=== PATIENT | female | born 1945 | race Caucasian/White ===

== ENCOUNTER 2018-03-19 17:52 | Inpatient (IN) | payer MEDICARE ==
[~2018-03-19] VITALS: Ht 157.5 cm; Wt 53.1 kg
[2018-03-19] MEDS ORDERED: MAG360OR24 PO (18:50)
[2018-03-19] MEDS ORDERED: DIVA250T6 PO (18:50)
[2018-03-19] MEDS ORDERED: QUET25TA5 PO (18:50)
[2018-03-19] MEDS ORDERED: BISA10SU2 RC (18:50)
[2018-03-19] MEDS ORDERED: ACET325T9 PO (18:50)
[2018-03-19] MEDS ORDERED: LORA0.5T PO (18:50)
[2018-03-19] MEDS ORDERED: ESCITALOPRAM OX10 MG PO (18:50)
[2018-03-19] MEDS ORDERED: TRAZ50TA15 PO (18:50)
[2018-03-19] MEDS ORDERED: ATOR40TA59 PO (18:50)
[2018-03-19] MEDS ORDERED: LISI10TA2 PO (18:50)
[2018-03-19] MEDS ORDERED: MELA3TAB2 PO (18:50)
--- NOTE | 2018-03-19 19:46 | NUR ---
Admission Note with Justification for Admission to [facility] Patient admitted to [facility] for protective oversight for emergency stabilization of acute psychiatric crisis. Pt admitted from: [place] Mode of arrival: EMS Accompanied By: EMS Precipitating behaviors that initiated intake and admission: altered mental status Description of failure of out patient attempts at stabilization in previous setting list behavior and medication trials: medication adjustments, sent to er Behaviors and assessment findings upon admission: calm cooperative, paranoid, disorganized, wandering Plan: Admit for protective oversight for adjustment and stabilization of medications, behaviors and mood. Intense treatment regimen including groups, medication adjustments, therapy, consistent regimen for ADL's, self care, and sleep hygiene. Daily monitoring by Inpatient staff, Psychiatry, and Medical Physician.
--- NOTE | 2018-03-19 21:00 | NUR ---
Behavior Intervention Response and Plan: BIRP Note: Behavior: Assumed Care of patient, patient located in Patient Room at shift change. Patient exhibited the following behavior Wandering, Restless, Disorganized. Brief assessment on rounds of vital signs, medication needs, lab studies, and pain. Treatment plan problems . Intervention: Patient assessed and the following interventions initiated safety checks 15 Minute Checks Cognitive Assessment , Head to toe Assessment , Medications. Response: After interactions and interventions patient responded in the following manner, Wandering , Restless ,Compliant. Continue to assess behaviors and condition will continue to monitor throughout the shift as needed. Patient educated on ADL's, and hand hygiene. 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 Continue to assess patient for changes in above assessment. Monitor for medication needs, pain, and safety concerns. Hourly rounding performed to ensure safe environment.
[2018-03-19] MEDS ORDERED: MAGNESIUM HYDROXIDE PO PRN (22:45)
[2018-03-19] MEDS ORDERED: ALUMINUM HYDROXIDE PO PRN (22:45)
[2018-03-19] MEDS ORDERED: SIMETHICONE PO PRN (22:45)
[2018-03-19] MEDS ORDERED: MAGNESIUM HYDROXIDE 2,400 MG/30 ML ORAL.SUSP. PO PRN (22:45)
[2018-03-19] MEDS ORDERED: MAG HYDROX/AL HYDROX/SIMETH 30 ML ORAL.SUSP PO PRN (22:45)
[2018-03-19] MEDS ORDERED: ACETAMINOPHEN 325 MG TABLET PO PRN ×2 (22:45)
[2018-03-19] MEDS ORDERED: METHYL SALICYLATE/MENTHOL TOPICAL OINTMENT 29GM TUBE. TP PRN (22:45)
[2018-03-19] MEDS ORDERED: BISACODYL 10 MG SUPP.RECT PR PRN (23:00)
[2018-03-19] MEDS ORDERED: LORazepam 0.5 MG TABLET PO PRN (23:15)
--- NOTE | 2018-03-19 23:15 | PDOC ---
Exam Note: Ye Note: Please also refer to the separate dictated note~for this date of service dictated separately.~Patient seen individually. Discussed the patient with Nursing staff reviewed the chart.~Reviewed interim history and current functioning. Reviewed vital signs,~Labs/ Radiology~and current medications noted below. Continue current treatment with the changes noted in the dictated addendum note Current Medications: Meds: Current Medications Acetaminophen (Tylenol) 650 mg PRN Q4HRS PRN PO pain rated 4-6 on scale; Start 03/19/18 at 22:45 Lisinopril (Prinivil) 10 mg DAILY PO ; Start 03/20/18 at 09:00 Atorvastatin Calcium (Lipitor) 40 mg QHS PO ; Start 03/20/18 at 21:00 Bisacodyl (Dulcolax Supp) 10 mg PRN QHS PRN [place] CONSTIPATION; Start 03/19/18 at 23:00 Non-Formulary Medication (Mag Hydrox/Al Hydrox/Simeth (Alum-Mag Hydroxide- Simeth Liq)) 240 ml PRN BID PRN PO GERD; Start 03/19/18 at 22:45; Status UNV Divalproex Sodium (Depakote) 250 mg BID PO ; Start 03/20/18 at 09:00 Citalopram Hydrobromide (CeleXA) 20 mg DAILY PO ; Start 03/20/18 at 09:00 Lorazepam (Ativan) 0.25 mg PRN BID PRN PO ANXIETY / AGITATION; Start 03/19/18 at 23:15 Melatonin 3 mg QHS PO ; Start 03/20/18 at 21:00 Quetiapine Fumarate (SEROquel) 37.5 mg TID PO ; Start 03/20/18 at 09:00 Trazodone HCl (Desyrel) 50 mg QHS PO ; Start 03/20/18 at 21:00 Acetaminophen (Tylenol) 650 mg PRN Q6HRS PRN PO PAIN / TEMP; Start 03/19/18 at 22:45 Multi-Ingredient Ointment (Analgesic [place]) 1 seth PRN QID PRN TP MUSCLE PAIN; Start 03/19/18 at 22:45 Al Hydroxide/Mg Hydroxide (Mylanta Plus Xs) 15 ml PRN AFTMEALHC PRN PO DYSPEPSIA; Start 03/19/18 at 22:45 Magnesium Hydroxide (Milk Of Magnesia) 2,400 mg PRN QHS PRN PO CONSTIPATION; Start 03/19/18 at 22:45 Active Scripts Active Reported Alum-Mag Hydroxide-Simeth Liq (Mag Hydrox/Al Hydrox/Simeth) 360 Ml Oral.susp 240 Ml PO PRN BID PRN Lorazepam 0.5 Mg Tablet 0.25 Mg PO PRN BID PRN Divalproex Sodium 250 Mg Tablet.dr 250 Mg PO BID Seroquel (Quetiapine Fumarate) 25 Mg Tablet 37.5 Mg PO TID Melatonin 3 Mg Tablet 3 Mg PO DAILY@0900 Trazodone Hcl 50 Mg Tablet 50 Mg PO QHS Lisinopril 10 Mg Tablet 10 Mg PO DAILY Atorvastatin Calcium 40 Mg Tablet 40 Mg PO DAILY Escitalopram Oxalate 10 Mg Tablet 10 Mg PO DAILY Bisacodyl 10 Mg Supp.rect 10 Mg RC PRN QHS PRN Tylenol (Acetaminophen) 325 Mg Tablet 650 Mg PO PRN Q4HRS PRN I have reviewed the current psychotropics carefully including drug interactions. Risk benefit ratio favors no change other than as noted in my dictated progress note. ELVA STROUD MD Mar 19, 2018 23:15
[2018-03-20 00:04] VITALS: BP 115/81
[2018-03-20] MEDS ORDERED: traZODone 50 MG TABLET. PO ONE (00:45)
[2018-03-20] MEDS ORDERED: MELATONIN 3 MG TABLET PO ONE (00:45)
[2018-03-20 05:45] VITALS: BP 124/67
[2018-03-20 08:30] LABS: BASO % 1 % (0-3); EOS # 0.3 x10^3/uL (0.0-0.7); EOS % 4 % (0-3); HEMOGLOBIN 12.6 g/dL (12.0-15.5); LYMPH % 31 % (24-48); MEAN CORPUSCULAR HEMOGLOBIN 29 pg (25-35); MEAN CORPUSCULAR HGB CONC 34 g/dL (31-37); MEAN CORPUSCULAR VOLUME 85 fL (79-100); MONO # 0.9 x10^3/uL (0.0-1.1); MONO % 14 % (0-9); NEUT # 3.2 x10^3uL (1.8-7.7); NEUT % 50 % (31-73); PLATELET COUNT 226 x10^3/uL (140-400); RED BLOOD COUNT 4.36 x10^6/uL (3.50-5.40); WHITE BLOOD COUNT 6.3 x10^3/uL (4.0-11.0)
[2018-03-20 08:51] LABS: ALBUMIN 3.7 g/dL (3.4-5.0); CALCIUM 9.4 mg/dL (8.5-10.1); CREATININE 0.8 mg/dL (0.6-1.0); GFR 70.5; POTASSIUM 4.4 mmol/L (3.5-5.1); TOTAL BILIRUBIN 0.7 mg/dL (0.2-1.0); TOTAL PROTEIN 7.4 g/dL (6.4-8.2)
[2018-03-20 08:52] LABS: VAL ACID 44 mcg/mL (50-100)
[2018-03-20] MEDS: QUEtiapine 25 MG TABLET. PO SCH ×3 (09:12→20:28)
[2018-03-20] MEDS: LISINOPRIL 10 MG TABLET PO SCH (09:12)
[2018-03-20] MEDS: CITALOPRAM 20 MG TABLET. PO SCH (09:12)
[2018-03-20] MEDS: DIVALPROEX SODIUM 250 MG TABLET.DR. PO SCH ×2 (09:12→20:26)
[2018-03-20 10:50] LABS: BACTERIA,URINE FEW /HPF (0-FEW); BILIRUBIN,URINE NEG (NEG); CLARITY,URINE HAZY; COLOR,URINE YELLOW; GLUCOSE,URINE NEG (NEG); NITRITE,URINE NEG (NEG); SQUAMOUS EPITHELIAL CELL,UR FEW /LPF; UROBILINOGEN,URINE 0.2 mg/dL (0.2 mg/dL)
--- NOTE | 2018-03-20 11:01 | NUR ---
Nursing Note: Pt compliant w/ medications and assess, alert to name, , not year. Anxious about what medications being given, asking many questions about side-effects of each to include BP med and how to prevent further decline in overall health. Pt wandering the unit carrying a paper bag, refused shower stating she is "not a pt here and doesn't need a shower" because she will not be staying.
[2018-03-20 11:56] LABS: THYROID STIM HORMONE (TSH) 4.626 uIU/mL (0.358-3.740)
[2018-03-20 13:14] LABS: THYROXINE 5.9 ug/dL (4.5-12.0)
--- NOTE | 2018-03-20 13:34 | NUR ---
Behavior Intervention Response and Plan: BIRP Note: Behavior: Assumed Care of patient, patient located in Patient Room at shift change. Patient exhibited the following behavior Anxious, Compliant, Restless. Brief assessment on rounds of vital signs, medication needs, lab studies, and pain. Treatment plan problems alteration in thought and fall risk. Intervention: Patient assessed and the following interventions initiated safety checks 15 Minute Checks Head to toe Assessment , Cognitive Assessment , Medications. Response: After interactions and interventions patient responded in the following manner, Restless , Compliant ,Anxious. Continue to assess behaviors and condition will continue to monitor throughout the shift as needed. Patient educated on ADL's, and hand hygiene. 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 Continue to assess patient for changes in above assessment. Monitor for medication needs, pain, and safety concerns. Hourly rounding performed to ensure safe environment.
--- NOTE | 2018-03-20 20:56 | PDOC ---
Exam Note: Ye Note: Please also refer to the separate dictated note~for this date of service dictated separately.~Patient seen individually. Discussed the patient with Nursing staff reviewed the chart.~Reviewed interim history and current functioning. Reviewed vital signs,~Labs/ Radiology~and current medications noted below. Continue current treatment with the changes noted in the dictated addendum note Assessment: Vital Signs: Vital Signs Date Time Temp Pulse Resp B/P (MAP) Pulse Ox O2 Delivery O2 Flow Rate FiO2 03/20/18 09:12 77 124/67 03/20/18 05:45 97.5 20 99 I&O Intake and Output 03/20/18 07:00 Intake Total 300 ml Balance 300 ml Intake Oral 300 ml Labs: Laboratory Tests Test 03/20/18 07:55 03/20/18 09:30 White Blood Count 6.3 x10^3/uL (4.0-11.0) Red Blood Count 4.36 x10^6/uL (3.50-5.40) Hemoglobin 12.6 g/dL (12.0-15.5) Hematocrit 37.0 % (36.0-47.0) Mean Corpuscular Volume 85 fL (79-100) Mean Corpuscular Hemoglobin 29 pg (25-35) Mean Corpuscular Hemoglobin Concent 34 g/dL (31-37) Red Cell Distribution Width 17.0 % (11.5-14.5) H Platelet Count 226 x10^3/uL (140-400) Neutrophils (%) (Auto) 50 % (31-73) Lymphocytes (%) (Auto) 31 % (24-48) Monocytes (%) (Auto) 14 % (0-9) H Eosinophils (%) (Auto) 4 % (0-3) H Basophils (%) (Auto) 1 % (0-3) Neutrophils # (Auto) 3.2 x10^3uL (1.8-7.7) Lymphocytes # (Auto) 2.0 x10^3/uL (1.0-4.8) Monocytes # (Auto) 0.9 x10^3/uL (0.0-1.1) Eosinophils # (Auto) 0.3 x10^3/uL (0.0-0.7) Basophils # (Auto) 0.0 x10^3/uL (0.0-0.2) Sodium Level 141 mmol/L (136-145) Potassium Level 4.4 mmol/L (3.5-5.1) Chloride Level 103 mmol/L (98-107) Carbon Dioxide Level 30 mmol/L (21-32) Anion Gap 8 (6-14) Blood Urea Nitrogen 27 mg/dL (7-20) H Creatinine 0.8 mg/dL (0.6-1.0) Estimated GFR (Cockcroft-Gault) 70.5 BUN/Creatinine Ratio 34 (6-20) H Glucose Level 91 mg/dL (70-99) Calcium Level 9.4 mg/dL (8.5-10.1) Iron Level 82 ug/dL (50-170) Total Iron Binding Capacity 372 ug/dL (250-450) Iron Saturation 22 % (15-34) Total Bilirubin 0.7 mg/dL (0.2-1.0) Aspartate Amino Transferase (AST) 19 U/L (15-37) Alanine Aminotransferase (ALT) 24 U/L (14-59) Alkaline Phosphatase 83 U/L (46-116) Total Protein 7.4 g/dL (6.4-8.2) Albumin 3.7 g/dL (3.4-5.0) Albumin/Globulin Ratio 1.0 (1.0-1.7) Triglycerides Level 136 mg/dL (0-150) Cholesterol Level 168 mg/dL (0-200) LDL Cholesterol, Calculated 85 mg/dL (0-100) VLDL Cholesterol, Calculated 27 mg/dL (0-40) Non-HDL Cholesterol Calculated 112 mg/dL (0-129) HDL Cholesterol 56 mg/dL (40-60) Cholesterol/HDL Ratio 3.0 Thyroid Stimulating Hormone (TSH) 4.626 uIU/mL (0.358-3.740) Thyroxine (T4) 5.9 ug/dL (4.5-12.0) Total Triiodothyronine (TT3) 111 ng/dL (71-180) Valproic Acid Level 44 mcg/mL (50-100) L Valproic Acid Last Dose Date 03/19/18 Valproic Acid Last Dose Time 0900 Treponema pallidum Antibody Neg (Nonreactive) Urine Collection Type Unknown Urine Color Yellow Urine Clarity Hazy Urine pH 6.0 Urine Specific [place] 1.020 Urine Protein Neg (NEG-TRACE) Urine Glucose (UA) Neg mg/dL (NEG) Urine Ketones (Stick) Neg mg/dL (NEG) Urine Blood Neg (NEG) Urine Nitrite Neg (NEG) Urine Bilirubin Neg (NEG) Urine Urobilinogen Dipstick 0.2 mg/dL (0.2 mg/dL) Urine Leukocyte Esterase Mod (NEG) Urine RBC 1-2 /HPF (0-2) Urine WBC 1-4 /HPF (0-4) Urine Squamous Epithelial Cells Few /LPF Urine Bacteria Few /HPF (0-FEW) Urine Mucus Slight /LPF Current Medications: Meds: Current Medications Acetaminophen (Tylenol) 650 mg PRN Q4HRS PRN PO pain rated 4-6 on scale; Start 03/19/18 at 22:45 Lisinopril (Prinivil) 10 mg DAILY PO Last administered on 03/20/18at 09:12; Start 03/20/18 at 09:00 Atorvastatin Calcium (Lipitor) 40 mg QHS PO Last administered on 03/20/18at 20:31 ; Start 03/20/18 at 21:00 Bisacodyl (Dulcolax Supp) 10 mg PRN QHS PRN [place] CONSTIPATION; Start 03/19/18 at 23:00 Non-Formulary Medication (Mag Hydrox/Al Hydrox/Simeth (Alum-Mag Hydroxide- Simeth Liq)) 240 ml PRN BID PRN PO GERD; Start 03/19/18 at 22:45; Status UNV Divalproex Sodium (Depakote) 250 mg BID PO Last administered on 03/20/18at 20:26 ; Start 03/20/18 at 09:00 Citalopram Hydrobromide (CeleXA) 20 mg DAILY PO Last administered on 03/20/18at 09:12; Start 03/20/18 at 09:00 Lorazepam (Ativan) 0.25 mg PRN BID PRN PO ANXIETY / AGITATION; Start 03/19/18 at 23:15 Melatonin 3 mg QHS PO Last administered on 03/20/18at 20:31; Start 03/20/18 at 21: 00 Quetiapine Fumarate (SEROquel) 37.5 mg TID PO Last administered on 03/20/18at 20: 28; Start 03/20/18 at 09:00 Trazodone HCl (Desyrel) 50 mg QHS PO Last administered on 03/20/18at 20:31; Start 03/20/18 at 21:00 Acetaminophen (Tylenol) 650 mg PRN Q6HRS PRN PO PAIN / TEMP; Start 03/19/18 at 22:45 Multi-Ingredient Ointment (Analgesic [place]) 1 seth PRN QID PRN TP MUSCLE PAIN; Start 03/19/18 at 22:45 Al Hydroxide/Mg Hydroxide (Mylanta Plus Xs) 15 ml PRN AFTMEALHC PRN PO DYSPEPSIA; Start 03/19/18 at 22:45 Magnesium Hydroxide (Milk Of Magnesia) 2,400 mg PRN QHS PRN PO CONSTIPATION; Start 03/19/18 at 22:45 Melatonin 3 mg 1X ONCE PO Last administered on 03/20/18at 00:57; Start 03/20/18 at 00:45; Stop 03/20/18 at 00:46; Status DC Trazodone HCl (Desyrel) 50 mg 1X ONCE PO Last administered on 03/20/18at 00:57; Start 03/20/18 at 00:45; Stop 03/20/18 at 00:46; Status DC Olanzapine (ZyPREXA ZYDIS) 2.5 mg PRN Q2HR PRN PO PSYCHOSIS; Start 03/20/18 at 03:45 Active Scripts Active Reported Alum-Mag Hydroxide-Simeth Liq (Mag Hydrox/Al Hydrox/Simeth) 360 Ml Oral.susp 240 Ml PO PRN BID PRN Lorazepam 0.5 Mg Tablet 0.25 Mg PO PRN BID PRN Divalproex Sodium 250 Mg Tablet.dr 250 Mg PO BID Seroquel (Quetiapine Fumarate) 25 Mg Tablet 37.5 Mg PO TID Melatonin 3 Mg Tablet 3 Mg PO DAILY@0900 Trazodone Hcl 50 Mg Tablet 50 Mg PO QHS Lisinopril 10 Mg Tablet 10 Mg PO DAILY Atorvastatin Calcium 40 Mg Tablet 40 Mg PO DAILY Escitalopram Oxalate 10 Mg Tablet 10 Mg PO DAILY Bisacodyl 10 Mg Supp.rect 10 Mg RC PRN QHS PRN Tylenol (Acetaminophen) 325 Mg Tablet 650 Mg PO PRN Q4HRS PRN I have reviewed the current psychotropics carefully including drug interactions. Risk benefit ratio favors no change other than as noted in my dictated progress note. Diagnosis: Problems: (1) Anxiety disorder (2) Dementia, vascular, with delusions (3) Dementia, vascular, with depression (4) Impulse control disorder (5) Dementia in Alzheimer's disease with delusions (6) Dementia in Alzheimer's disease with depression ELVA STROUD MD Mar 20, 2018 20:56
[2018-03-20] MEDS ORDERED: MELATONIN 3 MG TABLET PO SCH (21:00)
[2018-03-20] MEDS ORDERED: ATORVASTATIN CALCIUM 20 MG TABLET PO SCH (21:00)
[2018-03-20] MEDS ORDERED: traZODone 50 MG TABLET. PO SCH (21:00)
[2018-03-20] MEDS ORDERED: MIRTAZAPINE 7.5 MG TABLET. PO SCH (21:30)
[2018-03-20] MEDS ORDERED: traZODone 50 MG TABLET. PO PRN (21:30)
[2018-03-20 23:11] LABS: HEMOGLOBIN A1C 6.7 % (4.8-5.6)
--- NOTE | 2018-03-21 01:53 | NUR ---
Behavior Intervention Response and Plan: BIRP Note: Behavior: Assumed Care of patient, patient located in Day Room at shift change. Patient exhibited the following behavior Anxious, Compliant, Restless. Brief assessment on rounds of vital signs, medication needs, lab studies, and pain. Treatment plan problems alteration in thought and fall risk. Intervention: Patient assessed and the following interventions initiated safety checks 15 Minute Checks Head to toe Assessment , Cognitive Assessment , Medications. Response: After interactions and interventions patient responded in the following manner, Restless , Compliant ,Anxious. Continue to assess behaviors and condition will continue to monitor throughout the shift as needed. Patient educated on ADL's, and hand hygiene. Plan: Continue to monitor Master Treatment Plan for patient's progress toward short term goals of Decreased Agitation, Decreased Anxiety, senior living goals to return to previous living setting vs placement. Continue to assess patient for changes in above assessment. Monitor for medication needs, pain, and safety concerns. Hourly rounding performed to ensure safe environment. Pt put herself to bed and went to bed @930 pm stating she was very tired. Per report pt had not slept for at least 24 hours.
[2018-03-21 05:41] VITALS: BP 106/61
--- NOTE | 2018-03-21 09:51 | HP ---
ADMIT DATE: 03/20/2018 PSYCHIATRIC ADMISSION HISTORY/EVALUATION I met with the patient evening of 03/20/2018 for this evaluation, previously had discussed with nursing staff on a couple of occasions on 03/20/2018 and before that on 03/19/2018. The latter to evaluate information from the [facility] and [facility] Emergency Room to determine criteria for inpatient psychiatric hospitalization and arrange admission. IDENTIFYING DATA: The patient is a 72-year-old female referred to us from [facility] where she was hospitalized and medically stabilized after she was referred there from [facility]. While at [facility] the patient was getting increasingly agitated and on 03/19/2018 she threw a glass ways at the staff. She was increasingly confused, psychotic, manic, grandiose had not slept in 4 days before being taken to the ER and then referred to us for inpatient psychiatric stabilization. She does have a history of major neurocognitive disorder, Alzheimer, vascular with delusions. CHIEF COMPLAINT: "No. I am from [place]." HISTORY OF PRESENT ILLNESS: The patient has a history of dementia, Alzheimer's vascular type. Reportedly, she has been residing at [facility]. Recently getting more agitated, aggressive, disruptive, psychotic and dangerous. She threw glass ways at the staff is noted. Appeared quite psychotic, totally unmanageable at the facility resulting in the visit to the ER. No clear history of bipolar disorder, but she appeared somewhat manic and has not slept for 4 days as noted. PAST PSYCHIATRIC HISTORY: As above. MEDICAL HISTORY: Positive for hypertension, hyperlipidemia. DIET: Regular. CODE STATUS: Full code. ALLERGIES: AMOXIL. Ambulates up ad arcelia. culture is pending. CURRENT PSYCHOTROPICS: Ativan 0.25 mg b.i.d. p.r.n., Lexapro 10 mg a day, trazodone 50 mg at bedtime, Depakote 250 b.i.d., Seroquel 37.5 mg t.i.d., melatonin 3 mg at bedtime p.r.n. and added Zyprexa p.r.n. psychosis, agitation. FAMILY HISTORY: Noncontributory. SOCIAL HISTORY: No history of alcohol, drug abuse, physical, sexual or elder abuse. She is not known to be a perpetrator. REACTION TO HOSPITALIZATION: The patient oblivious of this assets, supportive living at the above facility. MENTAL STATUS EXAMINATION: The patient is oriented to herself. Insight, judgment, recent and remote memory, attention, concentration, fund of knowledge poor, consistent with her diagnoses. Speech is rapid, rambling and she followed me around the unit even after I met with her individually for the evaluation. She is quite oblivious of where she is, what she is doing, fixated that she is from [place]. IMPRESSION: Major neurocognitive disorder, Alzheimer, vascular with delusion, depression, behavioral disturbance; anxiety disorder, unspecified; impulse control disorder, unspecified. Rest as above. PLAN: Admit to Geropsychiatry Unit at [facility]. I will see the patient daily individually from a psychiatric standpoint, medical followup per Dr. Perkins/Dr. Ford. The patient slept very poorly the night before, none at all and will start Remeron 7.5 mg p.o. at bedtime to assist with this and trazodone 50 mg at bedtime p.r.n., may repeat x 1 for insomnia and maintain the rest of the psychotropics. Valproic acid level is 44, subtherapeutic and we may need to increase Depakote post baseline assessment. Estimated length of stay 10-12 days. Discharge plans will be back to [facility]. ELVA STROUD MD DR: CHARLOTTE/fanny JOB#: [id number] / [id number]
[2018-03-21 10:32] VITALS: BP 106/61
[2018-03-21] MEDS: DIVALPROEX SODIUM 250 MG TABLET.DR. PO SCH (10:32)
[2018-03-21] MEDS: QUEtiapine 25 MG TABLET. PO SCH ×2 (10:32→14:36)
[2018-03-21] MEDS: LISINOPRIL 10 MG TABLET PO SCH (10:32)
[2018-03-21] MEDS: CITALOPRAM 20 MG TABLET. PO SCH (10:33)
--- NOTE | 2018-03-21 11:08 | NUR ---
Nursing Note: Pt calm, compliant w/ medication and asses, no reports of pain.
--- NOTE | 2018-03-21 14:20 | CONS ---
DATE OF CONSULTATION: 03/20/2018 HISTORY OF PRESENT ILLNESS: The patient is a 72-year-old female patient, a resident at [facility], who was admitted on account of being psychotic, having manic type behavior. Apparently, had not slept in 4 days before taken to the Emergency Room. Throw glass ways at staff with increased confusion and all this in a background of major neurocognitive disorder with behavioral disturbances and was admitted here for inpatient psychiatric stabilization. She apparently wandered all night, agitated, delusional and did not sleep all night last night. PAST MEDICAL HISTORY: Significant for hypertension, hyperlipidemia. PAST PSYCHIATRIC HISTORY: Significant for dementia, anxiety with psychosis. ALLERGIES: She is allergic to AMOXICILLIN. MEDICATIONS: She is currently on atorvastatin calcium 40 mg at bedtime, lisinopril 10 mg once a day, Tylenol 650 mg every 4 hours, divalproex sodium 250 mg twice a day, escitalopram oxalate 10 mg daily, trazodone 50 mg at bedtime, quetiapine fumarate 37.5 mg 3 times a day, lorazepam 0.5 mg twice a day, Mylanta 15 mL twice a day, bisacodyl 10 mg suppository rectally as needed for constipation, melatonin 3 mg at bedtime. OBJECTIVE: GENERAL: On examining her, she looked well and was clearly in no apparent respiratory distress, pale. No pallor, jaundice, cyanosis, or thyromegaly. No jugular venous distension. No limb edema. VITAL SIGNS: Her heart rate was 77, blood pressure was 124/67, temperature was 97.5, respiratory rate 20, and oxygen saturation was 99%. HEAD, EYES, EARS, NOSE AND THROAT: Showed normocephalic, atraumatic. NECK: Supple. HEART: Showed normal first and second sounds. No gallop, rub or murmur. CHEST: Clear to auscultation. No crepitation or rhonchi. ABDOMEN: Distended, soft. No guarding or rigidity. No organomegaly. All hernial orifice intact. Bowel sounds normal. NEUROLOGIC: She is awake, alert. All her cranial nerves are intact. EXTREMITIES: She moves extremities without difficulty. She ambulates without assistance or assistive devices. LABORATORY DATA: On admission showed a white cell count of 6300, hemoglobin 12.6, hematocrit 37, MCV 85 and platelet count 226,000. Her chemistry showed a serum sodium 141, potassium 4.4, chloride 103, bicarbonate 20, anion gap of 8, BUN 27, creatinine 0.8, estimated GFR was 70 mL per minute. Her glucose was 91, calcium was 9.4. Her serum iron was 82, TIBC was 372, percent saturation was 72. Her total bilirubin, AST, ALT, alkaline phosphatase were normal. Total protein 7.4, albumin 3.7, triglycerides 136, total cholesterol 168, LDL cholesterol was 85, VLDL was 27, HDL cholesterol 56 and cholesterol to HDL cholesterol ratio was 3. Her TSH slightly elevated at 4.6, however, total T4 and total T3 are within normal range. Her urinalysis showed the urine was hazy yellow with a pH of 6, specific gravity of 1.020. The urine was negative for protein, glucose, ketones, blood, nitrite. There is moderate amount of leukocyte esterase. There are 1-2 rbc's, 1-4 wbc's, very few bacteria. Her urine toxicology showed that her valproic acid was 44 mcg/mL in the normal range 50-100. ASSESSMENT AND PLAN: In summary, this is a 72-year-old female patient, who was admitted on account of increased confusion psychotic or manic type behavior. The patient has not slept in 4 days before being taken to the ER. She threw glass ways at the staff, all this in a background of major neurocognitive disorder with behavioral disturbances. Medically, she is known to have high blood pressure and hyperlipidemia. All her vital signs and her lab works are mostly within acceptable range and all in all she seemed to be medically stable. I am just concerned about the prominent telangiectasia on her face as noted has some underlying autoimmune disease like to have scleroderma. I will arrange for her to check her sed rate and C-reactive protein as screening and decide on further management accordingly. Thank you, Dr. Grayson for allowing me to participate in the care of this patient. MARY TATUM MD DR: MARKIE/fanny JOB#: [id number] / [id number]
--- NOTE | 2018-03-21 15:23 | NUR ---
Behavior Intervention Response and Plan: BIRP Note: Behavior: Assumed Care of patient, patient located in Dining Room at shift change. Patient exhibited the following behavior Calm, Compliant, Compliant. Brief assessment on rounds of vital signs, medication needs, lab studies, and pain. Treatment plan problems alteration in thought and fall risk. Intervention: Patient assessed and the following interventions initiated safety checks 15 Minute Checks Cognitive Assessment , Head to toe Assessment , Medications. Response: After interactions and interventions patient responded in the following manner, Calm , Compliant ,Cooperative. Continue to assess behaviors and condition will continue to monitor throughout the shift as needed. Patient educated on ADL's, and hand hygiene. Plan: Continue to monitor Master Treatment Plan for patient's progress toward short term goals of Decreased Agitation, Decreased Aggression, terminal gauger goals to return to previous living setting vs placement. Continue to assess patient for changes in above assessment. Monitor for medication needs, pain, and safety concerns. Hourly rounding performed to ensure safe environment.
--- NOTE | 2018-03-21 15:30 | NUR ---
pt ambulating in [place]. had taken off pants. VEGETABLE WASHER attempted to put pants on when pt started to fall to floor. pt caught by staff. pt passed out in staff arms. pt very diaphoretic. skin pale. limp. Called for EKG. BP initially 87/53, 71, 95%, 97.9. rechecked 76/48. rechecked manually and was 64/40, P 75, sats 93%. pt now minimally responsive to staff. BS 151. Was unable to do orthostatic BP as machine would not register. Dr moreno notified. Order to give 500cc NS. IV started RAC with 20gauge. 2 attempts tiffanie. Order to dc to medical floor.
--- NOTE | 2018-03-21 16:10 | NUR ---
pt transferred to ICU4 via wc. accompanied by staff. NS saline running wide open. BP 64/40.
--- NOTE | 2018-03-21 16:15 | NUR ---
Transition Record was faxed to follow-up provider with the following elements: Reason for admission, procedures, tests, principal diagnosis, pending studies, patient instructions, 04/05 contact information for unit, phone number to obtain pending test results, plan for follow-up care, physician follow-up, advanced directive information, and medication list with dose, duration and instructions. This information was included in the following documents: History and physical, lab results, study results, progress notes, social work planning form, DC instruction form, patient visit summary, and medication reconciliation form. Date & time record faxed:03/21/18 Record faxed to:ICU BED 4 Record discussed with/ report given to:NADIR DELUNA
--- NOTE | 2018-03-21 16:53 | EKG ---
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
--- NOTE | 2018-03-21 18:59 | PDOC ---
Exam Note: Ye Note: Please also refer to the separate dictated note~for this date of service dictated separately.~Patient seen individually. Discussed the patient with Nursing staff reviewed the chart.~Reviewed interim history and current functioning. Reviewed vital signs,~Labs/ Radiology~and current medications noted below. Continue current treatment with the changes noted in the dictated addendum note Assessment: Vital Signs: Vital Signs Date Time Temp Pulse Resp B/P (MAP) Pulse Ox O2 Delivery O2 Flow Rate FiO2 03/21/18 10:32 77 106/61 03/21/18 05:41 97.6 16 95 I&O Intake and Output 03/21/18 07:00 Intake Total 1200 ml Balance 1200 ml Intake Oral 1200 ml Current Medications: Meds: Current Medications Acetaminophen (Tylenol) 650 mg PRN Q4HRS PRN PO pain rated 4-6 on scale; Start 03/19/18 at 22:45; Stop 03/21/18 at 16:32; Status DC Lisinopril (Prinivil) 10 mg DAILY PO Last administered on 03/21/18at 10:32; Start 03/20/18 at 09:00; Stop 03/21/18 at 16:32; Status DC Atorvastatin Calcium (Lipitor) 40 mg QHS PO Last administered on 03/20/18at 20:31 ; Start 03/20/18 at 21:00; Stop 03/21/18 at 16:32; Status DC Bisacodyl (Dulcolax Supp) 10 mg PRN QHS PRN [place] CONSTIPATION; Start 03/19/18 at 23:00; Stop 03/21/18 at 16:32; Status DC Non-Formulary Medication (Mag Hydrox/Al Hydrox/Simeth (Alum-Mag Hydroxide- Simeth Liq)) 240 ml PRN BID PRN PO GERD; Start 03/19/18 at 22:45; Status UNV Divalproex Sodium (Depakote) 250 mg BID PO Last administered on 03/21/18at 10:32 ; Start 03/20/18 at 09:00; Stop 03/21/18 at 16:32; Status DC Citalopram Hydrobromide (CeleXA) 20 mg DAILY PO Last administered on 03/21/18at 10:33; Start 03/20/18 at 09:00; Stop 03/21/18 at 16:32; Status DC Lorazepam (Ativan) 0.25 mg PRN BID PRN PO ANXIETY / AGITATION; Start 03/19/18 at 23:15; Stop 03/21/18 at 16:32; Status DC Melatonin 3 mg QHS PO Last administered on 03/20/18at 20:31; Start 03/20/18 at 21: 00; Stop 03/21/18 at 16:32; Status DC Quetiapine Fumarate (SEROquel) 37.5 mg TID PO Last administered on 03/21/18at 14 :36; Start 03/20/18 at 09:00; Stop 03/21/18 at 16:32; Status DC Trazodone HCl (Desyrel) 50 mg QHS PO Last administered on 03/20/18at 20:31; Start 03/20/18 at 21:00; Stop 03/21/18 at 16:32; Status DC Acetaminophen (Tylenol) 650 mg PRN Q6HRS PRN PO PAIN / TEMP; Start 03/19/18 at 22:45; Stop 03/20/18 at 21:56; Status DC Multi-Ingredient Ointment (Analgesic [place]) 1 seth PRN QID PRN TP MUSCLE PAIN; Start 03/19/18 at 22:45; Stop 03/21/18 at 16:32; Status DC Al Hydroxide/Mg Hydroxide (Mylanta Plus Xs) 15 ml PRN AFTMEALHC PRN PO DYSPEPSIA; Start 03/19/18 at 22:45; Stop 03/21/18 at 16:32; Status DC Magnesium Hydroxide (Milk Of Magnesia) 2,400 mg PRN QHS PRN PO CONSTIPATION; Start 03/19/18 at 22:45; Stop 03/21/18 at 16:32; Status DC Melatonin 3 mg 1X ONCE PO Last administered on 03/20/18at 00:57; Start 03/20/18 at 00:45; Stop 03/20/18 at 00:46; Status DC Trazodone HCl (Desyrel) 50 mg 1X ONCE PO Last administered on 03/20/18at 00:57; Start 03/20/18 at 00:45; Stop 03/20/18 at 00:46; Status DC Olanzapine (ZyPREXA ZYDIS) 2.5 mg PRN Q2HR PRN PO PSYCHOSIS; Start 03/20/18 at 03:45; Stop 03/21/18 at 16:32; Status DC Mirtazapine (Remeron) 7.5 mg QHS PO ; Start 03/20/18 at 21:30; Stop 03/21/18 at 16:32; Status DC Trazodone HCl (Desyrel) 50 mg PRN QHS PRN PO INSOMNIA; Start 03/20/18 at 21:30; Stop 03/21/18 at 16:32; Status DC Active Scripts Active Reported Alum-Mag Hydroxide-Simeth Liq (Mag Hydrox/Al Hydrox/Simeth) 360 Ml Oral.susp 240 Ml PO PRN BID PRN Lorazepam 0.5 Mg Tablet 0.25 Mg PO PRN BID PRN Divalproex Sodium 250 Mg Tablet.dr 250 Mg PO BID Seroquel (Quetiapine Fumarate) 25 Mg Tablet 37.5 Mg PO TID Melatonin 3 Mg Tablet 3 Mg PO DAILY@0900 Trazodone Hcl 50 Mg Tablet 50 Mg PO QHS Lisinopril 10 Mg Tablet 10 Mg PO DAILY Atorvastatin Calcium 40 Mg Tablet 40 Mg PO DAILY Escitalopram Oxalate 10 Mg Tablet 10 Mg PO DAILY Bisacodyl 10 Mg Supp.rect 10 Mg RC PRN QHS PRN Tylenol (Acetaminophen) 325 Mg Tablet 650 Mg PO PRN Q4HRS PRN I have reviewed the current psychotropics carefully including drug interactions. Risk benefit ratio favors no change other than as noted in my dictated progress note. Diagnosis: Problems: (1) Dementia in Alzheimer's disease with delusions (2) Dementia in Alzheimer's disease with depression (3) Dementia, vascular, with delusions (4) Dementia, vascular, with depression (5) Impulse control disorder (6) Anxiety disorder ELVA STROUD MD Mar 21, 2018 18:59
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
== END 2018-03-21 16:10 | disposition short-term general hospital (02) | DRG 57 ==
LOC: EEVIPCON → GEROPSY 19:50
PROVIDERS: ADMIT Psychiatry & Neurology Psychiatry; ATTEND Psychiatry & Neurology Psychiatry
DX: G30.9 Alzheimer's disease, unspecified (principal); F01.51 Vascular dementia, unspecified severity, with behavioral disturbance; F02.81 Dementia in other diseases classified elsewhere, unspecified severity, with behavioral disturbance; E78.5 Hyperlipidemia, unspecified; F32.9 Major depressive disorder, single episode, unspecified; F63.9 Impulse disorder, unspecified; F41.9 Anxiety disorder, unspecified; I10 Essential (primary) hypertension; M34.9 Systemic sclerosis, unspecified; Z88.1 Allergy status to other antibiotic agents; Z79.899 Other long term (current) drug therapy
CPT/HCPCS: 36415; 80053; 80061; 80164; 81001; 82306; 82607; 82947; 83036; 83540; 83550; 84436; 84443; 84480; 85025; 86592; 87086; 93005

== ENCOUNTER 2018-03-21 16:35 | Inpatient (IN) | payer MEDICARE ==
[~2018-03-21] VITALS: Ht 157.5 cm; Wt 55.6 kg
[~2018-03-21 16:35] MED LIST: ACET325T9 PO; ATOR40TA59 PO; BISA10SU2 RC; DIVA250T6 PO; ESCITALOPRAM OX10 MG PO; LISI10TA2 PO; LORA0.5T PO; MAG360OR24 PO; MELA3TAB2 PO; QUET25TA5 PO; TRAZ50TA15 PO
[2018-03-21 17:11] LABS: HEMATOCRIT 35.2 % (36.0-47.0); HEMOGLOBIN 11.7 g/dL (12.0-15.5); RED BLOOD COUNT 4.07 x10^6/uL (3.50-5.40); RED CELL DISTRIBUTION WIDTH 17.3 % (11.5-14.5); WHITE BLOOD COUNT 5.5 x10^3/uL (4.0-11.0)
[2018-03-21 17:24] LABS: ALBUMIN 2.9 g/dL (3.4-5.0); ALBUMIN/GLOBULIN RATIO 0.9 (1.0-1.7); CALCIUM 8.2 mg/dL (8.5-10.1); CREATININE 1.1 mg/dL (0.6-1.0); GFR 48.8; POTASSIUM 3.7 mmol/L (3.5-5.1); TOTAL BILIRUBIN 0.8 mg/dL (0.2-1.0)
[2018-03-21] MEDS ORDERED: ACETAMINOPHEN 325 MG TABLET PO PRN (17:30)
[2018-03-21] MEDS ORDERED: MAGNESIUM HYDROXIDE 2,400 MG/30 ML ORAL.SUSP. PO PRN (17:30)
[2018-03-21] MEDS ORDERED: METHYL SALICYLATE/MENTHOL TOPICAL OINTMENT 29GM TUBE. TP PRN (17:30)
[2018-03-21] MEDS ORDERED: BISACODYL 10 MG SUPP.RECT PR PRN (17:45)
[2018-03-21] MEDS ORDERED: MAG HYDROX/AL HYDROX/SIMETH 30 ML ORAL.SUSP PO PRN (17:45)
[2018-03-21 17:58] VITALS: BP 114/49
--- NOTE | 2018-03-21 18:36 | NUR ---
The patient, MARKY RETANA, 72 y/o, F admitted by MARY TATUM MD, was given written information regarding hospital policies, unit procedures and contact persons. Valuables were checked and left in room. Pt was admitted to ICU from [facility]. Pt had a syncopal episode this afternoon; she passed out, was lowered to the floor by a GRINDER, vital signs showed that she was hypotensive. Pt was brought to the unit by GRINDER via wheelchair. Pt is alert to herself only; her primary language is Mexican and she will start speaking in Mexican instead of Maltese. Pt has been pleasant and cooperative with assessments and cares so far this shift.
[2018-03-21 20:00] VITALS: BP 85/42
[2018-03-21 21:00] VITALS: BP 84/50
[2018-03-21] MEDS: MELATONIN 3 MG TABLET PO SCH (21:03)
[2018-03-21] MEDS: QUEtiapine 25 MG TABLET. PO SCH (21:03)
[2018-03-21] MEDS: ENOXAPARIN 40 MG/0.4 ML SYRINGE. SQ SCH (21:03)
[2018-03-21] MEDS: ATORVASTATIN CALCIUM 20 MG TABLET PO SCH (21:03)
[2018-03-21] MEDS: traZODone 50 MG TABLET. PO SCH (21:03)
[2018-03-21] MEDS: DIVALPROEX SODIUM 250 MG TABLET.DR. PO SCH (21:03)
[2018-03-22] VITALS (17 sets, daily range): BP systolic 68–142; BP diastolic 33–75
--- NOTE | 2018-03-22 01:56 | HP ---
ADMIT DATE: 03/21/2018 HISTORY OF PRESENT ILLNESS: The patient is a 72-year-old female patient who was admitted recently [facility] on the account of being psychotic, having manic type behavior. Apparently, has not slept in 4 days and before taken to the Emergency Room threw a glassware at the staff with increased confusion and all of this in the background of major neurocognitive disorder with behavioral disturbances. She was seen in the [facility] of [facility] and from there she was admitted [facility] for inpatient psychiatric stabilization. Apparently, she was walking in the corridor, took her pants and APPLIED RESEARCH DIRECTOR was trying to help her to get her back to pick her pant, the patient staggered into the wall and then the APPLIED RESEARCH DIRECTOR managed to catch her before she hit the ground. By the time she was on the floor her systolic pressure was only 60 and heart rate was 70. There is no head trauma and the patient denied any chest pain or shortness of breath and IV line was put in and started on IV fluid and was transferred to ICU for further evaluation and treatment. PAST MEDICAL HISTORY: Significant for hypertension, hyperlipidemia, a question of rosacea. PAST PSYCHIATRIC HISTORY: Significant for dementia, anxiety and psychosis. ALLERGIES: SHE IS ALLERGIC TO AMOXICILLIN. MEDICATIONS: She is currently on atorvastatin calcium 40 mg at bedtime, lisinopril 10 mg once a day, Tylenol 650 mg every 4 hours, divalproex sodium 250 mg twice a day, escitalopram oxalate 10 mg daily, trazodone 50 mg at bedtime, quetiapine fumarate 37.5 mg 3 times a day, lorazepam 0.5 mg twice a day, Mylanta 15 mL twice a day, bisacodyl 10 mg suppositories rectally as needed and melatonin 3 mg at bedtime. PHYSICAL EXAMINATION: GENERAL: The patient was actually brought in with IV fluids infusing in a wheelchair. She was able to stand and by the time she was on bed, she was awake, alert, denied any complaint. Her systolic pressure was 100. VITAL SIGNS: Her heart rate was 78, blood pressure ____, respiratory rate was 13, and oxygen saturation was 96% on room air. HEENT: Showed normocephalic, atraumatic. NECK: Supple. HEART: Showed normal first and second sounds. No gallop, rub or murmur. CHEST: Shows central trachea, equal bilateral expansion, air entry, vesicular sounds. No crepitation or rhonchi. ABDOMEN: Distended, soft, nontender. No guarding or rigidity. No organomegaly. Hernial orifices intact. Bowel sounds normal. NEUROLOGIC: She has obviously severe neurodegenerative disease but all her cranial nerves intact. EXTREMITIES: She moves extremities without difficulty. The patient was admitted to the ICU with diagnosis of syncopal episode. We will do stat lab work. She had an EKG done, which showed that she was in sinus rhythm with no evidence of ST segment elevation or depression and no arrhythmias. We will arrange for her to have a stat CBC, CMP and troponin. We will give her a bolus of IV fluid. We will decide on further management. We will check her orthostatic and I will hold her lisinopril for now and decide on further management accordingly. MARY TATUM MD DR: MARKIE/fanny JOB#: [id number] / [id number]
[2018-03-22 06:35] LABS: HEMATOCRIT 34.4 % (36.0-47.0); HEMOGLOBIN 11.4 g/dL (12.0-15.5); RED CELL DISTRIBUTION WIDTH 17.2 % (11.5-14.5); WHITE BLOOD COUNT 5.6 x10^3/uL (4.0-11.0)
[2018-03-22] MEDS: IV NORMAL SALINE 1,000ML 1,000 ML IV SCH ×4 (06:39→23:28)
[2018-03-22 06:50] LABS: ALBUMIN 2.7 g/dL (3.4-5.0); ALBUMIN/GLOBULIN RATIO 0.9 (1.0-1.7); CALCIUM 8.5 mg/dL (8.5-10.1); CREATININE 0.9 mg/dL (0.6-1.0); GFR 61.5; POTASSIUM 4.2 mmol/L (3.5-5.1); TOTAL BILIRUBIN 0.8 mg/dL (0.2-1.0); TOTAL PROTEIN 5.7 g/dL (6.4-8.2)
[2018-03-22] MEDS: QUEtiapine 25 MG TABLET. PO SCH ×3 (07:39→20:25)
[2018-03-22] MEDS: CITALOPRAM 20 MG TABLET. PO SCH (07:39)
[2018-03-22] MEDS: DIVALPROEX SODIUM 250 MG TABLET.DR. PO SCH ×2 (07:39→20:24)
--- NOTE | 2018-03-22 09:01 | RAD ---
EXAM: Carotid Doppler sonogram. HISTORY: Syncope. TECHNIQUE: Jc scale and color Doppler sonographic evaluation of the neck with spectral waveform analysis was performed and static images are submitted for review. FINDINGS: There is mild atherosclerotic plaque within the bilateral internal carotid arteries and the left common carotid artery. The peak systolic velocity within the right common carotid artery is 105 cm/sec. The peak systolic velocity within the right internal carotid artery is 82 cm/sec and the end diastolic velocity within the right internal carotid artery is 21 cm/sec. The peak systolic velocity within the left common carotid artery is 106 cm/sec. The proximal left internal carotid artery is obscured due to calcified atherosclerotic plaque. The peak systolic velocity within the distal left internal carotid artery is 97 cm/sec and the end diastolic velocity within the left internal carotid artery is 29 cm/sec. There is normal antegrade flow within both vertebral arteries. IMPRESSION: No Doppler evidence of hemodynamically significant stenosis within the carotid or vertebral arteries. The proximal left internal carotid artery is obscured due to shadowing from calcified atherosclerotic plaque. PQRS Compliance Statement - Stenosis calculations for CT, MR and conventional angiography are based upon measurement of the distal ICA diameter in accordance with the NASCET methodology. Stenosis calculations for carotid ultrasound studies are derived from validated velocity criteria which are known to correlate with the NASCET methodology. Electronically signed by: Ally March MD (03/22/2018 8:57 AM) [place] [id number]
--- NOTE | 2018-03-22 15:05 | PDOC2 ---
CONSULT Date of Admission DATE: 03/22/18 TIME: 15:04 Reason for Consult: Hypotension, orthostasis Referring Physician: Dr. Perkins Chief Complaint Mental status changes Source: Chart review, Patient History of Present Illness 72-year-old female who was recently [facility] was transferred to ICU after she had an episode of syncope with low blood pressure with systolic 60 bpm. She presently feels better. She is not a very good historian but denied any chest pain, dizziness or any previous episodes of syncope. Past Medical History Hypertension Hyperlipidemia Psychosis Dementia Anxiety disorder Family History not contributory Social History Patient is a nonsmoker and a nondrinker Current Medications Current Medications Acetaminophen (Tylenol) 650 mg PRN Q4HRS PRN PO pain rated 4-6 on scale; Start 03/21/18 at 17:30 Atorvastatin Calcium (Lipitor) 40 mg QHS PO Last administered on 03/21/18at 21: 03; Start 03/21/18 at 21:00 Bisacodyl (Dulcolax Supp) 10 mg PRN QHS PRN [place] CONSTIPATION; Start 03/21/18 at 17:45 Divalproex Sodium (Depakote) 250 mg BID PO Last administered on 03/22/18at 07:39 ; Start 03/21/18 at 21:00 Lorazepam (Ativan) 0.25 mg PRN BID PRN PO ANXIETY / AGITATION; Start 03/21/18 at 17:45 Al Hydroxide/Mg Hydroxide (Mylanta Plus Xs) 30 ml PRN BID PRN PO DYSPEPSIA; Start 03/21/18 at 17:45 Melatonin 3 mg QHS PO Last administered on 03/21/18at 21:03; Start 03/21/18 at 21:00 Quetiapine Fumarate (SEROquel) 37.5 mg TID PO Last administered on 03/22/18at 07 :39; Start 03/21/18 at 21:00 Trazodone HCl (Desyrel) 50 mg QHS PO Last administered on 03/21/18at 21:03; Start 03/21/18 at 21:00 Citalopram Hydrobromide (CeleXA) 20 mg DAILY PO Last administered on 03/22/18at 07:39; Start 03/22/18 at 09:00 Magnesium Hydroxide (Milk Of Magnesia) 2,400 mg PRN DAILY PRN PO CONSTIPATION, 2ND CHOICE; Start 03/21/18 at 17:30 Multi-Ingredient Ointment (Analgesic [place]) 1 seth PRN QID PRN TP MUSCLE PAIN; Start 03/21/18 at 17:30 Olanzapine (ZyPREXA ZYDIS) 2.5 mg PRN Q2HR PRN PO AGITATION; Start 03/21/18 at 17:30 Sodium Chloride 1,000 ml @ 200 mls/hr Q5H IV Last administered on 03/22/18at 14 :25; Start 03/21/18 at 18:45 Enoxaparin Sodium (Lovenox 40mg Syringe) 40 mg Q24H SQ Last administered on 07/29at 21:03; Start 03/21/18 at 21:00 Hydrocortisone (Cortaid) 1 seth BID66 TP ; Start 03/22/18 at 18:00; Stop at 18:00; Status DC Hydrocortisone (Cortaid) 1 seth BID TP ; Start 03/22/18 at 21:00 Active Scripts Active Reported Alum-Mag Hydroxide-Simeth Liq (Mag Hydrox/Al Hydrox/Simeth) 360 Ml Oral.susp 240 Ml PO PRN BID PRN Lorazepam 0.5 Mg Tablet 0.25 Mg PO PRN BID PRN Divalproex Sodium 250 Mg Tablet.dr 250 Mg PO BID Seroquel (Quetiapine Fumarate) 25 Mg Tablet 37.5 Mg PO TID Melatonin 3 Mg Tablet 3 Mg PO DAILY@0900 Trazodone Hcl 50 Mg Tablet 50 Mg PO QHS Lisinopril 10 Mg Tablet 10 Mg PO DAILY Atorvastatin Calcium 40 Mg Tablet 40 Mg PO DAILY Escitalopram Oxalate 10 Mg Tablet 10 Mg PO DAILY Bisacodyl 10 Mg Supp.rect 10 Mg RC PRN QHS PRN Tylenol (Acetaminophen) 325 Mg Tablet 650 Mg PO PRN Q4HRS PRN Allergies: Coded Allergies: amoxicillin (Verified Allergy, Intermediate, 03/22/18) Eyes: No: Loss of vision HEENT: No: Epistaxis Respiratory: No: Cough, Hemoptysis Cardiovascular: No: Chest Pain, Palpitations Genitourinary: No: [place] Neurological: No: Seizures Skin: No: Rash General: No acute distress HEENT: Atraumatic, PERRLA Lungs: Clear to auscultation Heart: Regular rate Abdomen: Soft Neuro: Normal tone VITALS Vital Signs Date Time Temp Pulse Resp B/P (MAP) Pulse Ox O2 Delivery O2 Flow Rate FiO2 03/22/18 13:48 91 18 68/33 (45) 91 Room Air 03/22/18 13:46 98.4 Labs Laboratory Tests Test 03/21/18 16:55 03/22/18 05:39 White Blood Count 5.5 x10^3/uL (4.0-11.0) 5.6 x10^3/uL (4.0-11.0) Red Blood Count 4.07 x10^6/uL (3.50-5.40) 4.00 x10^6/uL (3.50-5.40) Hemoglobin 11.7 g/dL (12.0-15.5) 11.4 g/dL (12.0-15.5) Hematocrit 35.2 % (36.0-47.0) 34.4 % (36.0-47.0) Mean Corpuscular Volume 86 fL (79-100) 86 fL (79-100) Mean Corpuscular Hemoglobin 29 pg (25-35) 29 pg (25-35) Mean Corpuscular Hemoglobin Concent 33 g/dL (31-37) 33 g/dL (31-37) Red Cell Distribution Width 17.3 % (11.5-14.5) 17.2 % (11.5-14.5) Platelet Count 188 x10^3/uL (140-400) 195 x10^3/uL (140-400) Sodium Level 142 mmol/L (136-145) 144 mmol/L (136-145) Potassium Level 3.7 mmol/L (3.5-5.1) 4.2 mmol/L (3.5-5.1) Chloride Level 108 mmol/L (98-107) 109 mmol/L (98-107) Carbon Dioxide Level 29 mmol/L (21-32) 31 mmol/L (21-32) Anion Gap 5 (6-14) 4 (6-14) Blood Urea Nitrogen 27 mg/dL (7-20) 32 mg/dL (7-20) Creatinine 1.1 mg/dL (0.6-1.0) 0.9 mg/dL (0.6-1.0) Estimated GFR (Cockcroft-Gault) 48.8 61.5 BUN/Creatinine Ratio 25 (6-20) 36 (6-20) Glucose Level 127 mg/dL (70-99) 94 mg/dL (70-99) Calcium Level 8.2 mg/dL (8.5-10.1) 8.5 mg/dL (8.5-10.1) Total Bilirubin 0.8 mg/dL (0.2-1.0) 0.8 mg/dL (0.2-1.0) Aspartate Amino Transf (AST/SGOT) 18 U/L (15-37) 14 U/L (15-37) Alanine Aminotransferase (ALT/SGPT) 20 U/L (14-59) 17 U/L (14-59) Alkaline Phosphatase 70 U/L (46-116) 66 U/L (46-116) Troponin I Quantitative < 0.017 ng/mL (0-0.055) < 0.017 ng/mL (0-0.055) Total Protein 6.0 g/dL (6.4-8.2) 5.7 g/dL (6.4-8.2) Albumin 2.9 g/dL (3.4-5.0) 2.7 g/dL (3.4-5.0) Albumin/Globulin Ratio 0.9 (1.0-1.7) 0.9 (1.0-1.7) Assessment/Plan 1. Syncope: Most probably secondary to hypovolemia/orthostasis. Agree with intravenous fluid bolus. 2-D echo showed normal LV function without any significant structural abnormalities. If orthostatic hypotension does not improve with correcting hypovolemia, we will consider the diagnosis of autonomic dysfunction most probably medication induced. Telemetry did not show any significant arrhythmias. 2. Hypertension: Controlled 3. Hyperlipidemia: Continue statin therapy Thank you for your consultation NAOMIE HUANG MD Mar 22, 2018 15:05
[2018-03-22] MEDS: LORazepam 0.5 MG TABLET PO PRN (15:36)
--- NOTE | 2018-03-22 15:46 | NUR ---
Pt yelling for help, bed alarm did not go off, pt slipped out of bottom of bed and had IV pulled out and blood dripping everywhere. PT reported she did not know where she was. PT reoriented and cleaned up. Jessee DELUNA
--- NOTE | 2018-03-22 15:48 | NUR ---
PT starting to get angry and not know why she is in the hospital. PT stating she needs to catch her flight to . PT also starting to speak in [place]. PT confused and continue to reorient. Jessee DELUNA
--- NOTE | 2018-03-22 16:18 | CARD ---
MR#: [id number] Date of Study: 03/22/2018 Ordering Physician: TITO DESOUZA, Referring Physician: MARY TATUM Tech: ENE Swanson APPROVED REPORT EXAM: Two-dimensional and M-mode echocardiogram with Doppler and color Doppler. Other Information Quality : GoodHR: 77bpm INDICATION Syncope 2D DIMENSIONS RVDd3.2 (2.9-3.5cm)Left Atrium(2D)2.4 (1.6-4.0cm) IVSd1.0 (0.7-1.1cm)Aortic Root(2D)3.0 (2.0-3.7cm) LVDd4.6 (3.9-5.9cm)LVOT Diameter2.0 (1.8-2.4cm) PWd1.0 (0.7-1.1cm)LVDs2.1 (2.5-4.0cm) FS (%) 54.4 %SV81.6 ml Aortic Valve AoV Peak Ernie.134.6cm/sAoV VTI30.8cm AO Peak GR.7.2mmHgLVOT Peak Ernie.111.0cm/s LVOT VTI 26.13cmAO Mean GR.4mmHg BRADLEY (VMAX)2.06rq4BHI (VTI)2.57cm2 Mitral Valve MV E Piheiqre70.9cm/sMV DECEL [id number] MV A Wciozjtz11.6cm/sE/A Ratio1.2 Pulmonary Valve PV Peak Nevizdah23.4cm/sPV Peak Grad.3mmHg Tricuspid Valve TR P. Ohdrzrnm717ft/sRAP LFSVNJRV3ugGh TR Peak Gr.92ltUoFRME15taVy Pulmonary Vein S1 Oqscwgzg68.6cm/sD2 Kegedoer99.7cm/s LEFT VENTRICLE The left ventricle is normal size. There is normal left ventricular wall thickness. The left ventricu lar systolic function is normal and the ejection fraction is within normal range. Left ventricular ej ection fraction is 60-65% There is normal LV segmental wall motion. The left ventricular diastolic fu nction and filling is normal for age. RIGHT VENTRICLE The right ventricle is normal size. The right ventricular systolic function is normal. ATRIA The left atrium size is normal. The right atrium size is normal. The interatrial septum is intact wit h no evidence for an atrial septal defect or patent foramen ovale as noted on 2-D or Doppler imaging. AORTIC VALVE The aortic valve is thickened but opens well. Doppler and Color Flow revealed no significant aortic r egurgitation. There is no significant aortic valvular stenosis. There is no aortic valvular vegetatio n. MITRAL VALVE The mitral valve is mildly thickened. There is no evidence of mitral valve prolapse. There is no mitr al valve stenosis. Doppler and Color-flow revealed trace mitral regurgitation. TRICUSPID VALVE The tricuspid valve is normal in structure. Doppler and Color Flow revealed mild tricuspid regurgitat ion. The PA pressure was estimated at 24 mmHg. There is no tricuspid valve prolapse or vegetation. Th ere is no tricuspid valve stenosis. PULMONIC VALVE The pulmonic valve is not well visualized. Doppler and Color Flow revealed no pulmonic valvular regur gitation. There is no pulmonic valvular stenosis. GREAT VESSELS The aortic root is normal in size. The IVC is normal in size and collapses >50% with inspiration. PERICARDIAL EFFUSION There is no pleural effusion. There is no evidence of significant pericardial effusion. Critical Notification Critical Value: No <Conclusion> The left ventricle is normal size. The left ventricular systolic function is normal and the ejection fraction is within normal range. Left ventricular ejection fraction is 60-65% There is no significant aortic valvular stenosis. Doppler and Color Flow revealed no significant aortic regurgitation. Doppler and Color-flow revealed trace mitral regurgitation. Doppler and Color Flow revealed mild tricuspid regurgitation. The PA pressure was estimated at 24 mmHg. Signed by : Vipul Parrish MD Electronically Approved : 03/22/2018 16:17:00
[2018-03-22] MEDS ORDERED: HYDROCORTISONE 1% TOPICAL OINTMENT 30GM TUBE. TP SCH ×2 (18:00→21:00)
--- NOTE | 2018-03-22 18:29 | PDOC ---
Exam Note: Ye Note: Please also refer to the separate dictated note~for this date of service dictated separately.~Patient seen individually. Discussed the patient with Nursing staff reviewed the chart.~Reviewed interim history and current functioning. Reviewed vital signs,~Labs/ Radiology~and current medications noted below. Continue current treatment with the changes noted in the dictated addendum note Assessment: Vital Signs: Vital Signs Date Time Temp Pulse Resp B/P (MAP) Pulse Ox O2 Delivery O2 Flow Rate FiO2 03/22/18 16:00 Room Air 03/22/18 15:06 82 18 111/52 (71) 97 03/22/18 13:46 98.4 I&O Intake and Output 03/22/18 07:00 Intake Total 720 ml Output Total 2800 ml Balance -2080 ml Intake Oral 720 ml Output Urine Total 2800 ml # Voids 2 Labs: Laboratory Tests Test 03/22/18 05:39 White Blood Count 5.6 x10^3/uL (4.0-11.0) Red Blood Count 4.00 x10^6/uL (3.50-5.40) Hemoglobin 11.4 g/dL (12.0-15.5) L Hematocrit 34.4 % (36.0-47.0) L Mean Corpuscular Volume 86 fL (79-100) Mean Corpuscular Hemoglobin 29 pg (25-35) Mean Corpuscular Hemoglobin Concent 33 g/dL (31-37) Red Cell Distribution Width 17.2 % (11.5-14.5) H Platelet Count 195 x10^3/uL (140-400) Sodium Level 144 mmol/L (136-145) Potassium Level 4.2 mmol/L (3.5-5.1) Chloride Level 109 mmol/L (98-107) H Carbon Dioxide Level 31 mmol/L (21-32) Anion Gap 4 (6-14) L Blood Urea Nitrogen 32 mg/dL (7-20) H Creatinine 0.9 mg/dL (0.6-1.0) Estimated GFR (Cockcroft-Gault) 61.5 BUN/Creatinine Ratio 36 (6-20) H Glucose Level 94 mg/dL (70-99) Calcium Level 8.5 mg/dL (8.5-10.1) Total Bilirubin 0.8 mg/dL (0.2-1.0) Aspartate Amino Transferase (AST) 14 U/L (15-37) L Alanine Aminotransferase (ALT) 17 U/L (14-59) Alkaline Phosphatase 66 U/L (46-116) Troponin I Quantitative < 0.017 ng/mL (0-0.055) Total Protein 5.7 g/dL (6.4-8.2) L Albumin 2.7 g/dL (3.4-5.0) L Albumin/Globulin Ratio 0.9 (1.0-1.7) L Current Medications: Meds: Current Medications Acetaminophen (Tylenol) 650 mg PRN Q4HRS PRN PO pain rated 4-6 on scale; Start 03/21/18 at 17:30 Atorvastatin Calcium (Lipitor) 40 mg QHS PO Last administered on 03/21/18at 21: 03; Start 03/21/18 at 21:00 Bisacodyl (Dulcolax Supp) 10 mg PRN QHS PRN [place] CONSTIPATION; Start 03/21/18 at 17:45 Divalproex Sodium (Depakote) 250 mg BID PO Last administered on 03/22/18at 07:39 ; Start 03/21/18 at 21:00 Lorazepam (Ativan) 0.25 mg PRN BID PRN PO ANXIETY / AGITATION Last administered on 03/22/18at 15:36; Start 03/21/18 at 17:45 Al Hydroxide/Mg Hydroxide (Mylanta Plus Xs) 30 ml PRN BID PRN PO DYSPEPSIA; Start 03/21/18 at 17:45 Melatonin 3 mg QHS PO Last administered on 03/21/18at 21:03; Start 03/21/18 at 21:00 Quetiapine Fumarate (SEROquel) 37.5 mg TID PO Last administered on 03/22/18at 07 :39; Start 03/21/18 at 21:00 Trazodone HCl (Desyrel) 50 mg QHS PO Last administered on 03/21/18 21:03; Start 03/21/18 at 21:00 Citalopram Hydrobromide (CeleXA) 20 mg DAILY PO Last administered on 03/22/18at 07:39; Start 03/22/18 at 09:00 Magnesium Hydroxide (Milk Of Magnesia) 2,400 mg PRN DAILY PRN PO CONSTIPATION, 2ND CHOICE; Start 03/21/18 at 17:30 Multi-Ingredient Ointment (Analgesic [place]) 1 seth PRN QID PRN TP MUSCLE PAIN; Start 03/21/18 at 17:30 Olanzapine (ZyPREXA ZYDIS) 2.5 mg PRN Q2HR PRN PO AGITATION; Start 03/21/18 at 17:30 Sodium Chloride 1,000 ml @ 200 mls/hr Q5H IV Last administered on 03/22/18at 14 :25; Start 03/21/18 at 18:45 Enoxaparin Sodium (Lovenox 40mg Syringe) 40 mg Q24H SQ Last administered on 07/29at 21:03; Start 03/21/18 at 21:00 Hydrocortisone (Cortaid) 1 seth BID66 TP ; Start 03/22/18 at 18:00; Stop at 18:00; Status DC Hydrocortisone (Cortaid) 1 seth BID TP ; Start 03/22/18 at 21:00 Active Scripts Active Reported Alum-Mag Hydroxide-Simeth Liq (Mag Hydrox/Al Hydrox/Simeth) 360 Ml Oral.susp 240 Ml PO PRN BID PRN Lorazepam 0.5 Mg Tablet 0.25 Mg PO PRN BID PRN Divalproex Sodium 250 Mg Tablet.dr 250 Mg PO BID Seroquel (Quetiapine Fumarate) 25 Mg Tablet 37.5 Mg PO TID Melatonin 3 Mg Tablet 3 Mg PO DAILY@0900 Trazodone Hcl 50 Mg Tablet 50 Mg PO QHS Lisinopril 10 Mg Tablet 10 Mg PO DAILY Atorvastatin Calcium 40 Mg Tablet 40 Mg PO DAILY Escitalopram Oxalate 10 Mg Tablet 10 Mg PO DAILY Bisacodyl 10 Mg Supp.rect 10 Mg RC PRN QHS PRN Tylenol (Acetaminophen) 325 Mg Tablet 650 Mg PO PRN Q4HRS PRN I have reviewed the current psychotropics carefully including drug interactions. Risk benefit ratio favors no change other than as noted in my dictated progress note. Diagnosis: Problems: (1) Dementia in Alzheimer's disease with delusions (2) Dementia in Alzheimer's disease with depression (3) Dementia, vascular, with delusions (4) Dementia, vascular, with depression (5) Impulse control disorder (6) Anxiety disorder ELVA STROUD MD Mar 22, 2018 18:29
[2018-03-22] MEDS: traZODone 50 MG TABLET. PO SCH (20:22)
[2018-03-22] MEDS: ATORVASTATIN CALCIUM 20 MG TABLET PO SCH (20:23)
[2018-03-22] MEDS: MELATONIN 3 MG TABLET PO SCH (20:25)
[2018-03-22] MEDS: ENOXAPARIN 40 MG/0.4 ML SYRINGE. SQ SCH (20:27)
[2018-03-22] MEDS: HYDROCORTISONE 1% TOPICAL CREAM 30GM TUBE. TP SCH (21:08)
[2018-03-23] VITALS (14 sets, daily range): BP systolic 95–138; BP diastolic 46–90
--- NOTE | 2018-03-23 01:49 | PN ---
DATE: 03/22/2018 SUBJECTIVE: The patient was transferred yesterday from [facility] with a witnessed syncopal episode, during which the patient was walking in the corridor, staggered in the wall and then the one of the CNAs caught her and helped her down to the floor. Blood pressure at that time, systolic was only 60. She did have an IV line, was started on IV fluid and brought to the ICU where she received almost a liter of fluid and continued on normal saline at 75 mL. This morning, when we were trying to check her orthostatics, she dropped again her systolic pressure when standing and according to her, she is felt something funny, although she has not lost consciousness. PHYSICAL EXAMINATION: VITAL SIGNS: Her blood pressure lying was 79/39 with a heart rate of 76. Sitting was 79/48 with a heart rate of 75, standing was 68/33 with a heart rate of 91. HEAD, EYES, EARS, NOSE AND THROAT: Showed normocephalic, atraumatic. NECK: Supple. HEART: Showed normal first and second sounds. No gallop, rub or murmur. CHEST: Clear to auscultation. No crepitation or rhonchi. ABDOMEN: Distended, soft, nontender. NEUROLOGIC: She is awake, alert, responding appropriately. All cranial nerves intact. She moves extremities without difficulty. She ambulates without assistance or assistive devices. Her intake over the last 24 hours was incompletely recorded. LABORATORY DATA: Her lab work as of this morning showed a white cell count 5600, hemoglobin 11, hematocrit 34, MCV 86 and platelet count of 195,000. Her serum sodium was 144, potassium 4.2, chloride 109, bicarbonate 31, anion gap of 4, BUN 32, creatinine 0.9, estimated GFR was 61.5 mL. Her glucose was 94, calcium was 8.5. Total bilirubin, AST, ALT, alkaline phosphatase were normal. Total protein was 5.7, albumin was 2.7. ASSESSMENT: This is a 72-year-old female patient who was transferred to the ICU with a syncopal episode. She continued to have significant postural drop. We did actually carotid Doppler, which showed no Doppler evidence of hemodynamically significant stenosis within the carotid or vertebral arteries. I did discontinue her lisinopril. We will bolus her with another 500 mL normal saline and increase the flow rate to 100. We will consult the armored car driver and decide on further management accordingly. MARY TATUM MD DR: MARKIE/fanny JOB#: [id number] / [id number]
[2018-03-23 06:36] LABS: HEMATOCRIT 33.7 % (36.0-47.0); HEMOGLOBIN 11.3 g/dL (12.0-15.5); RED BLOOD COUNT 3.92 x10^6/uL (3.50-5.40); WHITE BLOOD COUNT 5.1 x10^3/uL (4.0-11.0)
[2018-03-23 06:55] LABS: ALBUMIN 2.6 g/dL (3.4-5.0); ALBUMIN/GLOBULIN RATIO 0.9 (1.0-1.7); CALCIUM 8.2 mg/dL (8.5-10.1); CREATININE 0.8 mg/dL (0.6-1.0); GFR 70.5; POTASSIUM 3.9 mmol/L (3.5-5.1); TOTAL BILIRUBIN 0.7 mg/dL (0.2-1.0); TOTAL PROTEIN 5.5 g/dL (6.4-8.2)
[2018-03-23] MEDS: CITALOPRAM 20 MG TABLET. PO SCH (08:09)
[2018-03-23] MEDS: QUEtiapine 25 MG TABLET. PO SCH ×2 (08:09→13:20)
[2018-03-23] MEDS: DIVALPROEX SODIUM 250 MG TABLET.DR. PO SCH (08:09)
[2018-03-23] MEDS: HYDROCORTISONE 1% TOPICAL CREAM 30GM TUBE. TP SCH (08:09)
[2018-03-23] MEDS: IV NORMAL SALINE 1,000ML 1,000 ML IV SCH (09:37)
--- NOTE | 2018-03-23 10:06 | NUR ---
Patient restless this morning, has removed telemetry leads x2 this morning. Oriented to self, states she is 27 years old, aware she is in [place]. Reports she grew up in [facility] and speaks [place] Citizen. Pleasant and compliant with medications taken whole with water.
[2018-03-23] MEDS ORDERED: IV DEXTROSE 5% 1,000 ML IV SCH (10:15)
--- NOTE | 2018-03-23 11:07 | PN ---
DATE: 03/23/2018 SUBJECTIVE: The patient is sitting on the edge of the bed comfortably in no apparent distress. She has no further syncopal episode. Her orthostatic showed no evidence of any postural drop. Unfortunately, her sodium has dramatically risen to 148 as well as her chloride. OBJECTIVE: GENERAL: On examining her, she looked well and was clearly in no apparent respiratory distress, pale, but no jaundice, cyanosis, lymphadenopathy or thyromegaly. No jugular venous distension. No limb edema. VITAL SIGNS: His heart rate was 76. Her orthostatics showed her blood pressure lying was 123/57 with a heart rate of 74, sitting was 131/59 with a heart rate of 66 and standing was 138/53 with a heart rate of 88. Her temperature was 97.8, respiratory rate was 17 and oxygen saturation was 97% on room air. HEAD, EYES, EARS, NOSE AND THROAT: Showed normocephalic, atraumatic. NECK: Supple. HEART: Showed normal first and second sounds. No gallop, rub or murmur. CHEST: Clear to auscultation. No crepitation or rhonchi. ABDOMEN: Distended, soft, nontender. NEUROLOGIC: She is awake, alert, very restless, agitated, otherwise all her cranial nerves are intact. She moves extremities without difficulty. She ambulates without assistance or assistive devices. Her intake over the last 24 hours was 2560. No output was recorded. LABORATORY DATA: Her laboratory work this morning showed a serum sodium of 148, potassium 3.9, chloride 112, bicarbonate 33, anion gap of 3, BUN of 19, creatinine 0.8, estimated GFR was 70 mL per minute. Her glucose was 79, calcium was 8.2. Total bilirubin, AST, ALT, alkaline phosphatase were normal. Her total protein was 5.5, albumin was 2.6. Her white cell count was 5100, hemoglobin 11, hematocrit 33, MCV 86 and platelet count of 178,000. Her nasal screen for MRSA by PCR was negative. ASSESSMENT: Recurrent syncopal episode with a negative Doppler ultrasound and an echocardiogram showed that she has normal left ventricular size and systolic function, ejection fraction 60-65%. No evidence of any aortic valvular stenosis. The patient was well hydrated. She has had no more postural drop. Hypernatremia. PLAN: Approach will be we will increase water flushes and change IV fluid to D5. We will repeat her lab work this afternoon and if her sodium has normalized, we will transfer her back to [facility] if she continues to qualify. MARY TATUM MD DR: MARKIE/fanny JOB#: [id number] / [id number]
--- NOTE | 2018-03-23 11:13 | PDOC ---
PROGRESS NOTES Assessment 1. orthostatic syncope - orthostatic pressures now normal after fluids. Plans to return to [facility] if sodium normalized this afternoon. Subjective pleasantly confused and restless in room. Objective Vital Signs Date Time Temp Pulse Resp B/P (MAP) Pulse Ox O2 Delivery O2 Flow Rate FiO2 03/23/18 10:16 76 17 138/53 (81) Room Air 03/23/18 09:17 97.8 97 Intake and Output 03/23/18 07:00 Intake Total 2659 ml Balance 2659 ml Intake Oral 1060 ml IV Total 1599 ml # Voids 2 Abdomen: Normal bowel sounds, Soft Heart: Regular rate, Normal S1, Normal S2 Extremities: No cyanosis, No edema General: Alert, No acute distress Lungs: Clear to auscultation Neuro: Strength at 5/5 X4 ext Psych/Mental Status: Other (confused) Review of Relevant I have reviewed the following items mckinley (where applicable) has been applied. Labs Laboratory Tests Test 03/21/18 16:50 03/21/18 16:55 03/22/18 05:39 03/23/18 05:44 Nasal Screen MRSA (PCR) Negative (Negative) White Blood Count 5.5 x10^3/uL (4.0-11.0) 5.6 x10^3/uL (4.0-11.0) 5.1 x10^3/uL (4.0-11.0) Red Blood Count 4.07 x10^6/uL (3.50-5.40) 4.00 x10^6/uL (3.50-5.40) 3.92 x10^6/uL (3.50-5.40) Hemoglobin 11.7 g/dL (12.0-15.5) 11.4 g/dL (12.0-15.5) 11.3 g/dL (12.0-15.5) Hematocrit 35.2 % (36.0-47.0) 34.4 % (36.0-47.0) 33.7 % (36.0-47.0) Mean Corpuscular Volume 86 fL (79-100) 86 fL (79-100) 86 fL (79-100) Mean Corpuscular Hemoglobin 29 pg (25-35) 29 pg (25-35) 29 pg (25-35) Mean Corpuscular Hemoglobin Concent 33 g/dL (31-37) 33 g/dL (31-37) 33 g/dL (31-37) Red Cell Distribution Width 17.3 % (11.5-14.5) 17.2 % (11.5-14.5) 17.0 % (11.5-14.5) Platelet Count 188 x10^3/uL (140-400) 195 x10^3/uL (140-400) 178 x10^3/uL (140-400) Sodium Level 142 mmol/L (136-145) 144 mmol/L (136-145) 148 mmol/L (136-145) Potassium Level 3.7 mmol/L (3.5-5.1) 4.2 mmol/L (3.5-5.1) 3.9 mmol/L (3.5-5.1) Chloride Level 108 mmol/L (98-107) 109 mmol/L (98-107) 112 mmol/L (98-107) Carbon Dioxide Level 29 mmol/L (21-32) 31 mmol/L (21-32) 33 mmol/L (21-32) Anion Gap 5 (6-14) 4 (6-14) 3 (6-14) Blood Urea Nitrogen 27 mg/dL (7-20) 32 mg/dL (7-20) 19 mg/dL (7-20) Creatinine 1.1 mg/dL (0.6-1.0) 0.9 mg/dL (0.6-1.0) 0.8 mg/dL (0.6-1.0) Estimated GFR (Cockcroft-Gault) 48.8 61.5 70.5 BUN/Creatinine Ratio 25 (6-20) 36 (6-20) 24 (6-20) Glucose Level 127 mg/dL (70-99) 94 mg/dL (70-99) 79 mg/dL (70-99) Calcium Level 8.2 mg/dL (8.5-10.1) 8.5 mg/dL (8.5-10.1) 8.2 mg/dL (8.5-10.1) Total Bilirubin 0.8 mg/dL (0.2-1.0) 0.8 mg/dL (0.2-1.0) 0.7 mg/dL (0.2-1.0) Aspartate Amino Transf (AST/SGOT) 18 U/L (15-37) 14 U/L (15-37) 14 U/L (15-37) Alanine Aminotransferase (ALT/SGPT) 20 U/L (14-59) 17 U/L (14-59) 14 U/L (14-59) Alkaline Phosphatase 70 U/L (46-116) 66 U/L (46-116) 61 U/L (46-116) Troponin I Quantitative < 0.017 ng/mL (0-0.055) < 0.017 ng/mL (0-0.055) Total Protein 6.0 g/dL (6.4-8.2) 5.7 g/dL (6.4-8.2) 5.5 g/dL (6.4-8.2) Albumin 2.9 g/dL (3.4-5.0) 2.7 g/dL (3.4-5.0) 2.6 g/dL (3.4-5.0) Albumin/Globulin Ratio 0.9 (1.0-1.7) 0.9 (1.0-1.7) 0.9 (1.0-1.7) Medications Current Medications Acetaminophen (Tylenol) 650 mg PRN Q4HRS PRN PO pain rated 4-6 on scale; Start 03/21/18 at 17:30 Atorvastatin Calcium (Lipitor) 40 mg QHS PO Last administered on 03/22/18at 20: 23; Start 03/21/18 at 21:00 Bisacodyl (Dulcolax Supp) 10 mg PRN QHS PRN [place] CONSTIPATION; Start 03/21/18 at 17:45 Divalproex Sodium (Depakote) 250 mg BID PO Last administered on 03/23/18at 08:09 ; Start 03/21/18 at 21:00 Lorazepam (Ativan) 0.25 mg PRN BID PRN PO ANXIETY / AGITATION Last administered on 03/22/18at 15:36; Start 03/21/18 at 17:45 Al Hydroxide/Mg Hydroxide (Mylanta Plus Xs) 30 ml PRN BID PRN PO DYSPEPSIA; Start 03/21/18 at 17:45 Melatonin 3 mg QHS PO Last administered on 03/22/18at 20:25; Start 03/21/18 at 21:00 Quetiapine Fumarate (SEROquel) 37.5 mg TID PO Last administered on 03/23/18at 08 :09; Start 03/21/18 at 21:00 Trazodone HCl (Desyrel) 50 mg QHS PO Last administered on 03/22/18at 20:22; Start 03/21/18 at 21:00 Citalopram Hydrobromide (CeleXA) 20 mg DAILY PO Last administered on 03/23/18at 08:09; Start 03/22/18 at 09:00 Magnesium Hydroxide (Milk Of Magnesia) 2,400 mg PRN DAILY PRN PO CONSTIPATION, 2ND CHOICE; Start 03/21/18 at 17:30 Multi-Ingredient Ointment (Analgesic [place]) 1 seth PRN QID PRN TP MUSCLE PAIN; Start 03/21/18 at 17:30 Olanzapine (ZyPREXA ZYDIS) 2.5 mg PRN Q2HR PRN PO AGITATION Last administered on 03/22/18at 20:24; Start 03/21/18 at 17:30 Sodium Chloride 1,000 ml @ 200 mls/hr Q5H IV Last administered on 03/23/18at 09 :37; Start 03/21/18 at 18:45; Stop 03/23/18 at 10:03; Status DC Enoxaparin Sodium (Lovenox 40mg Syringe) 40 mg Q24H SQ Last administered on 08/29at 20:27; Start 03/21/18 at 21:00 Hydrocortisone (Cortaid) 1 seth BID66 TP ; Start 03/22/18 at 18:00; Stop at 18:00; Status DC Hydrocortisone (Cortaid) 1 seth BID TP ; Start 03/22/18 at 21:00; Stop 03/22/18 at 21:00; Status DC Hydrocortisone (Cortaid) 1 seth BID TP Last administered on 03/23/18at 08:09; Start 03/22/18 at 21:00 Dextrose 1,000 ml @ 75 mls/hr [id number] IV Last administered on 03/23/18at 10:15 ; Start 03/23/18 at 10:15 Active Scripts Active Reported Alum-Mag Hydroxide-Simeth Liq (Mag Hydrox/Al Hydrox/Simeth) 360 Ml Oral.susp 240 Ml PO PRN BID PRN Lorazepam 0.5 Mg Tablet 0.25 Mg PO PRN BID PRN Divalproex Sodium 250 Mg Tablet.dr 250 Mg PO BID Seroquel (Quetiapine Fumarate) 25 Mg Tablet 37.5 Mg PO TID Melatonin 3 Mg Tablet 3 Mg PO DAILY@0900 Trazodone Hcl 50 Mg Tablet 50 Mg PO QHS Lisinopril 10 Mg Tablet 10 Mg PO DAILY Atorvastatin Calcium 40 Mg Tablet 40 Mg PO DAILY Escitalopram Oxalate 10 Mg Tablet 10 Mg PO DAILY Bisacodyl 10 Mg Supp.rect 10 Mg RC PRN QHS PRN Tylenol (Acetaminophen) 325 Mg Tablet 650 Mg PO PRN Q4HRS PRN Vitals/I & O Vital Sign - Last 24 Hours 03/22/18 03/22/18 03/22/18 03/22/18 11:16 13:46 13:47 13:48 Temp 98.4 Pulse 70 76 75 91 Resp 18 B/P (MAP) 93/51 (65) 79/39 (52) 79/48 (58) 68/33 (45) Pulse Ox 96 95 98 91 O2 Delivery Room Air Room Air Room Air Room Air 03/22/18 03/22/18 03/22/18 03/22/18 15:06 16:00 18:29 19:15 Pulse 82 80 78 Resp 18 18 18 B/P (MAP) 111/52 (71) 95/50 (65) 103/57 (72) Pulse Ox 97 97 98 O2 Delivery Room Air Room Air Room Air Room Air 03/22/18 03/22/18 03/22/18 03/22/18 20:00 20:00 21:00 22:48 Pulse 72 76 71 Resp 18 18 26 B/P (MAP) 142/75 (97) 123/51 (75) 112/60 (77) Pulse Ox 96 97 97 O2 Delivery Room Air Room Air Room Air Room Air 03/22/18 03/22/18 03/23/18 03/23/18 23:21 23:59 00:27 01:31 Pulse 66 67 68 Resp 20 19 13 B/P (MAP) 124/59 (80) 122/90 (101) 99/48 (65) Pulse Ox 96 98 94 O2 Delivery Room Air Room Air Room Air Room Air 03/23/18 03/23/18 03/23/18 03/23/18 02:18 03:23 04:00 04:18 Pulse 70 56 64 Resp 16 15 12 B/P (MAP) 95/49 (64) 97/46 (63) 102/52 (69) Pulse Ox 92 96 97 O2 Delivery Room Air Room Air Room Air Room Air 03/23/18 03/23/18 03/23/18 03/23/18 05:34 06:37 08:00 08:00 Temp 97.8 Pulse 60 87 Resp 16 20 B/P (MAP) 115/58 (77) 129/65 (86) Pulse Ox 97 O2 Delivery Room Air Room Air Room Air 03/23/18 03/23/18 09:17 10:16 Temp 97.8 Pulse 87 76 Resp 20 17 B/P (MAP) 129/65 (86) 138/53 (81) Pulse Ox 97 O2 Delivery Room Air Room Air Intake and Output 03/22/18 03/22/18 03/23/18 15:00 23:00 07:00 Intake Total 480 ml 360 ml 1819 ml Balance 480 ml 360 ml 1819 ml TITO DESOUZA APRN Mar 23, 2018 11:13
--- NOTE | 2018-03-23 12:46 | NUR ---
Patient very restless. Had been sitting in chair coloring and became anxious/concerned about where her is. (He is ). Standing up, chair alarm going off and attempting to pull her monitoring analyst off. classroom monitor removed by staff, patient continues to have IV in Left Forearm with fluids running, which she isn't bothering at this time. COACH CLEANER walked patient down to skilled unit and back to attempt to alleviate some restlessness. Will continue to monitor.
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
[2018-03-23] MEDS: LORazepam 0.5 MG TABLET PO PRN (16:03)
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
[2018-03-23 16:39] LABS: CALCIUM 8.8 mg/dL (8.5-10.1); CREATININE 0.8 mg/dL (0.6-1.0); GFR 70.5; POTASSIUM 3.8 mmol/L (3.5-5.1)
[2018-03-23] MEDS ORDERED: CITA20TA9 PO (17:38)
[2018-03-23] MEDS ORDERED: HYDR453.4 TP (17:40)
[2018-03-23] MEDS ORDERED: MAGN2400 PO (17:41)
[2018-03-23] MEDS ORDERED: METH29OI TP (17:41)
[2018-03-23] MEDS ORDERED: OLAN5TAB9 PO (17:42)
--- NOTE | 2018-03-23 18:01 | PDOC ---
Exam Note: Ye Note: Please also refer to the separate dictated note~for this date of service dictated separately.~Patient seen individually. Discussed the patient with Nursing staff reviewed the chart.~Reviewed interim history and current functioning. Reviewed vital signs,~Labs/ Radiology~and current medications noted below. Continue current treatment with the changes noted in the dictated addendum note Assessment: Vital Signs: Vital Signs Date Time Temp Pulse Resp B/P (MAP) Pulse Ox O2 Delivery O2 Flow Rate FiO2 03/23/18 17:56 97.6 66 18 123/62 (82) 96 Room Air I&O Intake and Output 03/23/18 07:00 Intake Total 2659 ml Balance 2659 ml Intake Oral 1060 ml IV Total 1599 ml # Voids 2 Labs: Laboratory Tests Test 03/23/18 05:44 03/23/18 16:22 White Blood Count 5.1 x10^3/uL (4.0-11.0) Red Blood Count 3.92 x10^6/uL (3.50-5.40) Hemoglobin 11.3 g/dL (12.0-15.5) L Hematocrit 33.7 % (36.0-47.0) L Mean Corpuscular Volume 86 fL (79-100) Mean Corpuscular Hemoglobin 29 pg (25-35) Mean Corpuscular Hemoglobin Concent 33 g/dL (31-37) Red Cell Distribution Width 17.0 % (11.5-14.5) H Platelet Count 178 x10^3/uL (140-400) Sodium Level 148 mmol/L (136-145) H 144 mmol/L (136-145) Potassium Level 3.9 mmol/L (3.5-5.1) 3.8 mmol/L (3.5-5.1) Chloride Level 112 mmol/L (98-107) H 106 mmol/L (98-107) Carbon Dioxide Level 33 mmol/L (21-32) H 31 mmol/L (21-32) Anion Gap 3 (6-14) L 7 (6-14) Blood Urea Nitrogen 19 mg/dL (7-20) 19 mg/dL (7-20) Creatinine 0.8 mg/dL (0.6-1.0) 0.8 mg/dL (0.6-1.0) Estimated GFR (Cockcroft-Gault) 70.5 70.5 BUN/Creatinine Ratio 24 (6-20) H Glucose Level 79 mg/dL (70-99) 94 mg/dL (70-99) Calcium Level 8.2 mg/dL (8.5-10.1) L 8.8 mg/dL (8.5-10.1) Total Bilirubin 0.7 mg/dL (0.2-1.0) Aspartate Amino Transferase (AST) 14 U/L (15-37) L Alanine Aminotransferase (ALT) 14 U/L (14-59) Alkaline Phosphatase 61 U/L (46-116) Total Protein 5.5 g/dL (6.4-8.2) L Albumin 2.6 g/dL (3.4-5.0) L Albumin/Globulin Ratio 0.9 (1.0-1.7) L Cortisol AM Sample 12.20 ug/dL (4.3-22.4) Current Medications: Meds: Current Medications Acetaminophen (Tylenol) 650 mg PRN Q4HRS PRN PO pain rated 4-6 on scale; Start 03/21/18 at 17:30 Atorvastatin Calcium (Lipitor) 40 mg QHS PO Last administered on 03/22/18at 20: 23; Start 03/21/18 at 21:00 Bisacodyl (Dulcolax Supp) 10 mg PRN QHS PRN CO CONSTIPATION; Start 03/21/18 at 17:45 Divalproex Sodium (Depakote) 250 mg BID PO Last administered on 03/23/18at 08:09 ; Start 03/21/18 at 21:00 Lorazepam (Ativan) 0.25 mg PRN BID PRN PO ANXIETY / AGITATION Last administered on 03/23/18at 16:03; Start 03/21/18 at 17:45 Al Hydroxide/Mg Hydroxide (Mylanta Plus Xs) 30 ml PRN BID PRN PO DYSPEPSIA; Start 03/21/18 at 17:45 Melatonin 3 mg QHS PO Last administered on 03/22/18at 20:25; Start 03/21/18 at 21:00 Quetiapine Fumarate (SEROquel) 37.5 mg TID PO Last administered on 03/23/18at 13 :20; Start 03/21/18 at 21:00 Trazodone HCl (Desyrel) 50 mg QHS PO Last administered on 03/22/18at 20:22; Start 03/21/18 at 21:00 Citalopram Hydrobromide (CeleXA) 20 mg DAILY PO Last administered on 03/23/18at 08:09; Start 03/22/18 at 09:00 Magnesium Hydroxide (Milk Of Magnesia) 2,400 mg PRN DAILY PRN PO CONSTIPATION, 2ND CHOICE; Start 03/21/18 at 17:30 Multi-Ingredient Ointment (Analgesic Cary) 1 shiraz PRN QID PRN TP MUSCLE PAIN; Start 03/21/18 at 17:30 Olanzapine (ZyPREXA ZYDIS) 2.5 mg PRN Q2HR PRN PO AGITATION Last administered on 03/23/18at 16:03; Start 03/21/18 at 17:30 Sodium Chloride 1,000 ml @ 200 mls/hr Q5H IV Last administered on 03/23/18at 09 :37; Start 03/21/18 at 18:45; Stop 03/23/18 at 10:03; Status DC Enoxaparin Sodium (Lovenox 40mg Syringe) 40 mg Q24H SQ Last administered on 08/29at 20:27; Start 03/21/18 at 21:00 Hydrocortisone (Cortaid) 1 shiraz [id number] TP ; Start 03/22/18 at 18:00; Stop at 18:00; Status DC Hydrocortisone (Cortaid) 1 shiraz BID TP ; Start 03/22/18 at 21:00; Stop 03/22/18 at 21:00; Status DC Hydrocortisone (Cortaid) 1 shiraz BID TP Last administered on 03/23/18at 08:09; Start 03/22/18 at 21:00 Dextrose 1,000 ml @ 75 mls/hr [id number] IV Last administered on 03/23/18at 10:15 ; Start 03/23/18 at 10:15 Active Scripts Active Reported Olanzapine 5 Mg Tablet 2.5 Mg PO PRN Q2HR PRN Analgesic Cary (Methyl Salicylate/Menthol) 28 Gm Oint...g. 1 Shiraz TP PRN QID PRN Milk Of Magnesia (Magnesium Hydroxide) 2,400 Mg/10 Ml Oral.susp 2,400 Mg PO PRN DAILY PRN Hydrocortisone 453.6 Gm Oint...g. 1 Shiraz TP BID Celexa (Citalopram Hydrobromide) 20 Mg Tablet 20 Mg PO DAILY Alum-Mag Hydroxide-Simeth Liq (Mag Hydrox/Al Hydrox/Simeth) 360 Ml Oral.susp 240 Ml PO PRN BID PRN Lorazepam 0.5 Mg Tablet 0.25 Mg PO PRN BID PRN Divalproex Sodium 250 Mg Tablet.dr 250 Mg PO BID Seroquel (Quetiapine Fumarate) 25 Mg Tablet 37.5 Mg PO TID Melatonin 3 Mg Tablet 3 Mg PO QHS Trazodone Hcl 50 Mg Tablet 50 Mg PO QHS Atorvastatin Calcium 40 Mg Tablet 40 Mg PO HS Bisacodyl 10 Mg Supp.rect 10 Mg RC PRN QHS PRN Tylenol (Acetaminophen) 325 Mg Tablet 650 Mg PO PRN Q4HRS PRN I have reviewed the current psychotropics carefully including drug interactions. Risk benefit ratio favors no change other than as noted in my dictated progress note. Diagnosis: Problems: (1) Dementia in Alzheimer's disease with delusions (2) Dementia in Alzheimer's disease with depression (3) Dementia, vascular, with delusions (4) Dementia, vascular, with depression (5) Impulse control disorder (6) Anxiety disorder (7) Syncopal episodes ELVA STROUD MD Mar 23, 2018 18:01
--- NOTE | 2018-03-23 18:13 | NUR ---
patient discharged to [facility] per Dr. moreno. Accepted by Dr. Grayson. DX: Major neurocognitive disorder with behavior disturbance. Addendum: 03/23/18 at 1817 by ELENI BURGER RN IV discontinued, belongings sent with patient. Report called to MIKIE López.
--- NOTE | 2018-03-23 22:30 | PN ---
DATE: 03/22/2018 This late entry 03/22/2018 covers elements not covered in my initial note. SUBJECTIVE: I met with the patient in the evening in the ICU. She remains confused, anxious, restless, not aggressive. Blood pressure is still low. Lisinopril was stopped. Reportedly, per nursing report, we will observe another day and then stop the Seroquel if it continues to be low. She is also on trazodone, which we will continue together with Zyprexa p.r.n. though the chance of Zyprexa contributing to the hypotension is the least of the psychotropics and perhaps the maximum is from the Seroquel. REVIEW OF SYSTEMS: No CV, , pulmonary, eye, ENT system symptoms on review. MENTAL STATUS EXAM: Oriented to herself. Insight, judgment, recent and remote memory, attention, concentration, fund of knowledge poor, consistent with her diagnosis mentioned in my initial note. IMPRESSION: Major neurocognitive disorder, Alzheimer, vascular with delusion, depression, behavioral disturbance. Rest unchanged. PLAN: Continue psychotropics mentioned in my initial note with possible changes noted above. MAN Rachel STROUD MD DR: CHARLOTTE/fanny JOB#: [id number] / [id number]
--- NOTE | 2018-03-24 22:10 | PN ---
DATE: 03/23/2018 This late entry 03/23/2018 covers elements not covered in my initial note of 03/23/2018. SUBJECTIVE: I met the patient in ICU. Medically, the patient's blood pressure is stabilized and she is ready to be transferred back to the [facility]. The patient remains confused, somewhat restless, anxious with ongoing mood lability. REVIEW OF SYSTEMS: No CV, , pulmonary, eye, ENT system symptoms on review. MENTAL STATUS EXAM: Oriented to herself. Insight, judgment, recent and remote memory, attention, concentration, fund of knowledge poor, consistent with her diagnosis. IMPRESSION: Major neurocognitive disorder, Alzheimer, vascular with delusion, depression, behavioral disturbance. Status post syncopal episode. Blood pressure is stabilized. PLAN: Continue current psychotropics. We will transfer back to [facility] once medically stable. MAN Rachel STROUD MD DR: CHARLOTTE/fanny JOB#: [id number] / [id number]
== END 2018-03-23 18:25 | DRG 312 ==
LOC: ICU 16:35
PROVIDERS: ADMIT Internal Medicine; ATTEND Internal Medicine
DX: I95.1 Orthostatic hypotension (principal); E87.0 Hyperosmolality and hypernatremia; E86.1 Hypovolemia; E78.5 Hyperlipidemia, unspecified; F01.50 Vascular dementia, unspecified severity, without behavioral disturbance, psychotic disturbance, mood disturbance, and anxiety; F02.80 Dementia in other diseases classified elsewhere, unspecified severity, without behavioral disturbance, psychotic disturbance, mood disturbance, and anxiety; F32.9 Major depressive disorder, single episode, unspecified; F41.9 Anxiety disorder, unspecified; F63.9 Impulse disorder, unspecified; G30.9 Alzheimer's disease, unspecified; I10 Essential (primary) hypertension; F29 Unspecified psychosis not due to a substance or known physiological condition
CPT/HCPCS: 36415; 80048; 80053; 82533; 84484; 85027; 87641; 93306; 93880; J1650; 99285-25; J7030

== ENCOUNTER 2018-03-23 18:34 | Inpatient (IN) | payer MEDICARE ==
[~2018-03-23] VITALS: Ht 152.4 cm; Wt 65.3 kg
[~2018-03-23 18:34] MED LIST changes: +CITA20TA9 PO; +DIVA-51 PO; -DIVA250T6 PO; +HYDR453.4 TP; +MAGN2400 PO; +METH29OI TP; +OLAN5TAB9 PO; +TRAZ-85 PO; -TRAZ50TA15 PO
[2018-03-23] MEDS ORDERED: ACETAMINOPHEN 325 MG TABLET PO PRN (20:15)
[2018-03-23] MEDS ORDERED: METHYL SALICYLATE/MENTHOL TOPICAL OINTMENT 29GM TUBE. TP PRN (20:15)
[2018-03-23] MEDS ORDERED: MAG HYDROX/AL HYDROX/SIMETH 30 ML ORAL.SUSP PO PRN (20:45)
[2018-03-23] MEDS ORDERED: BISACODYL 10 MG SUPP.RECT PR PRN (20:45)
[2018-03-23 20:53] VITALS: BP 145/86
[2018-03-23] MEDS: HYDROCORTISONE 2.5% TOPICAL OINTMENT 30GM TUBE. TP SCH (21:00)
[2018-03-23] MEDS: traZODone 50 MG TABLET. PO SCH (21:02)
[2018-03-23] MEDS: MELATONIN 3 MG TABLET PO SCH (21:02)
[2018-03-23] MEDS: ATORVASTATIN CALCIUM 20 MG TABLET PO SCH (21:02)
[2018-03-23] MEDS: DIVALPROEX SODIUM 250 MG TABLET.DR. PO SCH (21:02)
[2018-03-23] MEDS: QUEtiapine 25 MG TABLET. PO SCH (21:03)
[2018-03-24 06:14] VITALS: BP 125/52
[2018-03-24] MEDS: DIVALPROEX SODIUM 250 MG TABLET.DR. PO SCH (07:38)
[2018-03-24] MEDS: QUEtiapine 25 MG TABLET. PO SCH ×3 (07:38→19:40)
[2018-03-24] MEDS: HYDROCORTISONE 2.5% TOPICAL OINTMENT 30GM TUBE. TP SCH ×2 (07:42→19:42)
[2018-03-24] MEDS: CITALOPRAM 20 MG TABLET. PO SCH (07:42)
[2018-03-24] MEDS: LORazepam 0.5 MG TABLET PO PRN (13:30)
[2018-03-24 16:26] VITALS: BP 127/67
[2018-03-24] MEDS: ATORVASTATIN CALCIUM 20 MG TABLET PO SCH (19:39)
[2018-03-24] MEDS: MELATONIN 3 MG TABLET PO SCH (19:41)
[2018-03-24] MEDS: traZODone 50 MG TABLET. PO SCH (19:41)
[2018-03-25 05:52] VITALS: BP 143/74
[2018-03-25] MEDS: QUEtiapine 25 MG TABLET. PO SCH ×4 (09:17→21:17)
[2018-03-25] MEDS: CITALOPRAM 20 MG TABLET. PO SCH (09:17)
[2018-03-25] MEDS: DIVALPROEX SODIUM 250 MG TABLET.DR. PO SCH ×3 (09:19→17:31)
[2018-03-25] MEDS: HYDROCORTISONE 2.5% TOPICAL OINTMENT 30GM TUBE. TP SCH ×3 (09:20→21:00)
--- NOTE | 2018-03-25 13:33 | RAD ---
CT HEAD WITHOUT CONTRAST 03/25/2018 10:52 AM Indication: CHANGE IN MENTAL STATUS Comparison: None available Procedure: Multidetector CT imaging of the head was performed without the administration of contrast. Findings: There is no evidence of acute intracranial hemorrhage. There is no evidence of acute territorial infarction. Please note that CT is limited for evaluation of acute ischemia. No mass effect or midline shift is identified . The ventricles and basilar cisterns have an appropriate appearance. No abnormal extra-axial fluid collections are seen. No acute osseous changes are identified. Impression: No evidence of acute intracranial abnormality CT DOSING PQRS STATEMENT: One or more of the following individualized dose reduction techniques were utilized for this examination: 1. Automated exposure control 2. Adjustment of the mA and/or kV according to patient size 3. Use of iterative reconstruction technique Electronically signed by: Alex Ruiz MD (03/25/2018 1:29 PM) [facility]
[2018-03-25 16:47] VITALS: BP 117/89
[2018-03-25] MEDS: MELATONIN 3 MG TABLET PO SCH ×2 (19:41→21:17)
[2018-03-25] MEDS: traZODone 50 MG TABLET. PO SCH ×2 (19:41→21:17)
[2018-03-25] MEDS: ATORVASTATIN CALCIUM 20 MG TABLET PO SCH ×2 (19:41→21:17)
--- NOTE | 2018-03-26 03:11 | CONS ---
DATE OF CONSULTATION: 03/25/2018 REASON FOR CONSULTATION: Medical management. HISTORY OF PRESENT ILLNESS: The patient is a 72-year-old female patient was discharged initially, was sent here from the [facility] down to the ICU on account of a syncopal episode where her systolic pressure dropped down to about 60 mmHg. She was evaluated extensively, was treated aggressively with IV fluid. I discontinued her lisinopril and we did an echocardiogram, which showed that her left ventricular size is normal, left ventricular systolic function is normal and ejection fraction is within normal range. Her ejection fraction is about 60%-65%. There is no significant aortic valvular stenosis. She has a Doppler ultrasound of both carotids, which were unremarkable and she was aggressively hydrated and initially she continued to have orthostatic hypotension. However, eventually has had no further episodes of orthostatic hypotension and was transferred to [facility] for inpatient psychiatric stabilization. PAST MEDICAL HISTORY: Significant for hypertension, hyperlipidemia and a question of rosacea. PAST PSYCHIATRIC HISTORY: Significant for dementia, anxiety, and psychosis. ALLERGIES: SHE IS ALLERGIC TO AMOXICILLIN. MEDICATIONS: She is currently on the following medication, atorvastatin calcium 40 mg at bedtime, Tylenol 650 mg every 4 hours, divalproex 250 mg twice a day, citalopram hydrobromide 20 mg p.o. daily, trazodone 50 mg at bedtime, olanzapine 2.5 mg every 2 hours, quetiapine fumarate 37.5 mg 3 times a day, lorazepam 0.25 mg twice a day, bisacodyl 10 mg suppositories as needed for hypoglycemia, milk of magnesia 30 mL p.o. daily p.r.n. for constipation, hydrocortisone cream or ointment applied topically twice a day to dry skin and melatonin 3 mg at bedtime. PHYSICAL EXAMINATION: GENERAL: On examining her, she looked well and was clearly in no apparent respiratory distress, pale, no jaundice, cyanosis, or thyromegaly. No jugular venous distention. No limb edema. VITAL SIGNS: Her heart rate was 73, blood pressure was 143/74, temperature was 97.9, respiratory rate was 16, and oxygen saturation was 98%. HEAD, EYES, EARS, NOSE, AND THROAT: Showed normocephalic, atraumatic. NECK: Supple. HEART: Showed normal first and second heart sounds with no gallop, rub or murmur. CHEST: Clear to auscultation. No crepitation or rhonchi. ABDOMEN: Distended, soft, nontender. NEUROLOGIC: She is demented but without any obvious lateralizing sign. All her cranial nerves intact. EXTREMITIES: She moves extremities without difficulty. She ambulates without assistance or assistive devices. LABORATORY DATA: Her most recent lab work showed white cell count of 5100, hemoglobin 11, hematocrit 33, MCV 86, and platelet count of 178,000. Her chemistry showed a serum sodium 144, potassium 3.8, chloride 106, bicarbonate 31, anion gap of 7, BUN 19, creatinine 0.8, estimated GFR was 70 mL per minute. Her glucose was 94. Hemoglobin A1c was 6.7. Calcium was 8.8. Her total protein 5.5, albumin 2.6, her vitamin D was low at 14.7. TSH was slightly elevated; however, total T4 and total T3 were normal. ASSESSMENT AND PLAN: In summary, this is a 72-year-old female patient who was admitted originally on account of increased confusion, psychotic or manic type behavior. She apparently has not slept for almost 4 days before being taken to the ER. While in the [facility], she had a syncopal episode with a systolic blood pressure down to 60 that was reproduced again down in the ICU. She was aggressively hydrated and we discontinued her lisinopril and since then she has been much more stable hemodynamically. We will continue to monitor her lab work and her vitals and if she developed any symptomatic orthostatic hypotension, might have to consider starting her on midodrine. Thank you, Dr. Grayson for allowing me to participate in the care of this patient. MARY TATUM MD DR: MARKIE/fanny JOB#: [id number] / [id number]
[2018-03-26 06:45] VITALS: BP 119/81
[2018-03-26] MEDS: HYDROCORTISONE 2.5% TOPICAL OINTMENT 30GM TUBE. TP SCH ×2 (09:00→19:24)
[2018-03-26] MEDS: QUEtiapine 25 MG TABLET. PO SCH ×3 (09:08→19:23)
[2018-03-26] MEDS: CITALOPRAM 20 MG TABLET. PO SCH (09:08)
[2018-03-26] MEDS: DIVALPROEX SODIUM 250 MG TABLET.DR. PO SCH ×3 (09:08→16:55)
[2018-03-26 16:35] VITALS: BP 103/57
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
[2018-03-26] MEDS: ATORVASTATIN CALCIUM 20 MG TABLET PO SCH (19:23)
[2018-03-26] MEDS: MELATONIN 3 MG TABLET PO SCH (19:23)
[2018-03-26] MEDS: traZODone 50 MG TABLET. PO SCH (19:23)
[2018-03-27 06:33] VITALS: BP 121/70
[2018-03-27 07:04] LABS: BASO % 1 % (0-3); EOS # 0.3 x10^3/uL (0.0-0.7); EOS % 6 % (0-3); HEMATOCRIT 32.7 % (36.0-47.0); HEMOGLOBIN 11.2 g/dL (12.0-15.5); LYMPH % 43 % (24-48); MEAN CORPUSCULAR HEMOGLOBIN 29 pg (25-35); MEAN CORPUSCULAR HGB CONC 34 g/dL (31-37); MEAN CORPUSCULAR VOLUME 85 fL (79-100); MONO # 0.7 x10^3/uL (0.0-1.1); MONO % 14 % (0-9); NEUT # 1.7 x10^3uL (1.8-7.7); NEUT % 36 % (31-73); PLATELET COUNT 192 x10^3/uL (140-400); RED BLOOD COUNT 3.85 x10^6/uL (3.50-5.40); WHITE BLOOD COUNT 4.7 x10^3/uL (4.0-11.0)
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
[2018-03-27 07:21] LABS: ALBUMIN 2.8 g/dL (3.4-5.0); ALBUMIN/GLOBULIN RATIO 0.9 (1.0-1.7); ALK PHOS 69 U/L (46-116); ALT (SGPT) 22 U/L (14-59); ANION GAP 4 (6-14); AST (SGOT) 16 U/L (15-37); BLOOD UREA NITROGEN 25 mg/dL (7-20); BUN/CREATININE RATIO 31 (6-20); CALCIUM 8.8 mg/dL (8.5-10.1); CARBON DIOXIDE 33 mmol/L (21-32); CHLORIDE 107 mmol/L (98-107); CREATININE 0.8 mg/dL (0.6-1.0); GFR 70.5; GLUCOSE 93 mg/dL (70-99); SODIUM 144 mmol/L (136-145); TOTAL BILIRUBIN 0.7 mg/dL (0.2-1.0); TOTAL PROTEIN 5.9 g/dL (6.4-8.2)
[2018-03-27 07:23] LABS: VAL ACID 74 mcg/mL (50-100)
[2018-03-27] MEDS: QUEtiapine 25 MG TABLET. PO SCH ×3 (08:33→20:11)
[2018-03-27] MEDS: CITALOPRAM 20 MG TABLET. PO SCH (08:33)
[2018-03-27] MEDS: DIVALPROEX SODIUM 250 MG TABLET.DR. PO SCH ×3 (08:33→17:33)
[2018-03-27] MEDS: HYDROCORTISONE 2.5% TOPICAL OINTMENT 30GM TUBE. TP SCH ×2 (08:34→20:11)
[2018-03-27 16:14] VITALS: BP 105/64
[2018-03-27] MEDS: ATORVASTATIN CALCIUM 20 MG TABLET PO SCH (20:10)
[2018-03-27] MEDS: MELATONIN 3 MG TABLET PO SCH (20:11)
[2018-03-27] MEDS: traZODone 50 MG TABLET. PO SCH (20:11)
[2018-03-28 06:16] VITALS: BP 116/67
[2018-03-28] MEDS: DIVALPROEX SODIUM 250 MG TABLET.DR. PO SCH ×3 (08:48→16:34)
[2018-03-28] MEDS: QUEtiapine 25 MG TABLET. PO SCH ×3 (08:48→19:57)
[2018-03-28] MEDS: CITALOPRAM 20 MG TABLET. PO SCH (08:48)
[2018-03-28] MEDS: HYDROCORTISONE 2.5% TOPICAL OINTMENT 30GM TUBE. TP SCH ×2 (09:12→19:59)
[2018-03-28 15:50] VITALS: BP 117/72
[2018-03-28] MEDS: MELATONIN 3 MG TABLET PO SCH (19:57)
[2018-03-28] MEDS: traZODone 50 MG TABLET. PO SCH (19:57)
[2018-03-28] MEDS: ATORVASTATIN CALCIUM 20 MG TABLET PO SCH (19:59)
[2018-03-28] MEDS: LORazepam 0.5 MG TABLET PO PRN (22:00)
--- NOTE | 2018-03-29 02:36 | PN ---
DATE: 03/26/2018 PSYCHIATRIC PROGRESS NOTE This late entry 03/26/2018, covers elements not covered in my initial note. SUBJECTIVE: Met with the patient in the evening. The patient is compliant with medications, remains confused. REVIEW OF SYSTEMS: No CV, , pulmonary, eye, ENT system symptoms on review. Reliability poor. MENTAL STATUS EXAM: Oriented to herself. Insight, judgment, recent, remote memory, attention, concentration, fund of knowledge is poor, consistent with her diagnoses mentioned in my initial note. PLAN: Continue current psychotropics. Adjust further as clinically indicated. MAN Rachel STROUD MD DR: CHARLOTTE/fanny JOB#: [id number] / [id number]
[2018-03-29 06:23] VITALS: BP 100/54
[2018-03-29] MEDS: QUEtiapine 25 MG TABLET. PO SCH ×3 (08:49→19:25)
[2018-03-29] MEDS: CITALOPRAM 20 MG TABLET. PO SCH (08:49)
[2018-03-29] MEDS: DIVALPROEX SODIUM 250 MG TABLET.DR. PO SCH ×3 (08:49→16:05)
[2018-03-29] MEDS: HYDROCORTISONE 2.5% TOPICAL OINTMENT 30GM TUBE. TP SCH ×2 (08:51→21:00)
[2018-03-29] MEDS: LORazepam 0.5 MG TABLET PO PRN ×2 (12:10→19:29)
--- NOTE | 2018-03-29 13:52 | PN ---
DATE: 03/27/2018 PSYCHIATRIC PROGRESS NOTE This is a late entry 03/27/2018, covers elements not covered in my initial note. SUBJECTIVE: I met with the patient in the evening. The patient remains quite confused, wandering the hallways, not aggressive, goes into other patient's rooms, oblivious of where she is. REVIEW OF SYSTEMS: No CV, , pulmonary, eye, ENT system symptoms on review. Reliability poor. MENTAL STATUS EXAM: Oriented to herself. Insight, judgment, recent and remote memory, attention, concentration, fund of knowledge poor, consistent with her diagnoses mentioned in my initial note. PLAN: Continue current psychotropics. Adjust further as clinically indicated. If agitation resurfaces we will increase Seroquel. Consider adjusting Depakote if needed. MAN Rachel STROUD MD DR: CHARLOTTE/fanny JOB#: [id number] / [id number]
--- NOTE | 2018-03-29 13:55 | PN ---
DATE: 03/28/2018 PSYCHIATRIC PROGRESS NOTE This late entry 03/28/2018 covers elements not covered in my initial note. SUBJECTIVE: Met with the patient in the evening. She was in another male patient's rooms, oblivious away she was, received p.r.n. at 6:45 p.m. 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 She states she wants to work here. She had a conflict with another patient on the unit and this other patient put herself on the floor on account of worsening anxiety, who was giving a history lesson to yet another patient, oblivious of what she was doing. REVIEW OF SYSTEMS: No CV, , pulmonary, eye, ENT system symptoms on review. Reliability poor. MENTAL STATUS EXAM: Oriented to herself. Insight, judgment, recent, remote memory, attention, concentration, fund of knowledge is poor, consistent with her diagnoses mentioned in my initial note. PLAN: Continue current psychotropics. I will give it another day before increasing Depakote if behavioral dyscontrol, mood lability persists. MAN Rachel STROUD MD DR: CHARLOTTE/fanny JOB#: [id number] / [id number]
[2018-03-29 16:19] VITALS: BP 123/52
[2018-03-29] MEDS: MELATONIN 3 MG TABLET PO SCH (19:25)
[2018-03-29] MEDS: traZODone 50 MG TABLET. PO SCH (19:25)
[2018-03-29] MEDS: ATORVASTATIN CALCIUM 20 MG TABLET PO SCH (19:25)
[2018-03-29] MEDS ORDERED: MIRTAZAPINE 7.5 MG TABLET. PO SCH (21:00)
[2018-03-30 06:31] VITALS: BP 117/71
[2018-03-30] MEDS: QUEtiapine 25 MG TABLET. PO SCH ×2 (07:42→14:04)
[2018-03-30] MEDS: CITALOPRAM 20 MG TABLET. PO SCH (07:42)
[2018-03-30] MEDS: DIVALPROEX 125 MG CAP.SPRINK PO SCH ×3 (07:49→17:03)
[2018-03-30] MEDS: HYDROCORTISONE 2.5% TOPICAL OINTMENT 30GM TUBE. TP SCH ×2 (09:02→21:00)
[2018-03-30] MEDS: LORazepam 0.5 MG TABLET PO PRN (14:09)
[2018-03-30 15:53] VITALS: BP 127/78
[2018-03-30] MEDS: ATORVASTATIN CALCIUM 20 MG TABLET PO SCH (20:34)
[2018-03-30] MEDS: MELATONIN 3 MG TABLET PO SCH (20:35)
[2018-03-30] MEDS: traZODone 50 MG TABLET. PO SCH (20:35)
[2018-03-30] MEDS: MIRTAZAPINE 15 MG TABLET PO SCH (20:36)
[2018-03-30] MEDS: QUEtiapine 50 MG TABLET. PO SCH (20:37)
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
[2018-03-31 06:05] VITALS: BP 92/54
[2018-03-31] MEDS: DIVALPROEX 125 MG CAP.SPRINK PO SCH ×2 (08:36→19:50)
[2018-03-31] MEDS: QUEtiapine 50 MG TABLET. PO SCH (08:36)
[2018-03-31] MEDS: HYDROCORTISONE 2.5% TOPICAL OINTMENT 30GM TUBE. TP SCH ×2 (08:37→21:00)
[2018-03-31] MEDS: SERTRALINE 50 MG TABLET. PO SCH (08:37)
[2018-03-31] MEDS ORDERED: QUEtiapine 25 MG TABLET. PO SCH (13:00)
--- NOTE | 2018-03-31 13:53 | PN ---
DATE: 03/30/2018 PSYCHIATRIC PROGRESS NOTE This is a late entry 03/30/2018 covers elements not covered in my initial note 03/30/2018. SUBJECTIVE: I met with the patient in the evening. The patient had a "bad" day per nursing report. Previous evening, she was taking her medications hidden in food, then refused her medications whole. She stripped herself at night and was quite intrusive, delusional in the evening, believing people were stealing money from her. When she is angry she speaks in [place]ian. She was using profanities towards nursing staff, received Ativan and Zyprexa p.r.n. seemed to help, slept 2-3/4 hours previous evening. REVIEW OF SYSTEMS: No CV, , pulmonary, eye, ENT system symptoms on review. Reliability poor. MENTAL STATUS EXAM: Oriented to herself. Insight, judgment, recent and remote memory, attention, concentration, fund of knowledge poor, consistent with her diagnosis. IMPRESSION: Major neurocognitive disorder, Alzheimer, vascular with delusion, depression, behavioral disturbance. PLAN: Change Celexa to Zoloft 50 mg a day. Depakote is 250 mg 3 times a day, level therapeutic at 74. Increase Seroquel from 37.5 three times a day to 50 mg twice a day, 37.5 mg in the afternoon. She slept poorly previous evening, increase Remeron from 7.5 mg at bedtime to 15 mg at bedtime. Continue rest unchanged per the initial note. ELVA STROUD MD DR: CHARLOTTE/fanny JOB#: [id number] / [id number]
[2018-03-31] MEDS: LORazepam 0.5 MG TABLET PO PRN (15:33)
[2018-03-31 17:10] VITALS: BP 144/79
[2018-03-31] MEDS: traZODone 50 MG TABLET. PO SCH (19:43)
[2018-03-31] MEDS: ATORVASTATIN CALCIUM 20 MG TABLET PO SCH (19:43)
[2018-03-31] MEDS: MIRTAZAPINE 15 MG TABLET PO SCH (19:43)
[2018-03-31] MEDS: MELATONIN 3 MG TABLET PO SCH (19:50)
[2018-03-31] MEDS: QUEtiapine 25 MG TABLET. PO SCH (19:50)
[2018-04-01 06:05] VITALS: BP 111/55
[2018-04-01] MEDS: QUEtiapine 25 MG TABLET. PO SCH ×3 (08:47→19:20)
[2018-04-01] MEDS: SERTRALINE 50 MG TABLET. PO SCH (08:48)
[2018-04-01] MEDS: DIVALPROEX 125 MG CAP.SPRINK PO SCH ×2 (08:49→19:20)
[2018-04-01] MEDS: HYDROCORTISONE 2.5% TOPICAL OINTMENT 30GM TUBE. TP SCH ×2 (08:50→19:22)
[2018-04-01] MEDS: LORazepam 0.5 MG TABLET PO PRN (09:02)
[2018-04-01 16:05] VITALS: BP 122/74
[2018-04-01] MEDS: MIRTAZAPINE 15 MG TABLET PO SCH (19:20)
[2018-04-01] MEDS: MELATONIN 3 MG TABLET PO SCH (19:20)
[2018-04-01] MEDS: ATORVASTATIN CALCIUM 20 MG TABLET PO SCH (19:20)
[2018-04-01] MEDS: traZODone 50 MG TABLET. PO SCH (19:20)
[2018-04-02 05:48] VITALS: BP 102/60
[2018-04-02] MEDS: HYDROCORTISONE 2.5% TOPICAL OINTMENT 30GM TUBE. TP SCH ×2 (09:00→21:00)
[2018-04-02] MEDS: SERTRALINE 50 MG TABLET. PO SCH (09:07)
[2018-04-02] MEDS: DIVALPROEX 125 MG CAP.SPRINK PO SCH ×3 (09:07→19:56)
[2018-04-02 16:12] VITALS: BP 119/77
[2018-04-02] MEDS: LORazepam 0.5 MG TABLET PO PRN (16:49)
--- NOTE | 2018-04-02 17:46 | PN ---
DATE: 03/31/2018 This is a late entry, 03/31/2018, covers the elements not covered in my initial note. SUBJECTIVE: I met with the patient in the evening and staffed at treatment team meeting in the afternoon. The patient's daughter attended the treatment team meeting, which was a lengthy meeting. The patient is sleeping about 5 hours, average slept 6-1/2 hours the previous evening. Appetite 100% compliant with medications. Daughter is planning for the patient to move down to [place] to be closer to the daughter. Also, daughter talked at length about her concerns that the patient's behaviors are worse with the psychotropic medications and wants them reduced. We had a lengthy discussion about pros and cons of this. Her ongoing behavioral dyscontrol, psychosis, agitation within the context of her dementia, but nevertheless we agreed to reduce the Depakote from 250 mg t.i.d. down to 250 mg twice a day for 2 days, then once a day for 2 days and then stop it. Celexa has been changed to Zoloft and Seroquel is currently 50 mg twice a day to 37.5 mg once a day, and we will taper this as well. REVIEW OF SYSTEMS: No CV, , pulmonary, eye, ENT system symptoms on review. Reliability poor. MENTAL STATUS EXAM: Oriented to herself. Insight, judgment, recent and remote memory, attention, concentration, fund of knowledge poor, consistent with her diagnosis as mentioned in my initial note. IMPRESSION: Major neurocognitive disorder, Alzheimer, vascular with delusion, depression, behavioral disturbance; anxiety disorder, unspecified; impulse control disorder, unspecified. PLAN: Taper the Depakote and Seroquel as noted above. Continue rest unchanged. Her behaviors, delusions, agitation worsen as the psychotropics were reduced. We will have to reinstate them and I have discussed all this at length with the daughter including risks, benefit ratio, pros and cons of each of her psychotropics. ELVA STROUD MD DR: CHARLOTTE/fanny JOB#: [id number] / [id number]
--- NOTE | 2018-04-02 18:37 | PN ---
DATE: 04/01/2018 This is a late entry 04/01/2018 covers the elements not covered in my initial note. SUBJECTIVE: I met with the patient in the evening. The patient slept 6 hours previous evening. During the day on 04/01/2018, she was extremely agitated, labile, banging on the doors, hitting, kicking, spitting, biting at staff when they attempted to assist her with ADLs. Extremely disorganized with rapid pressured speech. Nursing staff felt at one point, she might need intramuscular injections to help calm her down. All of this appears to have worsened since we reduced her Depakote and Seroquel. MIKIE Watts did contact the patient's daughter informed of this and we are going to get her back on the full dosages of Depakote and Seroquel at this time and then reassess again later. REVIEW OF SYSTEMS: No CV, , pulmonary, eye, ENT system symptoms on review. Reliability poor. MENTAL STATUS EXAM: Oriented to herself. Insight, judgment, recent and remote memory, attention, concentration, fund of knowledge poor, consistent with her diagnosis mentioned in my initial note. IMPRESSION: Major neurocognitive disorder, Alzheimer, vascular with delusion, depression, behavioral disturbance. PLAN: Increase Seroquel back to 37.5 mg 3 times a day, Depakote to 250 mg 3 times a day. Follow labs level. Continue rest unchanged. MAN Rachel STROUD MD DR: CHARLOTTE/fanny JOB#: [id number] / [id number]
[2018-04-02] MEDS: traZODone 50 MG TABLET. PO SCH (19:55)
[2018-04-02] MEDS: ATORVASTATIN CALCIUM 20 MG TABLET PO SCH (19:55)
[2018-04-02] MEDS: MIRTAZAPINE 15 MG TABLET PO SCH (19:55)
[2018-04-02] MEDS: MELATONIN 3 MG TABLET PO SCH (19:56)
[2018-04-03 05:52] VITALS: BP 143/68
[2018-04-03] MEDS: DIVALPROEX 125 MG CAP.SPRINK PO SCH ×3 (07:37→20:17)
[2018-04-03] MEDS: SERTRALINE 50 MG TABLET. PO SCH (07:37)
[2018-04-03] MEDS: QUEtiapine 25 MG TABLET. PO SCH ×2 (07:39→15:49)
[2018-04-03] MEDS: HYDROCORTISONE 2.5% TOPICAL OINTMENT 30GM TUBE. TP SCH ×2 (07:40→20:18)
[2018-04-03] MEDS ORDERED: DIVALPROEX 125 MG CAP.SPRINK PO SCH (09:00)
[2018-04-03] MEDS: LORazepam 0.5 MG TABLET PO PRN ×2 (13:21→23:28)
[2018-04-03] MEDS ORDERED: traZODone 50 MG TABLET. PO PRN (15:15)
[2018-04-03] MEDS: MELATONIN 3 MG TABLET PO SCH (20:16)
[2018-04-03] MEDS: ATORVASTATIN CALCIUM 20 MG TABLET PO SCH (20:17)
[2018-04-03] MEDS: traZODone 50 MG TABLET. PO SCH ×2 (20:17→23:28)
[2018-04-03] MEDS: MIRTAZAPINE 15 MG TABLET PO SCH (20:17)
[2018-04-04 06:30] VITALS: BP 110/58
[2018-04-04] MEDS: SERTRALINE 50 MG TABLET. PO SCH (07:33)
[2018-04-04] MEDS: DIVALPROEX 125 MG CAP.SPRINK PO SCH ×3 (07:34→20:02)
[2018-04-04] MEDS: QUEtiapine 25 MG TABLET. PO SCH ×2 (07:34→15:30)
[2018-04-04] MEDS: HYDROCORTISONE 2.5% TOPICAL OINTMENT 30GM TUBE. TP SCH ×2 (07:37→20:05)
[2018-04-04 08:32] LABS: VAL ACID 50 mcg/mL (50-100)
[2018-04-04] MEDS: LORazepam 0.5 MG TABLET PO PRN (13:22)
[2018-04-04] MEDS: ATORVASTATIN CALCIUM 20 MG TABLET PO SCH (20:02)
[2018-04-04] MEDS: MELATONIN 3 MG TABLET PO SCH (20:02)
[2018-04-04] MEDS: MIRTAZAPINE 15 MG TABLET PO SCH (20:03)
--- NOTE | 2018-04-04 22:21 | PN ---
DATE: 04/02/2018 This is a late entry, 04/02/2018, covers the elements not covered in my initial note. SUBJECTIVE: I met with the patient in the evening. The patient slept 1-3/4 hours. Previous night, she was quite agitated, received Zyprexa at midnight. She was looking for her . She then slept until lunchtime, takes her meds in coffee. Around 6 p.m., she was again extremely angry, agitated, labile, received Ativan and Zyprexa with some relief. REVIEW OF SYSTEMS: No CV, , pulmonary, eye, ENT system symptoms on review. MENTAL STATUS EXAM: Oriented to herself. Insight, judgment, recent and remote memory, attention, concentration, fund of knowledge poor, consistent with her diagnosis as mentioned in my initial note. PLAN: Start trazodone and we will increase it, may repeat x 150 mg as needed for insomnia. She is on no Seroquel; inadvertently not restarted after the last decrease and we will restart it 37.5 mg at 9 a.m., 5 p.m. Adjust further as clinically indicated. MAN Rachel STROUD MD DR: CHARLOTTE/fanny JOB#: [id number] / [id number]
--- NOTE | 2018-04-04 22:55 | PN ---
DATE: 04/03/2018 PSYCHIATRIC PROGRESS NOTE This late entry 04/03/2018 covers elements not covered in my initial note. SUBJECTIVE: Met with the patient in the evening. She has been somewhat intrusive, confused, getting into other patient's rooms. She was at the window, anxious, restless, combative with redirection, received Ativan p.r.n., takes her medications hidden, was kicking at the nursing staff and kicked the nursing staff on the vale. REVIEW OF SYSTEMS: No CV, , pulmonary, eye, ENT system symptoms on review. Reliability poor. MENTAL STATUS EXAM: Oriented to herself. Insight, judgment, recent and remote memory, attention, concentration, fund of knowledge poor, consistent with her diagnosis from initial note. PLAN: Continue current psychotropics. Check valproic acid level. MAN Rachel STROUD MD DR: CHARLOTTE/fanny JOB#: [id number] / [id number]
--- NOTE | 2018-04-04 23:33 | PN ---
DATE: 04/04/2018 PSYCHIATRIC PROGRESS NOTE This note covers elements, not covered in my initial note. SUBJECTIVE: I met with the patient in the evening. Overall, the patient remains confused, anxious, restless, at times redirectable. She slept 5 hours previous evening. REVIEW OF SYSTEMS: No CV, , pulmonary, eye, ENT system symptoms on review. Reliability poor. MENTAL STATUS EXAM: Oriented to herself. Insight, judgment, recent and remote memory, attention, concentration, fund of knowledge poor, consistent with her diagnosis mentioned in my initial note. PLAN: Continue current psychotropics. Valproic acid level therapeutic at 50. MAN Rachel STROUD MD DR: CHARLOTTE/fanny JOB#: [id number] / [id number]
[2018-04-05 06:02] VITALS: BP 118/63
[2018-04-05] MEDS: hydrOXYzine HCL 25 MG TABLET PO PRN ×2 (09:34→12:50)
[2018-04-05] MEDS: DIVALPROEX 125 MG CAP.SPRINK PO SCH ×3 (10:58→19:57)
[2018-04-05] MEDS: QUEtiapine 25 MG TABLET. PO SCH ×2 (10:58→18:25)
[2018-04-05] MEDS: SERTRALINE 50 MG TABLET. PO SCH (10:58)
[2018-04-05] MEDS: HYDROCORTISONE 2.5% TOPICAL OINTMENT 30GM TUBE. TP SCH ×2 (11:01→20:00)
[2018-04-05 16:28] VITALS: BP 120/62
[2018-04-05 19:27] LABS: BACTERIA,URINE FEW /HPF (0-FEW); BILIRUBIN,URINE NEG (NEG); CLARITY,URINE HAZY; COLOR,URINE YELLOW; GLUCOSE,URINE 100 mg/dL (NEG); NITRITE,URINE NEG (NEG); SQUAMOUS EPITHELIAL CELL,UR MANY /LPF; UROBILINOGEN,URINE 0.2 mg/dL (0.2 mg/dL)
[2018-04-05] MEDS: MELATONIN 3 MG TABLET PO SCH (19:56)
[2018-04-05] MEDS: ATORVASTATIN CALCIUM 20 MG TABLET PO SCH (19:56)
[2018-04-05] MEDS: traZODone 50 MG TABLET. PO SCH (19:57)
[2018-04-05] MEDS: MIRTAZAPINE 15 MG TABLET PO SCH (19:58)
[2018-04-06 07:28] VITALS: BP 122/58
[2018-04-06] MEDS: SERTRALINE 50 MG TABLET. PO SCH (08:33)
[2018-04-06] MEDS: QUEtiapine 25 MG TABLET. PO SCH ×2 (08:34→16:55)
[2018-04-06] MEDS: DIVALPROEX 125 MG CAP.SPRINK PO SCH ×3 (08:34→20:54)
[2018-04-06] MEDS: HYDROCORTISONE 2.5% TOPICAL OINTMENT 30GM TUBE. TP SCH ×2 (08:38→20:35)
[2018-04-06] MEDS: LORazepam 0.5 MG TABLET PO PRN (09:12)
[2018-04-06 09:14] LABS: BASO % 1 % (0-3); EOS # 0.3 x10^3/uL (0.0-0.7); EOS % 5 % (0-3); HEMATOCRIT 37.2 % (36.0-47.0); HEMOGLOBIN 12.5 g/dL (12.0-15.5); LYMPH # 2.1 x10^3/uL (1.0-4.8); LYMPH % 35 % (24-48); MEAN CORPUSCULAR HEMOGLOBIN 29 pg (25-35); MEAN CORPUSCULAR HGB CONC 34 g/dL (31-37); MEAN CORPUSCULAR VOLUME 87 fL (79-100); MONO # 0.8 x10^3/uL (0.0-1.1); MONO % 14 % (0-9); NEUT # 2.7 x10^3uL (1.8-7.7); NEUT % 46 % (31-73); PLATELET COUNT 258 x10^3/uL (140-400); RED BLOOD COUNT 4.28 x10^6/uL (3.50-5.40); RED CELL DISTRIBUTION WIDTH 17.1 % (11.5-14.5); WHITE BLOOD COUNT 5.9 x10^3/uL (4.0-11.0)
[2018-04-06 09:23] LABS: ALBUMIN 3.3 g/dL (3.4-5.0); ALBUMIN/GLOBULIN RATIO 0.9 (1.0-1.7); ALK PHOS 93 U/L (46-116); ALT (SGPT) 20 U/L (14-59); ANION GAP 3 (6-14); AST (SGOT) 23 U/L (15-37); BLOOD UREA NITROGEN 22 mg/dL (7-20); BUN/CREATININE RATIO 22 (6-20); CALCIUM 9.3 mg/dL (8.5-10.1); CARBON DIOXIDE 34 mmol/L (21-32); CHLORIDE 104 mmol/L (98-107); GFR 54.5; GLUCOSE 140 mg/dL (70-99); POTASSIUM 4.3 mmol/L (3.5-5.1); SODIUM 141 mmol/L (136-145); TOTAL BILIRUBIN 0.9 mg/dL (0.2-1.0); TOTAL PROTEIN 7.1 g/dL (6.4-8.2)
[2018-04-06 09:24] LABS: VAL ACID 62 mcg/mL (50-100)
[2018-04-06 16:40] VITALS: BP 132/74
--- NOTE | 2018-04-06 20:08 | PN ---
DATE: 04/05/2018 This is a late entry 04/05/2018 covers elements not covered in my initial note 04/05/2018. I met with the patient in the evening. The patient slept 7-1/2 hours previous evening, has been quite intrusive, labile, anxious, had to be placed in the West hallway to remove her from stimuli, which seems to worsen her agitation. She has been banging on the doors and windows, nonredirectable, hitting, kicking, biting at times. Rattling the doors. REVIEW OF SYSTEMS: No CV, , pulmonary, eye, ENT system symptoms on review. MENTAL STATUS EXAM: Oriented to herself. Insight, judgment, recent and remote memory, attention, concentration, fund of knowledge poor, consistent with her diagnosis mentioned in my initial note. PLAN: Check UA to make sure UTI is not worsening her mood lability. Check CBC, CMP, valproic acid, ammonia level morning of 04/05/2018. I had a message to call the patient's daughter, returned the call, left a very detailed message about the patient's progress, changes in psychotropics we are attempting and labs we are drawing for medical clarification of anything worsening of behaviors. IMPRESSION: Unchanged from initial note. PLAN: As noted above. ELVA STROUD MD DR: CHARLOTTE/fanny JOB#: [id number] / [id number]
[2018-04-06] MEDS: MIRTAZAPINE 15 MG TABLET PO SCH (20:34)
[2018-04-06] MEDS: MELATONIN 3 MG TABLET PO SCH (20:34)
[2018-04-06] MEDS: traZODone 50 MG TABLET. PO SCH (20:34)
[2018-04-06] MEDS: ATORVASTATIN CALCIUM 20 MG TABLET PO SCH (20:34)
[2018-04-07 05:38] VITALS: BP 109/61
[2018-04-07] MEDS: SERTRALINE 50 MG TABLET. PO SCH (10:08)
[2018-04-07] MEDS: DIVALPROEX 125 MG CAP.SPRINK PO SCH ×3 (10:08→19:53)
[2018-04-07] MEDS: HYDROCORTISONE 2.5% TOPICAL OINTMENT 30GM TUBE. TP SCH ×2 (10:09→19:50)
[2018-04-07] MEDS: QUEtiapine 50 MG TABLET. PO SCH ×2 (10:09→17:06)
[2018-04-07] MEDS: LORazepam 0.5 MG TABLET PO PRN (14:58)
[2018-04-07 15:58] VITALS: BP 121/65
[2018-04-07] MEDS: ATORVASTATIN CALCIUM 20 MG TABLET PO SCH (19:49)
[2018-04-07] MEDS: MIRTAZAPINE 15 MG TABLET PO SCH (19:50)
[2018-04-07] MEDS: MELATONIN 3 MG TABLET PO SCH (19:50)
[2018-04-07] MEDS: traZODone 50 MG TABLET. PO SCH (19:50)
--- NOTE | 2018-04-07 21:23 | PN ---
DATE: 04/06/2018 This late entry 04/06/2018 covers elements not covered in my initial note. SUBJECTIVE: I met with the patient in the evening. The patient slept 6-3/4 hours previous evening. She has had a very difficult day, [facility] to reduce sensory stimulation which makes her extremely agitated. She was banging on the door and has broken her door, received Zyprexa and Ativan with limited relief. UA showed some bacteria, but has not reflex to culture. Valproic acid level therapeutic at 62. REVIEW OF SYSTEMS: No CV, , pulmonary, eye, ENT system symptoms on review. Reliability poor. MENTAL STATUS EXAM: Oriented to herself. Insight, judgment, recent and remote memory, attention, concentration, fund of knowledge poor, consistent with her diagnosis. IMPRESSION: Unchanged from initial note. PLAN: Increase Seroquel from 37.5 mg b.i.d. to 50 mg b.i.d. Rest unchanged from initial note. ELVA STROUD MD DR: CHARLOTTE/fanny JOB#: [id number] / [id number]
[2018-04-08 05:32] VITALS: BP 123/67
[2018-04-08] MEDS: HYDROCORTISONE 2.5% TOPICAL OINTMENT 30GM TUBE. TP SCH ×2 (07:34→19:55)
[2018-04-08] MEDS: SERTRALINE 50 MG TABLET. PO SCH (07:34)
[2018-04-08] MEDS: QUEtiapine 50 MG TABLET. PO SCH ×2 (07:34→17:00)
[2018-04-08] MEDS: DIVALPROEX 125 MG CAP.SPRINK PO SCH ×3 (07:34→19:54)
[2018-04-08] MEDS: hydrOXYzine HCL 25 MG TABLET PO PRN (12:15)
[2018-04-08] MEDS: LORazepam 0.5 MG TABLET PO PRN (13:41)
[2018-04-08 16:02] VITALS: BP 106/50
[2018-04-08] MEDS: traZODone 50 MG TABLET. PO SCH (19:54)
[2018-04-08] MEDS: MELATONIN 3 MG TABLET PO SCH (19:54)
[2018-04-08] MEDS: ATORVASTATIN CALCIUM 20 MG TABLET PO SCH (19:54)
[2018-04-08] MEDS: MIRTAZAPINE 15 MG TABLET PO SCH (19:54)
[2018-04-09] MEDS: QUEtiapine 50 MG TABLET. PO SCH ×2 (09:13→15:21)
[2018-04-09] MEDS: DIVALPROEX 125 MG CAP.SPRINK PO SCH ×3 (09:13→20:04)
[2018-04-09] MEDS: HYDROCORTISONE 2.5% TOPICAL OINTMENT 30GM TUBE. TP SCH ×2 (09:15→20:13)
[2018-04-09] MEDS: SERTRALINE 50 MG TABLET. PO SCH (09:15)
[2018-04-09] MEDS: traZODone 50 MG TABLET. PO SCH (20:03)
[2018-04-09] MEDS: ATORVASTATIN CALCIUM 20 MG TABLET PO SCH (20:03)
[2018-04-09] MEDS: MELATONIN 3 MG TABLET PO SCH (20:04)
[2018-04-09] MEDS: MIRTAZAPINE 15 MG TABLET PO SCH (20:04)
--- NOTE | 2018-04-10 00:01 | PN ---
DATE: 04/07/2018 This is a late entry, 04/07/2018, covers the elements not covered in my initial note. SUBJECTIVE: I met with the patient in the evening. The patient slept 6-3/4 hours. Overall, remains confused, has been extremely labile, disruptive, unmanageable at times. She is kicking on the nursing station doors and banging on the glass wall of the nursing station. She settles down during mealtimes for short periods of time and then back again with similar mood lability impaired. REVIEW OF SYSTEMS: No CV, , pulmonary, eye, ENT system symptoms on review. Reliability poor. MENTAL STATUS EXAM: Oriented to herself. Insight, judgment, recent and remote memory, attention, concentration, fund of knowledge poor, consistent with her diagnoses. IMPRESSION: Major neurocognitive disorder, Alzheimer, vascular with depression, delusion, behavioral disturbance. Rest unchanged. PLAN: Continue current psychotropics from initial note. Valproic acid level is therapeutic at 50, we may need to increase the Depakote. Nevertheless, but for now, I would like to give it another 24-48 hours and then decide. Maintain Zoloft, trazodone, melatonin, Zyprexa as needed, Remeron, Seroquel, and Depakote along with hydroxyzine as needed. ELVA STROUD MD DR: CHARLOTTE/fanny JOB#: [id number] / [id number]
--- NOTE | 2018-04-10 00:02 | PN ---
DATE: 04/08/2018 PSYCHIATRIC PROGRESS NOTE This is a late entry 04/08/2018, covers elements not covered in my initial note. SUBJECTIVE: I met with the patient in the evening, staffed at treatment team meeting at some length the morning of 04/08/2018. Appetite 100%, slept 7-3/4 hours. The day before she was extremely agitated, biting at staff, hitting at staff and the hitting was evident morning of 04/08/2018, again. That she was kicking the doors in the morning, but by the evening she was doing better. REVIEW OF SYSTEMS: No CV, , pulmonary, eye, ENT system symptoms on review. Reliability poor. MENTAL STATUS EXAM: Oriented to herself. Insight, judgment, recent and remote memory, attention, concentration, fund of knowledge poor, consistent with her diagnoses from initial note. PLAN: Continue current psychotropics from initial note. Increase Zoloft from 50 mg a day to 75 mg a day, Seroquel from 50 mg b.i.d. to 62.5 mg b.i.d. Rest unchanged including Depakote 250 t.i.d. with therapeutic level at 62. MAN Rachel STROUD MD DR: CHARLOTTE/fanny JOB#: [id number] / [id number]
[2018-04-10 05:56] VITALS: BP 119/55
[2018-04-10] MEDS: DIVALPROEX 125 MG CAP.SPRINK PO SCH ×3 (08:42→16:41)
[2018-04-10] MEDS: SERTRALINE 50 MG TABLET. PO SCH (08:42)
[2018-04-10] MEDS: QUEtiapine 50 MG TABLET. PO SCH ×2 (08:43→16:41)
[2018-04-10] MEDS: HYDROCORTISONE 2.5% TOPICAL OINTMENT 30GM TUBE. TP SCH ×2 (08:45→20:25)
[2018-04-10] MEDS: traZODone 50 MG TABLET. PO SCH ×4 (08:45→20:25)
[2018-04-10 16:15] VITALS: BP 119/69
[2018-04-10] MEDS: MIRTAZAPINE 15 MG TABLET PO SCH (20:25)
[2018-04-10] MEDS: ATORVASTATIN CALCIUM 20 MG TABLET PO SCH (20:25)
[2018-04-10] MEDS: MELATONIN 3 MG TABLET PO SCH (20:25)
[2018-04-11 06:08] VITALS: BP 114/50
[2018-04-11] MEDS: HYDROCORTISONE 2.5% TOPICAL OINTMENT 30GM TUBE. TP SCH ×2 (09:00→20:23)
[2018-04-11] MEDS: traZODone 50 MG TABLET. PO SCH ×4 (09:38→20:24)
[2018-04-11] MEDS: DIVALPROEX 125 MG CAP.SPRINK PO SCH ×3 (09:38→20:24)
[2018-04-11] MEDS: QUEtiapine 50 MG TABLET. PO SCH ×2 (09:38→17:16)
[2018-04-11] MEDS: SERTRALINE 50 MG TABLET. PO SCH (09:39)
[2018-04-11 15:02] LABS: HEMATOCRIT 37.9 % (36.0-47.0); HEMOGLOBIN 12.8 g/dL (12.0-15.5); RED BLOOD COUNT 4.38 x10^6/uL (3.50-5.40); RED CELL DISTRIBUTION WIDTH 16.8 % (11.5-14.5); WHITE BLOOD COUNT 5.2 x10^3/uL (4.0-11.0)
[2018-04-11 15:15] LABS: ALBUMIN 3.3 g/dL (3.4-5.0); ALBUMIN/GLOBULIN RATIO 0.9 (1.0-1.7); GFR 54.5; POTASSIUM 4.3 mmol/L (3.5-5.1); TOTAL BILIRUBIN 0.6 mg/dL (0.2-1.0); TOTAL PROTEIN 6.8 g/dL (6.4-8.2)
[2018-04-11 16:20] VITALS: BP 107/62
[2018-04-11] MEDS: MIRTAZAPINE 15 MG TABLET PO SCH (20:24)
[2018-04-11] MEDS: ATORVASTATIN CALCIUM 20 MG TABLET PO SCH (20:24)
[2018-04-11] MEDS: MELATONIN 3 MG TABLET PO SCH (20:24)
--- NOTE | 2018-04-12 00:14 | PN ---
DATE: 04/09/2018 PSYCHIATRIC PROGRESS NOTE This is a late entry 04/09/2018, covers elements not covered in my initial note. SUBJECTIVE: I met with the patient in the evening. The patient slept 4-1/2 hours previous evening, has had to be placed in the West hallway to reduce her from stimuli around her, which make her very agitated as 2 other demented patients. She has been intrusive, refusing medications, banging on the doors and glass window of the nursing station. REVIEW OF SYSTEMS: No CV, , pulmonary, eye, ENT system symptoms on review. MENTAL STATUS EXAM: Oriented to herself. Insight, judgment, recent and remote memory, attention, concentration, fund of knowledge poor, consistent with her diagnoses from initial note. PLAN: Continue psychotropics from initial note. Start trazodone 12.5 mg 9:00 a.m., 1:00 p.m., 5:00 p.m. Rest unchanged from initial note. MAN Rachel STROUD MD DR: CHARLOTTE/fanny JOB#: [id number] / [id number]
--- NOTE | 2018-04-12 00:16 | PN ---
DATE: 04/10/2018 PSYCHIATRIC PROGRESS NOTE This late entry, date of service 04/10/2018, covers elements not covered in my initial note 04/10/2018. SUBJECTIVE: I met with the patient in the evening. The patient slept 6-1/4 hours. She has been less agitated, still had to be placed in the West hallway to reduce the stimuli, which seemed to agitate her. She is banging on the windows in the morning, but by the afternoon she was doing better. REVIEW OF SYSTEMS: No CV, , pulmonary, eye, ENT system symptoms on review. Reliability poor. MENTAL STATUS EXAM: Oriented to herself. Insight, judgment, recent and remote memory, attention, concentration, fund of knowledge poor, consistent with her diagnoses from initial note. PLAN: No change from initial note. MAN Rachel STROUD MD DR: CHARLOTTE/fanny JOB#: [id number] / [id number]
--- NOTE | 2018-04-12 00:18 | PN ---
DATE: 04/11/2018 PSYCHIATRIC PROGRESS NOTE This note covers elements not covered in my initial note 04/11/2018. SUBJECTIVE: I met with the patient the evening of 04/11/2018. The patient slept 7-3/4 hours previous evening. She refuses medications, but if she is told they are for her blood pressure she takes them. She has been less agitated. She is wandering, restless, but felt it was less intrusive. REVIEW OF SYSTEMS: No CV, , pulmonary, eye, ENT system symptoms on review. Reliability poor. MENTAL STATUS EXAM: Oriented to herself. Insight, judgment, recent and remote memory, attention, concentration, fund of knowledge poor, consistent with her diagnoses mentioned in my initial note. PLAN: No change from a psychiatric standpoint. MAN Rachel STROUD MD DR: CHARLOTTE/fanny JOB#: [id number] / [id number]
[2018-04-12 06:20] VITALS: BP 103/53
[2018-04-12] MEDS: HYDROCORTISONE 2.5% TOPICAL OINTMENT 30GM TUBE. TP SCH ×2 (09:00→20:24)
[2018-04-12] MEDS: DIVALPROEX 125 MG CAP.SPRINK PO SCH ×3 (09:28→20:24)
[2018-04-12] MEDS: SERTRALINE 50 MG TABLET. PO SCH (09:28)
[2018-04-12] MEDS: traZODone 50 MG TABLET. PO SCH ×4 (09:28→20:23)
[2018-04-12] MEDS: QUEtiapine 50 MG TABLET. PO SCH ×2 (09:28→17:17)
[2018-04-12 16:03] VITALS: BP 135/78
[2018-04-12] MEDS: MIRTAZAPINE 15 MG TABLET PO SCH (20:23)
[2018-04-12] MEDS: MELATONIN 3 MG TABLET PO SCH (20:23)
[2018-04-12] MEDS: ATORVASTATIN CALCIUM 20 MG TABLET PO SCH (20:24)
[2018-04-13] MEDS: SERTRALINE 50 MG TABLET. PO SCH (09:52)
[2018-04-13] MEDS: QUEtiapine 50 MG TABLET. PO SCH ×2 (09:52→17:17)
[2018-04-13] MEDS: traZODone 50 MG TABLET. PO SCH ×4 (09:52→20:13)
[2018-04-13] MEDS: DIVALPROEX 125 MG CAP.SPRINK PO SCH ×3 (09:52→20:13)
[2018-04-13] MEDS: HYDROCORTISONE 2.5% TOPICAL OINTMENT 30GM TUBE. TP SCH ×2 (09:53→20:12)
[2018-04-13 16:24] VITALS: BP 105/69
[2018-04-13] MEDS: ATORVASTATIN CALCIUM 20 MG TABLET PO SCH (20:13)
[2018-04-13] MEDS: MIRTAZAPINE 15 MG TABLET PO SCH (20:13)
[2018-04-13] MEDS: MELATONIN 3 MG TABLET PO SCH (20:13)
--- NOTE | 2018-04-13 21:42 | PN ---
DATE: 04/12/2018 This late entry 04/12/2018, covers the elements not covered in my initial note 04/12/2018. SUBJECTIVE: I met with the patient in the evening. The patient slept 5-3/4 hours previous evening. The patient takes her medications as she is told these for her blood pressure. She was kept active with activities during the day folding laundry and did much better, less agitated. REVIEW OF SYSTEMS: No CV, , pulmonary, eye, ENT system symptoms on review. Reliability poor. MENTAL STATUS EXAM: Oriented to herself. Insight, judgment, recent and remote memory, fund of knowledge poor, consistent with her diagnosis as mentioned in my initial note. PLAN: Continue psychotropics from initial note. MAN Rachel STROUD MD DR: CHARLOTTE/fanny JOB#: [id number] / [id number]
[2018-04-14 06:17] VITALS: BP 122/72
[2018-04-14] MEDS: SERTRALINE 50 MG TABLET. PO SCH (08:08)
[2018-04-14] MEDS: QUEtiapine 50 MG TABLET. PO SCH ×2 (08:08→17:02)
[2018-04-14] MEDS: traZODone 50 MG TABLET. PO SCH ×4 (08:09→21:07)
[2018-04-14] MEDS: DIVALPROEX 125 MG CAP.SPRINK PO SCH ×3 (08:10→21:07)
[2018-04-14] MEDS: HYDROCORTISONE 2.5% TOPICAL OINTMENT 30GM TUBE. TP SCH ×2 (08:11→21:08)
[2018-04-14] MEDS: LORazepam 0.5 MG TABLET PO PRN (12:24)
[2018-04-14 16:15] VITALS: BP 110/61
[2018-04-14] MEDS: ATORVASTATIN CALCIUM 20 MG TABLET PO SCH (21:07)
[2018-04-14] MEDS: MIRTAZAPINE 15 MG TABLET PO SCH (21:07)
[2018-04-14] MEDS: MELATONIN 3 MG TABLET PO SCH (21:07)
[2018-04-15 05:48] VITALS: BP 100/53
[2018-04-15] MEDS: HYDROCORTISONE 2.5% TOPICAL OINTMENT 30GM TUBE. TP SCH ×2 (07:54→19:41)
[2018-04-15] MEDS: QUEtiapine 50 MG TABLET. PO SCH ×2 (07:54→17:23)
[2018-04-15] MEDS: traZODone 50 MG TABLET. PO SCH ×4 (07:55→19:40)
[2018-04-15] MEDS: SERTRALINE 50 MG TABLET. PO SCH (07:55)
[2018-04-15] MEDS: DIVALPROEX 125 MG CAP.SPRINK PO SCH ×3 (07:55→19:40)
[2018-04-15 16:05] VITALS: BP 106/67
[2018-04-15] MEDS: MELATONIN 3 MG TABLET PO SCH (19:40)
[2018-04-15] MEDS: ATORVASTATIN CALCIUM 20 MG TABLET PO SCH (19:41)
[2018-04-15] MEDS: MIRTAZAPINE 15 MG TABLET PO SCH (19:41)
--- NOTE | 2018-04-15 22:03 | PN ---
DATE: 04/13/2018 PSYCHIATRIC PROGRESS NOTE This is a late entry 04/13/2018, covers elements not covered in my initial note. SUBJECTIVE: I met with the patient in the evening. The patient slept 6-3/4 hours previous evening at 2:30 in the morning. She had undress to herself, walked into the hallway, staff intervened. I had a message to call the patient's daughter, Caitlin, returned a call and left a detailed message on the [employer] at [phone]. REVIEW OF SYSTEMS: No CV, , pulmonary, eye, ENT system symptoms on review. Reliability poor. MENTAL STATUS EXAM: Oriented to herself. Insight, judgment, recent and remote memory, attention, concentration, fund of knowledge poor, consistent with her diagnoses mentioned in my initial note. PLAN: Continue current psychotropics, may need to increase trazodone if agitation resurfaces. MAN Rachel STROUD MD DR: CHARLOTTE/fanny JOB#: [id number] / [id number]
--- NOTE | 2018-04-15 22:05 | PN ---
DATE: 04/14/2018 PSYCHIATRIC PROGRESS NOTE This is a late entry 04/14/2018 covers elements not covered in my initial note. SUBJECTIVE: I met with the patient in the afternoon. The patient slept 4-1/4 hours, remains confused, redirectable. Again, previous evening, she had stripped herself and came in the middle of the night in the hallway wandering, thinking she was at a bank, smacked intermittently at a nursing program director earlier. REVIEW OF SYSTEMS: No CV, , pulmonary, eye, ENT system symptoms on review. Reliability poor. MENTAL STATUS EXAM: Oriented to herself. Insight, judgment, recent and remote memory, attention, concentration, fund of knowledge poor, consistent with her diagnosis mentioned in my initial note. PLAN: No change from a psychiatric standpoint. MAN Rachel STROUD MD DR: CHARLOTTE/fanny JOB#: [id number] / [id number]
[2018-04-16 05:51] VITALS: BP 133/76
[2018-04-16] MEDS: DIVALPROEX 125 MG CAP.SPRINK PO SCH ×3 (08:28→20:06)
[2018-04-16] MEDS: QUEtiapine 50 MG TABLET. PO SCH ×2 (08:28→17:32)
[2018-04-16] MEDS: SERTRALINE 50 MG TABLET. PO SCH (08:29)
[2018-04-16] MEDS: HYDROCORTISONE 2.5% TOPICAL OINTMENT 30GM TUBE. TP SCH ×2 (08:32→20:07)
[2018-04-16] MEDS: traZODone 50 MG TABLET. PO SCH ×4 (08:34→20:07)
[2018-04-16 16:39] VITALS: BP 130/64
[2018-04-16] MEDS: MELATONIN 3 MG TABLET PO SCH (20:06)
[2018-04-16] MEDS: MIRTAZAPINE 15 MG TABLET PO SCH (20:07)
[2018-04-16] MEDS: ATORVASTATIN CALCIUM 20 MG TABLET PO SCH (20:07)
--- NOTE | 2018-04-17 01:30 | PN ---
DATE: 04/15/2018 PSYCHIATRIC PROGRESS NOTE This is a late entry for 04/15/2018, covers elements not covered in my initial note of 04/15/2018. SUBJECTIVE: I met with the patient in the evening, staffed at a treatment team meeting with the entire team in the morning. We will schedule to have the patient's daughter, Caitlin join us for the treatment team meeting, but she was unavailable. Reviewed the patient's history, diagnosis, progress. The patient slept 6-1/4 hours previous evening. At times, she undresses at night, but overall behaviorally she is much improved. She is not banging on the doors, kicking things, or otherwise aggressive and has not had to be placed in the West hallway to reduce stimuli. She remains quite confused; however, somewhat anxious in the morning time. REVIEW OF SYSTEMS: No CV, , pulmonary, eye, ENT system symptoms on review. Reliability poor. MENTAL STATUS EXAM: Oriented to herself. Insight, judgment, recent and remote memory, attention, concentration, fund of knowledge poor, consistent with her diagnosis mentioned in my initial note. PLAN: Increase the morning trazodone at 9:00 a.m. to 25 mg. Continue 12.5 mg at 1:00 p.m. and 5:00 p.m. Maintain rest of the psychotropics unchanged for now and daughter is wanting her placed in a [facility], in which to update. Social service staff is coordinating this. ELVA STROUD MD DR: CHARLOTTE/fanny JOB#: [id number] / [id number]
[2018-04-17 06:19] VITALS: BP 107/69
[2018-04-17 07:55] LABS: HEMATOCRIT 37.5 % (36.0-47.0); HEMOGLOBIN 12.3 g/dL (12.0-15.5); RED BLOOD COUNT 4.26 x10^6/uL (3.50-5.40); WHITE BLOOD COUNT 7.4 x10^3/uL (4.0-11.0)
[2018-04-17 08:26] LABS: BLOOD UREA NITROGEN 20 mg/dL (7-20); CALCIUM 9.5 mg/dL (8.5-10.1); CREATININE 0.9 mg/dL (0.6-1.0); GFR 61.5; GLUCOSE 91 mg/dL (70-99); POTASSIUM 5.4 mmol/L (3.5-5.1); SODIUM 147 mmol/L (136-145)
[2018-04-17 08:43] LABS: CHLORIDE 110 mmol/L (98-107)
[2018-04-17 08:47] LABS: ANION GAP 0 (6-14); CARBON DIOXIDE 37 mmol/L (21-32); VAL ACID 71 mcg/mL (50-100)
[2018-04-17] MEDS: HYDROCORTISONE 2.5% TOPICAL OINTMENT 30GM TUBE. TP SCH ×2 (09:00→19:40)
[2018-04-17] MEDS: traZODone 50 MG TABLET. PO SCH ×4 (09:14→19:39)
[2018-04-17] MEDS: QUEtiapine 50 MG TABLET. PO SCH ×2 (09:14→17:02)
[2018-04-17] MEDS: DIVALPROEX 125 MG CAP.SPRINK PO SCH ×3 (09:14→19:39)
[2018-04-17] MEDS: SERTRALINE 50 MG TABLET. PO SCH (09:15)
[2018-04-17] MEDS: CETIRIZINE HCL 10 MG TABLET PO SCH (09:19)
[2018-04-17 16:20] VITALS: BP 137/62
[2018-04-17] MEDS: ATORVASTATIN CALCIUM 20 MG TABLET PO SCH (19:39)
[2018-04-17] MEDS: MIRTAZAPINE 15 MG TABLET PO SCH (19:39)
[2018-04-17] MEDS: MELATONIN 3 MG TABLET PO SCH (19:39)
[2018-04-18 06:10] VITALS: BP 118/71
[2018-04-18] MEDS: HYDROCORTISONE 2.5% TOPICAL OINTMENT 30GM TUBE. TP SCH ×2 (09:00→21:00)
[2018-04-18] MEDS: CETIRIZINE HCL 10 MG TABLET PO SCH (09:29)
[2018-04-18] MEDS: traZODone 50 MG TABLET. PO SCH ×4 (09:29→20:59)
[2018-04-18] MEDS: SERTRALINE 50 MG TABLET. PO SCH (09:29)
[2018-04-18] MEDS: DIVALPROEX 125 MG CAP.SPRINK PO SCH ×3 (09:29→20:59)
[2018-04-18] MEDS: QUEtiapine 50 MG TABLET. PO SCH ×2 (09:29→17:39)
[2018-04-18 16:22] VITALS: BP 109/63
--- NOTE | 2018-04-18 19:43 | PN ---
DATE: 04/17/2018 This late entry 04/17/2018 covers elements not covered in my initial note. SUBJECTIVE: I met with the patient in the evening. The patient slept 8 hours. Fluids are being pushed as her oral fluid intake is poor and she is dehydrated on labs and potassium 5.4. We will defer to Dr. Perkins. She did well previous night, has had a better day. She was somewhat paranoid later in the day and then had undressed and gone into the bed of another demented patient who was quite oblivious if anyone was there. Valproic acid level is 71. REVIEW OF SYSTEMS: No CV, , pulmonary, eye, ENT system symptoms on review. Reliability poor. MENTAL STATUS EXAM: Oriented to herself. Insight, judgment, recent and remote memory, attention, concentration, fund of knowledge poor, consistent with her diagnoses. DIAGNOSES: Major neurocognitive disorder, Alzheimer, vascular with delusion, behavioral disturbance; bipolar 1 disorder, unspecified. Rest unchanged. PLAN: Continue current psychotropics, treat the dehydration, push fluids. May need to increase atypical antipsychotics, i.e., the Seroquel if needed. MAN Rachel STROUD MD DR: CHAROLTTE/fanny JOB#: [id number] / [id number]
[2018-04-18] MEDS: ATORVASTATIN CALCIUM 20 MG TABLET PO SCH (20:59)
[2018-04-18] MEDS: MIRTAZAPINE 15 MG TABLET PO SCH (21:00)
[2018-04-18] MEDS: MELATONIN 3 MG TABLET PO SCH (21:00)
[2018-04-19 06:08] VITALS: BP 120/54
[2018-04-19] MEDS: HYDROCORTISONE 2.5% TOPICAL OINTMENT 30GM TUBE. TP SCH ×2 (09:00→20:12)
--- NOTE | 2018-04-19 09:10 | PN ---
DATE: 04/16/2018 This is a late entry, 04/16/2018, covers the elements not covered in my initial note. SUBJECTIVE: I met with the patient in the evening. The patient slept 6-1/4 hours, somewhat irritable with the staff, had to be placed in the quiet hallway to reduce stimuli. No PRNs were given. REVIEW OF SYSTEMS: No CV, , pulmonary, eye, ENT system symptoms on review. Reliability poor. MENTAL STATUS EXAM: Oriented to herself. Insight, judgment, recent and remote memory, attention, concentration, fund of knowledge poor, consistent with her diagnosis as mentioned in my initial note. LABORATORY DATA: Valproic acid level 62. IMPRESSION: As I met with the patient, we talked about discharge plans. She said she knew her daughter lives in [place]. When I questioned her, she said she has visited her daughter "many times" in [place]. "She is my only child." Seemed a little more coherent at times. PLAN: Continue current psychotropics. Adjust further as clinically indicated. ELVA STROUD MD DR: CHARLOTTE/fanny JOB#: [id number] / [id number]
[2018-04-19] MEDS: DIVALPROEX 125 MG CAP.SPRINK PO SCH ×3 (09:20→20:11)
[2018-04-19] MEDS: SERTRALINE 50 MG TABLET. PO SCH (09:20)
[2018-04-19] MEDS: QUEtiapine 50 MG TABLET. PO SCH ×2 (09:20→17:41)
[2018-04-19] MEDS: traZODone 50 MG TABLET. PO SCH ×4 (09:20→20:11)
[2018-04-19] MEDS: CETIRIZINE HCL 10 MG TABLET PO SCH (09:20)
[2018-04-19 16:07] VITALS: BP 122/76
[2018-04-19] MEDS: MELATONIN 3 MG TABLET PO SCH (20:11)
[2018-04-19] MEDS: ATORVASTATIN CALCIUM 20 MG TABLET PO SCH (20:11)
[2018-04-19] MEDS: MIRTAZAPINE 15 MG TABLET PO SCH (20:12)
--- NOTE | 2018-04-19 22:56 | PN ---
DATE: 04/18/2018 This late entry for 04/18/2018 covers elements not covered in my initial note of 04/18/2018. SUBJECTIVE: I met with the patient in the evening. The patient slept 8-1/2 hours previous evening, refused her medications by one nursing staff, did accept them from another. Valproic acid level 71, therapeutic on the 6th. REVIEW OF SYSTEMS: No CV, , pulmonary, eye, ENT system symptoms on review. MENTAL STATUS EXAM: Oriented to herself. Insight, judgment, recent and remote memory, attention, concentration, fund of knowledge poor, consistent with her diagnosis mentioned in my initial note. PLAN: Continue current psychotropics. Adjust as clinically indicated. ELVA STROUD MD DR: CHARLOTTE/fanny JOB#: [id number] / [id number]
[2018-04-20 06:12] VITALS: BP 116/53
[2018-04-20] MEDS: DIVALPROEX 125 MG CAP.SPRINK PO SCH ×3 (08:37→19:57)
[2018-04-20] MEDS: traZODone 50 MG TABLET. PO SCH ×4 (08:37→19:57)
[2018-04-20] MEDS: SERTRALINE 50 MG TABLET. PO SCH (08:38)
[2018-04-20] MEDS: CETIRIZINE HCL 10 MG TABLET PO SCH (08:38)
[2018-04-20] MEDS: QUEtiapine 25 MG TABLET. PO SCH ×2 (08:40→17:10)
[2018-04-20] MEDS: HYDROCORTISONE 2.5% TOPICAL OINTMENT 30GM TUBE. TP SCH ×2 (08:41→19:58)
[2018-04-20 16:18] VITALS: BP 99/64
[2018-04-20] MEDS: MELATONIN 3 MG TABLET PO SCH (19:57)
[2018-04-20] MEDS: ATORVASTATIN CALCIUM 20 MG TABLET PO SCH (19:58)
[2018-04-20] MEDS: MIRTAZAPINE 15 MG TABLET PO SCH (19:58)
--- NOTE | 2018-04-21 01:25 | PN ---
DATE: 04/19/2018 PSYCHIATRIC PROGRESS NOTE This late entry of 04/19/2018 covers elements not covered in my initial note. SUBJECTIVE: I met with the patient in the evening. The patient slept 5-3/4 hours previous evening. Previous evening, she was somewhat delusional regarding one of the nursing staff being a cable TV provider, quite confused, refused a.m. medications, took them later with a shake at 2:00 p.m. Around 2:00 p.m., she was rattling the doors, anxious, restless, did redirect. No CV, , pulmonary, eye, ENT system symptoms on review. Reliability poor. MENTAL STATUS EXAM: Oriented to herself. Insight, judgment, recent and remote memory, attention, concentration, fund of knowledge poor, consistent with her diagnosis mentioned in my initial note. PLAN: Increase the 1700 Seroquel from 62.5 mg to 75 mg. Continue rest unchanged per initial note. MAN Rachel STROUD MD DR: CHARLOTTE/fanny JOB#: [id number] / [id number]
[2018-04-21 06:07] VITALS: BP 104/66
[2018-04-21] MEDS: DIVALPROEX 125 MG CAP.SPRINK PO SCH ×4 (08:44→19:36)
[2018-04-21] MEDS: traZODone 50 MG TABLET. PO SCH ×5 (08:45→19:35)
[2018-04-21] MEDS: SERTRALINE 50 MG TABLET. PO SCH (08:47)
[2018-04-21] MEDS: QUEtiapine 25 MG TABLET. PO SCH ×2 (08:47→18:04)
[2018-04-21] MEDS: CETIRIZINE HCL 10 MG TABLET PO SCH (08:48)
[2018-04-21] MEDS: HYDROCORTISONE 2.5% TOPICAL OINTMENT 30GM TUBE. TP SCH ×2 (08:48→19:38)
[2018-04-21 16:07] VITALS: BP 112/70
[2018-04-21] MEDS: ATORVASTATIN CALCIUM 20 MG TABLET PO SCH (19:35)
[2018-04-21] MEDS: MELATONIN 3 MG TABLET PO SCH (19:36)
[2018-04-21] MEDS: MIRTAZAPINE 15 MG TABLET PO SCH (19:37)
--- NOTE | 2018-04-21 21:56 | PN ---
DATE: 04/20/2018 PSYCHIATRIC PROGRESS NOTE This is a late entry for 04/20/2018, covers elements not covered in my initial note. SUBJECTIVE: I met with the patient in the evening of 04/20/2018. The patient slept 6-1/4 hours previous evening. Remains quite disorganized, but less aggressive. At times, she rattles the doors, but redirects. REVIEW OF SYSTEMS: No CV, , pulmonary, eye, ENT system symptoms on review. Reliability poor. MENTAL STATUS EXAM: Oriented to herself. Insight, judgment, recent and remote memory, attention, concentration, fund of knowledge poor, consistent with her diagnosis mentioned in my initial note. PLAN: Continue psychotropics from initial note, Zoloft, trazodone, melatonin, Zyprexa p.r.n., Ativan p.r.n., Remeron, Seroquel, Depakote along with hydroxyzine p.r.n., and trazodone scheduled. ELVA STROUD MD DR: CHARLOTTE/fanny JOB#: [id number] / [id number]
[2018-04-22 06:10] VITALS: BP 110/63
[2018-04-22 06:25] VITALS: BP 110/63
[2018-04-22] MEDS: HYDROCORTISONE 2.5% TOPICAL OINTMENT 30GM TUBE. TP SCH ×2 (09:00→19:56)
[2018-04-22] MEDS: QUEtiapine 50 MG TABLET. PO SCH (09:00)
[2018-04-22] MEDS: DIVALPROEX 125 MG CAP.SPRINK PO SCH ×3 (09:56→19:55)
[2018-04-22] MEDS: traZODone 50 MG TABLET. PO SCH ×4 (09:57→19:55)
[2018-04-22] MEDS: CETIRIZINE HCL 10 MG TABLET PO SCH (09:58)
[2018-04-22] MEDS: SERTRALINE 50 MG TABLET. PO SCH (09:58)
[2018-04-22] MEDS: QUEtiapine 25 MG TABLET. PO SCH (17:25)
[2018-04-22] MEDS: MIRTAZAPINE 15 MG TABLET PO SCH (19:55)
[2018-04-22] MEDS: MELATONIN 3 MG TABLET PO SCH (19:55)
[2018-04-22] MEDS: ATORVASTATIN CALCIUM 20 MG TABLET PO SCH (19:55)
[2018-04-23 06:15] VITALS: BP 125/53
[2018-04-23] MEDS: traZODone 50 MG TABLET. PO SCH ×4 (07:52→19:54)
[2018-04-23] MEDS: DIVALPROEX 125 MG CAP.SPRINK PO SCH ×3 (07:52→19:55)
[2018-04-23] MEDS: CETIRIZINE HCL 10 MG TABLET PO SCH (07:54)
[2018-04-23] MEDS: SERTRALINE 50 MG TABLET. PO SCH (07:54)
[2018-04-23] MEDS: QUEtiapine 50 MG TABLET. PO SCH (07:54)
[2018-04-23] MEDS: HYDROCORTISONE 2.5% TOPICAL OINTMENT 30GM TUBE. TP SCH ×2 (07:55→19:55)
[2018-04-23] MEDS: QUEtiapine 25 MG TABLET. PO SCH (16:39)
[2018-04-23 16:45] VITALS: BP 129/81
[2018-04-23] MEDS: MELATONIN 3 MG TABLET PO SCH (19:54)
[2018-04-23] MEDS: MIRTAZAPINE 15 MG TABLET PO SCH (19:55)
[2018-04-23] MEDS: ATORVASTATIN CALCIUM 20 MG TABLET PO SCH (19:55)
--- NOTE | 2018-04-23 22:49 | PN ---
DATE: 04/21/2018 This is a late entry for 04/21/2018 and covers the elements not covered in my initial note. SUBJECTIVE: I met with the patient in the evening. The patient slept 5 hours previous evening. She remains confused, checking doors at times, took her pants off on two occasions, was found in another male patient's room, did redirect, was in the West hallway for a short period of time to reduce the stimuli. REVIEW OF SYSTEMS: No CV, , pulmonary, eye, ENT system symptoms on review. Reliability poor. MENTAL STATUS EXAM: Oriented to herself. Insight, judgment, recent and remote memory, attention, concentration, fund of knowledge poor, consistent with her diagnosis mentioned in my initial note. PLAN: Increase the 9:00 a.m. Seroquel from 62.5 to 75 mg. Continue rest unchanged for now. MAN Rachel STROUD MD DR: CHARLOTTE/fanny JOB#: [id number] / [id number]
--- NOTE | 2018-04-23 22:51 | PN ---
DATE: 04/22/2018 This is a late entry for 04/22/2018 covers elements not covered in my initial note. SUBJECTIVE: I met with the patient in the evening, staffed at a treatment team meeting with the entire team in the morning and the patient's daughter, Caitlin, attended the conference. Caitlin is looking for placement options in [place] and social service staff had a lengthy discussion with her. We also reviewed the patient's history, progress, discharge plans. The patient is sleeping 6-7 hours. Appetite 100%, was somewhat agitated at one point, [facility], received Zyprexa and coffee at 01:10 p.m., did well the rest of the day. REVIEW OF SYSTEMS: No CV, , pulmonary, eye, ENT system symptoms on review. Reliability poor. MENTAL STATUS EXAM: Oriented to herself. Insight, judgment, recent and remote memory, attention, concentration, fund of knowledge poor, consistent with her diagnosis mentioned in my initial note. PLAN: Continue psychotropics from initial note. Seroquel was increased to 75 mg in the morning. May need to increase further if indicated. MAN Rachel STROUD MD DR: CHARLOTTE/fanny JOB#: [id number] / [id number]
[2018-04-24 05:50] VITALS: BP 128/71
[2018-04-24] MEDS: DIVALPROEX 125 MG CAP.SPRINK PO SCH ×3 (08:05→19:45)
[2018-04-24] MEDS: QUEtiapine 50 MG TABLET. PO SCH (08:05)
[2018-04-24] MEDS: traZODone 50 MG TABLET. PO SCH ×4 (08:05→19:45)
[2018-04-24] MEDS: CETIRIZINE HCL 10 MG TABLET PO SCH (08:06)
[2018-04-24] MEDS: SERTRALINE 50 MG TABLET. PO SCH (08:06)
[2018-04-24] MEDS: HYDROCORTISONE 2.5% TOPICAL OINTMENT 30GM TUBE. TP SCH ×2 (08:20→19:46)
[2018-04-24 15:58] VITALS: BP 172/77
[2018-04-24] MEDS: QUEtiapine 25 MG TABLET. PO SCH (17:10)
[2018-04-24] MEDS: MELATONIN 3 MG TABLET PO SCH (19:45)
[2018-04-24] MEDS: MIRTAZAPINE 15 MG TABLET PO SCH (19:46)
[2018-04-24] MEDS: ATORVASTATIN CALCIUM 20 MG TABLET PO SCH (19:46)
--- NOTE | 2018-04-24 22:32 | PN ---
DATE: 04/23/2018 PSYCHIATRIC PROGRESS NOTE This is a late entry 04/23/2018, covers elements not covered in my initial note. SUBJECTIVE: I met with the patient in the evening. The patient slept 7-1/2 hours previous evening, remains confused, compliant with medications. She has been approaching another male demented patient and staff have intervened. REVIEW OF SYSTEMS: No CV, , pulmonary, eye, ENT system symptoms on review. She complained of feeling cold, was wearing a heavy jacket. MENTAL STATUS EXAM: Oriented to herself. Insight, judgment, recent and remote memory, attention, concentration, fund of knowledge poor, consistent with her diagnoses mentioned in my initial note. PLAN: Continue psychotropics from initial note. Valproic acid level therapeutic at 71. MAN Rachel STROUD MD DR: CHARLOTTE/fanny JOB#: [id number] / [id number]
[2018-04-25 05:53] VITALS: BP 133/70
[2018-04-25] MEDS: HYDROCORTISONE 2.5% TOPICAL OINTMENT 30GM TUBE. TP SCH ×2 (09:00→20:55)
[2018-04-25] MEDS: QUEtiapine 50 MG TABLET. PO SCH (09:32)
[2018-04-25] MEDS: DIVALPROEX 125 MG CAP.SPRINK PO SCH ×3 (09:32→20:54)
[2018-04-25] MEDS: traZODone 50 MG TABLET. PO SCH ×4 (09:32→20:54)
[2018-04-25] MEDS: CETIRIZINE HCL 10 MG TABLET PO SCH (09:33)
[2018-04-25] MEDS: SERTRALINE 50 MG TABLET. PO SCH (09:33)
[2018-04-25 16:02] VITALS: BP 132/64
[2018-04-25] MEDS: MELATONIN 3 MG TABLET PO SCH (20:54)
[2018-04-25] MEDS: ATORVASTATIN CALCIUM 20 MG TABLET PO SCH (20:54)
[2018-04-25] MEDS: MIRTAZAPINE 15 MG TABLET PO SCH (20:54)
[2018-04-26 06:07] VITALS: BP 120/73
[2018-04-26] MEDS: QUEtiapine 50 MG TABLET. PO SCH ×2 (09:40→17:13)
[2018-04-26] MEDS: DIVALPROEX 125 MG CAP.SPRINK PO SCH ×3 (09:40→19:23)
[2018-04-26] MEDS: SERTRALINE 50 MG TABLET. PO SCH (09:40)
[2018-04-26] MEDS: traZODone 50 MG TABLET. PO SCH ×4 (09:40→19:23)
[2018-04-26] MEDS: HYDROCORTISONE 2.5% TOPICAL OINTMENT 30GM TUBE. TP SCH ×2 (09:40→19:23)
[2018-04-26] MEDS: CETIRIZINE HCL 10 MG TABLET PO SCH (09:40)
[2018-04-26 16:05] VITALS: BP 148/68
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
[2018-04-26] MEDS: MELATONIN 3 MG TABLET PO SCH (19:22)
[2018-04-26] MEDS: ATORVASTATIN CALCIUM 20 MG TABLET PO SCH (19:23)
[2018-04-26] MEDS: MIRTAZAPINE 15 MG TABLET PO SCH (19:23)
--- NOTE | 2018-04-26 20:30 | PN ---
DATE: 04/25/2018 This is a late entry for date of service 04/25/2018 and covers the elements not covered in my initial note of 04/25/2018. SUBJECTIVE: I met with the patient evening of 04/25/2018. The patient slept 4-3/4 hours previous evening, remains somewhat confused, but cooperative, wandering. REVIEW OF SYSTEMS: No CV, , pulmonary, eye, ENT system symptoms on review. Reliability poor. MENTAL STATUS EXAM: Oriented to herself. Insight, judgment, recent and remote memory, attention, concentration, fund of knowledge poor, consistent with her diagnosis mentioned in my initial note. PLAN: Continue psychotropics from initial note. Valproic acid level is therapeutic at 71. Adjust further as clinically indicated. MAN Rachel STROUD MD DR: CHARLOTTE/fanny JOB#: [id number] / [id number]
[2018-04-27 06:33] VITALS: BP 147/75
[2018-04-27] MEDS: CETIRIZINE HCL 10 MG TABLET PO SCH (09:11)
[2018-04-27] MEDS: QUEtiapine 50 MG TABLET. PO SCH ×2 (09:11→18:14)
[2018-04-27] MEDS: DIVALPROEX 125 MG CAP.SPRINK PO SCH ×3 (09:11→19:23)
[2018-04-27] MEDS: SERTRALINE 50 MG TABLET. PO SCH (09:12)
[2018-04-27] MEDS: traZODone 50 MG TABLET. PO SCH ×4 (09:12→19:24)
[2018-04-27] MEDS: HYDROCORTISONE 2.5% TOPICAL OINTMENT 30GM TUBE. TP SCH ×2 (09:13→19:24)
--- NOTE | 2018-04-27 14:40 | PN ---
DATE: 04/26/2018 This is a late entry 04/26/2018, covers elements not covered in my initial note. SUBJECTIVE: I met with the patient in the evening. The patient slept 6-1/4 hours previous evening. She remains confused, believes one of the other demented patients on the unit is her and follows him around. She does redirect. REVIEW OF SYSTEMS: No CV, , pulmonary, eye, ENT system symptoms on review. Reliability poor. MENTAL STATUS EXAM: Oriented to herself. Insight, judgment, recent and remote memory, attention, concentration, fund of knowledge poor, consistent with her diagnosis mentioned in my initial note. PLAN: Continue current psychotropics. Adjust further as clinically indicated. MAN Rachel STROUD MD DR: CHARLOTTE/fanny JOB#: [id number] / [id number]
[2018-04-27 16:53] VITALS: BP 112/72
[2018-04-27] MEDS: MELATONIN 3 MG TABLET PO SCH (19:23)
[2018-04-27] MEDS: ATORVASTATIN CALCIUM 20 MG TABLET PO SCH (19:24)
[2018-04-27] MEDS: MIRTAZAPINE 15 MG TABLET PO SCH (19:24)
[2018-04-28 06:06] VITALS: BP 124/67
[2018-04-28] MEDS: SERTRALINE 50 MG TABLET. PO SCH (09:52)
[2018-04-28] MEDS: CETIRIZINE HCL 10 MG TABLET PO SCH (09:52)
[2018-04-28] MEDS: DIVALPROEX 125 MG CAP.SPRINK PO SCH ×3 (09:52→20:05)
[2018-04-28] MEDS: QUEtiapine 50 MG TABLET. PO SCH ×2 (09:53→16:01)
[2018-04-28] MEDS: traZODone 50 MG TABLET. PO SCH ×4 (09:55→20:06)
[2018-04-28] MEDS: HYDROCORTISONE 2.5% TOPICAL OINTMENT 30GM TUBE. TP SCH ×2 (09:55→20:07)
[2018-04-28] MEDS: MELATONIN 3 MG TABLET PO SCH (20:05)
[2018-04-28] MEDS: MIRTAZAPINE 15 MG TABLET PO SCH (20:06)
[2018-04-28] MEDS: ATORVASTATIN CALCIUM 20 MG TABLET PO SCH (20:06)
--- NOTE | 2018-04-28 22:16 | PN ---
DATE: 04/27/2018 This late entry 04/27/2018 covers elements not covered in my initial note. SUBJECTIVE: I met with the patient in the evening. The patient slept 7 hours previous evening, has to be from another demented patient who she perceives as her . She is resistive to care, was spitting out her medications at one time and calling out in [place] when she was angry, trying to strike out at another time. REVIEW OF SYSTEMS: No CV, , pulmonary, eye, ENT system symptoms on review. MENTAL STATUS EXAM: Oriented to herself. Insight, judgment, recent and remote memory, attention, concentration, fund of knowledge poor, consistent with her diagnosis mentioned in my initial note. PLAN: Increase 1300 Seroquel from 12.5 mg to 25 mg. Continue rest unchanged per initial note. MAN Rachel STROUD MD DR: CHARLOTTE/fanny JOB#: [id number] / [id number]
[2018-04-29 05:41] VITALS: BP 124/76
[2018-04-29] MEDS: DIVALPROEX 125 MG CAP.SPRINK PO SCH ×3 (10:16→19:57)
[2018-04-29] MEDS: traZODone 50 MG TABLET. PO SCH ×4 (10:16→20:01)
[2018-04-29] MEDS: QUEtiapine 50 MG TABLET. PO SCH ×2 (10:17→17:27)
[2018-04-29] MEDS: SERTRALINE 50 MG TABLET. PO SCH (10:18)
[2018-04-29] MEDS: HYDROCORTISONE 2.5% TOPICAL OINTMENT 30GM TUBE. TP SCH ×2 (10:18→19:58)
[2018-04-29] MEDS: CETIRIZINE HCL 10 MG TABLET PO SCH (10:18)
[2018-04-29 16:19] VITALS: BP 117/77
[2018-04-29] MEDS: ATORVASTATIN CALCIUM 20 MG TABLET PO SCH (19:57)
[2018-04-29] MEDS: MELATONIN 3 MG TABLET PO SCH (19:57)
[2018-04-29] MEDS: MIRTAZAPINE 15 MG TABLET PO SCH (19:57)
[2018-04-30 06:24] VITALS: BP 116/71
[2018-04-30] MEDS: SERTRALINE 50 MG TABLET. PO SCH (07:51)
[2018-04-30] MEDS: CETIRIZINE HCL 10 MG TABLET PO SCH (07:52)
[2018-04-30] MEDS: traZODone 50 MG TABLET. PO SCH ×4 (07:52→19:44)
[2018-04-30] MEDS: DIVALPROEX 125 MG CAP.SPRINK PO SCH ×3 (07:52→19:44)
[2018-04-30] MEDS: QUEtiapine 50 MG TABLET. PO SCH ×2 (07:53→17:07)
[2018-04-30] MEDS: HYDROCORTISONE 2.5% TOPICAL OINTMENT 30GM TUBE. TP SCH ×2 (07:54→19:45)
[2018-04-30 15:56] VITALS: BP 113/72
[2018-04-30] MEDS: ATORVASTATIN CALCIUM 20 MG TABLET PO SCH (19:45)
[2018-04-30] MEDS: MELATONIN 3 MG TABLET PO SCH (19:45)
[2018-04-30] MEDS: MIRTAZAPINE 15 MG TABLET PO SCH (19:45)
--- NOTE | 2018-04-30 23:51 | PN ---
DATE: 04/28/2018 This is a late entry for 04/28/2018 covers elements not covered in my initial note. SUBJECTIVE: I met with the patient in the evening. The patient slept 5-3/4 hours previous evening. Remains quite anxious, restless. Received Zyprexa p.r.n. twice on 04/28/2018. Aggressive with staff in the morning, accusing staff, paranoid. At 04:00 p.m., she spit out at the nursing staff, received Zyprexa p.r.n. REVIEW OF SYSTEMS: No CV, , pulmonary, eye, ENT system symptoms on review. Reliability poor. MENTAL STATUS EXAM: Oriented to herself. Insight, judgment, recent and remote memory, attention, concentration, fund of knowledge poor, consistent with her diagnosis mentioned in my initial note. PLAN: Continue psychotropics from initial note. May need to increase Seroquel if agitation persists, but then she gets over sedated at times. ELVA STROUD MD DR: CHARLOTTE/fanny JOB#: [id number] / [id number]
--- NOTE | 2018-04-30 23:54 | PN ---
DATE: 04/29/2018 PSYCHIATRIC PROGRESS NOTE This is a late entry 04/29/2018 covers elements not covered in my initial note. SUBJECTIVE: I met with the patient in the evening and staffed at a treatment team meeting with the entire team in the morning. Discussed the patient placement options in [place], close to the daughter. She refused bedtime medications. Appetite 75%, slept 6-1/2 hours previous evenings, seeks out another demented patient because she believes he is her . REVIEW OF SYSTEMS: No CV, , pulmonary, eye, ENT system symptoms on review. MENTAL STATUS EXAM: Oriented to herself. Insight, judgment, recent and remote memory, attention, concentration, fund of knowledge poor, consistent with her diagnosis mentioned in my initial note. PLAN: Continue psychotropics from initial note. Consider increasing scheduled trazodone or Seroquel if agitation persists. MAN Rachel STROUD MD DR: CHARLOTTE/fanny JOB#: [id number] / [id number]
[2018-05-01 05:48] VITALS: BP 111/60
[2018-05-01] MEDS: CETIRIZINE HCL 10 MG TABLET PO SCH (08:12)
[2018-05-01] MEDS: QUEtiapine 50 MG TABLET. PO SCH ×2 (08:12→16:27)
[2018-05-01] MEDS: DIVALPROEX 125 MG CAP.SPRINK PO SCH ×3 (08:13→19:20)
[2018-05-01] MEDS: SERTRALINE 50 MG TABLET. PO SCH (08:13)
[2018-05-01] MEDS: traZODone 50 MG TABLET. PO SCH ×4 (08:13→19:19)
[2018-05-01] MEDS: HYDROCORTISONE 2.5% TOPICAL OINTMENT 30GM TUBE. TP SCH ×2 (08:14→19:20)
[2018-05-01 17:04] VITALS: BP 112/72
[2018-05-01] MEDS: MIRTAZAPINE 15 MG TABLET PO SCH (19:19)
[2018-05-01] MEDS: ATORVASTATIN CALCIUM 20 MG TABLET PO SCH (19:20)
[2018-05-01] MEDS: MELATONIN 3 MG TABLET PO SCH (19:20)
[2018-05-02 05:40] VITALS: BP 116/58
[2018-05-02 08:23] LABS: BASO % 1 % (0-3); EOS # 0.3 x10^3/uL (0.0-0.7); EOS % 5 % (0-3); HEMOGLOBIN 12.4 g/dL (12.0-15.5); LYMPH # 1.5 x10^3/uL (1.0-4.8); LYMPH % 25 % (24-48); MEAN CORPUSCULAR HEMOGLOBIN 29 pg (25-35); MEAN CORPUSCULAR HGB CONC 34 g/dL (31-37); MEAN CORPUSCULAR VOLUME 88 fL (79-100); MONO # 0.7 x10^3/uL (0.0-1.1); MONO % 12 % (0-9); NEUT # 3.5 x10^3uL (1.8-7.7); NEUT % 58 % (31-73); PLATELET COUNT 205 x10^3/uL (140-400); RED BLOOD COUNT 4.22 x10^6/uL (3.50-5.40); WHITE BLOOD COUNT 6.1 x10^3/uL (4.0-11.0)
[2018-05-02 08:38] LABS: ALBUMIN/GLOBULIN RATIO 0.9 (1.0-1.7); CALCIUM 8.9 mg/dL (8.5-10.1); CREATININE 0.8 mg/dL (0.6-1.0); GFR 70.5; MAGNESIUM 1.9 mg/dL (1.8-2.4); POTASSIUM 4.6 mmol/L (3.5-5.1); TOTAL BILIRUBIN 0.3 mg/dL (0.2-1.0); TOTAL PROTEIN 6.5 g/dL (6.4-8.2)
[2018-05-02] MEDS: HYDROCORTISONE 2.5% TOPICAL OINTMENT 30GM TUBE. TP SCH (09:00)
--- NOTE | 2018-05-02 09:22 | PN ---
DATE: 04/30/2018 PSYCHIATRIC PROGRESS NOTE This is a late entry 04/30/2018 covers elements not covered in my initial note. SUBJECTIVE: I met with the patient evening of 04/30/2018. The patient slept 5-3/4 hours previous evening. She remains confused. Appetite is fair. She is compliant with her medications. She ambulates up and down the unit, tends to gravitate towards another demented patient who she perceives to be her . REVIEW OF SYSTEMS: No CV, , pulmonary, eye, ENT system symptoms on review. Reliability poor. MENTAL STATUS EXAM: Oriented to herself. Insight, judgment, recent and remote memory, attention, concentration, fund of knowledge poor, consistent with her diagnosis mentioned in my initial note. PLAN: Continue psychotropics from initial note. Valproic acid level therapeutic at 74. MAN Rachel STROUD MD DR: CHARLOTTE/fanny JOB#: [id number] / [id number]
--- NOTE | 2018-05-02 09:23 | PN ---
DATE: 05/01/2018 PSYCHIATRIC PROGRESS NOTE This late entry 05/01/2018 covers elements not covered in my initial note. SUBJECTIVE: I met with the patient in the evening. The patient slept 7 hours previous evening, remains confused, not aggressive, again tends to gravitate towards another demented patient who she perceives to be her . REVIEW OF SYSTEMS: No CV, , pulmonary, eye, ENT system symptoms on review. Reliability poor. MENTAL STATUS EXAM: Oriented to herself. Insight, judgment, recent and remote memory, attention, concentration, fund of knowledge poor, consistent with her diagnosis mentioned in my initial note. PLAN: Continue current psychotropics. Adjust further as clinically indicated. MAN Rachel STROUD MD DR: CHARLOTTE/fanny JOB#: [id number] / [id number]
[2018-05-02] MEDS: SERTRALINE 50 MG TABLET. PO SCH (09:57)
[2018-05-02] MEDS: DIVALPROEX 125 MG CAP.SPRINK PO SCH ×3 (09:57→20:34)
[2018-05-02] MEDS: CETIRIZINE HCL 10 MG TABLET PO SCH (09:58)
[2018-05-02] MEDS: QUEtiapine 50 MG TABLET. PO SCH ×2 (09:58→17:42)
[2018-05-02] MEDS: traZODone 50 MG TABLET. PO SCH ×4 (09:58→20:34)
[2018-05-02 16:06] VITALS: BP 120/68
[2018-05-02] MEDS: MELATONIN 3 MG TABLET PO SCH (20:33)
[2018-05-02] MEDS: ATORVASTATIN CALCIUM 20 MG TABLET PO SCH (20:34)
[2018-05-02] MEDS: MIRTAZAPINE 15 MG TABLET PO SCH (20:34)
[2018-05-02] MEDS: HYDROCORTISONE 1% TOPICAL CREAM 30GM TUBE. TP SCH (20:34)
[2018-05-03 06:21] VITALS: BP 128/78
[2018-05-03] MEDS: QUEtiapine 50 MG TABLET. PO SCH ×2 (09:56→18:20)
[2018-05-03] MEDS: DIVALPROEX 125 MG CAP.SPRINK PO SCH ×3 (09:57→20:09)
[2018-05-03] MEDS: CETIRIZINE HCL 10 MG TABLET PO SCH (09:57)
[2018-05-03] MEDS: SERTRALINE 50 MG TABLET. PO SCH (09:57)
[2018-05-03] MEDS: traZODone 50 MG TABLET. PO SCH ×4 (09:57→20:08)
[2018-05-03] MEDS: HYDROCORTISONE 1% TOPICAL CREAM 30GM TUBE. TP SCH ×2 (09:59→20:09)
[2018-05-03 16:03] VITALS: BP 116/67
[2018-05-03] MEDS: ATORVASTATIN CALCIUM 20 MG TABLET PO SCH (20:08)
[2018-05-03] MEDS: MIRTAZAPINE 15 MG TABLET PO SCH (20:09)
[2018-05-03] MEDS: MELATONIN 3 MG TABLET PO SCH (20:09)
--- NOTE | 2018-05-03 21:32 | PN ---
DATE: 05/02/2018 PSYCHIATRIC PROGRESS NOTE This late entry 05/02/2018 covers elements not covered in my initial note. SUBJECTIVE: I met with the patient in the evening. The patient slept 6-3/4 hours previous night, remains confused, wanders the hallways, agitated at times, tried to refuse meds and assessment. She thought her meds were too expensive and then ended up taking them. REVIEW OF SYSTEMS: No CV, , pulmonary, eye, ENT system symptoms on review. MENTAL STATUS EXAM: Oriented to herself. Insight, judgment, recent and remote memory, attention, concentration, fund of knowledge poor, consistent with her diagnosis mentioned in my initial note. PLAN: Continue psychotropics from initial note. Valproic acid level is therapeutic at 71. MAN Rachel STROUD MD DR: CHARLOTTE/fanny JOB#: [id number] / [id number]
[2018-05-04] MEDS: DIVALPROEX 125 MG CAP.SPRINK PO SCH ×2 (08:07→13:35)
[2018-05-04] MEDS: QUEtiapine 50 MG TABLET. PO SCH ×2 (08:07→17:20)
[2018-05-04] MEDS: traZODone 50 MG TABLET. PO SCH ×4 (08:07→21:21)
[2018-05-04] MEDS: SERTRALINE 50 MG TABLET. PO SCH (08:07)
[2018-05-04] MEDS: CETIRIZINE HCL 10 MG TABLET PO SCH (08:08)
[2018-05-04] MEDS: HYDROCORTISONE 1% TOPICAL CREAM 30GM TUBE. TP SCH ×2 (08:08→21:32)
[2018-05-04 15:59] VITALS: BP 101/66
[2018-05-04] MEDS: MELATONIN 3 MG TABLET PO SCH (21:21)
[2018-05-04] MEDS: MIRTAZAPINE 15 MG TABLET PO SCH (21:30)
[2018-05-04] MEDS: ATORVASTATIN CALCIUM 20 MG TABLET PO SCH (21:31)
[2018-05-04] MEDS: VALPROATE ACID 250 MG/5 ML ORAL SOLUTION PO SCH (21:32)
--- NOTE | 2018-05-04 23:21 | PN ---
DATE: 05/03/2018 This late entry, 05/03/2018, covers elements not covered in my initial note. SUBJECTIVE: I met with the patient in the evening. The patient slept 6-1/2 hours previous evening. Previous night, she had her pants off, redirected, but confused. No behaviors during the day on 05/03/2018. Takes her medications whole. Not intrusive. REVIEW OF SYSTEMS: No CV, , pulmonary, eye, ENT system symptoms on review. Reliability poor. MENTAL STATUS EXAM: Oriented to herself. Insight, judgment, recent and remote memory, attention, concentration, fund of knowledge poor, consistent with her diagnosis mentioned in my initial note. PLAN: Continue psychotropics from initial note. Social service staff arranging placement. ELVA STROUD MD DR: CHARLOTTE/fanny JOB#: [id number] / [id number]
[2018-05-05 06:06] VITALS: BP 122/68
[2018-05-05] MEDS: VALPROATE ACID 250 MG/5 ML ORAL SOLUTION PO SCH ×3 (07:54→19:52)
[2018-05-05] MEDS: SERTRALINE 50 MG TABLET. PO SCH (07:55)
[2018-05-05] MEDS: CETIRIZINE HCL 10 MG TABLET PO SCH (07:56)
[2018-05-05] MEDS: traZODone 50 MG TABLET. PO SCH ×4 (07:56→19:52)
[2018-05-05] MEDS: QUEtiapine 50 MG TABLET. PO SCH ×2 (07:56→17:26)
[2018-05-05] MEDS: HYDROCORTISONE 1% TOPICAL CREAM 30GM TUBE. TP SCH ×2 (07:58→19:56)
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
[2018-05-05 16:22] VITALS: BP 129/59
[2018-05-05] MEDS: MELATONIN 3 MG TABLET PO SCH (19:52)
[2018-05-05] MEDS: MIRTAZAPINE 15 MG TABLET PO SCH (19:52)
[2018-05-05] MEDS: ATORVASTATIN CALCIUM 20 MG TABLET PO SCH (19:52)
[2018-05-06 06:09] VITALS: BP 133/52
[2018-05-06] MEDS: VALPROATE ACID 250 MG/5 ML ORAL SOLUTION PO SCH ×3 (08:12→19:13)
[2018-05-06] MEDS: SERTRALINE 50 MG TABLET. PO SCH (08:12)
[2018-05-06] MEDS: QUEtiapine 50 MG TABLET. PO SCH ×2 (08:14→16:21)
[2018-05-06] MEDS: traZODone 50 MG TABLET. PO SCH ×4 (08:14→19:13)
[2018-05-06] MEDS: CETIRIZINE HCL 10 MG TABLET PO SCH (08:15)
[2018-05-06] MEDS: HYDROCORTISONE 1% TOPICAL CREAM 30GM TUBE. TP SCH ×2 (08:16→19:15)
[2018-05-06 16:02] VITALS: BP 168/88
[2018-05-06] MEDS: ATORVASTATIN CALCIUM 20 MG TABLET PO SCH (19:13)
[2018-05-06] MEDS: MELATONIN 3 MG TABLET PO SCH (19:13)
[2018-05-06] MEDS: MIRTAZAPINE 15 MG TABLET PO SCH (19:13)
[2018-05-07 05:44] VITALS: BP 132/74
[2018-05-07] MEDS: SERTRALINE 50 MG TABLET. PO SCH (09:23)
[2018-05-07] MEDS: VALPROATE ACID 250 MG/5 ML ORAL SOLUTION PO SCH ×3 (09:23→19:12)
[2018-05-07] MEDS: CETIRIZINE HCL 10 MG TABLET PO SCH (09:23)
[2018-05-07] MEDS: traZODone 50 MG TABLET. PO SCH ×4 (09:23→19:12)
[2018-05-07] MEDS: QUEtiapine 50 MG TABLET. PO SCH ×2 (09:23→16:31)
[2018-05-07] MEDS: HYDROCORTISONE 1% TOPICAL CREAM 30GM TUBE. TP SCH ×3 (09:25→20:19)
[2018-05-07 16:05] VITALS: BP 92/67
[2018-05-07] MEDS: MELATONIN 3 MG TABLET PO SCH (19:12)
[2018-05-07] MEDS: ATORVASTATIN CALCIUM 20 MG TABLET PO SCH (19:12)
[2018-05-07] MEDS: MIRTAZAPINE 15 MG TABLET PO SCH (19:12)
[2018-05-08 06:05] VITALS: BP 133/68
[2018-05-08] MEDS: VALPROATE ACID 250 MG/5 ML ORAL SOLUTION PO SCH ×3 (08:04→19:18)
[2018-05-08] MEDS: SERTRALINE 50 MG TABLET. PO SCH (08:04)
[2018-05-08] MEDS: QUEtiapine 50 MG TABLET. PO SCH ×2 (08:04→17:22)
[2018-05-08] MEDS: traZODone 50 MG TABLET. PO SCH ×4 (08:04→19:18)
[2018-05-08] MEDS: CETIRIZINE HCL 10 MG TABLET PO SCH (08:04)
[2018-05-08] MEDS: HYDROCORTISONE 1% TOPICAL CREAM 30GM TUBE. TP SCH ×2 (09:00→19:20)
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
--- NOTE | 2018-05-08 11:28 | PN ---
DATE: 05/06/2018 PSYCHIATRIC PROGRESS NOTE This is a late entry 05/06/2018, covers elements not covered in my initial note. SUBJECTIVE: I met with the patient in the evening, staffed at treatment team meeting with the entire team in the morning. The patient slept 7 hours previous evening. Reviewed her history progress. Disposition plans with the daughter would prefer the patient to come to [place], [place]. REVIEW OF SYSTEMS: No CV, , pulmonary, eye, ENT system symptoms on review. Reliability poor. MENTAL STATUS EXAM: Oriented to herself. Insight, judgment, recent and remote memory, attention, concentration, fund of knowledge poor, consistent with her diagnoses mentioned in my initial note. PLAN: Continue psychotropics from my initial note. MAN Rachel STROUD MD DR: CHARLOTTE/fanny JOB#: [id number] / [id number]
[2018-05-08 16:04] VITALS: BP 122/74
[2018-05-08] MEDS: ATORVASTATIN CALCIUM 20 MG TABLET PO SCH (19:18)
[2018-05-08] MEDS: MIRTAZAPINE 15 MG TABLET PO SCH (19:18)
[2018-05-08] MEDS: MELATONIN 3 MG TABLET PO SCH (19:19)
[2018-05-08] MEDS: MAGNESIUM HYDROXIDE 2,400 MG/30 ML ORAL.SUSP. PO PRN (19:20)
[2018-05-09 05:52] VITALS: BP 125/76
[2018-05-09] MEDS: traZODone 50 MG TABLET. PO SCH ×5 (07:35→20:01)
[2018-05-09] MEDS: SERTRALINE 50 MG TABLET. PO SCH (07:35)
[2018-05-09] MEDS: VALPROATE ACID 250 MG/5 ML ORAL SOLUTION PO SCH ×3 (07:35→20:01)
[2018-05-09] MEDS: CETIRIZINE HCL 10 MG TABLET PO SCH (07:35)
[2018-05-09] MEDS: QUEtiapine 50 MG TABLET. PO SCH ×2 (07:36→16:45)
[2018-05-09] MEDS: HYDROCORTISONE 1% TOPICAL CREAM 30GM TUBE. TP SCH ×2 (07:38→20:05)
[2018-05-09 09:58] LABS: BASO % 0 % (0-3); EOS # 0.3 x10^3/uL (0.0-0.7); EOS % 5 % (0-3); HEMATOCRIT 40.6 % (36.0-47.0); HEMOGLOBIN 13.4 g/dL (12.0-15.5); LYMPH # 1.5 x10^3/uL (1.0-4.8); LYMPH % 30 % (24-48); MEAN CORPUSCULAR HEMOGLOBIN 29 pg (25-35); MEAN CORPUSCULAR HGB CONC 33 g/dL (31-37); MEAN CORPUSCULAR VOLUME 88 fL (79-100); MONO # 0.5 x10^3/uL (0.0-1.1); MONO % 9 % (0-9); NEUT # 2.7 x10^3uL (1.8-7.7); NEUT % 55 % (31-73); PLATELET COUNT 194 x10^3/uL (140-400); RED CELL DISTRIBUTION WIDTH 15.4 % (11.5-14.5); WHITE BLOOD COUNT 4.9 x10^3/uL (4.0-11.0)
[2018-05-09 10:08] LABS: ALBUMIN 3.1 g/dL (3.4-5.0); ALBUMIN/GLOBULIN RATIO 0.8 (1.0-1.7); ALK PHOS 99 U/L (46-116); ALT (SGPT) 21 U/L (14-59); ANION GAP 4 (6-14); AST (SGOT) 17 U/L (15-37); BLOOD UREA NITROGEN 23 mg/dL (7-20); BUN/CREATININE RATIO 26 (6-20); CALCIUM 9.2 mg/dL (8.5-10.1); CARBON DIOXIDE 36 mmol/L (21-32); CHLORIDE 102 mmol/L (98-107); CREATININE 0.9 mg/dL (0.6-1.0); GFR 61.5; GLUCOSE 169 mg/dL (70-99); MAGNESIUM 1.9 mg/dL (1.8-2.4); POTASSIUM 4.2 mmol/L (3.5-5.1); SODIUM 142 mmol/L (136-145); TOTAL BILIRUBIN 0.4 mg/dL (0.2-1.0); TOTAL PROTEIN 6.9 g/dL (6.4-8.2)
[2018-05-09 10:09] LABS: VAL ACID 53 mcg/mL (50-100)
[2018-05-09] MEDS: ATORVASTATIN CALCIUM 20 MG TABLET PO SCH (20:01)
[2018-05-09] MEDS: MELATONIN 3 MG TABLET PO SCH (20:01)
[2018-05-09] MEDS: MIRTAZAPINE 15 MG TABLET PO SCH (20:02)
[2018-05-09] MEDS: MAGNESIUM HYDROXIDE 2,400 MG/30 ML ORAL.SUSP. PO PRN (20:02)
--- NOTE | 2018-05-09 23:43 | PN ---
DATE: 05/07/2018 This is a late entry, 05/07/2018, covers the elements not covered in my initial note. SUBJECTIVE: I met with the patient in the evening. The patient slept 8-1/4 hours the previous evening. In the morning, she was resistive to medications, took it in the ice cream, had to be from another demented patient who she believes is her . REVIEW OF SYSTEM: No CV, , pulmonary, eye, ENT system symptoms on review. MENTAL STATUS EXAM: Oriented to herself. Insight, judgment, recent and remote memory, attention, concentration, fund of knowledge poor, consistent with her diagnosis as mentioned in my initial note. PLAN: No change from a psychiatric standpoint. I returned a call from the patient's daughter, Caitlin and had a very lengthy discussion about discharge plans. Caitlin would like the patient to be transferred to [place]. [facility] social worker assistant is working on this, but out of town transfer is appearing problematic. Caitlin will coordinate with Jack to facilitate appropriate transfer. ELVA STROUD MD DR: CHARLOTTE/fanny JOB#: [id number] / [id number]
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
[2018-05-10] MEDS: QUEtiapine 50 MG TABLET. PO SCH ×2 (08:19→17:55)
[2018-05-10] MEDS: VALPROATE ACID 250 MG/5 ML ORAL SOLUTION PO SCH ×3 (08:19→19:37)
[2018-05-10] MEDS: CETIRIZINE HCL 10 MG TABLET PO SCH (08:19)
[2018-05-10] MEDS: SERTRALINE 50 MG TABLET. PO SCH (08:19)
[2018-05-10] MEDS: traZODone 50 MG TABLET. PO SCH ×4 (08:20→19:36)
[2018-05-10] MEDS: HYDROCORTISONE 1% TOPICAL CREAM 30GM TUBE. TP SCH ×2 (08:23→19:37)
[2018-05-10 16:33] VITALS: BP 123/72
--- NOTE | 2018-05-10 18:47 | PDOC ---
Exam Note: Ye Note: Please also refer to the separate dictated note~for this date of service dictated separately.~Patient seen individually. Discussed the patient with Nursing staff reviewed the chart.~Reviewed interim history and current functioning. Reviewed vital signs,~Labs/ Radiology~and current medications noted below. Continue current treatment with the changes noted in the dictated addendum note Assessment: Vital Signs: VS - Last 72 Hours, by Label Date Time Temp Pulse Resp B/P (MAP) Pulse Ox O2 Delivery O2 Flow Rate FiO2 05/10/18 16:33 98.5 84 18 123/72 (89) 96 05/09/18 05:52 97.5 64 15 125/76 (92) 95 05/08/18 16:04 98.0 87 16 122/74 (90) 97 05/08/18 06:05 97.3 76 18 133/68 (89) 98 Vital Signs Date Time Temp Pulse Resp B/P (MAP) Pulse Ox O2 Delivery O2 Flow Rate FiO2 05/10/18 16:33 98.5 84 18 123/72 (89) 96 05/05/18 16:22 Room Air Vital Signs Date Time Temp Pulse Resp B/P (MAP) Pulse Ox O2 Delivery O2 Flow Rate FiO2 05/10/18 16:33 98.5 84 18 123/72 (89) 96 05/05/18 16:22 Room Air I&O Intake and Output 05/10/18 07:00 Intake Total 1320 ml Balance 1320 ml Intake Oral 1320 ml Current Medications: Meds: Current Medications Acetaminophen (Tylenol) 650 mg PRN Q4HRS PRN PO pain rated 4-6 on scale; Start 03/23/18 at 20:15 Hydrocortisone (Hytone) 1 shiraz BID TP Last administered on 05/01/18at 19:20; Start 03/23/18 at 21:00; Stop 05/02/18 at 10:37; Status DC Multi-Ingredient Ointment (Analgesic [place]) 1 shiraz PRN QID PRN TP MUSCLE PAIN; Start 03/23/18 at 20:15 Atorvastatin Calcium (Lipitor) 40 mg QHS PO Last administered on 05/09/18at 20: 01; Start 03/23/18 at 21:00 Bisacodyl (Dulcolax Supp) 10 mg PRN QHS PRN [place] CONSTIPATION; Start 03/23/18 at 20:45 Al Hydroxide/Mg Hydroxide (Mylanta Plus Xs) 30 ml PRN BID PRN PO DYSPEPSIA; Start 03/23/18 at 20:45 Magnesium Hydroxide (Milk Of Magnesia) 2,400 mg PRN DAILY PRN PO CONSTIPATION Last administered on 05/09/18 20:02; Start 03/23/18 at 20:45 Citalopram Hydrobromide (CeleXA) 20 mg DAILY PO Last administered on 03/30/18at 07:42; Start 03/24/18 at 09:00; Stop 03/30/18 at 18:28; Status DC Divalproex Sodium (Depakote) 250 mg BID PO Last administered on 03/24/18 07:38 ; Start 03/23/18 at 21:00; Stop 03/24/18 at 19:08; Status DC Lorazepam (Ativan) 0.25 mg PRN BID PRN PO ANXIETY / AGITATION Last administered on 04/14/18 12:24; Start 03/23/18 at 20:45 Melatonin 3 mg QHS PO Last administered on 05/09/18 20:01; Start 03/23/18 at 21:00 Olanzapine (ZyPREXA ZYDIS) 2.5 mg PRN Q2HR PRN PO AGITATION/PSYCHOSIS Last administered on 05/09/18 20:02; Start 03/23/18 at 20:45 Quetiapine Fumarate (SEROquel) 37.5 mg TID PO Last administered on 03/30/18 14 :04; Start 03/23/18 at 21:00; Stop 03/30/18 at 18:38; Status DC Trazodone HCl (Desyrel) 50 mg QHS PO Last administered on 05/09/18 20:01; Start 03/23/18 at 21:00 Divalproex Sodium (Depakote) 250 mg TID@0900,1300,1700 PO Last administered on 03/29/18 16:05; Start 03/25/18 at 09:00; Stop 03/30/18 at 07:46; Status DC Mirtazapine (Remeron) 7.5 mg QHS PO Last administered on 03/29/18 19:29; Start 03/29/18 at 21:00; Stop 03/30/18 at 18:28; Status DC Divalproex Sodium (Depakote Sprinkles) 250 mg TID@0900,1300,1700 PO Last administered on 03/31/18at 08:36; Start 03/30/18 at 09:00; Stop 03/31/18 at 13:22 ; Status DC Mirtazapine (Remeron) 15 mg QHS PO Last administered on 05/09/18at 20:02; Start 03/30/18 at 21:00 Quetiapine Fumarate (SEROquel) 50 mg BID PO Last administered on 03/31/18at 08: 36; Start 03/30/18 at 21:00; Stop 03/31/18 at 13:22; Status DC Sertraline HCl (Zoloft) 50 mg DAILY PO Last administered on 04/08/18at 07:34; Start 03/31/18 at 09:00; Stop 04/08/18 at 10:57; Status DC Quetiapine Fumarate (SEROquel) 37.5 mg DAILY@1300 PO Last administered on at 14:09; Start 03/31/18 at 13:00; Stop 03/31/18 at 16:00; Status DC Quetiapine Fumarate (SEROquel) 37.5 mg TID PO Last administered on 04/01/18at 19 :20; Start 03/31/18 at 21:00; Stop 04/02/18 at 08:00; Status DC Divalproex Sodium (Depakote Sprinkles) 250 mg BID PO Last administered on at 08:49; Start 03/31/18 at 21:00; Stop 04/01/18 at 18:16; Status DC Divalproex Sodium (Depakote Sprinkles) 250 mg DAILY PO ; Start 04/03/18 at 09:00 ; Stop 04/03/18 at 09:00; Status DC Divalproex Sodium (Depakote Sprinkles) 250 mg TID PO Last administered on at 13:35; Start 04/01/18 at 21:00; Stop 05/04/18 at 18:35; Status DC Quetiapine Fumarate (SEROquel) 37.5 mg BID@0900,1700 PO Last administered on at 16:55; Start 04/03/18 at 09:00; Stop 04/06/18 at 18:45; Status DC Trazodone HCl (Desyrel) 50 mg PRN QHS PRN PO INSOMNIA; Start 04/03/18 at 15:15 Hydroxyzine HCl (Atarax) 25 mg PRN Q4HRS PRN PO AGITATION/ANXIETY Last administered on 04/08/18at 12:15; Start 04/05/18 at 09:15 Quetiapine Fumarate (SEROquel) 50 mg BID94 PO Last administered on 04/08/18at 07 :34; Start 04/07/18 at 09:00; Stop 04/08/18 at 10:59; Status DC Sertraline HCl (Zoloft) 75 mg DAILY PO Last administered on 05/10/18at 08:19; Start 04/09/18 at 09:00 Quetiapine Fumarate (SEROquel) 62.5 mg BID@0900,1700 PO Last administered on 04/19/18at 17:41; Start 04/08/18 at 17:00; Stop 04/19/18 at 18:45; Status DC Trazodone HCl (Desyrel) 12.5 mg TID@0900,1300,1700 PO Last administered on at 07:55; Start 04/10/18 at 09:00; Stop 04/15/18 at 11:19; Status DC Trazodone HCl (Desyrel) 12.5 mg BID@1300,1700 PO Last administered on at 18:14; Start 04/15/18 at 13:00; Stop 04/27/18 at 19:01; Status DC Trazodone HCl (Desyrel) 25 mg DAILY PO Last administered on 04/27/18at 09:12; Start 04/16/18 at 09:00; Stop 04/27/18 at 19:01; Status DC Cetirizine HCl (ZyrTEC) 10 mg DAILY PO Last administered on 05/10/18at 08:19; Start 04/17/18 at 09:00 Quetiapine Fumarate (SEROquel) 62.5 mg DAILY PO Last administered on 04/21/18at 08:47; Start 04/20/18 at 09:00; Stop 04/21/18 at 19:21; Status DC Quetiapine Fumarate (SEROquel) 75 mg 1700 PO Last administered on 04/24/18at 17: 10; Start 04/20/18 at 17:00; Stop 04/25/18 at 17:12; Status DC Quetiapine Fumarate (SEROquel) 75 mg DAILY PO Last administered on 05/10/18 08 :19; Start 04/22/18 at 09:00 Quetiapine Fumarate (SEROquel) 75 mg 1700 PO Last administered on 05/10/18 17: 55; Start 04/25/18 at 17:15 Trazodone HCl (Desyrel) 12.5 mg DAILY@1700 PO Last administered on 05/10/18 17 :55; Start 04/28/18 at 17:00 Trazodone HCl (Desyrel) 25 mg BID@0900,1300 PO Last administered on 05/10/18 13:00; Start 04/28/18 at 09:00 Hydrocortisone (Cortaid) 1 shiraz BID TP Last administered on 05/10/18 08:23; Start 05/02/18 at 21:00 Valproic Acid (Depakene) 250 mg TID PO Last administered on 05/10/18 13:00; Start 05/04/18 at 21:00 Active Scripts Active Reported Olanzapine 5 Mg Tablet 2.5 Mg PO PRN Q2HR PRN Analgesic [place] (Methyl Salicylate/Menthol) 28 Gm Oint...g. 1 Shiraz TP PRN QID PRN Milk Of Magnesia (Magnesium Hydroxide) 2,400 Mg/10 Ml Oral.susp 2,400 Mg PO PRN DAILY PRN Hydrocortisone 453.6 Gm Oint...g. 1 Shiraz TP BID Celexa (Citalopram Hydrobromide) 20 Mg Tablet 20 Mg PO DAILY Alum-Mag Hydroxide-Simeth Liq (Mag Hydrox/Al Hydrox/Simeth) 360 Ml Oral.susp 30 Ml PO PRN BID PRN Lorazepam 0.5 Mg Tablet 0.25 Mg PO PRN BID PRN Divalproex Sodium 250 Mg Tablet.dr 250 Mg PO BID Seroquel (Quetiapine Fumarate) 25 Mg Tablet 37.5 Mg PO TID Melatonin 3 Mg Tablet 3 Mg PO QHS Trazodone Hcl 50 Mg Tablet 50 Mg PO QHS Atorvastatin Calcium 40 Mg Tablet 40 Mg PO HS Bisacodyl 10 Mg Supp.rect 10 Mg RC PRN QHS PRN Tylenol (Acetaminophen) 325 Mg Tablet 650 Mg PO PRN Q4HRS PRN I have reviewed the current psychotropics carefully including drug interactions. Risk benefit ratio favors no change other than as noted in my dictated progress note. 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
[2018-05-10] MEDS: MIRTAZAPINE 15 MG TABLET PO SCH (19:37)
[2018-05-10] MEDS: MELATONIN 3 MG TABLET PO SCH (19:37)
[2018-05-10] MEDS: ATORVASTATIN CALCIUM 20 MG TABLET PO SCH (19:37)
--- NOTE | 2018-05-10 19:57 | PDOC ---
Exam Note: Ye Note: Please also refer to the separate dictated note~for this date of service dictated separately.~Patient seen individually. Discussed the patient with Nursing staff reviewed the chart.~Reviewed interim history and current functioning. Reviewed vital signs,~Labs/ Radiology~and current medications noted below. Continue current treatment with the changes noted in the dictated addendum note Assessment: Vital Signs: Vital Signs Date Time Temp Pulse Resp B/P (MAP) Pulse Ox O2 Delivery O2 Flow Rate FiO2 05/10/18 16:33 98.5 84 18 123/72 (89) 96 05/05/18 16:22 Room Air I&O Intake and Output 05/10/18 06:59 Intake Total 1320 ml Balance 1320 ml Intake Oral 1320 ml Current Medications: Meds: Current Medications Acetaminophen (Tylenol) 650 mg PRN Q4HRS PRN PO pain rated 4-6 on scale; Start 03/23/18 at 20:15 Hydrocortisone (Hytone) 1 shiraz BID TP Last administered on 05/01/18at 19:20; Start 03/23/18 at 21:00; Stop 05/02/18 at 10:37; Status DC Multi-Ingredient Ointment (Analgesic [place]) 1 shiraz PRN QID PRN TP MUSCLE PAIN; Start 03/23/18 at 20:15 Atorvastatin Calcium (Lipitor) 40 mg QHS PO Last administered on 05/10/18at 19: 37; Start 03/23/18 at 21:00 Bisacodyl (Dulcolax Supp) 10 mg PRN QHS PRN [place] CONSTIPATION; Start 03/23/18 at 20:45 Al Hydroxide/Mg Hydroxide (Mylanta Plus Xs) 30 ml PRN BID PRN PO DYSPEPSIA; Start 03/23/18 at 20:45 Magnesium Hydroxide (Milk Of Magnesia) 2,400 mg PRN DAILY PRN PO CONSTIPATION Last administered on 05/09/18at 20:02; Start 03/23/18 at 20:45 Citalopram Hydrobromide (CeleXA) 20 mg DAILY PO Last administered on 03/30/18at 07:42; Start 03/24/18 at 09:00; Stop 03/30/18 at 18:28; Status DC Divalproex Sodium (Depakote) 250 mg BID PO Last administered on 03/24/18at 07:38 ; Start 03/23/18 at 21:00; Stop 03/24/18 at 19:08; Status DC Lorazepam (Ativan) 0.25 mg PRN BID PRN PO ANXIETY / AGITATION Last administered on 04/14/18 12:24; Start 03/23/18 at 20:45 Melatonin 3 mg QHS PO Last administered on 05/10/18 19:37; Start 03/23/18 at 21:00 Olanzapine (ZyPREXA ZYDIS) 2.5 mg PRN Q2HR PRN PO AGITATION/PSYCHOSIS Last administered on 05/09/18 20:02; Start 03/23/18 at 20:45 Quetiapine Fumarate (SEROquel) 37.5 mg TID PO Last administered on 03/30/18 14 :04; Start 03/23/18 at 21:00; Stop 03/30/18 at 18:38; Status DC Trazodone HCl (Desyrel) 50 mg QHS PO Last administered on 05/10/18 19:36; Start 03/23/18 at 21:00 Divalproex Sodium (Depakote) 250 mg TID@0900,1300,1700 PO Last administered on 03/29/18at 16:05; Start 03/25/18 at 09:00; Stop 03/30/18 at 07:46; Status DC Mirtazapine (Remeron) 7.5 mg QHS PO Last administered on 03/29/18 19:29; Start 03/29/18 at 21:00; Stop 03/30/18 at 18:28; Status DC Divalproex Sodium (Depakote Sprinkles) 250 mg TID@0900,1300,1700 PO Last administered on 03/31/18 08:36; Start 03/30/18 at 09:00; Stop 03/31/18 at 13:22 ; Status DC Mirtazapine (Remeron) 15 mg QHS PO Last administered on 05/10/18 19:37; Start 03/30/18 at 21:00 Quetiapine Fumarate (SEROquel) 50 mg BID PO Last administered on 03/31/18 08: 36; Start 03/30/18 at 21:00; Stop 03/31/18 at 13:22; Status DC Sertraline HCl (Zoloft) 50 mg DAILY PO Last administered on 04/08/18at 07:34; Start 03/31/18 at 09:00; Stop 04/08/18 at 10:57; Status DC Quetiapine Fumarate (SEROquel) 37.5 mg DAILY@1300 PO Last administered on at 14:09; Start 03/31/18 at 13:00; Stop 03/31/18 at 16:00; Status DC Quetiapine Fumarate (SEROquel) 37.5 mg TID PO Last administered on 04/01/18at 19 :20; Start 03/31/18 at 21:00; Stop 04/02/18 at 08:00; Status DC Divalproex Sodium (Depakote Sprinkles) 250 mg BID PO Last administered on at 08:49; Start 03/31/18 at 21:00; Stop 04/01/18 at 18:16; Status DC Divalproex Sodium (Depakote Sprinkles) 250 mg DAILY PO ; Start 04/03/18 at 09:00 ; Stop 04/03/18 at 09:00; Status DC Divalproex Sodium (Depakote Sprinkles) 250 mg TID PO Last administered on at 13:35; Start 04/01/18 at 21:00; Stop 05/04/18 at 18:35; Status DC Quetiapine Fumarate (SEROquel) 37.5 mg BID@0900,1700 PO Last administered on at 16:55; Start 04/03/18 at 09:00; Stop 04/06/18 at 18:45; Status DC Trazodone HCl (Desyrel) 50 mg PRN QHS PRN PO INSOMNIA; Start 04/03/18 at 15:15 Hydroxyzine HCl (Atarax) 25 mg PRN Q4HRS PRN PO AGITATION/ANXIETY Last administered on 04/08/18at 12:15; Start 04/05/18 at 09:15 Quetiapine Fumarate (SEROquel) 50 mg BID94 PO Last administered on 04/08/18at 07 :34; Start 04/07/18 at 09:00; Stop 04/08/18 at 10:59; Status DC Sertraline HCl (Zoloft) 75 mg DAILY PO Last administered on 05/10/18 08:19; Start 04/09/18 at 09:00 Quetiapine Fumarate (SEROquel) 62.5 mg BID@0900,1700 PO Last administered on 04/19/18at 17:41; Start 04/08/18 at 17:00; Stop 04/19/18 at 18:45; Status DC Trazodone HCl (Desyrel) 12.5 mg TID@0900,1300,1700 PO Last administered on at 07:55; Start 04/10/18 at 09:00; Stop 04/15/18 at 11:19; Status DC Trazodone HCl (Desyrel) 12.5 mg BID@1300,1700 PO Last administered on at 18:14; Start 04/15/18 at 13:00; Stop 04/27/18 at 19:01; Status DC Trazodone HCl (Desyrel) 25 mg DAILY PO Last administered on 04/27/18at 09:12; Start 04/16/18 at 09:00; Stop 04/27/18 at 19:01; Status DC Cetirizine HCl (ZyrTEC) 10 mg DAILY PO Last administered on 05/10/18 08:19; Start 04/17/18 at 09:00 Quetiapine Fumarate (SEROquel) 62.5 mg DAILY PO Last administered on 04/21/18at 08:47; Start 04/20/18 at 09:00; Stop 04/21/18 at 19:21; Status DC Quetiapine Fumarate (SEROquel) 75 mg 1700 PO Last administered on 04/24/18at 17: 10; Start 04/20/18 at 17:00; Stop 04/25/18 at 17:12; Status DC Quetiapine Fumarate (SEROquel) 75 mg DAILY PO Last administered on 05/10/18 08 :19; Start 04/22/18 at 09:00 Quetiapine Fumarate (SEROquel) 75 mg 1700 PO Last administered on 05/10/18at 17: 55; Start 04/25/18 at 17:15 Trazodone HCl (Desyrel) 12.5 mg DAILY@1700 PO Last administered on 05/10/18at 17 :55; Start 04/28/18 at 17:00 Trazodone HCl (Desyrel) 25 mg BID@0900,1300 PO Last administered on 05/10/18at 13:00; Start 04/28/18 at 09:00 Hydrocortisone (Cortaid) 1 shiraz BID TP Last administered on 05/10/18 08:23; Start 05/02/18 at 21:00 Valproic Acid (Depakene) 250 mg TID PO Last administered on 05/10/18at 19:37; Start 05/04/18 at 21:00 Active Scripts Active Reported Olanzapine 5 Mg Tablet 2.5 Mg PO PRN Q2HR PRN Analgesic [place] (Methyl Salicylate/Menthol) 28 Gm Oint...g. 1 [place] TP PRN QID PRN Milk Of Magnesia (Magnesium Hydroxide) 2,400 Mg/10 Ml Oral.susp 2,400 Mg PO PRN DAILY PRN Hydrocortisone 453.6 Gm Oint...g. 1 [place] TP BID Celexa (Citalopram Hydrobromide) 20 Mg Tablet 20 Mg PO DAILY Alum-Mag Hydroxide-Simeth Liq (Mag Hydrox/Al Hydrox/Simeth) 360 Ml Oral.susp 30 Ml PO PRN BID PRN Lorazepam 0.5 Mg Tablet 0.25 Mg PO PRN BID PRN Divalproex Sodium 250 Mg Tablet.dr 250 Mg PO BID Seroquel (Quetiapine Fumarate) 25 Mg Tablet 37.5 Mg PO TID Melatonin 3 Mg Tablet 3 Mg PO QHS Trazodone Hcl 50 Mg Tablet 50 Mg PO QHS Atorvastatin Calcium 40 Mg Tablet 40 Mg PO HS Bisacodyl 10 Mg Supp.rect 10 Mg RC PRN QHS PRN Tylenol (Acetaminophen) 325 Mg Tablet 650 Mg PO PRN Q4HRS PRN I have reviewed the current psychotropics carefully including drug interactions. Risk benefit ratio favors no change other than as noted in my dictated progress note. Diagnosis: Problems: (1) Hypertension (2) Syncopal episodes (3) Anxiety disorder (4) Impulse control disorder (5) Dementia, vascular, with depression (6) Dementia, vascular, with delusions (7) Dementia in Alzheimer's disease with depression (8) Dementia in Alzheimer's disease with delusions ELVA STROUD MD May 10, 2018 19:57
[2018-05-10] MEDS: MAGNESIUM HYDROXIDE 2,400 MG/30 ML ORAL.SUSP. PO PRN (20:08)
[2018-05-11 06:05] VITALS: BP 140/78
[2018-05-11] MEDS: QUEtiapine 50 MG TABLET. PO SCH ×3 (10:44→17:13)
[2018-05-11] MEDS: CETIRIZINE HCL 10 MG TABLET PO SCH (10:45)
[2018-05-11] MEDS: VALPROATE ACID 250 MG/5 ML ORAL SOLUTION PO SCH ×3 (10:45→19:58)
[2018-05-11] MEDS: SERTRALINE 50 MG TABLET. PO SCH (10:45)
[2018-05-11] MEDS: traZODone 50 MG TABLET. PO SCH ×5 (10:45→19:58)
[2018-05-11] MEDS: HYDROCORTISONE 1% TOPICAL CREAM 30GM TUBE. TP SCH ×2 (10:46→19:59)
[2018-05-11 10:59] LABS: BACTERIA,URINE FEW /HPF (0-FEW); BILIRUBIN,URINE NEG (NEG); CLARITY,URINE HAZY; COLOR,URINE YELLOW; GLUCOSE,URINE NEG (NEG); HYALINE CASTS, URINE OCC /HPF; NITRITE,URINE NEG (NEG); RBC,URINE OCC /HPF (0-2); SQUAMOUS EPITHELIAL CELL,UR MOD /LPF; UROBILINOGEN,URINE 0.2 mg/dL (0.2 mg/dL)
--- NOTE | 2018-05-11 14:04 | PN ---
DATE: 05/09/2018 PSYCHIATRIC PROGRESS NOTE This is a late entry 05/09/2018, covers elements not covered in my initial note. SUBJECTIVE: I met with the patient in the evening. The patient slept 8-1/2 hours previous evening, remains confused, ambulates up and down the hallway, believes another demented patient is her , who in fact is . REVIEW OF SYSTEMS: No CV, , pulmonary, eye, ENT system symptoms on review. Reliability poor. MENTAL STATUS EXAM: Oriented to herself. Insight, judgment, recent and remote memory, attention, concentration, fund of knowledge poor, consistent with her diagnoses. She has done quite well for the past 3 days. Did well in the morning of 05/09/2018. It was the evening, she was little more anxious, restless, agitated. We will check a UA to make sure she does not have UTI. IMPRESSION: Unchanged from initial note. PLAN: No change from initial note plus what I have dictated earlier in the note. ELVA STROUD MD DR: CHARLOTTE/fanny JOB#: [id number] / [id number]
--- NOTE | 2018-05-11 19:56 | PDOC ---
Exam Note: Ye Note: Please also refer to the separate dictated note~for this date of service dictated separately.~Patient seen individually. Discussed the patient with Nursing staff reviewed the chart.~Reviewed interim history and current functioning. Reviewed vital signs,~Labs/ Radiology~and current medications noted below. Continue current treatment with the changes noted in the dictated addendum note Assessment: Vital Signs: Vital Signs Date Time Temp Pulse Resp B/P (MAP) Pulse Ox O2 Delivery O2 Flow Rate FiO2 05/11/18 06:05 98.3 72 18 140/78 (98) 100 05/05/18 16:22 Room Air I&O Intake and Output 05/11/18 07:00 Intake Total 840 ml Balance 840 ml Intake Oral 840 ml # Voids 1 Labs: Laboratory Tests Test 05/11/18 10:30 Urine Collection Type Void Urine Color Yellow Urine Clarity Hazy Urine pH 8.5 Urine Specific [place] 1.015 Urine Protein Neg (NEG-TRACE) Urine Glucose (UA) Neg mg/dL (NEG) Urine Ketones (Stick) Neg mg/dL (NEG) Urine Blood Neg (NEG) Urine Nitrite Neg (NEG) Urine Bilirubin Neg (NEG) Urine Urobilinogen Dipstick 0.2 mg/dL (0.2 mg/dL) Urine Leukocyte Esterase Small (NEG) Urine RBC Occ /HPF (0-2) Urine WBC 11-20 /HPF (0-4) Urine Squamous Epithelial Cells Mod /LPF Urine Bacteria Few /HPF (0-FEW) Urine Hyaline Casts Occ /HPF Urine Mucus Slight /LPF Current Medications: Meds: Current Medications Acetaminophen (Tylenol) 650 mg PRN Q4HRS PRN PO pain rated 4-6 on scale; Start 03/23/18 at 20:15 Hydrocortisone (Hytone) 1 shiraz BID TP Last administered on 05/01/18at 19:20; Start 03/23/18 at 21:00; Stop 05/02/18 at 10:37; Status DC Multi-Ingredient Ointment (Analgesic [place]) 1 shiraz PRN QID PRN TP MUSCLE PAIN; Start 03/23/18 at 20:15 Atorvastatin Calcium (Lipitor) 40 mg QHS PO Last administered on 05/10/18at 19: 37; Start 03/23/18 at 21:00 Bisacodyl (Dulcolax Supp) 10 mg PRN QHS PRN [place] CONSTIPATION; Start 03/23/18 at 20:45 Al Hydroxide/Mg Hydroxide (Mylanta Plus Xs) 30 ml PRN BID PRN PO DYSPEPSIA; Start 03/23/18 at 20:45 Magnesium Hydroxide (Milk Of Magnesia) 2,400 mg PRN DAILY PRN PO CONSTIPATION Last administered on 05/10/18 20:08; Start 03/23/18 at 20:45 Citalopram Hydrobromide (CeleXA) 20 mg DAILY PO Last administered on 03/30/18at 07:42; Start 03/24/18 at 09:00; Stop 03/30/18 at 18:28; Status DC Divalproex Sodium (Depakote) 250 mg BID PO Last administered on 03/24/18 07:38 ; Start 03/23/18 at 21:00; Stop 03/24/18 at 19:08; Status DC Lorazepam (Ativan) 0.25 mg PRN BID PRN PO ANXIETY / AGITATION Last administered on 04/14/18 12:24; Start 03/23/18 at 20:45 Melatonin 3 mg QHS PO Last administered on 05/10/18 19:37; Start 03/23/18 at 21:00 Olanzapine (ZyPREXA ZYDIS) 2.5 mg PRN Q2HR PRN PO AGITATION/PSYCHOSIS Last administered on 05/09/18 20:02; Start 03/23/18 at 20:45 Quetiapine Fumarate (SEROquel) 37.5 mg TID PO Last administered on 03/30/18 14 :04; Start 03/23/18 at 21:00; Stop 03/30/18 at 18:38; Status DC Trazodone HCl (Desyrel) 50 mg QHS PO Last administered on 05/10/18 19:36; Start 03/23/18 at 21:00 Divalproex Sodium (Depakote) 250 mg TID@0900,1300,1700 PO Last administered on 03/29/18at 16:05; Start 03/25/18 at 09:00; Stop 03/30/18 at 07:46; Status DC Mirtazapine (Remeron) 7.5 mg QHS PO Last administered on 03/29/18at 19:29; Start 03/29/18 at 21:00; Stop 03/30/18 at 18:28; Status DC Divalproex Sodium (Depakote Sprinkles) 250 mg TID@0900,1300,1700 PO Last administered on 03/31/18at 08:36; Start 03/30/18 at 09:00; Stop 03/31/18 at 13:22 ; Status DC Mirtazapine (Remeron) 15 mg QHS PO Last administered on 05/10/18at 19:37; Start 03/30/18 at 21:00 Quetiapine Fumarate (SEROquel) 50 mg BID PO Last administered on 03/31/18at 08: 36; Start 03/30/18 at 21:00; Stop 03/31/18 at 13:22; Status DC Sertraline HCl (Zoloft) 50 mg DAILY PO Last administered on 04/08/18at 07:34; Start 03/31/18 at 09:00; Stop 04/08/18 at 10:57; Status DC Quetiapine Fumarate (SEROquel) 37.5 mg DAILY@1300 PO Last administered on at 14:09; Start 03/31/18 at 13:00; Stop 03/31/18 at 16:00; Status DC Quetiapine Fumarate (SEROquel) 37.5 mg TID PO Last administered on 04/01/18at 19 :20; Start 03/31/18 at 21:00; Stop 04/02/18 at 08:00; Status DC Divalproex Sodium (Depakote Sprinkles) 250 mg BID PO Last administered on at 08:49; Start 03/31/18 at 21:00; Stop 04/01/18 at 18:16; Status DC Divalproex Sodium (Depakote Sprinkles) 250 mg DAILY PO ; Start 04/03/18 at 09:00 ; Stop 04/03/18 at 09:00; Status DC Divalproex Sodium (Depakote Sprinkles) 250 mg TID PO Last administered on at 13:35; Start 04/01/18 at 21:00; Stop 05/04/18 at 18:35; Status DC Quetiapine Fumarate (SEROquel) 37.5 mg BID@0900,1700 PO Last administered on at 16:55; Start 04/03/18 at 09:00; Stop 04/06/18 at 18:45; Status DC Trazodone HCl (Desyrel) 50 mg PRN QHS PRN PO INSOMNIA; Start 04/03/18 at 15:15 Hydroxyzine HCl (Atarax) 25 mg PRN Q4HRS PRN PO AGITATION/ANXIETY Last administered on 04/08/18at 12:15; Start 04/05/18 at 09:15 Quetiapine Fumarate (SEROquel) 50 mg BID94 PO Last administered on 04/08/18at 07 :34; Start 04/07/18 at 09:00; Stop 04/08/18 at 10:59; Status DC Sertraline HCl (Zoloft) 75 mg DAILY PO Last administered on 05/11/18at 10:45; Start 04/09/18 at 09:00 Quetiapine Fumarate (SEROquel) 62.5 mg BID@0900,1700 PO Last administered on 04/19/18at 17:41; Start 04/08/18 at 17:00; Stop 04/19/18 at 18:45; Status DC Trazodone HCl (Desyrel) 12.5 mg TID@0900,1300,1700 PO Last administered on at 07:55; Start 04/10/18 at 09:00; Stop 04/15/18 at 11:19; Status DC Trazodone HCl (Desyrel) 12.5 mg BID@1300,1700 PO Last administered on at 18:14; Start 04/15/18 at 13:00; Stop 04/27/18 at 19:01; Status DC Trazodone HCl (Desyrel) 25 mg DAILY PO Last administered on 04/27/18at 09:12; Start 04/16/18 at 09:00; Stop 04/27/18 at 19:01; Status DC Cetirizine HCl (ZyrTEC) 10 mg DAILY PO Last administered on 05/11/18at 10:45; Start 04/17/18 at 09:00 Quetiapine Fumarate (SEROquel) 62.5 mg DAILY PO Last administered on 04/21/18at 08:47; Start 04/20/18 at 09:00; Stop 04/21/18 at 19:21; Status DC Quetiapine Fumarate (SEROquel) 75 mg 1700 PO Last administered on 04/24/18 17: 10; Start 04/20/18 at 17:00; Stop 04/25/18 at 17:12; Status DC Quetiapine Fumarate (SEROquel) 75 mg DAILY PO Last administered on 05/11/18 10 :44; Start 04/22/18 at 09:00 Quetiapine Fumarate (SEROquel) 75 mg 1700 PO Last administered on 05/10/18 17: 55; Start 04/25/18 at 17:15 Trazodone HCl (Desyrel) 12.5 mg DAILY@1700 PO Last administered on 05/10/18 17 :55; Start 04/28/18 at 17:00 Trazodone HCl (Desyrel) 25 mg BID@0900,1300 PO Last administered on 05/11/18 13:04; Start 04/28/18 at 09:00 Hydrocortisone (Cortaid) 1 shiraz BID TP Last administered on 05/11/18 10:46; Start 05/02/18 at 21:00 Valproic Acid (Depakene) 250 mg TID PO Last administered on 05/11/18 13:04; Start 05/04/18 at 21:00 Active Scripts Active Reported Olanzapine 5 Mg Tablet 2.5 Mg PO PRN Q2HR PRN Analgesic [place] (Methyl Salicylate/Menthol) 28 Gm Oint...g. 1 [place] TP PRN QID PRN Milk Of Magnesia (Magnesium Hydroxide) 2,400 Mg/10 Ml Oral.susp 2,400 Mg PO PRN DAILY PRN Hydrocortisone 453.6 Gm Oint...g. 1 [place] TP BID Celexa (Citalopram Hydrobromide) 20 Mg Tablet 20 Mg PO DAILY Alum-Mag Hydroxide-Simeth Liq (Mag Hydrox/Al Hydrox/Simeth) 360 Ml Oral.susp 30 Ml PO PRN BID PRN Lorazepam 0.5 Mg Tablet 0.25 Mg PO PRN BID PRN Divalproex Sodium 250 Mg Tablet.dr 250 Mg PO BID Seroquel (Quetiapine Fumarate) 25 Mg Tablet 37.5 Mg PO TID Melatonin 3 Mg Tablet 3 Mg PO QHS Trazodone Hcl 50 Mg Tablet 50 Mg PO QHS Atorvastatin Calcium 40 Mg Tablet 40 Mg PO HS Bisacodyl 10 Mg Supp.rect 10 Mg RC PRN QHS PRN Tylenol (Acetaminophen) 325 Mg Tablet 650 Mg PO PRN Q4HRS PRN I have reviewed the current psychotropics carefully including drug interactions. Risk benefit ratio favors no change other than as noted in my dictated progress note. Diagnosis: Problems: (1) Anxiety disorder (2) Impulse control disorder (3) Dementia, vascular, with depression (4) Dementia, vascular, with delusions (5) Dementia in Alzheimer's disease with depression (6) Dementia in Alzheimer's disease with delusions (7) Syncopal episodes (8) Hypertension ELVA STROUD MD May 11, 2018 19:55
[2018-05-11] MEDS: MELATONIN 3 MG TABLET PO SCH (19:58)
[2018-05-11] MEDS: ATORVASTATIN CALCIUM 20 MG TABLET PO SCH (19:58)
[2018-05-11] MEDS: MIRTAZAPINE 15 MG TABLET PO SCH (19:58)
[2018-05-12 05:44] VITALS: BP 113/58
[2018-05-12] MEDS: SERTRALINE 50 MG TABLET. PO SCH (08:09)
[2018-05-12] MEDS: VALPROATE ACID 250 MG/5 ML ORAL SOLUTION PO SCH ×3 (08:09→19:59)
[2018-05-12] MEDS: CETIRIZINE HCL 10 MG TABLET PO SCH (08:10)
[2018-05-12] MEDS: traZODone 50 MG TABLET. PO SCH ×4 (08:10→19:59)
[2018-05-12] MEDS: HYDROCORTISONE 1% TOPICAL CREAM 30GM TUBE. TP SCH ×2 (08:11→19:59)
[2018-05-12] MEDS: QUEtiapine 50 MG TABLET. PO SCH ×2 (08:11→17:23)
--- NOTE | 2018-05-12 11:04 | PN ---
DATE: 05/10/2018 This is a late entry for 05/10/2018 and covers elements not covered in my initial note. SUBJECTIVE: I met with the patient in the evening. The patient slept 7 hours previous evening. The patient remains confused, not aggressive, just wanders up and down the hallway, oblivious of her surroundings. No CV, , pulmonary, eye, ENT system symptoms on review. Discussed with [facility], social service staff and frustration about not being able to find a placement in [place], [place] where the daughter wants her transfer to. [facility] has made a very concerted effort with no result so far. REVIEW OF SYSTEMS: No CV, , pulmonary, eye, ENT system symptoms on review. Reliability poor. MENTAL STATUS EXAM: Oriented to herself. Insight, judgment, recent and remote memory, attention, concentration, fund of knowledge poor, consistent with her diagnosis mentioned in my initial note. PLAN: No change from initial note. Transition to retirement as soon as placement arranged. ELVA STROUD MD DR: CHARLOTTE/fanny JOB#: [id number] / [id number]
[2018-05-12 15:54] VITALS: BP 102/58
[2018-05-12] MEDS: MIRTAZAPINE 15 MG TABLET PO SCH (19:59)
[2018-05-12] MEDS: ATORVASTATIN CALCIUM 20 MG TABLET PO SCH (19:59)
[2018-05-12] MEDS: MELATONIN 3 MG TABLET PO SCH (19:59)
--- NOTE | 2018-05-12 20:33 | PDOC ---
Exam Note: Ye Note: Orginal entry for DOS 03.29.2018 missing due to entry error. This note is a late entry for DOS 03.29.2018. Please also refer to the separate dictated note~ for this date of service dictated separately.~Patient seen individually. Discussed the patient with Nursing staff reviewed the chart.~Reviewed interim history and current functioning. Reviewed vital signs,~Labs/ Radiology~and current medications noted below. Continue current treatment with the changes noted in the dictated addendum note P - 104 R - 20 BP - 123/50 Assessment: Vital Signs: Vital Signs Date Time Temp Pulse Resp B/P (MAP) Pulse Ox O2 Delivery O2 Flow Rate FiO2 05/12/18 15:54 99.0 91 20 102/58 (73) 96 I&O Intake and Output 05/12/18 07:00 Intake Total 720 ml Balance 720 ml Intake Oral 720 ml # Voids 1 Current Medications: Meds: Current Medications Acetaminophen (Tylenol) 650 mg PRN Q4HRS PRN PO pain rated 4-6 on scale; Start 03/23/18 at 20:15 Hydrocortisone (Hytone) 1 shiraz BID TP Last administered on 05/01/18at 19:20; Start 03/23/18 at 21:00; Stop 05/02/18 at 10:37; Status DC Multi-Ingredient Ointment (Analgesic [place]) 1 shiraz PRN QID PRN TP MUSCLE PAIN; Start 03/23/18 at 20:15 Atorvastatin Calcium (Lipitor) 40 mg QHS PO Last administered on 05/12/18at 19:59 ; Start 03/23/18 at 21:00 Bisacodyl (Dulcolax Supp) 10 mg PRN QHS PRN [place] CONSTIPATION; Start 03/23/18 at 20:45 Al Hydroxide/Mg Hydroxide (Mylanta Plus Xs) 30 ml PRN BID PRN PO DYSPEPSIA; Start 03/23/18 at 20:45 Magnesium Hydroxide (Milk Of Magnesia) 2,400 mg PRN DAILY PRN PO CONSTIPATION Last administered on 05/10/18at 20:08; Start 03/23/18 at 20:45 Citalopram Hydrobromide (CeleXA) 20 mg DAILY PO Last administered on 03/30/18at 07:42; Start 03/24/18 at 09:00; Stop 03/30/18 at 18:28; Status DC Divalproex Sodium (Depakote) 250 mg BID PO Last administered on 03/24/18 07:38 ; Start 03/23/18 at 21:00; Stop 03/24/18 at 19:08; Status DC Lorazepam (Ativan) 0.25 mg PRN BID PRN PO ANXIETY / AGITATION Last administered on 04/14/18 12:24; Start 03/23/18 at 20:45 Melatonin 3 mg QHS PO Last administered on 05/12/18 19:59; Start 03/23/18 at 21 :00 Olanzapine (ZyPREXA ZYDIS) 2.5 mg PRN Q2HR PRN PO AGITATION/PSYCHOSIS Last administered on 05/09/18 20:02; Start 03/23/18 at 20:45 Quetiapine Fumarate (SEROquel) 37.5 mg TID PO Last administered on 03/30/18 14 :04; Start 03/23/18 at 21:00; Stop 03/30/18 at 18:38; Status DC Trazodone HCl (Desyrel) 50 mg QHS PO Last administered on 05/12/18 19:59; Start 03/23/18 at 21:00 Divalproex Sodium (Depakote) 250 mg TID@0900,1300,1700 PO Last administered on 03/29/18at 16:05; Start 03/25/18 at 09:00; Stop 03/30/18 at 07:46; Status DC Mirtazapine (Remeron) 7.5 mg QHS PO Last administered on 03/29/18 19:29; Start 03/29/18 at 21:00; Stop 03/30/18 at 18:28; Status DC Divalproex Sodium (Depakote Sprinkles) 250 mg TID@0900,1300,1700 PO Last administered on 03/31/18at 08:36; Start 03/30/18 at 09:00; Stop 03/31/18 at 13:22 ; Status DC Mirtazapine (Remeron) 15 mg QHS PO Last administered on 05/12/18 19:59; Start 03/30/18 at 21:00 Quetiapine Fumarate (SEROquel) 50 mg BID PO Last administered on 6/20/18at 08: 36; Start 03/30/18 at 21:00; Stop 03/31/18 at 13:22; Status DC Sertraline HCl (Zoloft) 50 mg DAILY PO Last administered on 04/08/18at 07:34; Start 03/31/18 at 09:00; Stop 04/08/18 at 10:57; Status DC Quetiapine Fumarate (SEROquel) 37.5 mg DAILY@1300 PO Last administered on at 14:09; Start 03/31/18 at 13:00; Stop 03/31/18 at 16:00; Status DC Quetiapine Fumarate (SEROquel) 37.5 mg TID PO Last administered on 04/01/18at 19 :20; Start 03/31/18 at 21:00; Stop 04/02/18 at 08:00; Status DC Divalproex Sodium (Depakote Sprinkles) 250 mg BID PO Last administered on at 08:49; Start 03/31/18 at 21:00; Stop 04/01/18 at 18:16; Status DC Divalproex Sodium (Depakote Sprinkles) 250 mg DAILY PO ; Start 04/03/18 at 09:00 ; Stop 04/03/18 at 09:00; Status DC Divalproex Sodium (Depakote Sprinkles) 250 mg TID PO Last administered on at 13:35; Start 04/01/18 at 21:00; Stop 05/04/18 at 18:35; Status DC Quetiapine Fumarate (SEROquel) 37.5 mg BID@0900,1700 PO Last administered on at 16:55; Start 04/03/18 at 09:00; Stop 04/06/18 at 18:45; Status DC Trazodone HCl (Desyrel) 50 mg PRN QHS PRN PO INSOMNIA; Start 04/03/18 at 15:15 Hydroxyzine HCl (Atarax) 25 mg PRN Q4HRS PRN PO AGITATION/ANXIETY Last administered on 04/08/18at 12:15; Start 04/05/18 at 09:15 Quetiapine Fumarate (SEROquel) 50 mg BID94 PO Last administered on 04/08/18at 07 :34; Start 04/07/18 at 09:00; Stop 04/08/18 at 10:59; Status DC Sertraline HCl (Zoloft) 75 mg DAILY PO Last administered on 05/12/18at 08:09; Start 04/09/18 at 09:00 Quetiapine Fumarate (SEROquel) 62.5 mg BID@0900,1700 PO Last administered on 04/19/18at 17:41; Start 04/08/18 at 17:00; Stop 04/19/18 at 18:45; Status DC Trazodone HCl (Desyrel) 12.5 mg TID@0900,1300,1700 PO Last administered on at 07:55; Start 04/10/18 at 09:00; Stop 04/15/18 at 11:19; Status DC Trazodone HCl (Desyrel) 12.5 mg BID@1300,1700 PO Last administered on at 18:14; Start 04/15/18 at 13:00; Stop 04/27/18 at 19:01; Status DC Trazodone HCl (Desyrel) 25 mg DAILY PO Last administered on 04/27/18at 09:12; Start 04/16/18 at 09:00; Stop 04/27/18 at 19:01; Status DC Cetirizine HCl (ZyrTEC) 10 mg DAILY PO Last administered on 05/12/18at 08:10; Start 04/17/18 at 09:00 Quetiapine Fumarate (SEROquel) 62.5 mg DAILY PO Last administered on 04/21/18at 08:47; Start 04/20/18 at 09:00; Stop 04/21/18 at 19:21; Status DC Quetiapine Fumarate (SEROquel) 75 mg 1700 PO Last administered on 04/24/18at 17: 10; Start 04/20/18 at 17:00; Stop 04/25/18 at 17:12; Status DC Quetiapine Fumarate (SEROquel) 75 mg DAILY PO Last administered on 05/12/18at 08: 11; Start 04/22/18 at 09:00 Quetiapine Fumarate (SEROquel) 75 mg 1700 PO Last administered on 05/12/18at 17: 23; Start 04/25/18 at 17:15 Trazodone HCl (Desyrel) 12.5 mg DAILY@1700 PO Last administered on 05/12/18 17: 22; Start 04/28/18 at 17:00 Trazodone HCl (Desyrel) 25 mg BID@0900,1300 PO Last administered on 05/12/18 12 :37; Start 04/28/18 at 09:00 Hydrocortisone (Cortaid) 1 shiraz BID TP Last administered on 05/12/18at 08:11; Start 05/02/18 at 21:00 Valproic Acid (Depakene) 250 mg TID PO Last administered on 05/12/18at 19:59; Start 05/04/18 at 21:00 Active Scripts Active Reported Olanzapine 5 Mg Tablet 2.5 Mg PO PRN Q2HR PRN Analgesic [place] (Methyl Salicylate/Menthol) 28 Gm Oint...g. 1 Shiraz TP PRN QID PRN Milk Of Magnesia (Magnesium Hydroxide) 2,400 Mg/10 Ml Oral.susp 2,400 Mg PO PRN DAILY PRN Hydrocortisone 453.6 Gm Oint...g. 1 Shiraz TP BID Celexa (Citalopram Hydrobromide) 20 Mg Tablet 20 Mg PO DAILY Alum-Mag Hydroxide-Simeth Liq (Mag Hydrox/Al Hydrox/Simeth) 360 Ml Oral.susp 30 Ml PO PRN BID PRN Lorazepam 0.5 Mg Tablet 0.25 Mg PO PRN BID PRN Divalproex Sodium 250 Mg Tablet.dr 250 Mg PO BID Seroquel (Quetiapine Fumarate) 25 Mg Tablet 37.5 Mg PO TID Melatonin 3 Mg Tablet 3 Mg PO QHS Trazodone Hcl 50 Mg Tablet 50 Mg PO QHS Atorvastatin Calcium 40 Mg Tablet 40 Mg PO HS Bisacodyl 10 Mg Supp.rect 10 Mg RC PRN QHS PRN Tylenol (Acetaminophen) 325 Mg Tablet 650 Mg PO PRN Q4HRS PRN I have reviewed the current psychotropics carefully including drug interactions. Risk benefit ratio favors no change other than as noted in my dictated progress note. Diagnosis: Problems: (1) Anxiety disorder (2) Impulse control disorder (3) Dementia, vascular, with depression (4) Dementia, vascular, with delusions (5) Dementia in Alzheimer's disease with depression (6) Dementia in Alzheimer's disease with delusions (7) Syncopal episodes (8) Hypertension ELVA STROUD MD May 12, 2018 20:33
--- NOTE | 2018-05-12 20:39 | PDOC ---
Exam Note: Ye Note: Orginal entry for DOS 04.01.2018 missing due to entry error. This note is a late entry for DOS 04.01.2018. Please also refer to the separate dictated note~ for this date of service dictated separately.~Patient seen individually. Discussed the patient with Nursing staff reviewed the chart.~Reviewed interim history and current functioning. Reviewed vital signs,~Labs/ Radiology~and current medications noted below. Continue current treatment with the changes noted in the dictated addendum note P - 110 R - 18 BP - 122/74 Assessment: Vital Signs: Vital Signs Date Time Temp Pulse Resp B/P (MAP) Pulse Ox O2 Delivery O2 Flow Rate FiO2 05/12/18 15:54 99.0 91 20 102/58 (73) 96 I&O Intake and Output 05/12/18 07:00 Intake Total 720 ml Balance 720 ml Intake Oral 720 ml # Voids 1 Current Medications: Meds: Current Medications Acetaminophen (Tylenol) 650 mg PRN Q4HRS PRN PO pain rated 4-6 on scale; Start 03/23/18 at 20:15 Hydrocortisone (Hytone) 1 shiraz BID TP Last administered on 05/01/18at 19:20; Start 03/23/18 at 21:00; Stop 05/02/18 at 10:37; Status DC Multi-Ingredient Ointment (Analgesic [place]) 1 shiraz PRN QID PRN TP MUSCLE PAIN; Start 03/23/18 at 20:15 Atorvastatin Calcium (Lipitor) 40 mg QHS PO Last administered on 05/12/18at 19:59 ; Start 03/23/18 at 21:00 Bisacodyl (Dulcolax Supp) 10 mg PRN QHS PRN [place] CONSTIPATION; Start 03/23/18 at 20:45 Al Hydroxide/Mg Hydroxide (Mylanta Plus Xs) 30 ml PRN BID PRN PO DYSPEPSIA; Start 03/23/18 at 20:45 Magnesium Hydroxide (Milk Of Magnesia) 2,400 mg PRN DAILY PRN PO CONSTIPATION Last administered on 05/10/18at 20:08; Start 03/23/18 at 20:45 Citalopram Hydrobromide (CeleXA) 20 mg DAILY PO Last administered on 03/30/18at 07:42; Start 03/24/18 at 09:00; Stop 03/30/18 at 18:28; Status DC Divalproex Sodium (Depakote) 250 mg BID PO Last administered on 03/24/18 07:38 ; Start 03/23/18 at 21:00; Stop 03/24/18 at 19:08; Status DC Lorazepam (Ativan) 0.25 mg PRN BID PRN PO ANXIETY / AGITATION Last administered on 04/14/18 12:24; Start 03/23/18 at 20:45 Melatonin 3 mg QHS PO Last administered on 05/12/18 19:59; Start 03/23/18 at 21 :00 Olanzapine (ZyPREXA ZYDIS) 2.5 mg PRN Q2HR PRN PO AGITATION/PSYCHOSIS Last administered on 05/09/18 20:02; Start 03/23/18 at 20:45 Quetiapine Fumarate (SEROquel) 37.5 mg TID PO Last administered on 03/30/18 14 :04; Start 03/23/18 at 21:00; Stop 03/30/18 at 18:38; Status DC Trazodone HCl (Desyrel) 50 mg QHS PO Last administered on 05/12/18 19:59; Start 03/23/18 at 21:00 Divalproex Sodium (Depakote) 250 mg TID@0900,1300,1700 PO Last administered on 03/29/18at 16:05; Start 03/25/18 at 09:00; Stop 03/30/18 at 07:46; Status DC Mirtazapine (Remeron) 7.5 mg QHS PO Last administered on 03/29/18 19:29; Start 03/29/18 at 21:00; Stop 03/30/18 at 18:28; Status DC Divalproex Sodium (Depakote Sprinkles) 250 mg TID@0900,1300,1700 PO Last administered on 03/31/18at 08:36; Start 03/30/18 at 09:00; Stop 03/31/18 at 13:22 ; Status DC Mirtazapine (Remeron) 15 mg QHS PO Last administered on 05/12/18 19:59; Start 03/30/18 at 21:00 Quetiapine Fumarate (SEROquel) 50 mg BID PO Last administered on 6/20/18at 08: 36; Start 03/30/18 at 21:00; Stop 03/31/18 at 13:22; Status DC Sertraline HCl (Zoloft) 50 mg DAILY PO Last administered on 04/08/18at 07:34; Start 03/31/18 at 09:00; Stop 04/08/18 at 10:57; Status DC Quetiapine Fumarate (SEROquel) 37.5 mg DAILY@1300 PO Last administered on at 14:09; Start 03/31/18 at 13:00; Stop 03/31/18 at 16:00; Status DC Quetiapine Fumarate (SEROquel) 37.5 mg TID PO Last administered on 04/01/18at 19 :20; Start 03/31/18 at 21:00; Stop 04/02/18 at 08:00; Status DC Divalproex Sodium (Depakote Sprinkles) 250 mg BID PO Last administered on at 08:49; Start 03/31/18 at 21:00; Stop 04/01/18 at 18:16; Status DC Divalproex Sodium (Depakote Sprinkles) 250 mg DAILY PO ; Start 04/03/18 at 09:00 ; Stop 04/03/18 at 09:00; Status DC Divalproex Sodium (Depakote Sprinkles) 250 mg TID PO Last administered on at 13:35; Start 04/01/18 at 21:00; Stop 05/04/18 at 18:35; Status DC Quetiapine Fumarate (SEROquel) 37.5 mg BID@0900,1700 PO Last administered on at 16:55; Start 04/03/18 at 09:00; Stop 04/06/18 at 18:45; Status DC Trazodone HCl (Desyrel) 50 mg PRN QHS PRN PO INSOMNIA; Start 04/03/18 at 15:15 Hydroxyzine HCl (Atarax) 25 mg PRN Q4HRS PRN PO AGITATION/ANXIETY Last administered on 04/08/18at 12:15; Start 04/05/18 at 09:15 Quetiapine Fumarate (SEROquel) 50 mg BID94 PO Last administered on 04/08/18at 07 :34; Start 04/07/18 at 09:00; Stop 04/08/18 at 10:59; Status DC Sertraline HCl (Zoloft) 75 mg DAILY PO Last administered on 05/12/18at 08:09; Start 04/09/18 at 09:00 Quetiapine Fumarate (SEROquel) 62.5 mg BID@0900,1700 PO Last administered on 04/19/18at 17:41; Start 04/08/18 at 17:00; Stop 04/19/18 at 18:45; Status DC Trazodone HCl (Desyrel) 12.5 mg TID@0900,1300,1700 PO Last administered on at 07:55; Start 04/10/18 at 09:00; Stop 04/15/18 at 11:19; Status DC Trazodone HCl (Desyrel) 12.5 mg BID@1300,1700 PO Last administered on at 18:14; Start 04/15/18 at 13:00; Stop 04/27/18 at 19:01; Status DC Trazodone HCl (Desyrel) 25 mg DAILY PO Last administered on 04/27/18at 09:12; Start 04/16/18 at 09:00; Stop 04/27/18 at 19:01; Status DC Cetirizine HCl (ZyrTEC) 10 mg DAILY PO Last administered on 05/12/18at 08:10; Start 04/17/18 at 09:00 Quetiapine Fumarate (SEROquel) 62.5 mg DAILY PO Last administered on 04/21/18at 08:47; Start 04/20/18 at 09:00; Stop 04/21/18 at 19:21; Status DC Quetiapine Fumarate (SEROquel) 75 mg 1700 PO Last administered on 04/24/18at 17: 10; Start 04/20/18 at 17:00; Stop 04/25/18 at 17:12; Status DC Quetiapine Fumarate (SEROquel) 75 mg DAILY PO Last administered on 05/12/18at 08: 11; Start 04/22/18 at 09:00 Quetiapine Fumarate (SEROquel) 75 mg 1700 PO Last administered on 05/12/18at 17: 23; Start 04/25/18 at 17:15 Trazodone HCl (Desyrel) 12.5 mg DAILY@1700 PO Last administered on 05/12/18 17: 22; Start 04/28/18 at 17:00 Trazodone HCl (Desyrel) 25 mg BID@0900,1300 PO Last administered on 05/12/18 12 :37; Start 04/28/18 at 09:00 Hydrocortisone (Cortaid) 1 shiraz BID TP Last administered on 05/12/18at 08:11; Start 05/02/18 at 21:00 Valproic Acid (Depakene) 250 mg TID PO Last administered on 05/12/18at 19:59; Start 05/04/18 at 21:00 Active Scripts Active Reported Olanzapine 5 Mg Tablet 2.5 Mg PO PRN Q2HR PRN Analgesic [place] (Methyl Salicylate/Menthol) 28 Gm Oint...g. 1 [place] TP PRN QID PRN Milk Of Magnesia (Magnesium Hydroxide) 2,400 Mg/10 Ml Oral.susp 2,400 Mg PO PRN DAILY PRN Hydrocortisone 453.6 Gm Oint...g. 1 [place] TP BID Celexa (Citalopram Hydrobromide) 20 Mg Tablet 20 Mg PO DAILY Alum-Mag Hydroxide-Simeth Liq (Mag Hydrox/Al Hydrox/Simeth) 360 Ml Oral.susp 30 Ml PO PRN BID PRN Lorazepam 0.5 Mg Tablet 0.25 Mg PO PRN BID PRN Divalproex Sodium 250 Mg Tablet.dr 250 Mg PO BID Seroquel (Quetiapine Fumarate) 25 Mg Tablet 37.5 Mg PO TID Melatonin 3 Mg Tablet 3 Mg PO QHS Trazodone Hcl 50 Mg Tablet 50 Mg PO QHS Atorvastatin Calcium 40 Mg Tablet 40 Mg PO HS Bisacodyl 10 Mg Supp.rect 10 Mg RC PRN QHS PRN Tylenol (Acetaminophen) 325 Mg Tablet 650 Mg PO PRN Q4HRS PRN I have reviewed the current psychotropics carefully including drug interactions. Risk benefit ratio favors no change other than as noted in my dictated progress note. Diagnosis: Problems: (1) Anxiety disorder (2) Impulse control disorder (3) Dementia, vascular, with depression (4) Dementia, vascular, with delusions (5) Dementia in Alzheimer's disease with depression (6) Dementia in Alzheimer's disease with delusions (7) Syncopal episodes (8) Hypertension ELVA STROUD MD May 12, 2018 20:39
--- NOTE | 2018-05-12 20:53 | PDOC ---
Exam Note: Ye Note: Please also refer to the separate dictated note~for this date of service dictated separately.~Patient seen individually. Discussed the patient with Nursing staff reviewed the chart.~Reviewed interim history and current functioning. Reviewed vital signs,~Labs/ Radiology~and current medications noted below. Continue current treatment with the changes noted in the dictated addendum note Assessment: Vital Signs: Vital Signs Date Time Temp Pulse Resp B/P (MAP) Pulse Ox O2 Delivery O2 Flow Rate FiO2 05/12/18 15:54 99.0 91 20 102/58 (73) 96 I&O Intake and Output 05/12/18 07:00 Intake Total 720 ml Balance 720 ml Intake Oral 720 ml # Voids 1 Current Medications: Meds: Current Medications Acetaminophen (Tylenol) 650 mg PRN Q4HRS PRN PO pain rated 4-6 on scale; Start 03/23/18 at 20:15 Hydrocortisone (Hytone) 1 shiraz BID TP Last administered on 05/01/18at 19:20; Start 03/23/18 at 21:00; Stop 05/02/18 at 10:37; Status DC Multi-Ingredient Ointment (Analgesic [place]) 1 shiraz PRN QID PRN TP MUSCLE PAIN; Start 03/23/18 at 20:15 Atorvastatin Calcium (Lipitor) 40 mg QHS PO Last administered on 05/12/18at 19:59 ; Start 03/23/18 at 21:00 Bisacodyl (Dulcolax Supp) 10 mg PRN QHS PRN [place] CONSTIPATION; Start 03/23/18 at 20:45 Al Hydroxide/Mg Hydroxide (Mylanta Plus Xs) 30 ml PRN BID PRN PO DYSPEPSIA; Start 03/23/18 at 20:45 Magnesium Hydroxide (Milk Of Magnesia) 2,400 mg PRN DAILY PRN PO CONSTIPATION Last administered on 05/10/18at 20:08; Start 03/23/18 at 20:45 Citalopram Hydrobromide (CeleXA) 20 mg DAILY PO Last administered on 03/30/18at 07:42; Start 03/24/18 at 09:00; Stop 03/30/18 at 18:28; Status DC Divalproex Sodium (Depakote) 250 mg BID PO Last administered on 03/24/18at 07:38 ; Start 03/23/18 at 21:00; Stop 03/24/18 at 19:08; Status DC Lorazepam (Ativan) 0.25 mg PRN BID PRN PO ANXIETY / AGITATION Last administered on 04/14/18 12:24; Start 03/23/18 at 20:45 Melatonin 3 mg QHS PO Last administered on 05/12/18 19:59; Start 03/23/18 at 21 :00 Olanzapine (ZyPREXA ZYDIS) 2.5 mg PRN Q2HR PRN PO AGITATION/PSYCHOSIS Last administered on 05/09/18 20:02; Start 03/23/18 at 20:45 Quetiapine Fumarate (SEROquel) 37.5 mg TID PO Last administered on 03/30/18 14 :04; Start 03/23/18 at 21:00; Stop 03/30/18 at 18:38; Status DC Trazodone HCl (Desyrel) 50 mg QHS PO Last administered on 05/12/18 19:59; Start 03/23/18 at 21:00 Divalproex Sodium (Depakote) 250 mg TID@0900,1300,1700 PO Last administered on 03/29/18at 16:05; Start 03/25/18 at 09:00; Stop 03/30/18 at 07:46; Status DC Mirtazapine (Remeron) 7.5 mg QHS PO Last administered on 03/29/18 19:29; Start 03/29/18 at 21:00; Stop 03/30/18 at 18:28; Status DC Divalproex Sodium (Depakote Sprinkles) 250 mg TID@0900,1300,1700 PO Last administered on 03/31/18 08:36; Start 03/30/18 at 09:00; Stop 03/31/18 at 13:22 ; Status DC Mirtazapine (Remeron) 15 mg QHS PO Last administered on 05/12/18 19:59; Start 03/30/18 at 21:00 Quetiapine Fumarate (SEROquel) 50 mg BID PO Last administered on 03/31/18 08: 36; Start 03/30/18 at 21:00; Stop 03/31/18 at 13:22; Status DC Sertraline HCl (Zoloft) 50 mg DAILY PO Last administered on 04/08/18at 07:34; Start 03/31/18 at 09:00; Stop 04/08/18 at 10:57; Status DC Quetiapine Fumarate (SEROquel) 37.5 mg DAILY@1300 PO Last administered on at 14:09; Start 03/31/18 at 13:00; Stop 03/31/18 at 16:00; Status DC Quetiapine Fumarate (SEROquel) 37.5 mg TID PO Last administered on 04/01/18at 19 :20; Start 03/31/18 at 21:00; Stop 04/02/18 at 08:00; Status DC Divalproex Sodium (Depakote Sprinkles) 250 mg BID PO Last administered on at 08:49; Start 03/31/18 at 21:00; Stop 04/01/18 at 18:16; Status DC Divalproex Sodium (Depakote Sprinkles) 250 mg DAILY PO ; Start 04/03/18 at 09:00 ; Stop 04/03/18 at 09:00; Status DC Divalproex Sodium (Depakote Sprinkles) 250 mg TID PO Last administered on at 13:35; Start 04/01/18 at 21:00; Stop 05/04/18 at 18:35; Status DC Quetiapine Fumarate (SEROquel) 37.5 mg BID@0900,1700 PO Last administered on at 16:55; Start 04/03/18 at 09:00; Stop 04/06/18 at 18:45; Status DC Trazodone HCl (Desyrel) 50 mg PRN QHS PRN PO INSOMNIA; Start 04/03/18 at 15:15 Hydroxyzine HCl (Atarax) 25 mg PRN Q4HRS PRN PO AGITATION/ANXIETY Last administered on 04/08/18at 12:15; Start 04/05/18 at 09:15 Quetiapine Fumarate (SEROquel) 50 mg BID94 PO Last administered on 04/08/18at 07 :34; Start 04/07/18 at 09:00; Stop 04/08/18 at 10:59; Status DC Sertraline HCl (Zoloft) 75 mg DAILY PO Last administered on 8/1/18at 08:09; Start 04/09/18 at 09:00 Quetiapine Fumarate (SEROquel) 62.5 mg BID@0900,1700 PO Last administered on 04/19/18at 17:41; Start 04/08/18 at 17:00; Stop 04/19/18 at 18:45; Status DC Trazodone HCl (Desyrel) 12.5 mg TID@0900,1300,1700 PO Last administered on at 07:55; Start 04/10/18 at 09:00; Stop 04/15/18 at 11:19; Status DC Trazodone HCl (Desyrel) 12.5 mg BID@1300,1700 PO Last administered on at 18:14; Start 04/15/18 at 13:00; Stop 04/27/18 at 19:01; Status DC Trazodone HCl (Desyrel) 25 mg DAILY PO Last administered on 04/27/18at 09:12; Start 04/16/18 at 09:00; Stop 04/27/18 at 19:01; Status DC Cetirizine HCl (ZyrTEC) 10 mg DAILY PO Last administered on 05/12/18 08:10; Start 04/17/18 at 09:00 Quetiapine Fumarate (SEROquel) 62.5 mg DAILY PO Last administered on 04/21/18at 08:47; Start 04/20/18 at 09:00; Stop 04/21/18 at 19:21; Status DC Quetiapine Fumarate (SEROquel) 75 mg 1700 PO Last administered on 04/24/18at 17: 10; Start 04/20/18 at 17:00; Stop 04/25/18 at 17:12; Status DC Quetiapine Fumarate (SEROquel) 75 mg DAILY PO Last administered on 05/12/18 08: 11; Start 04/22/18 at 09:00 Quetiapine Fumarate (SEROquel) 75 mg 1700 PO Last administered on 05/12/18 17: 23; Start 04/25/18 at 17:15 Trazodone HCl (Desyrel) 12.5 mg DAILY@1700 PO Last administered on 8/1/18at 17: 22; Start 04/28/18 at 17:00 Trazodone HCl (Desyrel) 25 mg BID@0900,1300 PO Last administered on 05/12/18at 12 :37; Start 04/28/18 at 09:00 Hydrocortisone (Cortaid) 1 shiraz BID TP Last administered on 05/12/18at 08:11; Start 05/02/18 at 21:00 Valproic Acid (Depakene) 250 mg TID PO Last administered on 05/12/18at 19:59; Start 05/04/18 at 21:00 Active Scripts Active Reported Olanzapine 5 Mg Tablet 2.5 Mg PO PRN Q2HR PRN Analgesic [place] (Methyl Salicylate/Menthol) 28 Gm Oint...g. 1 [place] TP PRN QID PRN Milk Of Magnesia (Magnesium Hydroxide) 2,400 Mg/10 Ml Oral.susp 2,400 Mg PO PRN DAILY PRN Hydrocortisone 453.6 Gm Oint...g. 1 [place] TP BID Celexa (Citalopram Hydrobromide) 20 Mg Tablet 20 Mg PO DAILY Alum-Mag Hydroxide-Simeth Liq (Mag Hydrox/Al Hydrox/Simeth) 360 Ml Oral.susp 30 Ml PO PRN BID PRN Lorazepam 0.5 Mg Tablet 0.25 Mg PO PRN BID PRN Divalproex Sodium 250 Mg Tablet.dr 250 Mg PO BID Seroquel (Quetiapine Fumarate) 25 Mg Tablet 37.5 Mg PO TID Melatonin 3 Mg Tablet 3 Mg PO QHS Trazodone Hcl 50 Mg Tablet 50 Mg PO QHS Atorvastatin Calcium 40 Mg Tablet 40 Mg PO HS Bisacodyl 10 Mg Supp.rect 10 Mg RC PRN QHS PRN Tylenol (Acetaminophen) 325 Mg Tablet 650 Mg PO PRN Q4HRS PRN I have reviewed the current psychotropics carefully including drug interactions. Risk benefit ratio favors no change other than as noted in my dictated progress note. Diagnosis: Problems: (1) Anxiety disorder (2) Impulse control disorder (3) Dementia, vascular, with depression (4) Dementia, vascular, with delusions (5) Dementia in Alzheimer's disease with depression (6) Dementia in Alzheimer's disease with delusions (7) Syncopal episodes (8) Hypertension ELVA STROUD MD May 12, 2018 20:53
--- NOTE | 2018-05-12 21:27 | PN ---
DATE: 05/11/2018 This late entry 05/11/2018 covers elements not covered in my initial note. SUBJECTIVE: I met with the patient in the evening. The patient slept 7-1/4 hours previous evening. UA showed bacteria has reflux to culture. She has been speaking in [place] at times, but redirects. No CV, , pulmonary, eye, ENT system symptoms on review. Reliability poor. MENTAL STATUS EXAM: Oriented to herself. Insight, judgment, recent and remote memory, attention, concentration, fund of knowledge poor, consistent with her diagnosis mentioned in my initial note. PLAN: Continue current psychotropics. Await urine C and S and treat if needed. MAN Rachel STROUD MD DR: CHARLOTTE/fanny JOB#: [id number] / [id number]
[2018-05-13 05:45] VITALS: BP 100/50
[2018-05-13] MEDS: VALPROATE ACID 250 MG/5 ML ORAL SOLUTION PO SCH ×3 (08:14→19:41)
[2018-05-13] MEDS: SERTRALINE 50 MG TABLET. PO SCH (08:14)
[2018-05-13] MEDS: CETIRIZINE HCL 10 MG TABLET PO SCH (08:14)
[2018-05-13] MEDS: traZODone 50 MG TABLET. PO SCH ×4 (08:14→19:41)
[2018-05-13] MEDS: HYDROCORTISONE 1% TOPICAL CREAM 30GM TUBE. TP SCH ×2 (08:15→19:42)
[2018-05-13] MEDS: QUEtiapine 50 MG TABLET. PO SCH ×2 (08:15→17:36)
[2018-05-13 15:56] VITALS: BP 113/74
[2018-05-13] MEDS: ATORVASTATIN CALCIUM 20 MG TABLET PO SCH (19:41)
[2018-05-13] MEDS: MIRTAZAPINE 15 MG TABLET PO SCH (19:41)
[2018-05-13] MEDS: MELATONIN 3 MG TABLET PO SCH (19:42)
--- NOTE | 2018-05-13 19:42 | PDOC ---
Exam Note: Ye Note: Orginal entry for DOS 04.04.2018 missing due to entry error. This note is a late entry for DOS 04.04.2018.Please also refer to the separate dictated note~ for this date of service dictated separately.~Patient seen individually. Discussed the patient with Nursing staff reviewed the chart.~Reviewed interim history and current functioning. Reviewed vital signs,~Labs/ Radiology~and current medications noted below. Continue current treatment with the changes noted in the dictated addendum note P- 63 R - 18 BP - 110/63 Assessment: Vital Signs: Vital Signs Date Time Temp Pulse Resp B/P (MAP) Pulse Ox O2 Delivery O2 Flow Rate FiO2 05/13/18 15:56 98.8 84 20 113/74 (87) 99 I&O Intake and Output 05/13/18 07:00 Intake Total 1160 ml Balance 1160 ml Intake Oral 1160 ml # Voids 1 Current Medications: Meds: Current Medications Acetaminophen (Tylenol) 650 mg PRN Q4HRS PRN PO pain rated 4-6 on scale; Start 03/23/18 at 20:15 Hydrocortisone (Hytone) 1 shiraz BID TP Last administered on 05/01/18at 19:20; Start 03/23/18 at 21:00; Stop 05/02/18 at 10:37; Status DC Multi-Ingredient Ointment (Analgesic [place]) 1 shiraz PRN QID PRN TP MUSCLE PAIN; Start 03/23/18 at 20:15 Atorvastatin Calcium (Lipitor) 40 mg QHS PO Last administered on 05/12/18at 19:59 ; Start 03/23/18 at 21:00 Bisacodyl (Dulcolax Supp) 10 mg PRN QHS PRN [place] CONSTIPATION; Start 03/23/18 at 20:45 Al Hydroxide/Mg Hydroxide (Mylanta Plus Xs) 30 ml PRN BID PRN PO DYSPEPSIA; Start 03/23/18 at 20:45 Magnesium Hydroxide (Milk Of Magnesia) 2,400 mg PRN DAILY PRN PO CONSTIPATION Last administered on 05/10/18at 20:08; Start 03/23/18 at 20:45 Citalopram Hydrobromide (CeleXA) 20 mg DAILY PO Last administered on 03/30/18at 07:42; Start 03/24/18 at 09:00; Stop 03/30/18 at 18:28; Status DC Divalproex Sodium (Depakote) 250 mg BID PO Last administered on 03/24/18at 07:38 ; Start 03/23/18 at 21:00; Stop 03/24/18 at 19:08; Status DC Lorazepam (Ativan) 0.25 mg PRN BID PRN PO ANXIETY / AGITATION Last administered on 04/14/18 12:24; Start 03/23/18 at 20:45 Melatonin 3 mg QHS PO Last administered on 05/12/18 19:59; Start 03/23/18 at 21 :00 Olanzapine (ZyPREXA ZYDIS) 2.5 mg PRN Q2HR PRN PO AGITATION/PSYCHOSIS Last administered on 05/09/18 20:02; Start 03/23/18 at 20:45 Quetiapine Fumarate (SEROquel) 37.5 mg TID PO Last administered on 03/30/18at 14 :04; Start 03/23/18 at 21:00; Stop 03/30/18 at 18:38; Status DC Trazodone HCl (Desyrel) 50 mg QHS PO Last administered on 05/12/18 19:59; Start 03/23/18 at 21:00 Divalproex Sodium (Depakote) 250 mg TID@0900,1300,1700 PO Last administered on 03/29/18at 16:05; Start 03/25/18 at 09:00; Stop 03/30/18 at 07:46; Status DC Mirtazapine (Remeron) 7.5 mg QHS PO Last administered on 03/29/18at 19:29; Start 03/29/18 at 21:00; Stop 03/30/18 at 18:28; Status DC Divalproex Sodium (Depakote Sprinkles) 250 mg TID@0900,1300,1700 PO Last administered on 03/31/18at 08:36; Start 03/30/18 at 09:00; Stop 03/31/18 at 13:22 ; Status DC Mirtazapine (Remeron) 15 mg QHS PO Last administered on 05/12/18 19:59; Start 03/30/18 at 21:00 Quetiapine Fumarate (SEROquel) 50 mg BID PO Last administered on 03/31/18at 08: 36; Start 03/30/18 at 21:00; Stop 03/31/18 at 13:22; Status DC Sertraline HCl (Zoloft) 50 mg DAILY PO Last administered on 04/08/18at 07:34; Start 03/31/18 at 09:00; Stop 04/08/18 at 10:57; Status DC Quetiapine Fumarate (SEROquel) 37.5 mg DAILY@1300 PO Last administered on at 14:09; Start 03/31/18 at 13:00; Stop 03/31/18 at 16:00; Status DC Quetiapine Fumarate (SEROquel) 37.5 mg TID PO Last administered on 04/01/18at 19 :20; Start 03/31/18 at 21:00; Stop 04/02/18 at 08:00; Status DC Divalproex Sodium (Depakote Sprinkles) 250 mg BID PO Last administered on at 08:49; Start 03/31/18 at 21:00; Stop 04/01/18 at 18:16; Status DC Divalproex Sodium (Depakote Sprinkles) 250 mg DAILY PO ; Start 04/03/18 at 09:00 ; Stop 04/03/18 at 09:00; Status DC Divalproex Sodium (Depakote Sprinkles) 250 mg TID PO Last administered on at 13:35; Start 04/01/18 at 21:00; Stop 05/04/18 at 18:35; Status DC Quetiapine Fumarate (SEROquel) 37.5 mg BID@0900,1700 PO Last administered on at 16:55; Start 04/03/18 at 09:00; Stop 04/06/18 at 18:45; Status DC Trazodone HCl (Desyrel) 50 mg PRN QHS PRN PO INSOMNIA; Start 04/03/18 at 15:15 Hydroxyzine HCl (Atarax) 25 mg PRN Q4HRS PRN PO AGITATION/ANXIETY Last administered on 04/08/18at 12:15; Start 04/05/18 at 09:15 Quetiapine Fumarate (SEROquel) 50 mg BID94 PO Last administered on 04/08/18at 07 :34; Start 04/07/18 at 09:00; Stop 04/08/18 at 10:59; Status DC Sertraline HCl (Zoloft) 75 mg DAILY PO Last administered on 05/13/18at 08:14; Start 04/09/18 at 09:00 Quetiapine Fumarate (SEROquel) 62.5 mg BID@0900,1700 PO Last administered on 04/19/18at 17:41; Start 04/08/18 at 17:00; Stop 04/19/18 at 18:45; Status DC Trazodone HCl (Desyrel) 12.5 mg TID@0900,1300,1700 PO Last administered on at 07:55; Start 04/10/18 at 09:00; Stop 04/15/18 at 11:19; Status DC Trazodone HCl (Desyrel) 12.5 mg BID@1300,1700 PO Last administered on at 18:14; Start 04/15/18 at 13:00; Stop 04/27/18 at 19:01; Status DC Trazodone HCl (Desyrel) 25 mg DAILY PO Last administered on 04/27/18at 09:12; Start 04/16/18 at 09:00; Stop 04/27/18 at 19:01; Status DC Cetirizine HCl (ZyrTEC) 10 mg DAILY PO Last administered on 05/13/18 08:14; Start 04/17/18 at 09:00 Quetiapine Fumarate (SEROquel) 62.5 mg DAILY PO Last administered on 04/21/18at 08:47; Start 04/20/18 at 09:00; Stop 04/21/18 at 19:21; Status DC Quetiapine Fumarate (SEROquel) 75 mg 1700 PO Last administered on 04/24/18at 17: 10; Start 04/20/18 at 17:00; Stop 04/25/18 at 17:12; Status DC Quetiapine Fumarate (SEROquel) 75 mg DAILY PO Last administered on 05/13/18at 08: 15; Start 04/22/18 at 09:00 Quetiapine Fumarate (SEROquel) 75 mg 1700 PO Last administered on 05/13/18 17: 36; Start 04/25/18 at 17:15 Trazodone HCl (Desyrel) 12.5 mg DAILY@1700 PO Last administered on 05/13/18 17: 35; Start 04/28/18 at 17:00 Trazodone HCl (Desyrel) 25 mg BID@0900,1300 PO Last administered on 05/13/18 13 :29; Start 04/28/18 at 09:00 Hydrocortisone (Cortaid) 1 shiraz BID TP Last administered on 05/13/18 08:15; Start 05/02/18 at 21:00 Valproic Acid (Depakene) 250 mg TID PO Last administered on 05/13/18 13:32; Start 05/04/18 at 21:00 Active Scripts Active Reported Olanzapine 5 Mg Tablet 2.5 Mg PO PRN Q2HR PRN Analgesic [place] (Methyl Salicylate/Menthol) 28 Gm Oint...g. 1 [place] TP PRN QID PRN Milk Of Magnesia (Magnesium Hydroxide) 2,400 Mg/10 Ml Oral.susp 2,400 Mg PO PRN DAILY PRN Hydrocortisone 453.6 Gm Oint...g. 1 [place] TP BID Celexa (Citalopram Hydrobromide) 20 Mg Tablet 20 Mg PO DAILY Alum-Mag Hydroxide-Simeth Liq (Mag Hydrox/Al Hydrox/Simeth) 360 Ml Oral.susp 30 Ml PO PRN BID PRN Lorazepam 0.5 Mg Tablet 0.25 Mg PO PRN BID PRN Divalproex Sodium 250 Mg Tablet.dr 250 Mg PO BID Seroquel (Quetiapine Fumarate) 25 Mg Tablet 37.5 Mg PO TID Melatonin 3 Mg Tablet 3 Mg PO QHS Trazodone Hcl 50 Mg Tablet 50 Mg PO QHS Atorvastatin Calcium 40 Mg Tablet 40 Mg PO HS Bisacodyl 10 Mg Supp.rect 10 Mg RC PRN QHS PRN Tylenol (Acetaminophen) 325 Mg Tablet 650 Mg PO PRN Q4HRS PRN I have reviewed the current psychotropics carefully including drug interactions. Risk benefit ratio favors no change other than as noted in my dictated progress note. Diagnosis: Problems: (1) Anxiety disorder (2) Impulse control disorder (3) Dementia, vascular, with depression (4) Dementia, vascular, with delusions (5) Dementia in Alzheimer's disease with depression (6) Dementia in Alzheimer's disease with delusions (7) Syncopal episodes (8) Hypertension ELVA STROUD MD May 13, 2018 19:42
--- NOTE | 2018-05-13 19:51 | PDOC ---
Exam Note: Ye Note: Orginal entry for DOS 04.08.2018 missing due to entry error. This note is a late entry for DOS 04.08.2018.Please also refer to the separate dictated note~ for this date of service dictated separately.~Patient seen individually. Discussed the patient with Nursing staff reviewed the chart.~Reviewed interim history and current functioning. Reviewed vital signs,~Labs/ Radiology~and current medications noted below. Continue current treatment with the changes noted in the dictated addendum note P - 70 R - 18 BP -123/67 Assessment: Vital Signs: Vital Signs Date Time Temp Pulse Resp B/P (MAP) Pulse Ox O2 Delivery O2 Flow Rate FiO2 05/13/18 15:56 98.8 84 20 113/74 (87) 99 I&O Intake and Output 05/13/18 07:00 Intake Total 1160 ml Balance 1160 ml Intake Oral 1160 ml # Voids 1 Current Medications: Meds: Current Medications Acetaminophen (Tylenol) 650 mg PRN Q4HRS PRN PO pain rated 4-6 on scale; Start 03/23/18 at 20:15 Hydrocortisone (Hytone) 1 shiraz BID TP Last administered on 05/01/18at 19:20; Start 03/23/18 at 21:00; Stop 05/02/18 at 10:37; Status DC Multi-Ingredient Ointment (Analgesic [place]) 1 shiraz PRN QID PRN TP MUSCLE PAIN; Start 03/23/18 at 20:15 Atorvastatin Calcium (Lipitor) 40 mg QHS PO Last administered on 05/12/18at 19:59 ; Start 03/23/18 at 21:00 Bisacodyl (Dulcolax Supp) 10 mg PRN QHS PRN [place] CONSTIPATION; Start 03/23/18 at 20:45 Al Hydroxide/Mg Hydroxide (Mylanta Plus Xs) 30 ml PRN BID PRN PO DYSPEPSIA; Start 03/23/18 at 20:45 Magnesium Hydroxide (Milk Of Magnesia) 2,400 mg PRN DAILY PRN PO CONSTIPATION Last administered on 05/10/18at 20:08; Start 03/23/18 at 20:45 Citalopram Hydrobromide (CeleXA) 20 mg DAILY PO Last administered on 03/30/18at 07:42; Start 03/24/18 at 09:00; Stop 03/30/18 at 18:28; Status DC Divalproex Sodium (Depakote) 250 mg BID PO Last administered on 03/24/18at 07:38 ; Start 03/23/18 at 21:00; Stop 03/24/18 at 19:08; Status DC Lorazepam (Ativan) 0.25 mg PRN BID PRN PO ANXIETY / AGITATION Last administered on 04/14/18 12:24; Start 03/23/18 at 20:45 Melatonin 3 mg QHS PO Last administered on 05/12/18 19:59; Start 03/23/18 at 21 :00 Olanzapine (ZyPREXA ZYDIS) 2.5 mg PRN Q2HR PRN PO AGITATION/PSYCHOSIS Last administered on 05/09/18 20:02; Start 03/23/18 at 20:45 Quetiapine Fumarate (SEROquel) 37.5 mg TID PO Last administered on 03/30/18at 14 :04; Start 03/23/18 at 21:00; Stop 03/30/18 at 18:38; Status DC Trazodone HCl (Desyrel) 50 mg QHS PO Last administered on 05/12/18 19:59; Start 03/23/18 at 21:00 Divalproex Sodium (Depakote) 250 mg TID@0900,1300,1700 PO Last administered on 03/29/18at 16:05; Start 03/25/18 at 09:00; Stop 03/30/18 at 07:46; Status DC Mirtazapine (Remeron) 7.5 mg QHS PO Last administered on 03/29/18at 19:29; Start 03/29/18 at 21:00; Stop 03/30/18 at 18:28; Status DC Divalproex Sodium (Depakote Sprinkles) 250 mg TID@0900,1300,1700 PO Last administered on 03/31/18at 08:36; Start 03/30/18 at 09:00; Stop 03/31/18 at 13:22 ; Status DC Mirtazapine (Remeron) 15 mg QHS PO Last administered on 05/12/18 19:59; Start 03/30/18 at 21:00 Quetiapine Fumarate (SEROquel) 50 mg BID PO Last administered on 03/31/18at 08: 36; Start 03/30/18 at 21:00; Stop 03/31/18 at 13:22; Status DC Sertraline HCl (Zoloft) 50 mg DAILY PO Last administered on 04/08/18at 07:34; Start 03/31/18 at 09:00; Stop 04/08/18 at 10:57; Status DC Quetiapine Fumarate (SEROquel) 37.5 mg DAILY@1300 PO Last administered on at 14:09; Start 03/31/18 at 13:00; Stop 03/31/18 at 16:00; Status DC Quetiapine Fumarate (SEROquel) 37.5 mg TID PO Last administered on 04/01/18at 19 :20; Start 03/31/18 at 21:00; Stop 04/02/18 at 08:00; Status DC Divalproex Sodium (Depakote Sprinkles) 250 mg BID PO Last administered on at 08:49; Start 03/31/18 at 21:00; Stop 04/01/18 at 18:16; Status DC Divalproex Sodium (Depakote Sprinkles) 250 mg DAILY PO ; Start 04/03/18 at 09:00 ; Stop 04/03/18 at 09:00; Status DC Divalproex Sodium (Depakote Sprinkles) 250 mg TID PO Last administered on at 13:35; Start 04/01/18 at 21:00; Stop 05/04/18 at 18:35; Status DC Quetiapine Fumarate (SEROquel) 37.5 mg BID@0900,1700 PO Last administered on at 16:55; Start 04/03/18 at 09:00; Stop 04/06/18 at 18:45; Status DC Trazodone HCl (Desyrel) 50 mg PRN QHS PRN PO INSOMNIA; Start 04/03/18 at 15:15 Hydroxyzine HCl (Atarax) 25 mg PRN Q4HRS PRN PO AGITATION/ANXIETY Last administered on 04/08/18at 12:15; Start 04/05/18 at 09:15 Quetiapine Fumarate (SEROquel) 50 mg BID94 PO Last administered on 04/08/18at 07 :34; Start 04/07/18 at 09:00; Stop 04/08/18 at 10:59; Status DC Sertraline HCl (Zoloft) 75 mg DAILY PO Last administered on 05/13/18at 08:14; Start 04/09/18 at 09:00 Quetiapine Fumarate (SEROquel) 62.5 mg BID@0900,1700 PO Last administered on 04/19/18at 17:41; Start 04/08/18 at 17:00; Stop 04/19/18 at 18:45; Status DC Trazodone HCl (Desyrel) 12.5 mg TID@0900,1300,1700 PO Last administered on at 07:55; Start 04/10/18 at 09:00; Stop 04/15/18 at 11:19; Status DC Trazodone HCl (Desyrel) 12.5 mg BID@1300,1700 PO Last administered on at 18:14; Start 04/15/18 at 13:00; Stop 04/27/18 at 19:01; Status DC Trazodone HCl (Desyrel) 25 mg DAILY PO Last administered on 04/27/18at 09:12; Start 04/16/18 at 09:00; Stop 04/27/18 at 19:01; Status DC Cetirizine HCl (ZyrTEC) 10 mg DAILY PO Last administered on 05/13/18 08:14; Start 04/17/18 at 09:00 Quetiapine Fumarate (SEROquel) 62.5 mg DAILY PO Last administered on 04/21/18at 08:47; Start 04/20/18 at 09:00; Stop 04/21/18 at 19:21; Status DC Quetiapine Fumarate (SEROquel) 75 mg 1700 PO Last administered on 04/24/18at 17: 10; Start 04/20/18 at 17:00; Stop 04/25/18 at 17:12; Status DC Quetiapine Fumarate (SEROquel) 75 mg DAILY PO Last administered on 05/13/18at 08: 15; Start 04/22/18 at 09:00 Quetiapine Fumarate (SEROquel) 75 mg 1700 PO Last administered on 05/13/18 17: 36; Start 04/25/18 at 17:15 Trazodone HCl (Desyrel) 12.5 mg DAILY@1700 PO Last administered on 05/13/18 17: 35; Start 04/28/18 at 17:00 Trazodone HCl (Desyrel) 25 mg BID@0900,1300 PO Last administered on 05/13/18 13 :29; Start 04/28/18 at 09:00 Hydrocortisone (Cortaid) 1 shiraz BID TP Last administered on 05/13/18 08:15; Start 05/02/18 at 21:00 Valproic Acid (Depakene) 250 mg TID PO Last administered on 05/13/18 13:32; Start 05/04/18 at 21:00 Active Scripts Active Reported Olanzapine 5 Mg Tablet 2.5 Mg PO PRN Q2HR PRN Analgesic [place] (Methyl Salicylate/Menthol) 28 Gm Oint...g. 1 [place] TP PRN QID PRN Milk Of Magnesia (Magnesium Hydroxide) 2,400 Mg/10 Ml Oral.susp 2,400 Mg PO PRN DAILY PRN Hydrocortisone 453.6 Gm Oint...g. 1 [place] TP BID Celexa (Citalopram Hydrobromide) 20 Mg Tablet 20 Mg PO DAILY Alum-Mag Hydroxide-Simeth Liq (Mag Hydrox/Al Hydrox/Simeth) 360 Ml Oral.susp 30 Ml PO PRN BID PRN Lorazepam 0.5 Mg Tablet 0.25 Mg PO PRN BID PRN Divalproex Sodium 250 Mg Tablet.dr 250 Mg PO BID Seroquel (Quetiapine Fumarate) 25 Mg Tablet 37.5 Mg PO TID Melatonin 3 Mg Tablet 3 Mg PO QHS Trazodone Hcl 50 Mg Tablet 50 Mg PO QHS Atorvastatin Calcium 40 Mg Tablet 40 Mg PO HS Bisacodyl 10 Mg Supp.rect 10 Mg RC PRN QHS PRN Tylenol (Acetaminophen) 325 Mg Tablet 650 Mg PO PRN Q4HRS PRN I have reviewed the current psychotropics carefully including drug interactions. Risk benefit ratio favors no change other than as noted in my dictated progress note. Diagnosis: Problems: (1) Anxiety disorder (2) Impulse control disorder (3) Dementia, vascular, with depression (4) Dementia, vascular, with delusions (5) Dementia in Alzheimer's disease with depression (6) Dementia in Alzheimer's disease with delusions (7) Syncopal episodes (8) Hypertension ELVA STROUD MD May 13, 2018 19:51
--- NOTE | 2018-05-13 20:10 | PDOC ---
Exam Note: Ye Note: Orginal entry for DOS 04.18.2018 missing due to entry error. This note is a late entry for DOS 04.18.2018.Please also refer to the separate dictated note~ for this date of service dictated separately.~Patient seen individually. Discussed the patient with Nursing staff reviewed the chart.~Reviewed interim history and current functioning. Reviewed vital signs,~Labs/ Radiology~and current medications noted below. Continue current treatment with the changes noted in the dictated addendum note P - 87 R - 87 BP - 109/63 Assessment: Vital Signs: Vital Signs Date Time Temp Pulse Resp B/P (MAP) Pulse Ox O2 Delivery O2 Flow Rate FiO2 05/13/18 15:56 98.8 84 20 113/74 (87) 99 I&O Intake and Output 05/13/18 07:00 Intake Total 1160 ml Balance 1160 ml Intake Oral 1160 ml # Voids 1 Current Medications: Meds: Current Medications Acetaminophen (Tylenol) 650 mg PRN Q4HRS PRN PO pain rated 4-6 on scale; Start 03/23/18 at 20:15 Hydrocortisone (Hytone) 1 shiraz BID TP Last administered on 05/01/18at 19:20; Start 03/23/18 at 21:00; Stop 05/02/18 at 10:37; Status DC Multi-Ingredient Ointment (Analgesic [place]) 1 shiraz PRN QID PRN TP MUSCLE PAIN; Start 03/23/18 at 20:15 Atorvastatin Calcium (Lipitor) 40 mg QHS PO Last administered on 05/13/18at 19:41 ; Start 03/23/18 at 21:00 Bisacodyl (Dulcolax Supp) 10 mg PRN QHS PRN [place] CONSTIPATION; Start 03/23/18 at 20:45 Al Hydroxide/Mg Hydroxide (Mylanta Plus Xs) 30 ml PRN BID PRN PO DYSPEPSIA; Start 03/23/18 at 20:45 Magnesium Hydroxide (Milk Of Magnesia) 2,400 mg PRN DAILY PRN PO CONSTIPATION Last administered on 05/10/18at 20:08; Start 03/23/18 at 20:45 Citalopram Hydrobromide (CeleXA) 20 mg DAILY PO Last administered on 03/30/18at 07:42; Start 03/24/18 at 09:00; Stop 03/30/18 at 18:28; Status DC Divalproex Sodium (Depakote) 250 mg BID PO Last administered on 03/24/18at 07:38 ; Start 03/23/18 at 21:00; Stop 03/24/18 at 19:08; Status DC Lorazepam (Ativan) 0.25 mg PRN BID PRN PO ANXIETY / AGITATION Last administered on 04/14/18 12:24; Start 03/23/18 at 20:45 Melatonin 3 mg QHS PO Last administered on 05/13/18 19:42; Start 03/23/18 at 21 :00 Olanzapine (ZyPREXA ZYDIS) 2.5 mg PRN Q2HR PRN PO AGITATION/PSYCHOSIS Last administered on 05/09/18 20:02; Start 03/23/18 at 20:45 Quetiapine Fumarate (SEROquel) 37.5 mg TID PO Last administered on 03/30/18at 14 :04; Start 03/23/18 at 21:00; Stop 03/30/18 at 18:38; Status DC Trazodone HCl (Desyrel) 50 mg QHS PO Last administered on 05/13/18 19:41; Start 03/23/18 at 21:00 Divalproex Sodium (Depakote) 250 mg TID@0900,1300,1700 PO Last administered on 03/29/18at 16:05; Start 03/25/18 at 09:00; Stop 03/30/18 at 07:46; Status DC Mirtazapine (Remeron) 7.5 mg QHS PO Last administered on 03/29/18at 19:29; Start 03/29/18 at 21:00; Stop 03/30/18 at 18:28; Status DC Divalproex Sodium (Depakote Sprinkles) 250 mg TID@0900,1300,1700 PO Last administered on 03/31/18at 08:36; Start 03/30/18 at 09:00; Stop 03/31/18 at 13:22 ; Status DC Mirtazapine (Remeron) 15 mg QHS PO Last administered on 05/13/18 19:41; Start 03/30/18 at 21:00 Quetiapine Fumarate (SEROquel) 50 mg BID PO Last administered on 03/31/18at 08: 36; Start 03/30/18 at 21:00; Stop 03/31/18 at 13:22; Status DC Sertraline HCl (Zoloft) 50 mg DAILY PO Last administered on 04/08/18at 07:34; Start 03/31/18 at 09:00; Stop 04/08/18 at 10:57; Status DC Quetiapine Fumarate (SEROquel) 37.5 mg DAILY@1300 PO Last administered on at 14:09; Start 03/31/18 at 13:00; Stop 03/31/18 at 16:00; Status DC Quetiapine Fumarate (SEROquel) 37.5 mg TID PO Last administered on 04/01/18at 19 :20; Start 03/31/18 at 21:00; Stop 04/02/18 at 08:00; Status DC Divalproex Sodium (Depakote Sprinkles) 250 mg BID PO Last administered on at 08:49; Start 03/31/18 at 21:00; Stop 04/01/18 at 18:16; Status DC Divalproex Sodium (Depakote Sprinkles) 250 mg DAILY PO ; Start 04/03/18 at 09:00 ; Stop 04/03/18 at 09:00; Status DC Divalproex Sodium (Depakote Sprinkles) 250 mg TID PO Last administered on at 13:35; Start 04/01/18 at 21:00; Stop 05/04/18 at 18:35; Status DC Quetiapine Fumarate (SEROquel) 37.5 mg BID@0900,1700 PO Last administered on at 16:55; Start 04/03/18 at 09:00; Stop 04/06/18 at 18:45; Status DC Trazodone HCl (Desyrel) 50 mg PRN QHS PRN PO INSOMNIA; Start 04/03/18 at 15:15 Hydroxyzine HCl (Atarax) 25 mg PRN Q4HRS PRN PO AGITATION/ANXIETY Last administered on 04/08/18at 12:15; Start 04/05/18 at 09:15 Quetiapine Fumarate (SEROquel) 50 mg BID94 PO Last administered on 04/08/18at 07 :34; Start 04/07/18 at 09:00; Stop 04/08/18 at 10:59; Status DC Sertraline HCl (Zoloft) 75 mg DAILY PO Last administered on 05/13/18at 08:14; Start 04/09/18 at 09:00 Quetiapine Fumarate (SEROquel) 62.5 mg BID@0900,1700 PO Last administered on 04/19/18at 17:41; Start 04/08/18 at 17:00; Stop 04/19/18 at 18:45; Status DC Trazodone HCl (Desyrel) 12.5 mg TID@0900,1300,1700 PO Last administered on at 07:55; Start 04/10/18 at 09:00; Stop 04/15/18 at 11:19; Status DC Trazodone HCl (Desyrel) 12.5 mg BID@1300,1700 PO Last administered on at 18:14; Start 04/15/18 at 13:00; Stop 04/27/18 at 19:01; Status DC Trazodone HCl (Desyrel) 25 mg DAILY PO Last administered on 04/27/18at 09:12; Start 04/16/18 at 09:00; Stop 04/27/18 at 19:01; Status DC Cetirizine HCl (ZyrTEC) 10 mg DAILY PO Last administered on 05/13/18 08:14; Start 04/17/18 at 09:00 Quetiapine Fumarate (SEROquel) 62.5 mg DAILY PO Last administered on 04/21/18at 08:47; Start 04/20/18 at 09:00; Stop 04/21/18 at 19:21; Status DC Quetiapine Fumarate (SEROquel) 75 mg 1700 PO Last administered on 04/24/18at 17: 10; Start 04/20/18 at 17:00; Stop 04/25/18 at 17:12; Status DC Quetiapine Fumarate (SEROquel) 75 mg DAILY PO Last administered on 05/13/18at 08: 15; Start 04/22/18 at 09:00 Quetiapine Fumarate (SEROquel) 75 mg 1700 PO Last administered on 05/13/18 17: 36; Start 04/25/18 at 17:15 Trazodone HCl (Desyrel) 12.5 mg DAILY@1700 PO Last administered on 05/13/18 17: 35; Start 04/28/18 at 17:00 Trazodone HCl (Desyrel) 25 mg BID@0900,1300 PO Last administered on 05/13/18 13 :29; Start 04/28/18 at 09:00 Hydrocortisone (Cortaid) 1 shiraz BID TP Last administered on 05/13/18 08:15; Start 05/02/18 at 21:00 Valproic Acid (Depakene) 250 mg TID PO Last administered on 05/13/18 19:41; Start 05/04/18 at 21:00 Active Scripts Active Reported Olanzapine 5 Mg Tablet 2.5 Mg PO PRN Q2HR PRN Analgesic [place] (Methyl Salicylate/Menthol) 28 Gm Oint...g. 1 [place] TP PRN QID PRN Milk Of Magnesia (Magnesium Hydroxide) 2,400 Mg/10 Ml Oral.susp 2,400 Mg PO PRN DAILY PRN Hydrocortisone 453.6 Gm Oint...g. 1 [place] TP BID Celexa (Citalopram Hydrobromide) 20 Mg Tablet 20 Mg PO DAILY Alum-Mag Hydroxide-Simeth Liq (Mag Hydrox/Al Hydrox/Simeth) 360 Ml Oral.susp 30 Ml PO PRN BID PRN Lorazepam 0.5 Mg Tablet 0.25 Mg PO PRN BID PRN Divalproex Sodium 250 Mg Tablet.dr 250 Mg PO BID Seroquel (Quetiapine Fumarate) 25 Mg Tablet 37.5 Mg PO TID Melatonin 3 Mg Tablet 3 Mg PO QHS Trazodone Hcl 50 Mg Tablet 50 Mg PO QHS Atorvastatin Calcium 40 Mg Tablet 40 Mg PO HS Bisacodyl 10 Mg Supp.rect 10 Mg RC PRN QHS PRN Tylenol (Acetaminophen) 325 Mg Tablet 650 Mg PO PRN Q4HRS PRN I have reviewed the current psychotropics carefully including drug interactions. Risk benefit ratio favors no change other than as noted in my dictated progress note. Diagnosis: Problems: (1) Anxiety disorder (2) Impulse control disorder (3) Dementia, vascular, with depression (4) Dementia, vascular, with delusions (5) Dementia in Alzheimer's disease with depression (6) Dementia in Alzheimer's disease with delusions (7) Syncopal episodes (8) Hypertension ELVA STROUD MD May 13, 2018 20:10
--- NOTE | 2018-05-13 20:30 | PDOC ---
Exam Note: Ye Note: Orginal entry for DOS 04.30.2018 missing due to entry error. This note is a late entry for DOS 04.30.2018.Please also refer to the separate dictated note~ for this date of service dictated separately.~Patient seen individually. Discussed the patient with Nursing staff reviewed the chart.~Reviewed interim history and current functioning. Reviewed vital signs,~Labs/ Radiology~and current medications noted below. Continue current treatment with the changes noted in the dictated addendum note P - 65 R - 18 BP - 116/71 Assessment: Vital Signs: Vital Signs Date Time Temp Pulse Resp B/P (MAP) Pulse Ox O2 Delivery O2 Flow Rate FiO2 05/13/18 15:56 98.8 84 20 113/74 (87) 99 I&O Intake and Output 05/13/18 07:00 Intake Total 1160 ml Balance 1160 ml Intake Oral 1160 ml # Voids 1 Current Medications: Meds: Current Medications Acetaminophen (Tylenol) 650 mg PRN Q4HRS PRN PO pain rated 4-6 on scale; Start 03/23/18 at 20:15 Hydrocortisone (Hytone) 1 shiraz BID TP Last administered on 05/01/18at 19:20; Start 03/23/18 at 21:00; Stop 05/02/18 at 10:37; Status DC Multi-Ingredient Ointment (Analgesic [place]) 1 shiraz PRN QID PRN TP MUSCLE PAIN; Start 03/23/18 at 20:15 Atorvastatin Calcium (Lipitor) 40 mg QHS PO Last administered on 05/13/18at 19:41 ; Start 03/23/18 at 21:00 Bisacodyl (Dulcolax Supp) 10 mg PRN QHS PRN [place] CONSTIPATION; Start 03/23/18 at 20:45 Al Hydroxide/Mg Hydroxide (Mylanta Plus Xs) 30 ml PRN BID PRN PO DYSPEPSIA; Start 03/23/18 at 20:45 Magnesium Hydroxide (Milk Of Magnesia) 2,400 mg PRN DAILY PRN PO CONSTIPATION Last administered on 05/10/18at 20:08; Start 03/23/18 at 20:45 Citalopram Hydrobromide (CeleXA) 20 mg DAILY PO Last administered on 03/30/18at 07:42; Start 03/24/18 at 09:00; Stop 03/30/18 at 18:28; Status DC Divalproex Sodium (Depakote) 250 mg BID PO Last administered on 03/24/18at 07:38 ; Start 03/23/18 at 21:00; Stop 03/24/18 at 19:08; Status DC Lorazepam (Ativan) 0.25 mg PRN BID PRN PO ANXIETY / AGITATION Last administered on 04/14/18 12:24; Start 03/23/18 at 20:45 Melatonin 3 mg QHS PO Last administered on 05/13/18 19:42; Start 03/23/18 at 21 :00 Olanzapine (ZyPREXA ZYDIS) 2.5 mg PRN Q2HR PRN PO AGITATION/PSYCHOSIS Last administered on 05/09/18 20:02; Start 03/23/18 at 20:45 Quetiapine Fumarate (SEROquel) 37.5 mg TID PO Last administered on 03/30/18at 14 :04; Start 03/23/18 at 21:00; Stop 03/30/18 at 18:38; Status DC Trazodone HCl (Desyrel) 50 mg QHS PO Last administered on 05/13/18 19:41; Start 03/23/18 at 21:00 Divalproex Sodium (Depakote) 250 mg TID@0900,1300,1700 PO Last administered on 03/29/18at 16:05; Start 03/25/18 at 09:00; Stop 03/30/18 at 07:46; Status DC Mirtazapine (Remeron) 7.5 mg QHS PO Last administered on 03/29/18at 19:29; Start 03/29/18 at 21:00; Stop 03/30/18 at 18:28; Status DC Divalproex Sodium (Depakote Sprinkles) 250 mg TID@0900,1300,1700 PO Last administered on 03/31/18at 08:36; Start 03/30/18 at 09:00; Stop 03/31/18 at 13:22 ; Status DC Mirtazapine (Remeron) 15 mg QHS PO Last administered on 05/13/18 19:41; Start 03/30/18 at 21:00 Quetiapine Fumarate (SEROquel) 50 mg BID PO Last administered on 03/31/18at 08: 36; Start 03/30/18 at 21:00; Stop 03/31/18 at 13:22; Status DC Sertraline HCl (Zoloft) 50 mg DAILY PO Last administered on 04/08/18at 07:34; Start 03/31/18 at 09:00; Stop 04/08/18 at 10:57; Status DC Quetiapine Fumarate (SEROquel) 37.5 mg DAILY@1300 PO Last administered on at 14:09; Start 03/31/18 at 13:00; Stop 03/31/18 at 16:00; Status DC Quetiapine Fumarate (SEROquel) 37.5 mg TID PO Last administered on 04/01/18at 19 :20; Start 03/31/18 at 21:00; Stop 04/02/18 at 08:00; Status DC Divalproex Sodium (Depakote Sprinkles) 250 mg BID PO Last administered on at 08:49; Start 03/31/18 at 21:00; Stop 04/01/18 at 18:16; Status DC Divalproex Sodium (Depakote Sprinkles) 250 mg DAILY PO ; Start 04/03/18 at 09:00 ; Stop 04/03/18 at 09:00; Status DC Divalproex Sodium (Depakote Sprinkles) 250 mg TID PO Last administered on at 13:35; Start 04/01/18 at 21:00; Stop 05/04/18 at 18:35; Status DC Quetiapine Fumarate (SEROquel) 37.5 mg BID@0900,1700 PO Last administered on at 16:55; Start 04/03/18 at 09:00; Stop 04/06/18 at 18:45; Status DC Trazodone HCl (Desyrel) 50 mg PRN QHS PRN PO INSOMNIA; Start 04/03/18 at 15:15 Hydroxyzine HCl (Atarax) 25 mg PRN Q4HRS PRN PO AGITATION/ANXIETY Last administered on 04/08/18at 12:15; Start 04/05/18 at 09:15 Quetiapine Fumarate (SEROquel) 50 mg BID94 PO Last administered on 04/08/18at 07 :34; Start 04/07/18 at 09:00; Stop 04/08/18 at 10:59; Status DC Sertraline HCl (Zoloft) 75 mg DAILY PO Last administered on 05/13/18at 08:14; Start 04/09/18 at 09:00 Quetiapine Fumarate (SEROquel) 62.5 mg BID@0900,1700 PO Last administered on 04/19/18at 17:41; Start 04/08/18 at 17:00; Stop 04/19/18 at 18:45; Status DC Trazodone HCl (Desyrel) 12.5 mg TID@0900,1300,1700 PO Last administered on at 07:55; Start 04/10/18 at 09:00; Stop 04/15/18 at 11:19; Status DC Trazodone HCl (Desyrel) 12.5 mg BID@1300,1700 PO Last administered on at 18:14; Start 04/15/18 at 13:00; Stop 04/27/18 at 19:01; Status DC Trazodone HCl (Desyrel) 25 mg DAILY PO Last administered on 04/27/18at 09:12; Start 04/16/18 at 09:00; Stop 04/27/18 at 19:01; Status DC Cetirizine HCl (ZyrTEC) 10 mg DAILY PO Last administered on 05/13/18 08:14; Start 04/17/18 at 09:00 Quetiapine Fumarate (SEROquel) 62.5 mg DAILY PO Last administered on 04/21/18at 08:47; Start 04/20/18 at 09:00; Stop 04/21/18 at 19:21; Status DC Quetiapine Fumarate (SEROquel) 75 mg 1700 PO Last administered on 04/24/18at 17: 10; Start 04/20/18 at 17:00; Stop 04/25/18 at 17:12; Status DC Quetiapine Fumarate (SEROquel) 75 mg DAILY PO Last administered on 05/13/18at 08: 15; Start 04/22/18 at 09:00 Quetiapine Fumarate (SEROquel) 75 mg 1700 PO Last administered on 05/13/18 17: 36; Start 04/25/18 at 17:15 Trazodone HCl (Desyrel) 12.5 mg DAILY@1700 PO Last administered on 05/13/18 17: 35; Start 04/28/18 at 17:00 Trazodone HCl (Desyrel) 25 mg BID@0900,1300 PO Last administered on 05/13/18 13 :29; Start 04/28/18 at 09:00 Hydrocortisone (Cortaid) 1 shiraz BID TP Last administered on 05/13/18 08:15; Start 05/02/18 at 21:00 Valproic Acid (Depakene) 250 mg TID PO Last administered on 05/13/18 19:41; Start 05/04/18 at 21:00 Active Scripts Active Reported Olanzapine 5 Mg Tablet 2.5 Mg PO PRN Q2HR PRN Analgesic [place] (Methyl Salicylate/Menthol) 28 Gm Oint...g. 1 [place] TP PRN QID PRN Milk Of Magnesia (Magnesium Hydroxide) 2,400 Mg/10 Ml Oral.susp 2,400 Mg PO PRN DAILY PRN Hydrocortisone 453.6 Gm Oint...g. 1 [place] TP BID Celexa (Citalopram Hydrobromide) 20 Mg Tablet 20 Mg PO DAILY Alum-Mag Hydroxide-Simeth Liq (Mag Hydrox/Al Hydrox/Simeth) 360 Ml Oral.susp 30 Ml PO PRN BID PRN Lorazepam 0.5 Mg Tablet 0.25 Mg PO PRN BID PRN Divalproex Sodium 250 Mg Tablet.dr 250 Mg PO BID Seroquel (Quetiapine Fumarate) 25 Mg Tablet 37.5 Mg PO TID Melatonin 3 Mg Tablet 3 Mg PO QHS Trazodone Hcl 50 Mg Tablet 50 Mg PO QHS Atorvastatin Calcium 40 Mg Tablet 40 Mg PO HS Bisacodyl 10 Mg Supp.rect 10 Mg RC PRN QHS PRN Tylenol (Acetaminophen) 325 Mg Tablet 650 Mg PO PRN Q4HRS PRN I have reviewed the current psychotropics carefully including drug interactions. Risk benefit ratio favors no change other than as noted in my dictated progress note. Diagnosis: Problems: (1) Anxiety disorder (2) Impulse control disorder (3) Dementia, vascular, with depression (4) Dementia, vascular, with delusions (5) Dementia in Alzheimer's disease with depression (6) Dementia in Alzheimer's disease with delusions (7) Syncopal episodes (8) Hypertension ELVA STROUD MD May 13, 2018 20:30
--- NOTE | 2018-05-13 20:53 | PDOC ---
Exam Note: Ye Note: Please also refer to the separate dictated note~for this date of service dictated separately.~Patient seen individually. Discussed the patient with Nursing staff reviewed the chart.~Reviewed interim history and current functioning. Reviewed vital signs,~Labs/ Radiology~and current medications noted below. Continue current treatment with the changes noted in the dictated addendum note Assessment: Vital Signs: Vital Signs Date Time Temp Pulse Resp B/P (MAP) Pulse Ox O2 Delivery O2 Flow Rate FiO2 05/13/18 15:56 98.8 84 20 113/74 (87) 99 I&O Intake and Output 05/13/18 07:00 Intake Total 1160 ml Balance 1160 ml Intake Oral 1160 ml # Voids 1 Current Medications: Meds: Current Medications Acetaminophen (Tylenol) 650 mg PRN Q4HRS PRN PO pain rated 4-6 on scale; Start 03/23/18 at 20:15 Hydrocortisone (Hytone) 1 shiraz BID TP Last administered on 05/01/18at 19:20; Start 03/23/18 at 21:00; Stop 05/02/18 at 10:37; Status DC Multi-Ingredient Ointment (Analgesic [place]) 1 shiraz PRN QID PRN TP MUSCLE PAIN; Start 03/23/18 at 20:15 Atorvastatin Calcium (Lipitor) 40 mg QHS PO Last administered on 05/13/18at 19:41 ; Start 03/23/18 at 21:00 Bisacodyl (Dulcolax Supp) 10 mg PRN QHS PRN [place] CONSTIPATION; Start 03/23/18 at 20:45 Al Hydroxide/Mg Hydroxide (Mylanta Plus Xs) 30 ml PRN BID PRN PO DYSPEPSIA; Start 03/23/18 at 20:45 Magnesium Hydroxide (Milk Of Magnesia) 2,400 mg PRN DAILY PRN PO CONSTIPATION Last administered on 05/10/18at 20:08; Start 03/23/18 at 20:45 Citalopram Hydrobromide (CeleXA) 20 mg DAILY PO Last administered on 03/30/18at 07:42; Start 03/24/18 at 09:00; Stop 03/30/18 at 18:28; Status DC Divalproex Sodium (Depakote) 250 mg BID PO Last administered on 03/24/18at 07:38 ; Start 03/23/18 at 21:00; Stop 03/24/18 at 19:08; Status DC Lorazepam (Ativan) 0.25 mg PRN BID PRN PO ANXIETY / AGITATION Last administered on 04/14/18 12:24; Start 03/23/18 at 20:45 Melatonin 3 mg QHS PO Last administered on 05/13/18 19:42; Start 03/23/18 at 21 :00 Olanzapine (ZyPREXA ZYDIS) 2.5 mg PRN Q2HR PRN PO AGITATION/PSYCHOSIS Last administered on 05/09/18 20:02; Start 03/23/18 at 20:45 Quetiapine Fumarate (SEROquel) 37.5 mg TID PO Last administered on 03/30/18 14 :04; Start 03/23/18 at 21:00; Stop 03/30/18 at 18:38; Status DC Trazodone HCl (Desyrel) 50 mg QHS PO Last administered on 05/13/18 19:41; Start 03/23/18 at 21:00 Divalproex Sodium (Depakote) 250 mg TID@0900,1300,1700 PO Last administered on 03/29/18at 16:05; Start 03/25/18 at 09:00; Stop 03/30/18 at 07:46; Status DC Mirtazapine (Remeron) 7.5 mg QHS PO Last administered on 03/29/18 19:29; Start 03/29/18 at 21:00; Stop 03/30/18 at 18:28; Status DC Divalproex Sodium (Depakote Sprinkles) 250 mg TID@0900,1300,1700 PO Last administered on 03/31/18at 08:36; Start 03/30/18 at 09:00; Stop 03/31/18 at 13:22 ; Status DC Mirtazapine (Remeron) 15 mg QHS PO Last administered on 05/13/18 19:41; Start 03/30/18 at 21:00 Quetiapine Fumarate (SEROquel) 50 mg BID PO Last administered on 03/31/18 08: 36; Start 03/30/18 at 21:00; Stop 03/31/18 at 13:22; Status DC Sertraline HCl (Zoloft) 50 mg DAILY PO Last administered on 04/08/18at 07:34; Start 03/31/18 at 09:00; Stop 04/08/18 at 10:57; Status DC Quetiapine Fumarate (SEROquel) 37.5 mg DAILY@1300 PO Last administered on at 14:09; Start 03/31/18 at 13:00; Stop 03/31/18 at 16:00; Status DC Quetiapine Fumarate (SEROquel) 37.5 mg TID PO Last administered on 04/01/18at 19 :20; Start 03/31/18 at 21:00; Stop 04/02/18 at 08:00; Status DC Divalproex Sodium (Depakote Sprinkles) 250 mg BID PO Last administered on at 08:49; Start 03/31/18 at 21:00; Stop 04/01/18 at 18:16; Status DC Divalproex Sodium (Depakote Sprinkles) 250 mg DAILY PO ; Start 04/03/18 at 09:00 ; Stop 04/03/18 at 09:00; Status DC Divalproex Sodium (Depakote Sprinkles) 250 mg TID PO Last administered on at 13:35; Start 04/01/18 at 21:00; Stop 05/04/18 at 18:35; Status DC Quetiapine Fumarate (SEROquel) 37.5 mg BID@0900,1700 PO Last administered on at 16:55; Start 04/03/18 at 09:00; Stop 04/06/18 at 18:45; Status DC Trazodone HCl (Desyrel) 50 mg PRN QHS PRN PO INSOMNIA; Start 04/03/18 at 15:15 Hydroxyzine HCl (Atarax) 25 mg PRN Q4HRS PRN PO AGITATION/ANXIETY Last administered on 04/08/18at 12:15; Start 04/05/18 at 09:15 Quetiapine Fumarate (SEROquel) 50 mg BID94 PO Last administered on 04/08/18at 07 :34; Start 04/07/18 at 09:00; Stop 04/08/18 at 10:59; Status DC Sertraline HCl (Zoloft) 75 mg DAILY PO Last administered on 05/13/18 08:14; Start 04/09/18 at 09:00 Quetiapine Fumarate (SEROquel) 62.5 mg BID@0900,1700 PO Last administered on 04/19/18at 17:41; Start 04/08/18 at 17:00; Stop 04/19/18 at 18:45; Status DC Trazodone HCl (Desyrel) 12.5 mg TID@0900,1300,1700 PO Last administered on at 07:55; Start 04/10/18 at 09:00; Stop 04/15/18 at 11:19; Status DC Trazodone HCl (Desyrel) 12.5 mg BID@1300,1700 PO Last administered on 18:14; Start 04/15/18 at 13:00; Stop 04/27/18 at 19:01; Status DC Trazodone HCl (Desyrel) 25 mg DAILY PO Last administered on 04/27/18at 09:12; Start 04/16/18 at 09:00; Stop 04/27/18 at 19:01; Status DC Cetirizine HCl (ZyrTEC) 10 mg DAILY PO Last administered on 05/13/18 08:14; Start 04/17/18 at 09:00 Quetiapine Fumarate (SEROquel) 62.5 mg DAILY PO Last administered on 04/21/18at 08:47; Start 04/20/18 at 09:00; Stop 04/21/18 at 19:21; Status DC Quetiapine Fumarate (SEROquel) 75 mg 1700 PO Last administered on 04/24/18at 17: 10; Start 04/20/18 at 17:00; Stop 04/25/18 at 17:12; Status DC Quetiapine Fumarate (SEROquel) 75 mg DAILY PO Last administered on 05/13/18 08: 15; Start 04/22/18 at 09:00 Quetiapine Fumarate (SEROquel) 75 mg 1700 PO Last administered on 05/13/18at 17: 36; Start 04/25/18 at 17:15 Trazodone HCl (Desyrel) 12.5 mg DAILY@1700 PO Last administered on 05/13/18 17: 35; Start 04/28/18 at 17:00 Trazodone HCl (Desyrel) 25 mg BID@0900,1300 PO Last administered on 05/13/18 13 :29; Start 04/28/18 at 09:00 Hydrocortisone (Cortaid) 1 shiraz BID TP Last administered on 05/13/18 08:15; Start 05/02/18 at 21:00 Valproic Acid (Depakene) 250 mg TID PO Last administered on 05/13/18at 19:41; Start 05/04/18 at 21:00 Active Scripts Active Reported Olanzapine 5 Mg Tablet 2.5 Mg PO PRN Q2HR PRN Analgesic [place] (Methyl Salicylate/Menthol) 28 Gm Oint...g. 1 [place] TP PRN QID PRN Milk Of Magnesia (Magnesium Hydroxide) 2,400 Mg/10 Ml Oral.susp 2,400 Mg PO PRN DAILY PRN Hydrocortisone 453.6 Gm Oint...g. 1 [place] TP BID Celexa (Citalopram Hydrobromide) 20 Mg Tablet 20 Mg PO DAILY Alum-Mag Hydroxide-Simeth Liq (Mag Hydrox/Al Hydrox/Simeth) 360 Ml Oral.susp 30 Ml PO PRN BID PRN Lorazepam 0.5 Mg Tablet 0.25 Mg PO PRN BID PRN Divalproex Sodium 250 Mg Tablet.dr 250 Mg PO BID Seroquel (Quetiapine Fumarate) 25 Mg Tablet 37.5 Mg PO TID Melatonin 3 Mg Tablet 3 Mg PO QHS Trazodone Hcl 50 Mg Tablet 50 Mg PO QHS Atorvastatin Calcium 40 Mg Tablet 40 Mg PO HS Bisacodyl 10 Mg Supp.rect 10 Mg RC PRN QHS PRN Tylenol (Acetaminophen) 325 Mg Tablet 650 Mg PO PRN Q4HRS PRN I have reviewed the current psychotropics carefully including drug interactions. Risk benefit ratio favors no change other than as noted in my dictated progress note. Diagnosis: Problems: (1) Anxiety disorder (2) Impulse control disorder (3) Dementia, vascular, with depression (4) Dementia, vascular, with delusions (5) Dementia in Alzheimer's disease with depression (6) Dementia in Alzheimer's disease with delusions (7) Syncopal episodes (8) Hypertension ELVA STROUD MD May 13, 2018 20:53
[2018-05-14 05:57] VITALS: BP 104/58
[2018-05-14] MEDS: VALPROATE ACID 250 MG/5 ML ORAL SOLUTION PO SCH ×3 (08:21→19:58)
[2018-05-14] MEDS: QUEtiapine 50 MG TABLET. PO SCH ×2 (08:21→16:40)
[2018-05-14] MEDS: CETIRIZINE HCL 10 MG TABLET PO SCH (08:22)
[2018-05-14] MEDS: SERTRALINE 50 MG TABLET. PO SCH (08:22)
[2018-05-14] MEDS: traZODone 50 MG TABLET. PO SCH ×4 (08:22→19:59)
[2018-05-14] MEDS: HYDROCORTISONE 1% TOPICAL CREAM 30GM TUBE. TP SCH ×2 (08:23→21:00)
[2018-05-14 16:01] VITALS: BP 145/80
[2018-05-14] MEDS: ATORVASTATIN CALCIUM 20 MG TABLET PO SCH (19:59)
[2018-05-14] MEDS: MIRTAZAPINE 15 MG TABLET PO SCH (19:59)
[2018-05-14] MEDS: MELATONIN 3 MG TABLET PO SCH (19:59)
--- NOTE | 2018-05-14 20:46 | PDOC ---
Exam Note: Ye Note: Please also refer to the separate dictated note~for this date of service dictated separately.~Patient seen individually. Discussed the patient with Nursing staff reviewed the chart.~Reviewed interim history and current functioning. Reviewed vital signs,~Labs/ Radiology~and current medications noted below. Continue current treatment with the changes noted in the dictated addendum note Assessment: Vital Signs: Vital Signs Date Time Temp Pulse Resp B/P (MAP) Pulse Ox O2 Delivery O2 Flow Rate FiO2 05/14/18 16:01 98.7 92 18 145/80 (101) 96 I&O Intake and Output 05/14/18 07:00 Intake Total 960 ml Balance 960 ml Intake Oral 960 ml # Voids 1 Current Medications: Meds: Current Medications Acetaminophen (Tylenol) 650 mg PRN Q4HRS PRN PO pain rated 4-6 on scale; Start 03/23/18 at 20:15 Hydrocortisone (Hytone) 1 shiraz BID TP Last administered on 05/01/18at 19:20; Start 03/23/18 at 21:00; Stop 05/02/18 at 10:37; Status DC Multi-Ingredient Ointment (Analgesic [place]) 1 shiraz PRN QID PRN TP MUSCLE PAIN; Start 03/23/18 at 20:15 Atorvastatin Calcium (Lipitor) 40 mg QHS PO Last administered on 05/14/18at 19:59 ; Start 03/23/18 at 21:00 Bisacodyl (Dulcolax Supp) 10 mg PRN QHS PRN [place] CONSTIPATION; Start 03/23/18 at 20:45 Al Hydroxide/Mg Hydroxide (Mylanta Plus Xs) 30 ml PRN BID PRN PO DYSPEPSIA; Start 03/23/18 at 20:45 Magnesium Hydroxide (Milk Of Magnesia) 2,400 mg PRN DAILY PRN PO CONSTIPATION Last administered on 05/10/18at 20:08; Start 03/23/18 at 20:45 Citalopram Hydrobromide (CeleXA) 20 mg DAILY PO Last administered on 03/30/18at 07:42; Start 03/24/18 at 09:00; Stop 03/30/18 at 18:28; Status DC Divalproex Sodium (Depakote) 250 mg BID PO Last administered on 03/24/18at 07:38 ; Start 03/23/18 at 21:00; Stop 03/24/18 at 19:08; Status DC Lorazepam (Ativan) 0.25 mg PRN BID PRN PO ANXIETY / AGITATION Last administered on 04/14/18 12:24; Start 03/23/18 at 20:45 Melatonin 3 mg QHS PO Last administered on 05/14/18 19:59; Start 03/23/18 at 21 :00 Olanzapine (ZyPREXA ZYDIS) 2.5 mg PRN Q2HR PRN PO AGITATION/PSYCHOSIS Last administered on 05/09/18 20:02; Start 03/23/18 at 20:45 Quetiapine Fumarate (SEROquel) 37.5 mg TID PO Last administered on 03/30/18 14 :04; Start 03/23/18 at 21:00; Stop 03/30/18 at 18:38; Status DC Trazodone HCl (Desyrel) 50 mg QHS PO Last administered on 05/14/18 19:59; Start 03/23/18 at 21:00 Divalproex Sodium (Depakote) 250 mg TID@0900,1300,1700 PO Last administered on 03/29/18at 16:05; Start 03/25/18 at 09:00; Stop 03/30/18 at 07:46; Status DC Mirtazapine (Remeron) 7.5 mg QHS PO Last administered on 03/29/18 19:29; Start 03/29/18 at 21:00; Stop 03/30/18 at 18:28; Status DC Divalproex Sodium (Depakote Sprinkles) 250 mg TID@0900,1300,1700 PO Last administered on 03/31/18 08:36; Start 03/30/18 at 09:00; Stop 03/31/18 at 13:22 ; Status DC Mirtazapine (Remeron) 15 mg QHS PO Last administered on 05/14/18 19:59; Start 03/30/18 at 21:00 Quetiapine Fumarate (SEROquel) 50 mg BID PO Last administered on 03/31/18 08: 36; Start 03/30/18 at 21:00; Stop 03/31/18 at 13:22; Status DC Sertraline HCl (Zoloft) 50 mg DAILY PO Last administered on 04/08/18at 07:34; Start 03/31/18 at 09:00; Stop 04/08/18 at 10:57; Status DC Quetiapine Fumarate (SEROquel) 37.5 mg DAILY@1300 PO Last administered on at 14:09; Start 03/31/18 at 13:00; Stop 03/31/18 at 16:00; Status DC Quetiapine Fumarate (SEROquel) 37.5 mg TID PO Last administered on 04/01/18at 19 :20; Start 03/31/18 at 21:00; Stop 04/02/18 at 08:00; Status DC Divalproex Sodium (Depakote Sprinkles) 250 mg BID PO Last administered on at 08:49; Start 03/31/18 at 21:00; Stop 04/01/18 at 18:16; Status DC Divalproex Sodium (Depakote Sprinkles) 250 mg DAILY PO ; Start 04/03/18 at 09:00 ; Stop 04/03/18 at 09:00; Status DC Divalproex Sodium (Depakote Sprinkles) 250 mg TID PO Last administered on at 13:35; Start 04/01/18 at 21:00; Stop 05/04/18 at 18:35; Status DC Quetiapine Fumarate (SEROquel) 37.5 mg BID@0900,1700 PO Last administered on at 16:55; Start 04/03/18 at 09:00; Stop 04/06/18 at 18:45; Status DC Trazodone HCl (Desyrel) 50 mg PRN QHS PRN PO INSOMNIA; Start 04/03/18 at 15:15 Hydroxyzine HCl (Atarax) 25 mg PRN Q4HRS PRN PO AGITATION/ANXIETY Last administered on 04/08/18at 12:15; Start 04/05/18 at 09:15 Quetiapine Fumarate (SEROquel) 50 mg BID94 PO Last administered on 04/08/18at 07 :34; Start 04/07/18 at 09:00; Stop 04/08/18 at 10:59; Status DC Sertraline HCl (Zoloft) 75 mg DAILY PO Last administered on 05/14/18 08:22; Start 04/09/18 at 09:00 Quetiapine Fumarate (SEROquel) 62.5 mg BID@0900,1700 PO Last administered on 17:41; Start 04/08/18 at 17:00; Stop 04/19/18 at 18:45; Status DC Trazodone HCl (Desyrel) 12.5 mg TID@0900,1300,1700 PO Last administered on at 07:55; Start 04/10/18 at 09:00; Stop 04/15/18 at 11:19; Status DC Trazodone HCl (Desyrel) 12.5 mg BID@1300,1700 PO Last administered on 18:14; Start 04/15/18 at 13:00; Stop 04/27/18 at 19:01; Status DC Trazodone HCl (Desyrel) 25 mg DAILY PO Last administered on 04/27/18at 09:12; Start 04/16/18 at 09:00; Stop 04/27/18 at 19:01; Status DC Cetirizine HCl (ZyrTEC) 10 mg DAILY PO Last administered on 05/14/18 08:22; Start 04/17/18 at 09:00 Quetiapine Fumarate (SEROquel) 62.5 mg DAILY PO Last administered on 04/21/18at 08:47; Start 04/20/18 at 09:00; Stop 04/21/18 at 19:21; Status DC Quetiapine Fumarate (SEROquel) 75 mg 1700 PO Last administered on 04/24/18at 17: 10; Start 04/20/18 at 17:00; Stop 04/25/18 at 17:12; Status DC Quetiapine Fumarate (SEROquel) 75 mg DAILY PO Last administered on 05/14/18 08: 21; Start 04/22/18 at 09:00 Quetiapine Fumarate (SEROquel) 75 mg 1700 PO Last administered on 05/14/18 16: 40; Start 04/25/18 at 17:15 Trazodone HCl (Desyrel) 12.5 mg DAILY@1700 PO Last administered on 05/14/18 16: 39; Start 04/28/18 at 17:00 Trazodone HCl (Desyrel) 25 mg BID@0900,1300 PO Last administered on 05/14/18 13 :45; Start 04/28/18 at 09:00 Hydrocortisone (Cortaid) 1 shiraz BID TP Last administered on 05/14/18 08:23; Start 05/02/18 at 21:00 Valproic Acid (Depakene) 250 mg TID PO Last administered on 05/14/18at 19:58; Start 05/04/18 at 21:00 Active Scripts Active Reported Olanzapine 5 Mg Tablet 2.5 Mg PO PRN Q2HR PRN Analgesic [place] (Methyl Salicylate/Menthol) 28 Gm Oint...g. 1 [place] TP PRN QID PRN Milk Of Magnesia (Magnesium Hydroxide) 2,400 Mg/10 Ml Oral.susp 2,400 Mg PO PRN DAILY PRN Hydrocortisone 453.6 Gm Oint...g. 1 [place] TP BID Celexa (Citalopram Hydrobromide) 20 Mg Tablet 20 Mg PO DAILY Alum-Mag Hydroxide-Simeth Liq (Mag Hydrox/Al Hydrox/Simeth) 360 Ml Oral.susp 30 Ml PO PRN BID PRN Lorazepam 0.5 Mg Tablet 0.25 Mg PO PRN BID PRN Divalproex Sodium 250 Mg Tablet.dr 250 Mg PO BID Seroquel (Quetiapine Fumarate) 25 Mg Tablet 37.5 Mg PO TID Melatonin 3 Mg Tablet 3 Mg PO QHS Trazodone Hcl 50 Mg Tablet 50 Mg PO QHS Atorvastatin Calcium 40 Mg Tablet 40 Mg PO HS Bisacodyl 10 Mg Supp.rect 10 Mg RC PRN QHS PRN Tylenol (Acetaminophen) 325 Mg Tablet 650 Mg PO PRN Q4HRS PRN I have reviewed the current psychotropics carefully including drug interactions. Risk benefit ratio favors no change other than as noted in my dictated progress note. Diagnosis: Problems: (1) Anxiety disorder (2) Impulse control disorder (3) Dementia, vascular, with depression (4) Dementia, vascular, with delusions (5) Dementia in Alzheimer's disease with depression (6) Dementia in Alzheimer's disease with delusions (7) Syncopal episodes (8) Hypertension ELVA STROUD MD May 14, 2018 20:46
--- NOTE | 2018-05-15 00:18 | PN ---
DATE: 05/12/2018 PSYCHIATRIC PROGRESS NOTE This late entry 05/12/2018 covers elements not covered in my initial note. SUBJECTIVE: I met with the patient in the evening. The patient slept 7 hours previous evening, somewhat irritable in the morning, banging on the window, wanting to go to work. She was obsessed about some DVD covers, said she received one that was empty, quite confused. REVIEW OF SYSTEMS: No CV, , pulmonary, eye, ENT system symptoms on review. Reliability poor. MENTAL STATUS EXAM: Oriented to herself. Insight, judgment, recent and remote memory, attention, concentration, fund of knowledge poor, consistent with her diagnosis mentioned in my initial note. PLAN: No change from initial note. MAN Rachel STROUD MD DR: CHARLOTTE/fanny JOB#: [id number] / [id number]
--- NOTE | 2018-05-15 01:29 | PN ---
DATE: 05/13/2018 PSYCHIATRIC PROGRESS NOTE This is a late entry, 05/13, covers elements not covered in my initial note. SUBJECTIVE: I met with the patient in the evening. The patient was staffed at the Treatment Team meeting with the entire team in the morning. Often her medications have to be hidden before she takes them. Urine C and S is awaited. REVIEW OF SYSTEMS: No CV, , pulmonary, eye, ENT system symptoms on review. Reliability poor. MENTAL STATUS EXAM: Oriented to herself. Insight, judgment, recent and remote memory, attention, concentration, fund of knowledge poor, consistent with her diagnosis mentioned in my initial note. PLAN: No change from a psychiatric standpoint. ELVA STROUD MD DR: CHARLOTTE/fanny JOB#: [id number] / [id number]
[2018-05-15 06:05] VITALS: BP 135/80
[2018-05-15 08:06] LABS: BASO % 1 % (0-3); EOS # 0.4 x10^3/uL (0.0-0.7); EOS % 7 % (0-3); HEMATOCRIT 40.7 % (36.0-47.0); HEMOGLOBIN 13.7 g/dL (12.0-15.5); LYMPH # 2.4 x10^3/uL (1.0-4.8); LYMPH % 40 % (24-48); MEAN CORPUSCULAR HEMOGLOBIN 30 pg (25-35); MEAN CORPUSCULAR HGB CONC 34 g/dL (31-37); MEAN CORPUSCULAR VOLUME 88 fL (79-100); MONO # 0.8 x10^3/uL (0.0-1.1); MONO % 13 % (0-9); NEUT # 2.4 x10^3uL (1.8-7.7); NEUT % 39 % (31-73); PLATELET COUNT 208 x10^3/uL (140-400); RED BLOOD COUNT 4.64 x10^6/uL (3.50-5.40); RED CELL DISTRIBUTION WIDTH 15.9 % (11.5-14.5); WHITE BLOOD COUNT 6.2 x10^3/uL (4.0-11.0)
[2018-05-15 08:16] LABS: ALBUMIN 3.4 g/dL (3.4-5.0); ALBUMIN/GLOBULIN RATIO 0.9 (1.0-1.7); CALCIUM 9.4 mg/dL (8.5-10.1); CREATININE 0.8 mg/dL (0.6-1.0); GFR 70.5; TOTAL BILIRUBIN 0.4 mg/dL (0.2-1.0); TOTAL PROTEIN 7.4 g/dL (6.4-8.2)
[2018-05-15] MEDS: traZODone 50 MG TABLET. PO SCH ×4 (10:18→20:28)
[2018-05-15] MEDS: QUEtiapine 50 MG TABLET. PO SCH ×2 (10:18→17:59)
[2018-05-15] MEDS: VALPROATE ACID 250 MG/5 ML ORAL SOLUTION PO SCH ×3 (10:19→20:29)
[2018-05-15] MEDS: SERTRALINE 50 MG TABLET. PO SCH (10:19)
[2018-05-15] MEDS: CETIRIZINE HCL 10 MG TABLET PO SCH (10:19)
[2018-05-15] MEDS: HYDROCORTISONE 1% TOPICAL CREAM 30GM TUBE. TP SCH ×2 (10:20→20:29)
[2018-05-15 16:16] VITALS: BP 125/72
[2018-05-15] MEDS: ATORVASTATIN CALCIUM 20 MG TABLET PO SCH (20:28)
[2018-05-15] MEDS: MIRTAZAPINE 15 MG TABLET PO SCH (20:28)
[2018-05-15] MEDS: MELATONIN 3 MG TABLET PO SCH (20:28)
[2018-05-16 05:55] VITALS: BP 113/74
[2018-05-16] MEDS: traZODone 50 MG TABLET. PO SCH ×4 (08:13→20:50)
[2018-05-16] MEDS: QUEtiapine 50 MG TABLET. PO SCH ×2 (08:13→16:50)
[2018-05-16] MEDS: CETIRIZINE HCL 10 MG TABLET PO SCH (08:13)
[2018-05-16] MEDS: SERTRALINE 50 MG TABLET. PO SCH (08:14)
[2018-05-16] MEDS: HYDROCORTISONE 1% TOPICAL CREAM 30GM TUBE. TP SCH ×2 (08:14→20:51)
[2018-05-16] MEDS: VALPROATE ACID 250 MG/5 ML ORAL SOLUTION PO SCH ×3 (08:14→20:50)
[2018-05-16 16:29] VITALS: BP 127/79
--- NOTE | 2018-05-16 20:04 | PDOC ---
Exam Note: Ye Note: Late entry for date of service May. Please also refer to the separate dictated note~for this date of service dictated separately.~Patient seen individually. Discussed the patient with Nursing staff reviewed the chart.~ Reviewed interim history and current functioning. Reviewed vital signs,~Labs/ Radiology~and current medications noted below. Continue current treatment with the changes noted in the dictated addendum note Assessment: Vital Signs: VS - Last 72 Hours, by Label Date Time Temp Pulse Resp B/P (MAP) Pulse Ox O2 Delivery O2 Flow Rate FiO2 05/16/18 16:29 98.4 91 22 127/79 (95) 96 Room Air 05/16/18 05:55 97.0 69 16 113/74 (87) 96 05/15/18 16:16 98.5 95 16 125/72 (89) 93 05/15/18 06:05 97.4 73 14 135/80 (98) 98 Room Air 05/14/18 16:01 98.7 92 18 145/80 (101) 96 05/14/18 05:57 97.4 70 15 104/58 (73) 96 Vital Signs Date Time Temp Pulse Resp B/P (MAP) Pulse Ox O2 Delivery O2 Flow Rate FiO2 05/16/18 16:29 98.4 91 22 127/79 (95) 96 Room Air I&O Intake and Output 05/16/18 07:00 Intake Total 1200 ml Balance 1200 ml Intake Oral 1200 ml # Voids 1 Current Medications: Meds: Current Medications Acetaminophen (Tylenol) 650 mg PRN Q4HRS PRN PO pain rated 4-6 on scale; Start 03/23/18 at 20:15 Hydrocortisone (Hytone) 1 shiraz BID TP Last administered on 05/01/18at 19:20; Start 03/23/18 at 21:00; Stop 05/02/18 at 10:37; Status DC Multi-Ingredient Ointment (Analgesic Fleming) 1 shiraz PRN QID PRN TP MUSCLE PAIN; Start 03/23/18 at 20:15 Atorvastatin Calcium (Lipitor) 40 mg QHS PO Last administered on 05/15/18at 20:28 ; Start 03/23/18 at 21:00 Bisacodyl (Dulcolax Supp) 10 mg PRN QHS PRN [place] CONSTIPATION; Start 03/23/18 at 20:45 Al Hydroxide/Mg Hydroxide (Mylanta Plus Xs) 30 ml PRN BID PRN PO DYSPEPSIA; Start 03/23/18 at 20:45 Magnesium Hydroxide (Milk Of Magnesia) 2,400 mg PRN DAILY PRN PO CONSTIPATION Last administered on 05/10/18 20:08; Start 03/23/18 at 20:45 Citalopram Hydrobromide (CeleXA) 20 mg DAILY PO Last administered on 03/30/18at 07:42; Start 03/24/18 at 09:00; Stop 03/30/18 at 18:28; Status DC Divalproex Sodium (Depakote) 250 mg BID PO Last administered on 03/24/18 07:38 ; Start 03/23/18 at 21:00; Stop 03/24/18 at 19:08; Status DC Lorazepam (Ativan) 0.25 mg PRN BID PRN PO ANXIETY / AGITATION Last administered on 04/14/18 12:24; Start 03/23/18 at 20:45 Melatonin 3 mg QHS PO Last administered on 05/15/18 20:28; Start 03/23/18 at 21 :00 Olanzapine (ZyPREXA ZYDIS) 2.5 mg PRN Q2HR PRN PO AGITATION/PSYCHOSIS Last administered on 05/09/18 20:02; Start 03/23/18 at 20:45 Quetiapine Fumarate (SEROquel) 37.5 mg TID PO Last administered on 03/30/18 14 :04; Start 03/23/18 at 21:00; Stop 03/30/18 at 18:38; Status DC Trazodone HCl (Desyrel) 50 mg QHS PO Last administered on 05/15/18 20:28; Start 03/23/18 at 21:00 Divalproex Sodium (Depakote) 250 mg TID@0900,1300,1700 PO Last administered on 03/29/18at 16:05; Start 03/25/18 at 09:00; Stop 03/30/18 at 07:46; Status DC Mirtazapine (Remeron) 7.5 mg QHS PO Last administered on 03/29/18 19:29; Start 03/29/18 at 21:00; Stop 03/30/18 at 18:28; Status DC Divalproex Sodium (Depakote Sprinkles) 250 mg TID@0900,1300,1700 PO Last administered on 03/31/18at 08:36; Start 03/30/18 at 09:00; Stop 03/31/18 at 13:22 ; Status DC Mirtazapine (Remeron) 15 mg QHS PO Last administered on 05/15/18 20:28; Start 03/30/18 at 21:00 Quetiapine Fumarate (SEROquel) 50 mg BID PO Last administered on 03/31/18at 08: 36; Start 03/30/18 at 21:00; Stop 03/31/18 at 13:22; Status DC Sertraline HCl (Zoloft) 50 mg DAILY PO Last administered on 04/08/18at 07:34; Start 03/31/18 at 09:00; Stop 04/08/18 at 10:57; Status DC Quetiapine Fumarate (SEROquel) 37.5 mg DAILY@1300 PO Last administered on at 14:09; Start 03/31/18 at 13:00; Stop 03/31/18 at 16:00; Status DC Quetiapine Fumarate (SEROquel) 37.5 mg TID PO Last administered on 04/01/18at 19 :20; Start 03/31/18 at 21:00; Stop 04/02/18 at 08:00; Status DC Divalproex Sodium (Depakote Sprinkles) 250 mg BID PO Last administered on at 08:49; Start 03/31/18 at 21:00; Stop 04/01/18 at 18:16; Status DC Divalproex Sodium (Depakote Sprinkles) 250 mg DAILY PO ; Start 04/03/18 at 09:00 ; Stop 04/03/18 at 09:00; Status DC Divalproex Sodium (Depakote Sprinkles) 250 mg TID PO Last administered on at 13:35; Start 04/01/18 at 21:00; Stop 05/04/18 at 18:35; Status DC Quetiapine Fumarate (SEROquel) 37.5 mg BID@0900,1700 PO Last administered on at 16:55; Start 04/03/18 at 09:00; Stop 04/06/18 at 18:45; Status DC Trazodone HCl (Desyrel) 50 mg PRN QHS PRN PO INSOMNIA; Start 04/03/18 at 15:15 Hydroxyzine HCl (Atarax) 25 mg PRN Q4HRS PRN PO AGITATION/ANXIETY Last administered on 04/08/18at 12:15; Start 04/05/18 at 09:15 Quetiapine Fumarate (SEROquel) 50 mg BID94 PO Last administered on 04/08/18at 07 :34; Start 04/07/18 at 09:00; Stop 04/08/18 at 10:59; Status DC Sertraline HCl (Zoloft) 75 mg DAILY PO Last administered on 05/16/18at 08:14; Start 04/09/18 at 09:00 Quetiapine Fumarate (SEROquel) 62.5 mg BID@0900,1700 PO Last administered on 04/19/18at 17:41; Start 04/08/18 at 17:00; Stop 04/19/18 at 18:45; Status DC Trazodone HCl (Desyrel) 12.5 mg TID@0900,1300,1700 PO Last administered on at 07:55; Start 04/10/18 at 09:00; Stop 04/15/18 at 11:19; Status DC Trazodone HCl (Desyrel) 12.5 mg BID@1300,1700 PO Last administered on at 18:14; Start 04/15/18 at 13:00; Stop 04/27/18 at 19:01; Status DC Trazodone HCl (Desyrel) 25 mg DAILY PO Last administered on 04/27/18at 09:12; Start 04/16/18 at 09:00; Stop 04/27/18 at 19:01; Status DC Cetirizine HCl (ZyrTEC) 10 mg DAILY PO Last administered on 05/16/18at 08:13; Start 04/17/18 at 09:00 Quetiapine Fumarate (SEROquel) 62.5 mg DAILY PO Last administered on 04/21/18at 08:47; Start 04/20/18 at 09:00; Stop 04/21/18 at 19:21; Status DC Quetiapine Fumarate (SEROquel) 75 mg 1700 PO Last administered on 04/24/18at 17: 10; Start 04/20/18 at 17:00; Stop 04/25/18 at 17:12; Status DC Quetiapine Fumarate (SEROquel) 75 mg DAILY PO Last administered on 05/16/18 08: 13; Start 04/22/18 at 09:00 Quetiapine Fumarate (SEROquel) 75 mg 1700 PO Last administered on 05/16/18 16: 50; Start 04/25/18 at 17:15 Trazodone HCl (Desyrel) 12.5 mg DAILY@1700 PO Last administered on 05/16/18 16: 52; Start 04/28/18 at 17:00 Trazodone HCl (Desyrel) 25 mg BID@0900,1300 PO Last administered on 05/16/18 13 :36; Start 04/28/18 at 09:00 Hydrocortisone (Cortaid) 1 shiraz BID TP Last administered on 05/16/18 08:14; Start 05/02/18 at 21:00 Valproic Acid (Depakene) 250 mg TID PO Last administered on 05/16/18 13:36; Start 05/04/18 at 21:00 Active Scripts Active Reported Olanzapine 5 Mg Tablet 2.5 Mg PO PRN Q2HR PRN Analgesic Fleming (Methyl Salicylate/Menthol) 28 Gm Oint...g. 1 Shiraz TP PRN QID PRN Milk Of Magnesia (Magnesium Hydroxide) 2,400 Mg/10 Ml Oral.susp 2,400 Mg PO PRN DAILY PRN Hydrocortisone 453.6 Gm Oint...g. 1 Shiraz TP BID Celexa (Citalopram Hydrobromide) 20 Mg Tablet 20 Mg PO DAILY Alum-Mag Hydroxide-Simeth Liq (Mag Hydrox/Al Hydrox/Simeth) 360 Ml Oral.susp 30 Ml PO PRN BID PRN Lorazepam 0.5 Mg Tablet 0.25 Mg PO PRN BID PRN Divalproex Sodium 250 Mg Tablet.dr 250 Mg PO BID Seroquel (Quetiapine Fumarate) 25 Mg Tablet 37.5 Mg PO TID Melatonin 3 Mg Tablet 3 Mg PO QHS Trazodone Hcl 50 Mg Tablet 50 Mg PO QHS Atorvastatin Calcium 40 Mg Tablet 40 Mg PO HS Bisacodyl 10 Mg Supp.rect 10 Mg RC PRN QHS PRN Tylenol (Acetaminophen) 325 Mg Tablet 650 Mg PO PRN Q4HRS PRN I have reviewed the current psychotropics carefully including drug interactions. Risk benefit ratio favors no change other than as noted in my dictated progress note. Diagnosis: Problems: (1) Anxiety disorder (2) Impulse control disorder (3) Dementia, vascular, with depression (4) Dementia, vascular, with delusions (5) Dementia in Alzheimer's disease with depression (6) Dementia in Alzheimer's disease with delusions (7) Syncopal episodes (8) Hypertension ELVA STROUD MD May 16, 2018 20:04
--- NOTE | 2018-05-16 20:04 | PDOC ---
Exam Note: Ye Note: Please also refer to the separate dictated note~for this date of service dictated separately.~Patient seen individually. Discussed the patient with Nursing staff reviewed the chart.~Reviewed interim history and current functioning. Reviewed vital signs,~Labs/ Radiology~and current medications noted below. Continue current treatment with the changes noted in the dictated addendum note Assessment: Vital Signs: Vital Signs Date Time Temp Pulse Resp B/P (MAP) Pulse Ox O2 Delivery O2 Flow Rate FiO2 05/16/18 16:29 98.4 91 22 127/79 (95) 96 Room Air I&O Intake and Output 05/16/18 07:00 Intake Total 1200 ml Balance 1200 ml Intake Oral 1200 ml # Voids 1 Current Medications: Meds: Current Medications Acetaminophen (Tylenol) 650 mg PRN Q4HRS PRN PO pain rated 4-6 on scale; Start 03/23/18 at 20:15 Hydrocortisone (Hytone) 1 shiraz BID TP Last administered on 05/01/18at 19:20; Start 03/23/18 at 21:00; Stop 05/02/18 at 10:37; Status DC Multi-Ingredient Ointment (Analgesic Screven) 1 shiraz PRN QID PRN TP MUSCLE PAIN; Start 03/23/18 at 20:15 Atorvastatin Calcium (Lipitor) 40 mg QHS PO Last administered on 05/15/18at 20:28 ; Start 03/23/18 at 21:00 Bisacodyl (Dulcolax Supp) 10 mg PRN QHS PRN [place] CONSTIPATION; Start 03/23/18 at 20:45 Al Hydroxide/Mg Hydroxide (Mylanta Plus Xs) 30 ml PRN BID PRN PO DYSPEPSIA; Start 03/23/18 at 20:45 Magnesium Hydroxide (Milk Of Magnesia) 2,400 mg PRN DAILY PRN PO CONSTIPATION Last administered on 05/10/18at 20:08; Start 03/23/18 at 20:45 Citalopram Hydrobromide (CeleXA) 20 mg DAILY PO Last administered on 03/30/18at 07:42; Start 03/24/18 at 09:00; Stop 03/30/18 at 18:28; Status DC Divalproex Sodium (Depakote) 250 mg BID PO Last administered on 03/24/18at 07:38 ; Start 03/23/18 at 21:00; Stop 03/24/18 at 19:08; Status DC Lorazepam (Ativan) 0.25 mg PRN BID PRN PO ANXIETY / AGITATION Last administered on 04/14/18 12:24; Start 03/23/18 at 20:45 Melatonin 3 mg QHS PO Last administered on 05/15/18 20:28; Start 03/23/18 at 21 :00 Olanzapine (ZyPREXA ZYDIS) 2.5 mg PRN Q2HR PRN PO AGITATION/PSYCHOSIS Last administered on 05/09/18 20:02; Start 03/23/18 at 20:45 Quetiapine Fumarate (SEROquel) 37.5 mg TID PO Last administered on 03/30/18 14 :04; Start 03/23/18 at 21:00; Stop 03/30/18 at 18:38; Status DC Trazodone HCl (Desyrel) 50 mg QHS PO Last administered on 05/15/18 20:28; Start 03/23/18 at 21:00 Divalproex Sodium (Depakote) 250 mg TID@0900,1300,1700 PO Last administered on 03/29/18 16:05; Start 03/25/18 at 09:00; Stop 03/30/18 at 07:46; Status DC Mirtazapine (Remeron) 7.5 mg QHS PO Last administered on 03/29/18 19:29; Start 03/29/18 at 21:00; Stop 03/30/18 at 18:28; Status DC Divalproex Sodium (Depakote Sprinkles) 250 mg TID@0900,1300,1700 PO Last administered on 03/31/18 08:36; Start 03/30/18 at 09:00; Stop 03/31/18 at 13:22 ; Status DC Mirtazapine (Remeron) 15 mg QHS PO Last administered on 05/15/18 20:28; Start 03/30/18 at 21:00 Quetiapine Fumarate (SEROquel) 50 mg BID PO Last administered on 03/31/18 08: 36; Start 03/30/18 at 21:00; Stop 03/31/18 at 13:22; Status DC Sertraline HCl (Zoloft) 50 mg DAILY PO Last administered on 04/08/18at 07:34; Start 03/31/18 at 09:00; Stop 04/08/18 at 10:57; Status DC Quetiapine Fumarate (SEROquel) 37.5 mg DAILY@1300 PO Last administered on at 14:09; Start 03/31/18 at 13:00; Stop 03/31/18 at 16:00; Status DC Quetiapine Fumarate (SEROquel) 37.5 mg TID PO Last administered on 04/01/18at 19 :20; Start 03/31/18 at 21:00; Stop 04/02/18 at 08:00; Status DC Divalproex Sodium (Depakote Sprinkles) 250 mg BID PO Last administered on at 08:49; Start 03/31/18 at 21:00; Stop 04/01/18 at 18:16; Status DC Divalproex Sodium (Depakote Sprinkles) 250 mg DAILY PO ; Start 04/03/18 at 09:00 ; Stop 04/03/18 at 09:00; Status DC Divalproex Sodium (Depakote Sprinkles) 250 mg TID PO Last administered on at 13:35; Start 04/01/18 at 21:00; Stop 05/04/18 at 18:35; Status DC Quetiapine Fumarate (SEROquel) 37.5 mg BID@0900,1700 PO Last administered on at 16:55; Start 04/03/18 at 09:00; Stop 04/06/18 at 18:45; Status DC Trazodone HCl (Desyrel) 50 mg PRN QHS PRN PO INSOMNIA; Start 04/03/18 at 15:15 Hydroxyzine HCl (Atarax) 25 mg PRN Q4HRS PRN PO AGITATION/ANXIETY Last administered on 04/08/18at 12:15; Start 04/05/18 at 09:15 Quetiapine Fumarate (SEROquel) 50 mg BID94 PO Last administered on 04/08/18at 07 :34; Start 04/07/18 at 09:00; Stop 04/08/18 at 10:59; Status DC Sertraline HCl (Zoloft) 75 mg DAILY PO Last administered on 05/16/18 08:14; Start 04/09/18 at 09:00 Quetiapine Fumarate (SEROquel) 62.5 mg BID@0900,1700 PO Last administered on 17:41; Start 04/08/18 at 17:00; Stop 04/19/18 at 18:45; Status DC Trazodone HCl (Desyrel) 12.5 mg TID@0900,1300,1700 PO Last administered on at 07:55; Start 04/10/18 at 09:00; Stop 04/15/18 at 11:19; Status DC Trazodone HCl (Desyrel) 12.5 mg BID@1300,1700 PO Last administered on 18:14; Start 04/15/18 at 13:00; Stop 04/27/18 at 19:01; Status DC Trazodone HCl (Desyrel) 25 mg DAILY PO Last administered on 04/27/18at 09:12; Start 04/16/18 at 09:00; Stop 04/27/18 at 19:01; Status DC Cetirizine HCl (ZyrTEC) 10 mg DAILY PO Last administered on 05/16/18 08:13; Start 04/17/18 at 09:00 Quetiapine Fumarate (SEROquel) 62.5 mg DAILY PO Last administered on 04/21/18at 08:47; Start 04/20/18 at 09:00; Stop 04/21/18 at 19:21; Status DC Quetiapine Fumarate (SEROquel) 75 mg 1700 PO Last administered on 04/24/18at 17: 10; Start 04/20/18 at 17:00; Stop 04/25/18 at 17:12; Status DC Quetiapine Fumarate (SEROquel) 75 mg DAILY PO Last administered on 05/16/18 08: 13; Start 04/22/18 at 09:00 Quetiapine Fumarate (SEROquel) 75 mg 1700 PO Last administered on 05/16/18 16: 50; Start 04/25/18 at 17:15 Trazodone HCl (Desyrel) 12.5 mg DAILY@1700 PO Last administered on 05/16/18 16: 52; Start 04/28/18 at 17:00 Trazodone HCl (Desyrel) 25 mg BID@0900,1300 PO Last administered on 05/16/18 13 :36; Start 04/28/18 at 09:00 Hydrocortisone (Cortaid) 1 shiraz BID TP Last administered on 05/16/18 08:14; Start 05/02/18 at 21:00 Valproic Acid (Depakene) 250 mg TID PO Last administered on 05/16/18 13:36; Start 05/04/18 at 21:00 Active Scripts Active Reported Olanzapine 5 Mg Tablet 2.5 Mg PO PRN Q2HR PRN Analgesic Screven (Methyl Salicylate/Menthol) 28 Gm Oint...g. 1 Shiraz TP PRN QID PRN Milk Of Magnesia (Magnesium Hydroxide) 2,400 Mg/10 Ml Oral.susp 2,400 Mg PO PRN DAILY PRN Hydrocortisone 453.6 Gm Oint...g. 1 Shiraz TP BID Celexa (Citalopram Hydrobromide) 20 Mg Tablet 20 Mg PO DAILY Alum-Mag Hydroxide-Simeth Liq (Mag Hydrox/Al Hydrox/Simeth) 360 Ml Oral.susp 30 Ml PO PRN BID PRN Lorazepam 0.5 Mg Tablet 0.25 Mg PO PRN BID PRN Divalproex Sodium 250 Mg Tablet.dr 250 Mg PO BID Seroquel (Quetiapine Fumarate) 25 Mg Tablet 37.5 Mg PO TID Melatonin 3 Mg Tablet 3 Mg PO QHS Trazodone Hcl 50 Mg Tablet 50 Mg PO QHS Atorvastatin Calcium 40 Mg Tablet 40 Mg PO HS Bisacodyl 10 Mg Supp.rect 10 Mg RC PRN QHS PRN Tylenol (Acetaminophen) 325 Mg Tablet 650 Mg PO PRN Q4HRS PRN I have reviewed the current psychotropics carefully including drug interactions. Risk benefit ratio favors no change other than as noted in my dictated progress note. Diagnosis: Problems: (1) Anxiety disorder (2) Impulse control disorder (3) Dementia, vascular, with depression (4) Dementia, vascular, with delusions (5) Dementia in Alzheimer's disease with depression (6) Dementia in Alzheimer's disease with delusions (7) Syncopal episodes (8) Hypertension ELVA STROUD MD May 16, 2018 20:04
[2018-05-16] MEDS: ATORVASTATIN CALCIUM 20 MG TABLET PO SCH (20:50)
[2018-05-16] MEDS: MELATONIN 3 MG TABLET PO SCH (20:50)
[2018-05-16] MEDS: MIRTAZAPINE 15 MG TABLET PO SCH (20:50)
--- NOTE | 2018-05-16 23:23 | PN ---
DATE: 05/14/2018 This is a late entry, 05/14/2018, covers the elements not covered in my initial note. SUBJECTIVE: I met with the patient in the evening. The patient is compliant with her medications, somewhat intrusive, wanting to get to work, slept 7-1/2 hours the previous evening. REVIEW OF SYSTEMS: No CV, , pulmonary, eye, ENT system symptoms on review. Reliability poor. MENTAL STATUS EXAM: Oriented to herself. Insight, judgment, recent and remote memory, attention, concentration, fund of knowledge poor, consistent with her diagnosis as mentioned in my initial note. PLAN: No change from initial note. MAN Rachel STROUD MD DR: CHARLOTTE/fanny JOB#: [id number] / [id number]
[2018-05-17 06:36] VITALS: BP 129/64
[2018-05-17] MEDS: CETIRIZINE HCL 10 MG TABLET PO SCH (08:18)
[2018-05-17] MEDS: QUEtiapine 50 MG TABLET. PO SCH ×2 (08:18→17:12)
[2018-05-17] MEDS: VALPROATE ACID 250 MG/5 ML ORAL SOLUTION PO SCH ×3 (08:18→20:31)
[2018-05-17] MEDS: SERTRALINE 50 MG TABLET. PO SCH (08:18)
[2018-05-17] MEDS: traZODone 50 MG TABLET. PO SCH ×4 (08:19→20:32)
[2018-05-17] MEDS: HYDROCORTISONE 1% TOPICAL CREAM 30GM TUBE. TP SCH ×2 (09:00→21:00)
[2018-05-17 16:15] VITALS: BP 122/74
[2018-05-17] MEDS: ATORVASTATIN CALCIUM 20 MG TABLET PO SCH (20:32)
[2018-05-17] MEDS: MELATONIN 3 MG TABLET PO SCH (20:32)
[2018-05-17] MEDS: MIRTAZAPINE 15 MG TABLET PO SCH (20:32)
--- NOTE | 2018-05-17 21:10 | PDOC ---
Exam Note: Ye Note: Please also refer to the separate dictated note~for this date of service dictated separately.~Patient seen individually. Discussed the patient with Nursing staff reviewed the chart.~Reviewed interim history and current functioning. Reviewed vital signs,~Labs/ Radiology~and current medications noted below. Continue current treatment with the changes noted in the dictated addendum note Assessment: Vital Signs: Vital Signs Date Time Temp Pulse Resp B/P (MAP) Pulse Ox O2 Delivery O2 Flow Rate FiO2 05/17/18 16:15 97.9 96 18 122/74 (90) 96 05/17/18 06:36 Room Air I&O Intake and Output 05/17/18 07:00 Intake Total 1080 ml Balance 1080 ml Intake Oral 1080 ml # Voids 1 Current Medications: Meds: Current Medications Acetaminophen (Tylenol) 650 mg PRN Q4HRS PRN PO pain rated 4-6 on scale; Start 03/23/18 at 20:15 Hydrocortisone (Hytone) 1 shiraz BID TP Last administered on 05/01/18at 19:20; Start 03/23/18 at 21:00; Stop 05/02/18 at 10:37; Status DC Multi-Ingredient Ointment (Analgesic [place]) 1 shiraz PRN QID PRN TP MUSCLE PAIN; Start 03/23/18 at 20:15 Atorvastatin Calcium (Lipitor) 40 mg QHS PO Last administered on 05/17/18at 20:32 ; Start 03/23/18 at 21:00 Bisacodyl (Dulcolax Supp) 10 mg PRN QHS PRN [place] CONSTIPATION; Start 03/23/18 at 20:45 Al Hydroxide/Mg Hydroxide (Mylanta Plus Xs) 30 ml PRN BID PRN PO DYSPEPSIA; Start 03/23/18 at 20:45 Magnesium Hydroxide (Milk Of Magnesia) 2,400 mg PRN DAILY PRN PO CONSTIPATION Last administered on 05/10/18at 20:08; Start 03/23/18 at 20:45 Citalopram Hydrobromide (CeleXA) 20 mg DAILY PO Last administered on 03/30/18at 07:42; Start 03/24/18 at 09:00; Stop 03/30/18 at 18:28; Status DC Divalproex Sodium (Depakote) 250 mg BID PO Last administered on 03/24/18at 07:38 ; Start 03/23/18 at 21:00; Stop 03/24/18 at 19:08; Status DC Lorazepam (Ativan) 0.25 mg PRN BID PRN PO ANXIETY / AGITATION Last administered on 04/14/18 12:24; Start 03/23/18 at 20:45 Melatonin 3 mg QHS PO Last administered on 05/17/18 20:32; Start 03/23/18 at 21 :00 Olanzapine (ZyPREXA ZYDIS) 2.5 mg PRN Q2HR PRN PO AGITATION/PSYCHOSIS Last administered on 05/17/18 12:07; Start 03/23/18 at 20:45 Quetiapine Fumarate (SEROquel) 37.5 mg TID PO Last administered on 03/30/18 14 :04; Start 03/23/18 at 21:00; Stop 03/30/18 at 18:38; Status DC Trazodone HCl (Desyrel) 50 mg QHS PO Last administered on 05/17/18 20:32; Start 03/23/18 at 21:00 Divalproex Sodium (Depakote) 250 mg TID@0900,1300,1700 PO Last administered on 03/29/18at 16:05; Start 03/25/18 at 09:00; Stop 03/30/18 at 07:46; Status DC Mirtazapine (Remeron) 7.5 mg QHS PO Last administered on 03/29/18 19:29; Start 03/29/18 at 21:00; Stop 03/30/18 at 18:28; Status DC Divalproex Sodium (Depakote Sprinkles) 250 mg TID@0900,1300,1700 PO Last administered on 03/31/18 08:36; Start 03/30/18 at 09:00; Stop 03/31/18 at 13:22 ; Status DC Mirtazapine (Remeron) 15 mg QHS PO Last administered on 05/17/18 20:32; Start 03/30/18 at 21:00 Quetiapine Fumarate (SEROquel) 50 mg BID PO Last administered on 03/31/18 08: 36; Start 03/30/18 at 21:00; Stop 03/31/18 at 13:22; Status DC Sertraline HCl (Zoloft) 50 mg DAILY PO Last administered on 04/08/18at 07:34; Start 03/31/18 at 09:00; Stop 04/08/18 at 10:57; Status DC Quetiapine Fumarate (SEROquel) 37.5 mg DAILY@1300 PO Last administered on at 14:09; Start 03/31/18 at 13:00; Stop 03/31/18 at 16:00; Status DC Quetiapine Fumarate (SEROquel) 37.5 mg TID PO Last administered on 04/01/18at 19 :20; Start 03/31/18 at 21:00; Stop 04/02/18 at 08:00; Status DC Divalproex Sodium (Depakote Sprinkles) 250 mg BID PO Last administered on at 08:49; Start 03/31/18 at 21:00; Stop 04/01/18 at 18:16; Status DC Divalproex Sodium (Depakote Sprinkles) 250 mg DAILY PO ; Start 04/03/18 at 09:00 ; Stop 04/03/18 at 09:00; Status DC Divalproex Sodium (Depakote Sprinkles) 250 mg TID PO Last administered on at 13:35; Start 04/01/18 at 21:00; Stop 05/04/18 at 18:35; Status DC Quetiapine Fumarate (SEROquel) 37.5 mg BID@0900,1700 PO Last administered on at 16:55; Start 04/03/18 at 09:00; Stop 04/06/18 at 18:45; Status DC Trazodone HCl (Desyrel) 50 mg PRN QHS PRN PO INSOMNIA; Start 04/03/18 at 15:15 Hydroxyzine HCl (Atarax) 25 mg PRN Q4HRS PRN PO AGITATION/ANXIETY Last administered on 04/08/18at 12:15; Start 04/05/18 at 09:15 Quetiapine Fumarate (SEROquel) 50 mg BID94 PO Last administered on 04/08/18at 07 :34; Start 04/07/18 at 09:00; Stop 04/08/18 at 10:59; Status DC Sertraline HCl (Zoloft) 75 mg DAILY PO Last administered on 05/17/18 08:18; Start 04/09/18 at 09:00 Quetiapine Fumarate (SEROquel) 62.5 mg BID@0900,1700 PO Last administered on 04/19/18at 17:41; Start 04/08/18 at 17:00; Stop 04/19/18 at 18:45; Status DC Trazodone HCl (Desyrel) 12.5 mg TID@0900,1300,1700 PO Last administered on at 07:55; Start 04/10/18 at 09:00; Stop 04/15/18 at 11:19; Status DC Trazodone HCl (Desyrel) 12.5 mg BID@1300,1700 PO Last administered on at 18:14; Start 04/15/18 at 13:00; Stop 04/27/18 at 19:01; Status DC Trazodone HCl (Desyrel) 25 mg DAILY PO Last administered on 04/27/18at 09:12; Start 04/16/18 at 09:00; Stop 04/27/18 at 19:01; Status DC Cetirizine HCl (ZyrTEC) 10 mg DAILY PO Last administered on 05/17/18at 08:18; Start 04/17/18 at 09:00 Quetiapine Fumarate (SEROquel) 62.5 mg DAILY PO Last administered on 04/21/18at 08:47; Start 04/20/18 at 09:00; Stop 04/21/18 at 19:21; Status DC Quetiapine Fumarate (SEROquel) 75 mg 1700 PO Last administered on 04/24/18at 17: 10; Start 04/20/18 at 17:00; Stop 04/25/18 at 17:12; Status DC Quetiapine Fumarate (SEROquel) 75 mg DAILY PO Last administered on 05/17/18at 08: 18; Start 04/22/18 at 09:00 Quetiapine Fumarate (SEROquel) 75 mg 1700 PO Last administered on 05/17/18at 17: 12; Start 04/25/18 at 17:15 Trazodone HCl (Desyrel) 12.5 mg DAILY@1700 PO Last administered on 05/17/18 17: 12; Start 04/28/18 at 17:00 Trazodone HCl (Desyrel) 25 mg BID@0900,1300 PO Last administered on 05/17/18 13 :15; Start 04/28/18 at 09:00 Hydrocortisone (Cortaid) 1 shiraz BID TP Last administered on 05/16/18at 20:51; Start 05/02/18 at 21:00 Valproic Acid (Depakene) 250 mg TID PO Last administered on 05/17/18at 20:31; Start 05/04/18 at 21:00 Active Scripts Active Reported Olanzapine 5 Mg Tablet 2.5 Mg PO PRN Q2HR PRN Analgesic [place] (Methyl Salicylate/Menthol) 28 Gm Oint...g. 1 [place] TP PRN QID PRN Milk Of Magnesia (Magnesium Hydroxide) 2,400 Mg/10 Ml Oral.susp 2,400 Mg PO PRN DAILY PRN Hydrocortisone 453.6 Gm Oint...g. 1 [place] TP BID Celexa (Citalopram Hydrobromide) 20 Mg Tablet 20 Mg PO DAILY Alum-Mag Hydroxide-Simeth Liq (Mag Hydrox/Al Hydrox/Simeth) 360 Ml Oral.susp 30 Ml PO PRN BID PRN Lorazepam 0.5 Mg Tablet 0.25 Mg PO PRN BID PRN Divalproex Sodium 250 Mg Tablet.dr 250 Mg PO BID Seroquel (Quetiapine Fumarate) 25 Mg Tablet 37.5 Mg PO TID Melatonin 3 Mg Tablet 3 Mg PO QHS Trazodone Hcl 50 Mg Tablet 50 Mg PO QHS Atorvastatin Calcium 40 Mg Tablet 40 Mg PO HS Bisacodyl 10 Mg Supp.rect 10 Mg RC PRN QHS PRN Tylenol (Acetaminophen) 325 Mg Tablet 650 Mg PO PRN Q4HRS PRN I have reviewed the current psychotropics carefully including drug interactions. Risk benefit ratio favors no change other than as noted in my dictated progress note. Diagnosis: Problems: (1) Anxiety disorder (2) Impulse control disorder (3) Dementia, vascular, with depression (4) Dementia, vascular, with delusions (5) Dementia in Alzheimer's disease with depression (6) Dementia in Alzheimer's disease with delusions (7) Syncopal episodes (8) Hypertension ELVA STROUD MD May 17, 2018 21:10
[2018-05-17] MEDS: hydrOXYzine HCL 25 MG TABLET PO PRN (21:17)
--- NOTE | 2018-05-17 21:44 | PN ---
DATE: 05/16/2018 This is a late entry 05/16/2018, covers elements not covered in my initial note. SUBJECTIVE: I met with the patient in the evening. The patient slept 7-1/2 hours previous evening, remains confused, less agitated, compliant with medications, though she refused her 5:00 p.m. meds. REVIEW OF SYSTEMS: No CV, , pulmonary, eye, ENT system symptoms on review. Reliability poor. MENTAL STATUS EXAM: Oriented to herself. Insight, judgment, recent and remote memory, attention, concentration, fund of knowledge poor, consistent with her diagnosis mentioned in my initial note. PLAN: No change from initial note. MAN Rachel STROUD MD DR: CHARLOTTE/fanny JOB#: [id number] / [id number]
--- NOTE | 2018-05-17 21:50 | PN ---
DATE: 05/15/2018 This is a late entry for 05/15/2018 and covers elements not covered in my initial note. SUBJECTIVE: I met with the patient in the evening. The patient slept 7-1/4 hours previous evening, gets a little agitated at night, wandering, talking about getting to work. Her brother came to visit her. Then, she was cooperative after that and less intrusive. REVIEW OF SYSTEMS: No CV, , pulmonary, eye, ENT system symptoms on review. Reliability poor. MENTAL STATUS EXAM: Oriented to herself. Insight, judgment, recent and remote memory, attention, concentration, fund of knowledge poor, consistent with her diagnosis as mentioned in my initial note. PLAN: No change from initial note. MAN Rachel STROUD MD DR: CHARLOTTE/fanny JOB#: [id number] / [id number]
[2018-05-18 06:52] VITALS: BP 108/57
[2018-05-18] MEDS: HYDROCORTISONE 1% TOPICAL CREAM 30GM TUBE. TP SCH ×3 (09:00→20:18)
[2018-05-18] MEDS: VALPROATE ACID 250 MG/5 ML ORAL SOLUTION PO SCH ×3 (09:41→20:17)
[2018-05-18] MEDS: CETIRIZINE HCL 10 MG TABLET PO SCH (09:42)
[2018-05-18] MEDS: SERTRALINE 50 MG TABLET. PO SCH (09:42)
[2018-05-18] MEDS: QUEtiapine 50 MG TABLET. PO SCH ×2 (09:42→17:29)
[2018-05-18] MEDS: traZODone 50 MG TABLET. PO SCH ×4 (09:43→20:17)
[2018-05-18 16:21] VITALS: BP 133/76
[2018-05-18] MEDS: ATORVASTATIN CALCIUM 20 MG TABLET PO SCH (20:17)
[2018-05-18] MEDS: MELATONIN 3 MG TABLET PO SCH (20:17)
[2018-05-18] MEDS: MIRTAZAPINE 15 MG TABLET PO SCH (20:17)
[2018-05-18] MEDS: hydrOXYzine HCL 25 MG TABLET PO PRN (20:20)
--- NOTE | 2018-05-18 20:36 | PDOC ---
Exam Note: Ye Note: Please also refer to the separate dictated note~for this date of service dictated separately.~Patient seen individually. Discussed the patient with Nursing staff reviewed the chart.~Reviewed interim history and current functioning. Reviewed vital signs,~Labs/ Radiology~and current medications noted below. Continue current treatment with the changes noted in the dictated addendum note Assessment: Vital Signs: Vital Signs Date Time Temp Pulse Resp B/P (MAP) Pulse Ox O2 Delivery O2 Flow Rate FiO2 05/18/18 16:21 98.9 97 18 133/76 (95) 97 05/17/18 06:36 Room Air I&O Intake and Output 05/18/18 06:59 Intake Total 1080 ml Balance 1080 ml Intake Oral 1080 ml # Voids 1 Current Medications: Meds: Current Medications Acetaminophen (Tylenol) 650 mg PRN Q4HRS PRN PO pain rated 4-6 on scale; Start 03/23/18 at 20:15 Hydrocortisone (Hytone) 1 shiraz BID TP Last administered on 05/01/18at 19:20; Start 03/23/18 at 21:00; Stop 05/02/18 at 10:37; Status DC Multi-Ingredient Ointment (Analgesic [place]) 1 shiraz PRN QID PRN TP MUSCLE PAIN; Start 03/23/18 at 20:15 Atorvastatin Calcium (Lipitor) 40 mg QHS PO Last administered on 05/18/18at 20:17 ; Start 03/23/18 at 21:00 Bisacodyl (Dulcolax Supp) 10 mg PRN QHS PRN [place] CONSTIPATION; Start 03/23/18 at 20:45 Al Hydroxide/Mg Hydroxide (Mylanta Plus Xs) 30 ml PRN BID PRN PO DYSPEPSIA; Start 03/23/18 at 20:45 Magnesium Hydroxide (Milk Of Magnesia) 2,400 mg PRN DAILY PRN PO CONSTIPATION Last administered on 05/10/18at 20:08; Start 03/23/18 at 20:45 Citalopram Hydrobromide (CeleXA) 20 mg DAILY PO Last administered on 03/30/18at 07:42; Start 03/24/18 at 09:00; Stop 03/30/18 at 18:28; Status DC Divalproex Sodium (Depakote) 250 mg BID PO Last administered on 03/24/18at 07:38 ; Start 03/23/18 at 21:00; Stop 03/24/18 at 19:08; Status DC Lorazepam (Ativan) 0.25 mg PRN BID PRN PO ANXIETY / AGITATION Last administered on 04/14/18 12:24; Start 03/23/18 at 20:45 Melatonin 3 mg QHS PO Last administered on 05/18/18 20:17; Start 03/23/18 at 21 :00 Olanzapine (ZyPREXA ZYDIS) 2.5 mg PRN Q2HR PRN PO AGITATION/PSYCHOSIS Last administered on 05/17/18 12:07; Start 03/23/18 at 20:45 Quetiapine Fumarate (SEROquel) 37.5 mg TID PO Last administered on 03/30/18 14 :04; Start 03/23/18 at 21:00; Stop 03/30/18 at 18:38; Status DC Trazodone HCl (Desyrel) 50 mg QHS PO Last administered on 05/18/18 20:17; Start 03/23/18 at 21:00 Divalproex Sodium (Depakote) 250 mg TID@0900,1300,1700 PO Last administered on 03/29/18at 16:05; Start 03/25/18 at 09:00; Stop 03/30/18 at 07:46; Status DC Mirtazapine (Remeron) 7.5 mg QHS PO Last administered on 03/29/18 19:29; Start 03/29/18 at 21:00; Stop 03/30/18 at 18:28; Status DC Divalproex Sodium (Depakote Sprinkles) 250 mg TID@0900,1300,1700 PO Last administered on 03/31/18 08:36; Start 03/30/18 at 09:00; Stop 03/31/18 at 13:22 ; Status DC Mirtazapine (Remeron) 15 mg QHS PO Last administered on 05/18/18 20:17; Start 03/30/18 at 21:00 Quetiapine Fumarate (SEROquel) 50 mg BID PO Last administered on 03/31/18 08: 36; Start 03/30/18 at 21:00; Stop 03/31/18 at 13:22; Status DC Sertraline HCl (Zoloft) 50 mg DAILY PO Last administered on 04/08/18at 07:34; Start 03/31/18 at 09:00; Stop 04/08/18 at 10:57; Status DC Quetiapine Fumarate (SEROquel) 37.5 mg DAILY@1300 PO Last administered on at 14:09; Start 03/31/18 at 13:00; Stop 03/31/18 at 16:00; Status DC Quetiapine Fumarate (SEROquel) 37.5 mg TID PO Last administered on 04/01/18at 19 :20; Start 03/31/18 at 21:00; Stop 04/02/18 at 08:00; Status DC Divalproex Sodium (Depakote Sprinkles) 250 mg BID PO Last administered on at 08:49; Start 03/31/18 at 21:00; Stop 04/01/18 at 18:16; Status DC Divalproex Sodium (Depakote Sprinkles) 250 mg DAILY PO ; Start 04/03/18 at 09:00 ; Stop 04/03/18 at 09:00; Status DC Divalproex Sodium (Depakote Sprinkles) 250 mg TID PO Last administered on at 13:35; Start 04/01/18 at 21:00; Stop 05/04/18 at 18:35; Status DC Quetiapine Fumarate (SEROquel) 37.5 mg BID@0900,1700 PO Last administered on at 16:55; Start 04/03/18 at 09:00; Stop 04/06/18 at 18:45; Status DC Trazodone HCl (Desyrel) 50 mg PRN QHS PRN PO INSOMNIA Last administered on at 22:25; Start 04/03/18 at 15:15 Hydroxyzine HCl (Atarax) 25 mg PRN Q4HRS PRN PO AGITATION/ANXIETY Last administered on 05/18/18at 20:20; Start 04/05/18 at 09:15 Quetiapine Fumarate (SEROquel) 50 mg BID94 PO Last administered on 04/08/18at 07 :34; Start 04/07/18 at 09:00; Stop 04/08/18 at 10:59; Status DC Sertraline HCl (Zoloft) 75 mg DAILY PO Last administered on 05/18/18at 09:42; Start 04/09/18 at 09:00 Quetiapine Fumarate (SEROquel) 62.5 mg BID@0900,1700 PO Last administered on 04/19/18at 17:41; Start 04/08/18 at 17:00; Stop 04/19/18 at 18:45; Status DC Trazodone HCl (Desyrel) 12.5 mg TID@0900,1300,1700 PO Last administered on at 07:55; Start 04/10/18 at 09:00; Stop 04/15/18 at 11:19; Status DC Trazodone HCl (Desyrel) 12.5 mg BID@1300,1700 PO Last administered on at 18:14; Start 04/15/18 at 13:00; Stop 04/27/18 at 19:01; Status DC Trazodone HCl (Desyrel) 25 mg DAILY PO Last administered on 04/27/18at 09:12; Start 04/16/18 at 09:00; Stop 04/27/18 at 19:01; Status DC Cetirizine HCl (ZyrTEC) 10 mg DAILY PO Last administered on 05/18/18at 09:42; Start 04/17/18 at 09:00 Quetiapine Fumarate (SEROquel) 62.5 mg DAILY PO Last administered on 04/21/18at 08:47; Start 04/20/18 at 09:00; Stop 04/21/18 at 19:21; Status DC Quetiapine Fumarate (SEROquel) 75 mg 1700 PO Last administered on 04/24/18at 17: 10; Start 04/20/18 at 17:00; Stop 04/25/18 at 17:12; Status DC Quetiapine Fumarate (SEROquel) 75 mg DAILY PO Last administered on 05/18/18at 09: 42; Start 04/22/18 at 09:00 Quetiapine Fumarate (SEROquel) 75 mg 1700 PO Last administered on 05/18/18at 17: 29; Start 04/25/18 at 17:15 Trazodone HCl (Desyrel) 12.5 mg DAILY@1700 PO Last administered on 05/18/18at 17: 29; Start 04/28/18 at 17:00 Trazodone HCl (Desyrel) 25 mg BID@0900,1300 PO Last administered on 05/18/18at 14 :44; Start 04/28/18 at 09:00 Hydrocortisone (Cortaid) 1 shiraz BID TP Last administered on 05/18/18at 20:18; Start 05/02/18 at 21:00 Valproic Acid (Depakene) 250 mg TID PO Last administered on 05/18/18at 20:17; Start 05/04/18 at 21:00 Active Scripts Active Reported Olanzapine 5 Mg Tablet 2.5 Mg PO PRN Q2HR PRN Analgesic [place] (Methyl Salicylate/Menthol) 28 Gm Oint...g. 1 [place] TP PRN QID PRN Milk Of Magnesia (Magnesium Hydroxide) 2,400 Mg/10 Ml Oral.susp 2,400 Mg PO PRN DAILY PRN Hydrocortisone 453.6 Gm Oint...g. 1 [place] TP BID Celexa (Citalopram Hydrobromide) 20 Mg Tablet 20 Mg PO DAILY Alum-Mag Hydroxide-Simeth Liq (Mag Hydrox/Al Hydrox/Simeth) 360 Ml Oral.susp 30 Ml PO PRN BID PRN Lorazepam 0.5 Mg Tablet 0.25 Mg PO PRN BID PRN Divalproex Sodium 250 Mg Tablet.dr 250 Mg PO BID Seroquel (Quetiapine Fumarate) 25 Mg Tablet 37.5 Mg PO TID Melatonin 3 Mg Tablet 3 Mg PO QHS Trazodone Hcl 50 Mg Tablet 50 Mg PO QHS Atorvastatin Calcium 40 Mg Tablet 40 Mg PO HS Bisacodyl 10 Mg Supp.rect 10 Mg RC PRN QHS PRN Tylenol (Acetaminophen) 325 Mg Tablet 650 Mg PO PRN Q4HRS PRN I have reviewed the current psychotropics carefully including drug interactions. Risk benefit ratio favors no change other than as noted in my dictated progress note. Diagnosis: Problems: (1) Anxiety disorder (2) Impulse control disorder (3) Dementia, vascular, with depression (4) Dementia, vascular, with delusions (5) Dementia in Alzheimer's disease with depression (6) Dementia in Alzheimer's disease with delusions (7) Syncopal episodes (8) Hypertension ELVA STROUD MD May 18, 2018 20:36
--- NOTE | 2018-05-18 22:42 | PN ---
DATE: 05/17/2018 PSYCHIATRIC PROGRESS NOTE This is a late entry of 05/17/2018, covers elements not covered in my initial note of 05/17/2018. The patient slept 7-1/2 hours previous evening, intermittently refused a.m. medications, resistive to medications later, but did take them. Oblivious of her surroundings. Otherwise, pleasant. REVIEW OF SYSTEMS: No CV, , pulmonary, eye, ENT system symptoms on review. Reliability poor. MENTAL STATUS EXAM: Oriented to herself. Insight, judgment, recent and remote memory, attention, concentration, fund of knowledge poor, consistent with her diagnosis mentioned in my initial note. PLAN: No change from initial note. Placement being arranged by social service staff. MAN Rachel STROUD MD DR: CHARLOTTE/fanny JOB#: [id number] / [id number]
[2018-05-19 05:55] VITALS: BP 107/74
[2018-05-19] MEDS: HYDROCORTISONE 1% TOPICAL CREAM 30GM TUBE. TP SCH ×2 (07:56→20:16)
[2018-05-19] MEDS: traZODone 50 MG TABLET. PO SCH ×4 (07:57→20:16)
[2018-05-19] MEDS: QUEtiapine 50 MG TABLET. PO SCH ×2 (07:57→16:52)
[2018-05-19] MEDS: VALPROATE ACID 250 MG/5 ML ORAL SOLUTION PO SCH ×3 (07:57→20:16)
[2018-05-19] MEDS: SERTRALINE 50 MG TABLET. PO SCH (07:57)
[2018-05-19] MEDS: CETIRIZINE HCL 10 MG TABLET PO SCH (07:57)
[2018-05-19 16:24] VITALS: BP 115/75
[2018-05-19] MEDS: MELATONIN 3 MG TABLET PO SCH (20:16)
[2018-05-19] MEDS: ATORVASTATIN CALCIUM 20 MG TABLET PO SCH (20:16)
[2018-05-19] MEDS: MIRTAZAPINE 15 MG TABLET PO SCH (20:16)
--- NOTE | 2018-05-19 21:07 | PDOC ---
Exam Note: Ye Note: Please also refer to the separate dictated note~for this date of service dictated separately.~Patient seen individually. Discussed the patient with Nursing staff reviewed the chart.~Reviewed interim history and current functioning. Reviewed vital signs,~Labs/ Radiology~and current medications noted below. Continue current treatment with the changes noted in the dictated addendum note Assessment: Vital Signs: Vital Signs Date Time Temp Pulse Resp B/P (MAP) Pulse Ox O2 Delivery O2 Flow Rate FiO2 05/19/18 16:24 97.9 82 16 115/75 (88) 95 05/17/18 06:36 Room Air I&O Intake and Output 05/19/18 06:59 Intake Total 960 ml Balance 960 ml Intake Oral 960 ml # Voids 1 Current Medications: Meds: Current Medications Acetaminophen (Tylenol) 650 mg PRN Q4HRS PRN PO pain rated 4-6 on scale; Start 03/23/18 at 20:15 Hydrocortisone (Hytone) 1 shiraz BID TP Last administered on 05/01/18at 19:20; Start 03/23/18 at 21:00; Stop 05/02/18 at 10:37; Status DC Multi-Ingredient Ointment (Analgesic [place]) 1 shiraz PRN QID PRN TP MUSCLE PAIN; Start 03/23/18 at 20:15 Atorvastatin Calcium (Lipitor) 40 mg QHS PO Last administered on 05/19/18at 20:16 ; Start 03/23/18 at 21:00 Bisacodyl (Dulcolax Supp) 10 mg PRN QHS PRN [place] CONSTIPATION; Start 03/23/18 at 20:45 Al Hydroxide/Mg Hydroxide (Mylanta Plus Xs) 30 ml PRN BID PRN PO DYSPEPSIA; Start 03/23/18 at 20:45 Magnesium Hydroxide (Milk Of Magnesia) 2,400 mg PRN DAILY PRN PO CONSTIPATION Last administered on 05/10/18at 20:08; Start 03/23/18 at 20:45 Citalopram Hydrobromide (CeleXA) 20 mg DAILY PO Last administered on 03/30/18at 07:42; Start 03/24/18 at 09:00; Stop 03/30/18 at 18:28; Status DC Divalproex Sodium (Depakote) 250 mg BID PO Last administered on 03/24/18at 07:38 ; Start 03/23/18 at 21:00; Stop 03/24/18 at 19:08; Status DC Lorazepam (Ativan) 0.25 mg PRN BID PRN PO ANXIETY / AGITATION Last administered on 04/14/18 12:24; Start 03/23/18 at 20:45 Melatonin 3 mg QHS PO Last administered on 05/19/18 20:16; Start 03/23/18 at 21 :00 Olanzapine (ZyPREXA ZYDIS) 2.5 mg PRN Q2HR PRN PO AGITATION/PSYCHOSIS Last administered on 05/19/18 10:37; Start 03/23/18 at 20:45 Quetiapine Fumarate (SEROquel) 37.5 mg TID PO Last administered on 03/30/18 14 :04; Start 03/23/18 at 21:00; Stop 03/30/18 at 18:38; Status DC Trazodone HCl (Desyrel) 50 mg QHS PO Last administered on 05/19/18 20:16; Start 03/23/18 at 21:00 Divalproex Sodium (Depakote) 250 mg TID@0900,1300,1700 PO Last administered on 03/29/18 16:05; Start 03/25/18 at 09:00; Stop 03/30/18 at 07:46; Status DC Mirtazapine (Remeron) 7.5 mg QHS PO Last administered on 03/29/18at 19:29; Start 03/29/18 at 21:00; Stop 03/30/18 at 18:28; Status DC Divalproex Sodium (Depakote Sprinkles) 250 mg TID@0900,1300,1700 PO Last administered on 03/31/18 08:36; Start 03/30/18 at 09:00; Stop 03/31/18 at 13:22 ; Status DC Mirtazapine (Remeron) 15 mg QHS PO Last administered on 05/19/18 20:16; Start 03/30/18 at 21:00 Quetiapine Fumarate (SEROquel) 50 mg BID PO Last administered on 03/31/18 08: 36; Start 03/30/18 at 21:00; Stop 6/20/18 at 13:22; Status DC Sertraline HCl (Zoloft) 50 mg DAILY PO Last administered on 04/08/18at 07:34; Start 03/31/18 at 09:00; Stop 04/08/18 at 10:57; Status DC Quetiapine Fumarate (SEROquel) 37.5 mg DAILY@1300 PO Last administered on at 14:09; Start 03/31/18 at 13:00; Stop 03/31/18 at 16:00; Status DC Quetiapine Fumarate (SEROquel) 37.5 mg TID PO Last administered on 04/01/18at 19 :20; Start 03/31/18 at 21:00; Stop 04/02/18 at 08:00; Status DC Divalproex Sodium (Depakote Sprinkles) 250 mg BID PO Last administered on at 08:49; Start 03/31/18 at 21:00; Stop 04/01/18 at 18:16; Status DC Divalproex Sodium (Depakote Sprinkles) 250 mg DAILY PO ; Start 04/03/18 at 09:00 ; Stop 04/03/18 at 09:00; Status DC Divalproex Sodium (Depakote Sprinkles) 250 mg TID PO Last administered on at 13:35; Start 04/01/18 at 21:00; Stop 05/04/18 at 18:35; Status DC Quetiapine Fumarate (SEROquel) 37.5 mg BID@0900,1700 PO Last administered on at 16:55; Start 04/03/18 at 09:00; Stop 04/06/18 at 18:45; Status DC Trazodone HCl (Desyrel) 50 mg PRN QHS PRN PO INSOMNIA Last administered on at 22:25; Start 04/03/18 at 15:15 Hydroxyzine HCl (Atarax) 25 mg PRN Q4HRS PRN PO AGITATION/ANXIETY Last administered on 05/18/18at 20:20; Start 04/05/18 at 09:15 Quetiapine Fumarate (SEROquel) 50 mg BID94 PO Last administered on 04/08/18at 07 :34; Start 04/07/18 at 09:00; Stop 04/08/18 at 10:59; Status DC Sertraline HCl (Zoloft) 75 mg DAILY PO Last administered on 05/19/18 07:57; Start 04/09/18 at 09:00 Quetiapine Fumarate (SEROquel) 62.5 mg BID@0900,1700 PO Last administered on 04/19/18at 17:41; Start 04/08/18 at 17:00; Stop 04/19/18 at 18:45; Status DC Trazodone HCl (Desyrel) 12.5 mg TID@0900,1300,1700 PO Last administered on at 07:55; Start 04/10/18 at 09:00; Stop 04/15/18 at 11:19; Status DC Trazodone HCl (Desyrel) 12.5 mg BID@1300,1700 PO Last administered on at 18:14; Start 04/15/18 at 13:00; Stop 04/27/18 at 19:01; Status DC Trazodone HCl (Desyrel) 25 mg DAILY PO Last administered on 04/27/18at 09:12; Start 04/16/18 at 09:00; Stop 04/27/18 at 19:01; Status DC Cetirizine HCl (ZyrTEC) 10 mg DAILY PO Last administered on 05/19/18at 07:57; Start 04/17/18 at 09:00 Quetiapine Fumarate (SEROquel) 62.5 mg DAILY PO Last administered on 04/21/18at 08:47; Start 04/20/18 at 09:00; Stop 04/21/18 at 19:21; Status DC Quetiapine Fumarate (SEROquel) 75 mg 1700 PO Last administered on 04/24/18at 17: 10; Start 04/20/18 at 17:00; Stop 04/25/18 at 17:12; Status DC Quetiapine Fumarate (SEROquel) 75 mg DAILY PO Last administered on 05/19/18at 07: 57; Start 04/22/18 at 09:00 Quetiapine Fumarate (SEROquel) 75 mg 1700 PO Last administered on 05/19/18at 16: 52; Start 04/25/18 at 17:15 Trazodone HCl (Desyrel) 12.5 mg DAILY@1700 PO Last administered on 05/19/18 16: 51; Start 04/28/18 at 17:00 Trazodone HCl (Desyrel) 25 mg BID@0900,1300 PO Last administered on 05/19/18 12 :25; Start 04/28/18 at 09:00 Hydrocortisone (Cortaid) 1 shiraz BID TP Last administered on 05/19/18 20:16; Start 05/02/18 at 21:00 Valproic Acid (Depakene) 250 mg TID PO Last administered on 05/19/18 20:16; Start 05/04/18 at 21:00 Active Scripts Active Reported Olanzapine 5 Mg Tablet 2.5 Mg PO PRN Q2HR PRN Analgesic [place] (Methyl Salicylate/Menthol) 28 Gm Oint...g. 1 [place] TP PRN QID PRN Milk Of Magnesia (Magnesium Hydroxide) 2,400 Mg/10 Ml Oral.susp 2,400 Mg PO PRN DAILY PRN Hydrocortisone 453.6 Gm Oint...g. 1 [place] TP BID Celexa (Citalopram Hydrobromide) 20 Mg Tablet 20 Mg PO DAILY Alum-Mag Hydroxide-Simeth Liq (Mag Hydrox/Al Hydrox/Simeth) 360 Ml Oral.susp 30 Ml PO PRN BID PRN Lorazepam 0.5 Mg Tablet 0.25 Mg PO PRN BID PRN Divalproex Sodium 250 Mg Tablet.dr 250 Mg PO BID Seroquel (Quetiapine Fumarate) 25 Mg Tablet 37.5 Mg PO TID Melatonin 3 Mg Tablet 3 Mg PO QHS Trazodone Hcl 50 Mg Tablet 50 Mg PO QHS Atorvastatin Calcium 40 Mg Tablet 40 Mg PO HS Bisacodyl 10 Mg Supp.rect 10 Mg RC PRN QHS PRN Tylenol (Acetaminophen) 325 Mg Tablet 650 Mg PO PRN Q4HRS PRN I have reviewed the current psychotropics carefully including drug interactions. Risk benefit ratio favors no change other than as noted in my dictated progress note. Diagnosis: Problems: (1) Anxiety disorder (2) Impulse control disorder (3) Dementia, vascular, with depression (4) Dementia, vascular, with delusions (5) Dementia in Alzheimer's disease with depression (6) Dementia in Alzheimer's disease with delusions (7) Syncopal episodes (8) Hypertension ELVA STROUD MD May 19, 2018 21:07
[2018-05-19] MEDS: hydrOXYzine HCL 25 MG TABLET PO PRN (22:18)
--- NOTE | 2018-05-19 22:40 | PN ---
DATE: 05/18/2018 This is a late entry for 05/18/2018 covers elements not covered in my initial note. SUBJECTIVE: I met with the patient in the evening. The patient remains confused, slept 6-3/4 hours. On further review, in fact, she slept 5-3/4 hours, agitated earlier in the day, had received repeat trazodone at 2230 previous night, believes the hospital is her home and everyone is intruding. REVIEW OF SYSTEMS: No CV, , pulmonary, eye, ENT system symptoms on review. Reliability poor. MENTAL STATUS EXAM: Oriented to herself. Insight, judgment, recent and remote memory, attention, concentration, fund of knowledge poor, consistent with her diagnosis mentioned in my initial note. PLAN: No change from initial note. MAN Rachel STROUD MD DR: CHARLOTTE/fanny JOB#: [id number] / [id number]
[2018-05-20 06:24] VITALS: BP 150/74
[2018-05-20] MEDS: VALPROATE ACID 250 MG/5 ML ORAL SOLUTION PO SCH ×3 (08:47→19:26)
[2018-05-20] MEDS: CETIRIZINE HCL 10 MG TABLET PO SCH (08:48)
[2018-05-20] MEDS: traZODone 50 MG TABLET. PO SCH ×4 (08:48→19:26)
[2018-05-20] MEDS: QUEtiapine 50 MG TABLET. PO SCH ×2 (08:48→16:46)
[2018-05-20] MEDS: SERTRALINE 50 MG TABLET. PO SCH (08:48)
[2018-05-20] MEDS: HYDROCORTISONE 1% TOPICAL CREAM 30GM TUBE. TP SCH ×2 (08:49→19:28)
[2018-05-20 15:44] VITALS: BP 140/77
[2018-05-20] MEDS: ATORVASTATIN CALCIUM 20 MG TABLET PO SCH (19:26)
[2018-05-20] MEDS: MIRTAZAPINE 15 MG TABLET PO SCH (19:26)
[2018-05-20] MEDS: MELATONIN 3 MG TABLET PO SCH (19:26)
--- NOTE | 2018-05-20 20:25 | PDOC ---
Exam Note: Ye Note: Please also refer to the separate dictated note~for this date of service dictated separately.~Patient seen individually. Discussed the patient with Nursing staff reviewed the chart.~Reviewed interim history and current functioning. Reviewed vital signs,~Labs/ Radiology~and current medications noted below. Continue current treatment with the changes noted in the dictated addendum note Assessment: Vital Signs: Vital Signs Date Time Temp Pulse Resp B/P (MAP) Pulse Ox O2 Delivery O2 Flow Rate FiO2 05/20/18 15:44 98.3 94 20 140/77 (98) 96 Room Air I&O Intake and Output 05/20/18 07:00 Intake Total 1200 ml Balance 1200 ml Intake Oral 1200 ml # Voids 1 Current Medications: Meds: Current Medications Acetaminophen (Tylenol) 650 mg PRN Q4HRS PRN PO pain rated 4-6 on scale; Start 03/23/18 at 20:15 Hydrocortisone (Hytone) 1 shiraz BID TP Last administered on 05/01/18at 19:20; Start 03/23/18 at 21:00; Stop 05/02/18 at 10:37; Status DC Multi-Ingredient Ointment (Analgesic [place]) 1 shiraz PRN QID PRN TP MUSCLE PAIN; Start 03/23/18 at 20:15 Atorvastatin Calcium (Lipitor) 40 mg QHS PO Last administered on 05/20/18at 19:26 ; Start 03/23/18 at 21:00 Bisacodyl (Dulcolax Supp) 10 mg PRN QHS PRN [place] CONSTIPATION; Start 03/23/18 at 20:45 Al Hydroxide/Mg Hydroxide (Mylanta Plus Xs) 30 ml PRN BID PRN PO DYSPEPSIA; Start 03/23/18 at 20:45 Magnesium Hydroxide (Milk Of Magnesia) 2,400 mg PRN DAILY PRN PO CONSTIPATION Last administered on 05/10/18at 20:08; Start 03/23/18 at 20:45 Citalopram Hydrobromide (CeleXA) 20 mg DAILY PO Last administered on 03/30/18at 07:42; Start 03/24/18 at 09:00; Stop 03/30/18 at 18:28; Status DC Divalproex Sodium (Depakote) 250 mg BID PO Last administered on 03/24/18at 07:38 ; Start 03/23/18 at 21:00; Stop 03/24/18 at 19:08; Status DC Lorazepam (Ativan) 0.25 mg PRN BID PRN PO ANXIETY / AGITATION Last administered on 04/14/18 12:24; Start 03/23/18 at 20:45 Melatonin 3 mg QHS PO Last administered on 05/20/18 19:26; Start 03/23/18 at 21 :00 Olanzapine (ZyPREXA ZYDIS) 2.5 mg PRN Q2HR PRN PO AGITATION/PSYCHOSIS Last administered on 05/19/18 10:37; Start 03/23/18 at 20:45 Quetiapine Fumarate (SEROquel) 37.5 mg TID PO Last administered on 03/30/18 14 :04; Start 03/23/18 at 21:00; Stop 03/30/18 at 18:38; Status DC Trazodone HCl (Desyrel) 50 mg QHS PO Last administered on 05/20/18 19:26; Start 03/23/18 at 21:00 Divalproex Sodium (Depakote) 250 mg TID@0900,1300,1700 PO Last administered on 03/29/18at 16:05; Start 03/25/18 at 09:00; Stop 03/30/18 at 07:46; Status DC Mirtazapine (Remeron) 7.5 mg QHS PO Last administered on 03/29/18 19:29; Start 03/29/18 at 21:00; Stop 03/30/18 at 18:28; Status DC Divalproex Sodium (Depakote Sprinkles) 250 mg TID@0900,1300,1700 PO Last administered on 03/31/18 08:36; Start 03/30/18 at 09:00; Stop 03/31/18 at 13:22 ; Status DC Mirtazapine (Remeron) 15 mg QHS PO Last administered on 05/20/18 19:26; Start 03/30/18 at 21:00 Quetiapine Fumarate (SEROquel) 50 mg BID PO Last administered on 03/31/18 08: 36; Start 03/30/18 at 21:00; Stop 03/31/18 at 13:22; Status DC Sertraline HCl (Zoloft) 50 mg DAILY PO Last administered on 04/08/18at 07:34; Start 03/31/18 at 09:00; Stop 04/08/18 at 10:57; Status DC Quetiapine Fumarate (SEROquel) 37.5 mg DAILY@1300 PO Last administered on at 14:09; Start 03/31/18 at 13:00; Stop 03/31/18 at 16:00; Status DC Quetiapine Fumarate (SEROquel) 37.5 mg TID PO Last administered on 04/01/18at 19 :20; Start 03/31/18 at 21:00; Stop 04/02/18 at 08:00; Status DC Divalproex Sodium (Depakote Sprinkles) 250 mg BID PO Last administered on at 08:49; Start 03/31/18 at 21:00; Stop 04/01/18 at 18:16; Status DC Divalproex Sodium (Depakote Sprinkles) 250 mg DAILY PO ; Start 04/03/18 at 09:00 ; Stop 04/03/18 at 09:00; Status DC Divalproex Sodium (Depakote Sprinkles) 250 mg TID PO Last administered on at 13:35; Start 04/01/18 at 21:00; Stop 05/04/18 at 18:35; Status DC Quetiapine Fumarate (SEROquel) 37.5 mg BID@0900,1700 PO Last administered on at 16:55; Start 04/03/18 at 09:00; Stop 04/06/18 at 18:45; Status DC Trazodone HCl (Desyrel) 50 mg PRN QHS PRN PO INSOMNIA Last administered on at 22:25; Start 04/03/18 at 15:15 Hydroxyzine HCl (Atarax) 25 mg PRN Q4HRS PRN PO AGITATION/ANXIETY Last administered on 05/19/18at 22:18; Start 04/05/18 at 09:15 Quetiapine Fumarate (SEROquel) 50 mg BID94 PO Last administered on 04/08/18at 07 :34; Start 04/07/18 at 09:00; Stop 04/08/18 at 10:59; Status DC Sertraline HCl (Zoloft) 75 mg DAILY PO Last administered on 05/20/18at 08:48; Start 04/09/18 at 09:00; Stop 05/20/18 at 11:15; Status DC Quetiapine Fumarate (SEROquel) 62.5 mg BID@0900,1700 PO Last administered on 04/19/18at 17:41; Start 04/08/18 at 17:00; Stop 04/19/18 at 18:45; Status DC Trazodone HCl (Desyrel) 12.5 mg TID@0900,1300,1700 PO Last administered on at 07:55; Start 04/10/18 at 09:00; Stop 04/15/18 at 11:19; Status DC Trazodone HCl (Desyrel) 12.5 mg BID@1300,1700 PO Last administered on at 18:14; Start 04/15/18 at 13:00; Stop 04/27/18 at 19:01; Status DC Trazodone HCl (Desyrel) 25 mg DAILY PO Last administered on 04/27/18at 09:12; Start 04/16/18 at 09:00; Stop 04/27/18 at 19:01; Status DC Cetirizine HCl (ZyrTEC) 10 mg DAILY PO Last administered on 05/20/18at 08:48; Start 04/17/18 at 09:00 Quetiapine Fumarate (SEROquel) 62.5 mg DAILY PO Last administered on 04/21/18at 08:47; Start 04/20/18 at 09:00; Stop 04/21/18 at 19:21; Status DC Quetiapine Fumarate (SEROquel) 75 mg 1700 PO Last administered on 04/24/18at 17: 10; Start 04/20/18 at 17:00; Stop 04/25/18 at 17:12; Status DC Quetiapine Fumarate (SEROquel) 75 mg DAILY PO Last administered on 05/20/18at 08: 48; Start 04/22/18 at 09:00 Quetiapine Fumarate (SEROquel) 75 mg 1700 PO Last administered on 05/20/18at 16: 46; Start 7/15/18 at 17:15 Trazodone HCl (Desyrel) 12.5 mg DAILY@1700 PO Last administered on 05/20/18at 16: 46; Start 04/28/18 at 17:00 Trazodone HCl (Desyrel) 25 mg BID@0900,1300 PO Last administered on 05/20/18at 12 :30; Start 04/28/18 at 09:00 Hydrocortisone (Cortaid) 1 shiraz BID TP Last administered on 05/20/18 19:28; Start 05/02/18 at 21:00 Valproic Acid (Depakene) 250 mg TID PO Last administered on 05/20/18 19:26; Start 05/04/18 at 21:00 Sertraline HCl (Zoloft) 100 mg DAILY PO ; Start 05/21/18 at 09:00 Active Scripts Active Reported Olanzapine 5 Mg Tablet 2.5 Mg PO PRN Q2HR PRN Analgesic [place] (Methyl Salicylate/Menthol) 28 Gm Oint...g. 1 [place] TP PRN QID PRN Milk Of Magnesia (Magnesium Hydroxide) 2,400 Mg/10 Ml Oral.susp 2,400 Mg PO PRN DAILY PRN Hydrocortisone 453.6 Gm Oint...g. 1 [place] TP BID Celexa (Citalopram Hydrobromide) 20 Mg Tablet 20 Mg PO DAILY Alum-Mag Hydroxide-Simeth Liq (Mag Hydrox/Al Hydrox/Simeth) 360 Ml Oral.susp 30 Ml PO PRN BID PRN Lorazepam 0.5 Mg Tablet 0.25 Mg PO PRN BID PRN Divalproex Sodium 250 Mg Tablet.dr 250 Mg PO BID Seroquel (Quetiapine Fumarate) 25 Mg Tablet 37.5 Mg PO TID Melatonin 3 Mg Tablet 3 Mg PO QHS Trazodone Hcl 50 Mg Tablet 50 Mg PO QHS Atorvastatin Calcium 40 Mg Tablet 40 Mg PO HS Bisacodyl 10 Mg Supp.rect 10 Mg RC PRN QHS PRN Tylenol (Acetaminophen) 325 Mg Tablet 650 Mg PO PRN Q4HRS PRN I have reviewed the current psychotropics carefully including drug interactions. Risk benefit ratio favors no change other than as noted in my dictated progress note. Diagnosis: Problems: (1) Anxiety disorder (2) Impulse control disorder (3) Dementia, vascular, with depression (4) Dementia, vascular, with delusions (5) Dementia in Alzheimer's disease with depression (6) Dementia in Alzheimer's disease with delusions (7) Syncopal episodes (8) Hypertension ELVA STROUD MD May 20, 2018 20:25
[2018-05-21 06:03] VITALS: BP 145/71
[2018-05-21] MEDS: VALPROATE ACID 250 MG/5 ML ORAL SOLUTION PO SCH ×3 (07:48→19:44)
[2018-05-21] MEDS: CETIRIZINE HCL 10 MG TABLET PO SCH (07:49)
[2018-05-21] MEDS: QUEtiapine 50 MG TABLET. PO SCH ×2 (07:49→16:18)
[2018-05-21] MEDS: traZODone 50 MG TABLET. PO SCH ×4 (07:49→19:45)
[2018-05-21] MEDS: HYDROCORTISONE 1% TOPICAL CREAM 30GM TUBE. TP SCH ×2 (07:50→19:47)
[2018-05-21] MEDS: SERTRALINE 100 MG TABLET. PO SCH (07:51)
[2018-05-21 16:20] VITALS: BP 146/82
[2018-05-21] MEDS: MELATONIN 3 MG TABLET PO SCH (19:44)
[2018-05-21] MEDS: MIRTAZAPINE 15 MG TABLET PO SCH (19:45)
[2018-05-21] MEDS: ATORVASTATIN CALCIUM 20 MG TABLET PO SCH (19:45)
--- NOTE | 2018-05-21 20:52 | PDOC ---
Exam Note: Ye Note: Please also refer to the separate dictated note~for this date of service dictated separately.~Patient seen individually. Discussed the patient with Nursing staff reviewed the chart.~Reviewed interim history and current functioning. Reviewed vital signs,~Labs/ Radiology~and current medications noted below. Continue current treatment with the changes noted in the dictated addendum note Assessment: Vital Signs: Vital Signs Date Time Temp Pulse Resp B/P (MAP) Pulse Ox O2 Delivery O2 Flow Rate FiO2 05/21/18 16:20 98.7 105 20 146/82 (103) 94 05/20/18 15:44 Room Air I&O Intake and Output 05/21/18 07:00 Intake Total 600 ml Balance 600 ml Intake Oral 600 ml Current Medications: Meds: Current Medications Acetaminophen (Tylenol) 650 mg PRN Q4HRS PRN PO pain rated 4-6 on scale; Start 03/23/18 at 20:15 Hydrocortisone (Hytone) 1 shiraz BID TP Last administered on 05/01/18at 19:20; Start 03/23/18 at 21:00; Stop 05/02/18 at 10:37; Status DC Multi-Ingredient Ointment (Analgesic [place]) 1 shiraz PRN QID PRN TP MUSCLE PAIN; Start 03/23/18 at 20:15 Atorvastatin Calcium (Lipitor) 40 mg QHS PO Last administered on 05/21/18at 19: 45; Start 03/23/18 at 21:00 Bisacodyl (Dulcolax Supp) 10 mg PRN QHS PRN [place] CONSTIPATION; Start 03/23/18 at 20:45 Al Hydroxide/Mg Hydroxide (Mylanta Plus Xs) 30 ml PRN BID PRN PO DYSPEPSIA; Start 03/23/18 at 20:45 Magnesium Hydroxide (Milk Of Magnesia) 2,400 mg PRN DAILY PRN PO CONSTIPATION Last administered on 05/10/18at 20:08; Start 03/23/18 at 20:45 Citalopram Hydrobromide (CeleXA) 20 mg DAILY PO Last administered on 03/30/18at 07:42; Start 03/24/18 at 09:00; Stop 03/30/18 at 18:28; Status DC Divalproex Sodium (Depakote) 250 mg BID PO Last administered on 03/24/18at 07:38 ; Start 03/23/18 at 21:00; Stop 03/24/18 at 19:08; Status DC Lorazepam (Ativan) 0.25 mg PRN BID PRN PO ANXIETY / AGITATION Last administered on 04/14/18 12:24; Start 03/23/18 at 20:45 Melatonin 3 mg QHS PO Last administered on 05/21/18 19:44; Start 03/23/18 at 21:00 Olanzapine (ZyPREXA ZYDIS) 2.5 mg PRN Q2HR PRN PO AGITATION/PSYCHOSIS Last administered on 05/19/18 10:37; Start 03/23/18 at 20:45 Quetiapine Fumarate (SEROquel) 37.5 mg TID PO Last administered on 03/30/18 14 :04; Start 03/23/18 at 21:00; Stop 03/30/18 at 18:38; Status DC Trazodone HCl (Desyrel) 50 mg QHS PO Last administered on 05/21/18 19:45; Start 03/23/18 at 21:00 Divalproex Sodium (Depakote) 250 mg TID@0900,1300,1700 PO Last administered on 03/29/18at 16:05; Start 03/25/18 at 09:00; Stop 03/30/18 at 07:46; Status DC Mirtazapine (Remeron) 7.5 mg QHS PO Last administered on 03/29/18 19:29; Start 03/29/18 at 21:00; Stop 03/30/18 at 18:28; Status DC Divalproex Sodium (Depakote Sprinkles) 250 mg TID@0900,1300,1700 PO Last administered on 03/31/18 08:36; Start 03/30/18 at 09:00; Stop 03/31/18 at 13:22 ; Status DC Mirtazapine (Remeron) 15 mg QHS PO Last administered on 05/21/18 19:45; Start 03/30/18 at 21:00 Quetiapine Fumarate (SEROquel) 50 mg BID PO Last administered on 03/31/18 08: 36; Start 03/30/18 at 21:00; Stop 03/31/18 at 13:22; Status DC Sertraline HCl (Zoloft) 50 mg DAILY PO Last administered on 04/08/18at 07:34; Start 03/31/18 at 09:00; Stop 04/08/18 at 10:57; Status DC Quetiapine Fumarate (SEROquel) 37.5 mg DAILY@1300 PO Last administered on at 14:09; Start 03/31/18 at 13:00; Stop 03/31/18 at 16:00; Status DC Quetiapine Fumarate (SEROquel) 37.5 mg TID PO Last administered on 04/01/18at 19 :20; Start 03/31/18 at 21:00; Stop 04/02/18 at 08:00; Status DC Divalproex Sodium (Depakote Sprinkles) 250 mg BID PO Last administered on at 08:49; Start 03/31/18 at 21:00; Stop 04/01/18 at 18:16; Status DC Divalproex Sodium (Depakote Sprinkles) 250 mg DAILY PO ; Start 04/03/18 at 09:00 ; Stop 04/03/18 at 09:00; Status DC Divalproex Sodium (Depakote Sprinkles) 250 mg TID PO Last administered on at 13:35; Start 04/01/18 at 21:00; Stop 05/04/18 at 18:35; Status DC Quetiapine Fumarate (SEROquel) 37.5 mg BID@0900,1700 PO Last administered on at 16:55; Start 04/03/18 at 09:00; Stop 04/06/18 at 18:45; Status DC Trazodone HCl (Desyrel) 50 mg PRN QHS PRN PO INSOMNIA Last administered on at 22:25; Start 04/03/18 at 15:15 Hydroxyzine HCl (Atarax) 25 mg PRN Q4HRS PRN PO AGITATION/ANXIETY Last administered on 05/19/18at 22:18; Start 04/05/18 at 09:15 Quetiapine Fumarate (SEROquel) 50 mg BID94 PO Last administered on 04/08/18at 07 :34; Start 04/07/18 at 09:00; Stop 04/08/18 at 10:59; Status DC Sertraline HCl (Zoloft) 75 mg DAILY PO Last administered on 05/20/18at 08:48; Start 04/09/18 at 09:00; Stop 05/20/18 at 11:15; Status DC Quetiapine Fumarate (SEROquel) 62.5 mg BID@0900,1700 PO Last administered on 04/19/18at 17:41; Start 04/08/18 at 17:00; Stop 04/19/18 at 18:45; Status DC Trazodone HCl (Desyrel) 12.5 mg TID@0900,1300,1700 PO Last administered on at 07:55; Start 04/10/18 at 09:00; Stop 04/15/18 at 11:19; Status DC Trazodone HCl (Desyrel) 12.5 mg BID@1300,1700 PO Last administered on at 18:14; Start 04/15/18 at 13:00; Stop 04/27/18 at 19:01; Status DC Trazodone HCl (Desyrel) 25 mg DAILY PO Last administered on 04/27/18at 09:12; Start 04/16/18 at 09:00; Stop 04/27/18 at 19:01; Status DC Cetirizine HCl (ZyrTEC) 10 mg DAILY PO Last administered on 05/21/18at 07:49; Start 04/17/18 at 09:00 Quetiapine Fumarate (SEROquel) 62.5 mg DAILY PO Last administered on 04/21/18at 08:47; Start 04/20/18 at 09:00; Stop 04/21/18 at 19:21; Status DC Quetiapine Fumarate (SEROquel) 75 mg 1700 PO Last administered on 04/24/18at 17: 10; Start 04/20/18 at 17:00; Stop 04/25/18 at 17:12; Status DC Quetiapine Fumarate (SEROquel) 75 mg DAILY PO Last administered on 05/21/18at 07 :49; Start 04/22/18 at 09:00 Quetiapine Fumarate (SEROquel) 75 mg 1700 PO Last administered on 05/21/18at 16: 18; Start 04/25/18 at 17:15 Trazodone HCl (Desyrel) 12.5 mg DAILY@1700 PO Last administered on 05/21/18at 16 :17; Start 04/28/18 at 17:00 Trazodone HCl (Desyrel) 25 mg BID@0900,1300 PO Last administered on 05/21/18 12:22; Start 04/28/18 at 09:00 Hydrocortisone (Cortaid) 1 shiraz BID TP Last administered on 05/21/18 19:47; Start 05/02/18 at 21:00 Valproic Acid (Depakene) 250 mg TID PO Last administered on 05/21/18 19:44; Start 05/04/18 at 21:00 Sertraline HCl (Zoloft) 100 mg DAILY PO Last administered on 05/21/18at 07:51; Start 05/21/18 at 09:00 Active Scripts Active Reported Olanzapine 5 Mg Tablet 2.5 Mg PO PRN Q2HR PRN Analgesic [place] (Methyl Salicylate/Menthol) 28 Gm Oint...g. 1 [place] TP PRN QID PRN Milk Of Magnesia (Magnesium Hydroxide) 2,400 Mg/10 Ml Oral.susp 2,400 Mg PO PRN DAILY PRN Hydrocortisone 453.6 Gm Oint...g. 1 [place] TP BID Celexa (Citalopram Hydrobromide) 20 Mg Tablet 20 Mg PO DAILY Alum-Mag Hydroxide-Simeth Liq (Mag Hydrox/Al Hydrox/Simeth) 360 Ml Oral.susp 30 Ml PO PRN BID PRN Lorazepam 0.5 Mg Tablet 0.25 Mg PO PRN BID PRN Divalproex Sodium 250 Mg Tablet.dr 250 Mg PO BID Seroquel (Quetiapine Fumarate) 25 Mg Tablet 37.5 Mg PO TID Melatonin 3 Mg Tablet 3 Mg PO QHS Trazodone Hcl 50 Mg Tablet 50 Mg PO QHS Atorvastatin Calcium 40 Mg Tablet 40 Mg PO HS Bisacodyl 10 Mg Supp.rect 10 Mg RC PRN QHS PRN Tylenol (Acetaminophen) 325 Mg Tablet 650 Mg PO PRN Q4HRS PRN I have reviewed the current psychotropics carefully including drug interactions. Risk benefit ratio favors no change other than as noted in my dictated progress note. Diagnosis: Problems: (1) Anxiety disorder (2) Impulse control disorder (3) Dementia, vascular, with depression (4) Dementia, vascular, with delusions (5) Dementia in Alzheimer's disease with depression (6) Dementia in Alzheimer's disease with delusions (7) Syncopal episodes (8) Hypertension ELVA STROUD MD May 21, 2018 20:52
--- NOTE | 2018-05-21 20:55 | PN ---
DATE: 05/20/2018 PSYCHIATRIC PROGRESS NOTE This is a late entry for 05/20/2018, covers elements not covered in my initial note. SUBJECTIVE: I met with the patient in the evening, staffed a treatment team meeting with the entire team in the morning. The patient slept 5-1/2 hours. Discussed her progress, discharge placement options with social service staff. REVIEW OF SYSTEMS: No CV, , pulmonary, eye, ENT system symptoms on review. Reliability poor. MENTAL STATUS EXAM: Oriented to herself. Insight, judgment, recent and remote memory, attention, concentration, fund of knowledge poor, consistent with her diagnosis mentioned in my initial note. PLAN: No change from initial note. Increase Zoloft from 75 mg a day to 100 mg a day. MAN Rachel STROUD MD DR: CHARLOTTE/fanny JOB#: [id number] / [id number]
--- NOTE | 2018-05-21 21:16 | PN ---
DATE: 05/19/2018 This is a late entry 05/19/2018 covers elements not covered in my initial note. SUBJECTIVE: I met with the patient in the evening. The patient slept 6-1/2 hours previous evening, takes some medications, whole wandering stays in the dayroom, responds positively to music. REVIEW OF SYSTEMS: No CV, , pulmonary, eye, ENT system symptoms on review. Reliability poor. MENTAL STATUS EXAM: Oriented to herself. Insight, judgment, recent and remote memory, attention, concentration, fund of knowledge poor consistent with her diagnosis mentioned in my initial note. PLAN: No change from initial note. Valproic acid level therapeutic at 53. MAN Rachel STROUD MD DR: CHARLOTTE/fanny JOB#: [id number] / [id number]
[2018-05-22 06:47] VITALS: BP 117/62
[2018-05-22] MEDS: VALPROATE ACID 250 MG/5 ML ORAL SOLUTION PO SCH ×3 (07:47→19:32)
[2018-05-22] MEDS: traZODone 50 MG TABLET. PO SCH ×4 (07:47→19:32)
[2018-05-22] MEDS: HYDROCORTISONE 1% TOPICAL CREAM 30GM TUBE. TP SCH ×2 (07:48→19:32)
[2018-05-22] MEDS: SERTRALINE 100 MG TABLET. PO SCH (07:48)
[2018-05-22] MEDS: CETIRIZINE HCL 10 MG TABLET PO SCH (07:48)
[2018-05-22] MEDS: QUEtiapine 50 MG TABLET. PO SCH ×2 (07:48→16:35)
[2018-05-22 14:59] LABS: ALBUMIN 3.8 g/dL (3.4-5.0); ALBUMIN/GLOBULIN RATIO 0.8 (1.0-1.7); BASO % 0 % (0-3); CALCIUM 9.7 mg/dL (8.5-10.1); EOS # 0.4 x10^3/uL (0.0-0.7); EOS % 5 % (0-3); GFR 54.5; HEMATOCRIT 41.5 % (36.0-47.0); HEMOGLOBIN 14.1 g/dL (12.0-15.5); LYMPH # 3.2 x10^3/uL (1.0-4.8); LYMPH % 38 % (24-48); MEAN CORPUSCULAR HEMOGLOBIN 30 pg (25-35); MEAN CORPUSCULAR HGB CONC 34 g/dL (31-37); MEAN CORPUSCULAR VOLUME 88 fL (79-100); MONO # 0.9 x10^3/uL (0.0-1.1); MONO % 11 % (0-9); NEUT # 3.8 x10^3uL (1.8-7.7); NEUT % 46 % (31-73); PLATELET COUNT 260 x10^3/uL (140-400); POTASSIUM 4.4 mmol/L (3.5-5.1); RED BLOOD COUNT 4.74 x10^6/uL (3.50-5.40); RED CELL DISTRIBUTION WIDTH 15.5 % (11.5-14.5); TOTAL BILIRUBIN 0.4 mg/dL (0.2-1.0); TOTAL PROTEIN 8.3 g/dL (6.4-8.2); WHITE BLOOD COUNT 8.3 x10^3/uL (4.0-11.0)
[2018-05-22 16:41] VITALS: BP 137/62
[2018-05-22] MEDS: MIRTAZAPINE 15 MG TABLET PO SCH (19:32)
[2018-05-22] MEDS: MELATONIN 3 MG TABLET PO SCH (19:32)
[2018-05-22] MEDS: ATORVASTATIN CALCIUM 20 MG TABLET PO SCH (19:32)
--- NOTE | 2018-05-22 23:09 | PDOC ---
Exam Note: Ye Note: Please also refer to the separate dictated note~for this date of service dictated separately.~Patient seen individually. Discussed the patient with Nursing staff reviewed the chart.~Reviewed interim history and current functioning. Reviewed vital signs,~Labs/ Radiology~and current medications noted below. Continue current treatment with the changes noted in the dictated addendum note Assessment: Vital Signs: Vital Signs Date Time Temp Pulse Resp B/P (MAP) Pulse Ox O2 Delivery O2 Flow Rate FiO2 05/22/18 16:41 98.6 87 18 137/62 (87) 82 05/20/18 15:44 Room Air I&O Intake and Output 05/22/18 07:00 Intake Total 960 ml Balance 960 ml Intake Oral 960 ml Labs: Laboratory Tests Test 05/22/18 14:42 White Blood Count 8.3 x10^3/uL (4.0-11.0) Red Blood Count 4.74 x10^6/uL (3.50-5.40) Hemoglobin 14.1 g/dL (12.0-15.5) Hematocrit 41.5 % (36.0-47.0) Mean Corpuscular Volume 88 fL (79-100) Mean Corpuscular Hemoglobin 30 pg (25-35) Mean Corpuscular Hemoglobin Concent 34 g/dL (31-37) Red Cell Distribution Width 15.5 % (11.5-14.5) H Platelet Count 260 x10^3/uL (140-400) Neutrophils (%) (Auto) 46 % (31-73) Lymphocytes (%) (Auto) 38 % (24-48) Monocytes (%) (Auto) 11 % (0-9) H Eosinophils (%) (Auto) 5 % (0-3) H Basophils (%) (Auto) 0 % (0-3) Neutrophils # (Auto) 3.8 x10^3uL (1.8-7.7) Lymphocytes # (Auto) 3.2 x10^3/uL (1.0-4.8) Monocytes # (Auto) 0.9 x10^3/uL (0.0-1.1) Eosinophils # (Auto) 0.4 x10^3/uL (0.0-0.7) Basophils # (Auto) 0.0 x10^3/uL (0.0-0.2) Sodium Level 145 mmol/L (136-145) Potassium Level 4.4 mmol/L (3.5-5.1) Chloride Level 106 mmol/L (98-107) Carbon Dioxide Level 33 mmol/L (21-32) H Anion Gap 6 (6-14) Blood Urea Nitrogen 26 mg/dL (7-20) H Creatinine 1.0 mg/dL (0.6-1.0) Estimated GFR (Cockcroft-Gault) 54.5 BUN/Creatinine Ratio 26 (6-20) H Glucose Level 113 mg/dL (70-99) H Calcium Level 9.7 mg/dL (8.5-10.1) Total Bilirubin 0.4 mg/dL (0.2-1.0) Aspartate Amino Transferase (AST) 17 U/L (15-37) Alanine Aminotransferase (ALT) 19 U/L (14-59) Alkaline Phosphatase 112 U/L (46-116) Total Protein 8.3 g/dL (6.4-8.2) H Albumin 3.8 g/dL (3.4-5.0) Albumin/Globulin Ratio 0.8 (1.0-1.7) L Current Medications: Meds: Current Medications Acetaminophen (Tylenol) 650 mg PRN Q4HRS PRN PO pain rated 4-6 on scale; Start 03/23/18 at 20:15 Hydrocortisone (Hytone) 1 shiraz BID TP Last administered on 05/01/18at 19:20; Start 03/23/18 at 21:00; Stop 05/02/18 at 10:37; Status DC Multi-Ingredient Ointment (Analgesic [place]) 1 shiraz PRN QID PRN TP MUSCLE PAIN; Start 03/23/18 at 20:15 Atorvastatin Calcium (Lipitor) 40 mg QHS PO Last administered on 05/22/18at 19: 32; Start 03/23/18 at 21:00 Bisacodyl (Dulcolax Supp) 10 mg PRN QHS PRN [place] CONSTIPATION; Start 03/23/18 at 20:45 Al Hydroxide/Mg Hydroxide (Mylanta Plus Xs) 30 ml PRN BID PRN PO DYSPEPSIA; Start 03/23/18 at 20:45 Magnesium Hydroxide (Milk Of Magnesia) 2,400 mg PRN DAILY PRN PO CONSTIPATION Last administered on 05/10/18 20:08; Start 03/23/18 at 20:45 Citalopram Hydrobromide (CeleXA) 20 mg DAILY PO Last administered on 03/30/18at 07:42; Start 03/24/18 at 09:00; Stop 03/30/18 at 18:28; Status DC Divalproex Sodium (Depakote) 250 mg BID PO Last administered on 03/24/18 07:38 ; Start 03/23/18 at 21:00; Stop 03/24/18 at 19:08; Status DC Lorazepam (Ativan) 0.25 mg PRN BID PRN PO ANXIETY / AGITATION Last administered on 04/14/18 12:24; Start 03/23/18 at 20:45 Melatonin 3 mg QHS PO Last administered on 05/22/18 19:32; Start 03/23/18 at 21:00 Olanzapine (ZyPREXA ZYDIS) 2.5 mg PRN Q2HR PRN PO AGITATION/PSYCHOSIS Last administered on 05/19/18at 10:37; Start 03/23/18 at 20:45 Quetiapine Fumarate (SEROquel) 37.5 mg TID PO Last administered on 03/30/18 14 :04; Start 03/23/18 at 21:00; Stop 03/30/18 at 18:38; Status DC Trazodone HCl (Desyrel) 50 mg QHS PO Last administered on 05/22/18 19:32; Start 03/23/18 at 21:00 Divalproex Sodium (Depakote) 250 mg TID@0900,1300,1700 PO Last administered on 03/29/18at 16:05; Start 03/25/18 at 09:00; Stop 03/30/18 at 07:46; Status DC Mirtazapine (Remeron) 7.5 mg QHS PO Last administered on 03/29/18 19:29; Start 03/29/18 at 21:00; Stop 03/30/18 at 18:28; Status DC Divalproex Sodium (Depakote Sprinkles) 250 mg TID@0900,1300,1700 PO Last administered on 03/31/18at 08:36; Start 03/30/18 at 09:00; Stop 03/31/18 at 13:22 ; Status DC Mirtazapine (Remeron) 15 mg QHS PO Last administered on 05/22/18at 19:32; Start 03/30/18 at 21:00 Quetiapine Fumarate (SEROquel) 50 mg BID PO Last administered on 03/31/18at 08: 36; Start 03/30/18 at 21:00; Stop 03/31/18 at 13:22; Status DC Sertraline HCl (Zoloft) 50 mg DAILY PO Last administered on 04/08/18at 07:34; Start 03/31/18 at 09:00; Stop 04/08/18 at 10:57; Status DC Quetiapine Fumarate (SEROquel) 37.5 mg DAILY@1300 PO Last administered on at 14:09; Start 03/31/18 at 13:00; Stop 03/31/18 at 16:00; Status DC Quetiapine Fumarate (SEROquel) 37.5 mg TID PO Last administered on 04/01/18at 19 :20; Start 03/31/18 at 21:00; Stop 04/02/18 at 08:00; Status DC Divalproex Sodium (Depakote Sprinkles) 250 mg BID PO Last administered on at 08:49; Start 03/31/18 at 21:00; Stop 04/01/18 at 18:16; Status DC Divalproex Sodium (Depakote Sprinkles) 250 mg DAILY PO ; Start 04/03/18 at 09:00 ; Stop 04/03/18 at 09:00; Status DC Divalproex Sodium (Depakote Sprinkles) 250 mg TID PO Last administered on at 13:35; Start 04/01/18 at 21:00; Stop 05/04/18 at 18:35; Status DC Quetiapine Fumarate (SEROquel) 37.5 mg BID@0900,1700 PO Last administered on at 16:55; Start 04/03/18 at 09:00; Stop 04/06/18 at 18:45; Status DC Trazodone HCl (Desyrel) 50 mg PRN QHS PRN PO INSOMNIA Last administered on at 22:25; Start 04/03/18 at 15:15 Hydroxyzine HCl (Atarax) 25 mg PRN Q4HRS PRN PO AGITATION/ANXIETY Last administered on 05/19/18at 22:18; Start 04/05/18 at 09:15 Quetiapine Fumarate (SEROquel) 50 mg BID94 PO Last administered on 04/08/18at 07 :34; Start 04/07/18 at 09:00; Stop 04/08/18 at 10:59; Status DC Sertraline HCl (Zoloft) 75 mg DAILY PO Last administered on 05/20/18at 08:48; Start 04/09/18 at 09:00; Stop 05/20/18 at 11:15; Status DC Quetiapine Fumarate (SEROquel) 62.5 mg BID@0900,1700 PO Last administered on 04/19/18at 17:41; Start 04/08/18 at 17:00; Stop 04/19/18 at 18:45; Status DC Trazodone HCl (Desyrel) 12.5 mg TID@0900,1300,1700 PO Last administered on at 07:55; Start 04/10/18 at 09:00; Stop 04/15/18 at 11:19; Status DC Trazodone HCl (Desyrel) 12.5 mg BID@1300,1700 PO Last administered on at 18:14; Start 04/15/18 at 13:00; Stop 04/27/18 at 19:01; Status DC Trazodone HCl (Desyrel) 25 mg DAILY PO Last administered on 04/27/18at 09:12; Start 04/16/18 at 09:00; Stop 04/27/18 at 19:01; Status DC Cetirizine HCl (ZyrTEC) 10 mg DAILY PO Last administered on 05/22/18at 07:48; Start 04/17/18 at 09:00 Quetiapine Fumarate (SEROquel) 62.5 mg DAILY PO Last administered on 04/21/18at 08:47; Start 04/20/18 at 09:00; Stop 04/21/18 at 19:21; Status DC Quetiapine Fumarate (SEROquel) 75 mg 1700 PO Last administered on 7/14/18at 17: 10; Start 04/20/18 at 17:00; Stop 04/25/18 at 17:12; Status DC Quetiapine Fumarate (SEROquel) 75 mg DAILY PO Last administered on 05/22/18 07 :48; Start 04/22/18 at 09:00 Quetiapine Fumarate (SEROquel) 75 mg 1700 PO Last administered on 05/22/18 16: 35; Start 04/25/18 at 17:15 Trazodone HCl (Desyrel) 12.5 mg DAILY@1700 PO Last administered on 05/22/18 16 :35; Start 04/28/18 at 17:00 Trazodone HCl (Desyrel) 25 mg BID@0900,1300 PO Last administered on 05/22/18 13:19; Start 04/28/18 at 09:00 Hydrocortisone (Cortaid) 1 shiraz BID TP Last administered on 05/22/18 19:32; Start 05/02/18 at 21:00 Valproic Acid (Depakene) 250 mg TID PO Last administered on 05/22/18 19:32; Start 05/04/18 at 21:00 Sertraline HCl (Zoloft) 100 mg DAILY PO Last administered on 05/22/18 07:48; Start 05/21/18 at 09:00 Active Scripts Active Reported Olanzapine 5 Mg Tablet 2.5 Mg PO PRN Q2HR PRN Analgesic [place] (Methyl Salicylate/Menthol) 28 Gm Oint...g. 1 [place] TP PRN QID PRN Milk Of Magnesia (Magnesium Hydroxide) 2,400 Mg/10 Ml Oral.susp 2,400 Mg PO PRN DAILY PRN Hydrocortisone 453.6 Gm Oint...g. 1 [place] TP BID Celexa (Citalopram Hydrobromide) 20 Mg Tablet 20 Mg PO DAILY Alum-Mag Hydroxide-Simeth Liq (Mag Hydrox/Al Hydrox/Simeth) 360 Ml Oral.susp 30 Ml PO PRN BID PRN Lorazepam 0.5 Mg Tablet 0.25 Mg PO PRN BID PRN Divalproex Sodium 250 Mg Tablet.dr 250 Mg PO BID Seroquel (Quetiapine Fumarate) 25 Mg Tablet 37.5 Mg PO TID Melatonin 3 Mg Tablet 3 Mg PO QHS Trazodone Hcl 50 Mg Tablet 50 Mg PO QHS Atorvastatin Calcium 40 Mg Tablet 40 Mg PO HS Bisacodyl 10 Mg Supp.rect 10 Mg RC PRN QHS PRN Tylenol (Acetaminophen) 325 Mg Tablet 650 Mg PO PRN Q4HRS PRN I have reviewed the current psychotropics carefully including drug interactions. Risk benefit ratio favors no change other than as noted in my dictated progress note. Diagnosis: Problems: (1) Anxiety disorder (2) Impulse control disorder (3) Dementia, vascular, with depression (4) Dementia, vascular, with delusions (5) Dementia in Alzheimer's disease with depression (6) Dementia in Alzheimer's disease with delusions (7) Syncopal episodes (8) Hypertension ELVA STROUD MD May 22, 2018 23:09
[2018-05-23 07:33] VITALS: BP 120/69
[2018-05-23] MEDS: QUEtiapine 50 MG TABLET. PO SCH ×2 (07:50→17:01)
[2018-05-23] MEDS: traZODone 50 MG TABLET. PO SCH ×4 (07:50→20:02)
[2018-05-23] MEDS: CETIRIZINE HCL 10 MG TABLET PO SCH (07:51)
[2018-05-23] MEDS: SERTRALINE 100 MG TABLET. PO SCH (07:51)
[2018-05-23] MEDS: VALPROATE ACID 250 MG/5 ML ORAL SOLUTION PO SCH ×3 (07:52→20:03)
[2018-05-23] MEDS: HYDROCORTISONE 1% TOPICAL CREAM 30GM TUBE. TP SCH ×2 (09:00→23:24)
[2018-05-23 16:04] VITALS: BP 160/88
[2018-05-23] MEDS: hydrOXYzine HCL 25 MG TABLET PO PRN (17:02)
[2018-05-23] MEDS: ATORVASTATIN CALCIUM 20 MG TABLET PO SCH (20:02)
[2018-05-23] MEDS: MELATONIN 3 MG TABLET PO SCH (20:03)
[2018-05-23] MEDS: MIRTAZAPINE 15 MG TABLET PO SCH (20:03)
--- NOTE | 2018-05-23 20:09 | PDOC ---
Exam Note: Ye Note: Please also refer to the separate dictated note~for this date of service dictated separately.~Patient seen individually. Discussed the patient with Nursing staff reviewed the chart.~Reviewed interim history and current functioning. Reviewed vital signs,~Labs/ Radiology~and current medications noted below. Continue current treatment with the changes noted in the dictated addendum note Assessment: Vital Signs: Vital Signs Date Time Temp Pulse Resp B/P (MAP) Pulse Ox O2 Delivery O2 Flow Rate FiO2 05/23/18 16:04 98.3 101 18 160/88 (112) 96 05/20/18 15:44 Room Air I&O Intake and Output 05/23/18 06:59 Intake Total 840 ml Balance 840 ml Intake Oral 840 ml Current Medications: Meds: Current Medications Acetaminophen (Tylenol) 650 mg PRN Q4HRS PRN PO pain rated 4-6 on scale; Start 03/23/18 at 20:15 Hydrocortisone (Hytone) 1 shiraz BID TP Last administered on 05/01/18at 19:20; Start 03/23/18 at 21:00; Stop 05/02/18 at 10:37; Status DC Multi-Ingredient Ointment (Analgesic [place]) 1 shiraz PRN QID PRN TP MUSCLE PAIN; Start 03/23/18 at 20:15 Atorvastatin Calcium (Lipitor) 40 mg QHS PO Last administered on 05/23/18at 20: 02; Start 03/23/18 at 21:00 Bisacodyl (Dulcolax Supp) 10 mg PRN QHS PRN [place] CONSTIPATION; Start 03/23/18 at 20:45 Al Hydroxide/Mg Hydroxide (Mylanta Plus Xs) 30 ml PRN BID PRN PO DYSPEPSIA; Start 03/23/18 at 20:45 Magnesium Hydroxide (Milk Of Magnesia) 2,400 mg PRN DAILY PRN PO CONSTIPATION Last administered on 05/10/18at 20:08; Start 03/23/18 at 20:45 Citalopram Hydrobromide (CeleXA) 20 mg DAILY PO Last administered on 03/30/18at 07:42; Start 03/24/18 at 09:00; Stop 03/30/18 at 18:28; Status DC Divalproex Sodium (Depakote) 250 mg BID PO Last administered on 03/24/18at 07:38 ; Start 03/23/18 at 21:00; Stop 03/24/18 at 19:08; Status DC Lorazepam (Ativan) 0.25 mg PRN BID PRN PO ANXIETY / AGITATION Last administered on 04/14/18at 12:24; Start 03/23/18 at 20:45 Melatonin 3 mg QHS PO Last administered on 05/23/18 20:03; Start 03/23/18 at 21:00 Olanzapine (ZyPREXA ZYDIS) 2.5 mg PRN Q2HR PRN PO AGITATION/PSYCHOSIS Last administered on 05/19/18at 10:37; Start 03/23/18 at 20:45 Quetiapine Fumarate (SEROquel) 37.5 mg TID PO Last administered on 03/30/18 14 :04; Start 03/23/18 at 21:00; Stop 03/30/18 at 18:38; Status DC Trazodone HCl (Desyrel) 50 mg QHS PO Last administered on 05/23/18 20:02; Start 03/23/18 at 21:00 Divalproex Sodium (Depakote) 250 mg TID@0900,1300,1700 PO Last administered on 03/29/18at 16:05; Start 03/25/18 at 09:00; Stop 03/30/18 at 07:46; Status DC Mirtazapine (Remeron) 7.5 mg QHS PO Last administered on 03/29/18at 19:29; Start 03/29/18 at 21:00; Stop 03/30/18 at 18:28; Status DC Divalproex Sodium (Depakote Sprinkles) 250 mg TID@0900,1300,1700 PO Last administered on 03/31/18at 08:36; Start 03/30/18 at 09:00; Stop 03/31/18 at 13:22 ; Status DC Mirtazapine (Remeron) 15 mg QHS PO Last administered on 05/23/18 20:03; Start 03/30/18 at 21:00 Quetiapine Fumarate (SEROquel) 50 mg BID PO Last administered on 03/31/18 08: 36; Start 03/30/18 at 21:00; Stop 03/31/18 at 13:22; Status DC Sertraline HCl (Zoloft) 50 mg DAILY PO Last administered on 04/08/18at 07:34; Start 03/31/18 at 09:00; Stop 04/08/18 at 10:57; Status DC Quetiapine Fumarate (SEROquel) 37.5 mg DAILY@1300 PO Last administered on at 14:09; Start 03/31/18 at 13:00; Stop 03/31/18 at 16:00; Status DC Quetiapine Fumarate (SEROquel) 37.5 mg TID PO Last administered on 04/01/18at 19 :20; Start 03/31/18 at 21:00; Stop 04/02/18 at 08:00; Status DC Divalproex Sodium (Depakote Sprinkles) 250 mg BID PO Last administered on at 08:49; Start 03/31/18 at 21:00; Stop 04/01/18 at 18:16; Status DC Divalproex Sodium (Depakote Sprinkles) 250 mg DAILY PO ; Start 04/03/18 at 09:00 ; Stop 04/03/18 at 09:00; Status DC Divalproex Sodium (Depakote Sprinkles) 250 mg TID PO Last administered on at 13:35; Start 04/01/18 at 21:00; Stop 05/04/18 at 18:35; Status DC Quetiapine Fumarate (SEROquel) 37.5 mg BID@0900,1700 PO Last administered on at 16:55; Start 04/03/18 at 09:00; Stop 04/06/18 at 18:45; Status DC Trazodone HCl (Desyrel) 50 mg PRN QHS PRN PO INSOMNIA Last administered on at 22:25; Start 04/03/18 at 15:15 Hydroxyzine HCl (Atarax) 25 mg PRN Q4HRS PRN PO AGITATION/ANXIETY Last administered on 05/23/18at 17:02; Start 04/05/18 at 09:15 Quetiapine Fumarate (SEROquel) 50 mg BID94 PO Last administered on 04/08/18at 07 :34; Start 04/07/18 at 09:00; Stop 04/08/18 at 10:59; Status DC Sertraline HCl (Zoloft) 75 mg DAILY PO Last administered on 05/20/18at 08:48; Start 04/09/18 at 09:00; Stop 05/20/18 at 11:15; Status DC Quetiapine Fumarate (SEROquel) 62.5 mg BID@0900,1700 PO Last administered on 04/19/18at 17:41; Start 04/08/18 at 17:00; Stop 04/19/18 at 18:45; Status DC Trazodone HCl (Desyrel) 12.5 mg TID@0900,1300,1700 PO Last administered on at 07:55; Start 04/10/18 at 09:00; Stop 04/15/18 at 11:19; Status DC Trazodone HCl (Desyrel) 12.5 mg BID@1300,1700 PO Last administered on at 18:14; Start 04/15/18 at 13:00; Stop 04/27/18 at 19:01; Status DC Trazodone HCl (Desyrel) 25 mg DAILY PO Last administered on 04/27/18at 09:12; Start 04/16/18 at 09:00; Stop 04/27/18 at 19:01; Status DC Cetirizine HCl (ZyrTEC) 10 mg DAILY PO Last administered on 05/23/18at 07:51; Start 04/17/18 at 09:00 Quetiapine Fumarate (SEROquel) 62.5 mg DAILY PO Last administered on 04/21/18at 08:47; Start 04/20/18 at 09:00; Stop 04/21/18 at 19:21; Status DC Quetiapine Fumarate (SEROquel) 75 mg 1700 PO Last administered on 04/24/18at 17: 10; Start 04/20/18 at 17:00; Stop 04/25/18 at 17:12; Status DC Quetiapine Fumarate (SEROquel) 75 mg DAILY PO Last administered on 05/23/18at 07 :50; Start 04/22/18 at 09:00 Quetiapine Fumarate (SEROquel) 75 mg 1700 PO Last administered on 05/23/18at 17: 01; Start 04/25/18 at 17:15 Trazodone HCl (Desyrel) 12.5 mg DAILY@1700 PO Last administered on 05/23/18at 17 :00; Start 04/28/18 at 17:00 Trazodone HCl (Desyrel) 25 mg BID@0900,1300 PO Last administered on 05/23/18at 13:08; Start 04/28/18 at 09:00 Hydrocortisone (Cortaid) 1 shiraz BID TP Last administered on 05/22/18at 19:32; Start 05/02/18 at 21:00 Valproic Acid (Depakene) 250 mg TID PO Last administered on 05/23/18at 20:03; Start 05/04/18 at 21:00 Sertraline HCl (Zoloft) 100 mg DAILY PO Last administered on 05/23/18at 07:51; Start 05/21/18 at 09:00 Active Scripts Active Reported Olanzapine 5 Mg Tablet 2.5 Mg PO PRN Q2HR PRN Analgesic [place] (Methyl Salicylate/Menthol) 28 Gm Oint...g. 1 [place] TP PRN QID PRN Milk Of Magnesia (Magnesium Hydroxide) 2,400 Mg/10 Ml Oral.susp 2,400 Mg PO PRN DAILY PRN Hydrocortisone 453.6 Gm Oint...g. 1 [place] TP BID Celexa (Citalopram Hydrobromide) 20 Mg Tablet 20 Mg PO DAILY Alum-Mag Hydroxide-Simeth Liq (Mag Hydrox/Al Hydrox/Simeth) 360 Ml Oral.susp 30 Ml PO PRN BID PRN Lorazepam 0.5 Mg Tablet 0.25 Mg PO PRN BID PRN Divalproex Sodium 250 Mg Tablet.dr 250 Mg PO BID Seroquel (Quetiapine Fumarate) 25 Mg Tablet 37.5 Mg PO TID Melatonin 3 Mg Tablet 3 Mg PO QHS Trazodone Hcl 50 Mg Tablet 50 Mg PO QHS Atorvastatin Calcium 40 Mg Tablet 40 Mg PO HS Bisacodyl 10 Mg Supp.rect 10 Mg RC PRN QHS PRN Tylenol (Acetaminophen) 325 Mg Tablet 650 Mg PO PRN Q4HRS PRN I have reviewed the current psychotropics carefully including drug interactions. Risk benefit ratio favors no change other than as noted in my dictated progress note. Diagnosis: Problems: (1) Anxiety disorder (2) Impulse control disorder (3) Dementia, vascular, with depression (4) Dementia, vascular, with delusions (5) Dementia in Alzheimer's disease with depression (6) Dementia in Alzheimer's disease with delusions (7) Syncopal episodes (8) Hypertension ELVA STROUD MD May 23, 2018 20:09
--- NOTE | 2018-05-23 23:16 | PN ---
DATE: 05/21/2018 PSYCHIATRIC PROGRESS NOTE This is a late entry, 05/21, covers elements not covered in my initial note. SUBJECTIVE: I met with the patient in the evening. The patient remains confused, withdrawn, ambulates up and down the hallway, delusional. States she is filling a job application for her work here, compliant with medications. REVIEW OF SYSTEMS: No CV, , pulmonary, eye, ENT system symptoms on review. Reliability poor. MENTAL STATUS EXAM: Oriented to herself. Insight, judgment, recent and remote memory, attention, concentration, fund of knowledge poor, consistent with her diagnosis mentioned in my initial note. PLAN: No change from initial note. MAN Rachel STROUD MD DR: CHARLOTTE/fanny JOB#: [id number] / [id number]
--- NOTE | 2018-05-23 23:18 | PN ---
DATE: 05/22/2018 PSYCHIATRIC PROGRESS NOTE This is a late entry, 05/22, covers elements not covered in my initial note. SUBJECTIVE: I met with the patient in the evening. The patient continues to be confused, wanders up and down the hallway, somewhat delusional, believes she works here. Takes medications hidden in the morning in food, took them in the evening. REVIEW OF SYSTEMS: Fourteen-point review of systems negative. Reliability poor. No CV, , pulmonary, eye, ENT system symptoms on review. MENTAL STATUS EXAM: Oriented to herself. Insight, judgment, recent and remote memory, attention, concentration, fund of knowledge poor, consistent with her diagnosis mentioned in my initial note. PLAN: No change from initial note. MAN Rachel STROUD MD DR: CHARLOTTE/fanny JOB#: [id number] / [id number]
[2018-05-24 06:34] VITALS: BP 120/82
[2018-05-24] MEDS: SERTRALINE 100 MG TABLET. PO SCH (07:38)
[2018-05-24] MEDS: QUEtiapine 50 MG TABLET. PO SCH ×2 (07:38→16:19)
[2018-05-24] MEDS: traZODone 50 MG TABLET. PO SCH ×4 (07:38→19:56)
[2018-05-24] MEDS: CETIRIZINE HCL 10 MG TABLET PO SCH (07:38)
[2018-05-24] MEDS: VALPROATE ACID 250 MG/5 ML ORAL SOLUTION PO SCH ×3 (07:38→19:56)
[2018-05-24] MEDS: HYDROCORTISONE 1% TOPICAL CREAM 30GM TUBE. TP SCH ×2 (07:40→21:00)
[2018-05-24 16:22] VITALS: BP 120/63
[2018-05-24] MEDS: ATORVASTATIN CALCIUM 20 MG TABLET PO SCH (19:56)
[2018-05-24] MEDS: MIRTAZAPINE 15 MG TABLET PO SCH (19:56)
[2018-05-24] MEDS: MELATONIN 3 MG TABLET PO SCH (19:56)
[2018-05-24] MEDS: hydrOXYzine HCL 25 MG TABLET PO PRN (19:57)
--- NOTE | 2018-05-24 22:31 | PDOC ---
Exam Note: Ye Note: Please also refer to the separate dictated note~for this date of service dictated separately.~Patient seen individually. Discussed the patient with Nursing staff reviewed the chart.~Reviewed interim history and current functioning. Reviewed vital signs,~Labs/ Radiology~and current medications noted below. Continue current treatment with the changes noted in the dictated addendum note Assessment: Vital Signs: Vital Signs Date Time Temp Pulse Resp B/P (MAP) Pulse Ox O2 Delivery O2 Flow Rate FiO2 05/24/18 16:22 98.9 96 18 120/63 (82) 95 05/24/18 06:34 Room Air I&O Intake and Output 05/24/18 06:59 Intake Total 1080 ml Balance 1080 ml Intake Oral 1080 ml Current Medications: Meds: Current Medications Acetaminophen (Tylenol) 650 mg PRN Q4HRS PRN PO pain rated 4-6 on scale; Start 03/23/18 at 20:15 Hydrocortisone (Hytone) 1 shiraz BID TP Last administered on 05/01/18at 19:20; Start 03/23/18 at 21:00; Stop 05/02/18 at 10:37; Status DC Multi-Ingredient Ointment (Analgesic Delta) 1 shiraz PRN QID PRN TP MUSCLE PAIN; Start 03/23/18 at 20:15 Atorvastatin Calcium (Lipitor) 40 mg QHS PO Last administered on 05/24/18at 19: 56; Start 03/23/18 at 21:00 Bisacodyl (Dulcolax Supp) 10 mg PRN QHS PRN [place] CONSTIPATION; Start 03/23/18 at 20:45 Al Hydroxide/Mg Hydroxide (Mylanta Plus Xs) 30 ml PRN BID PRN PO DYSPEPSIA; Start 03/23/18 at 20:45 Magnesium Hydroxide (Milk Of Magnesia) 2,400 mg PRN DAILY PRN PO CONSTIPATION Last administered on 05/10/18at 20:08; Start 03/23/18 at 20:45 Citalopram Hydrobromide (CeleXA) 20 mg DAILY PO Last administered on 03/30/18at 07:42; Start 03/24/18 at 09:00; Stop 03/30/18 at 18:28; Status DC Divalproex Sodium (Depakote) 250 mg BID PO Last administered on 03/24/18at 07:38 ; Start 03/23/18 at 21:00; Stop 03/24/18 at 19:08; Status DC Lorazepam (Ativan) 0.25 mg PRN BID PRN PO ANXIETY / AGITATION Last administered on 04/14/18 12:24; Start 03/23/18 at 20:45 Melatonin 3 mg QHS PO Last administered on 05/24/18 19:56; Start 03/23/18 at 21:00 Olanzapine (ZyPREXA ZYDIS) 2.5 mg PRN Q2HR PRN PO AGITATION/PSYCHOSIS Last administered on 05/19/18 10:37; Start 03/23/18 at 20:45 Quetiapine Fumarate (SEROquel) 37.5 mg TID PO Last administered on 03/30/18 14 :04; Start 03/23/18 at 21:00; Stop 03/30/18 at 18:38; Status DC Trazodone HCl (Desyrel) 50 mg QHS PO Last administered on 05/24/18 19:56; Start 03/23/18 at 21:00 Divalproex Sodium (Depakote) 250 mg TID@0900,1300,1700 PO Last administered on 03/29/18at 16:05; Start 03/25/18 at 09:00; Stop 03/30/18 at 07:46; Status DC Mirtazapine (Remeron) 7.5 mg QHS PO Last administered on 03/29/18 19:29; Start 03/29/18 at 21:00; Stop 03/30/18 at 18:28; Status DC Divalproex Sodium (Depakote Sprinkles) 250 mg TID@0900,1300,1700 PO Last administered on 03/31/18 08:36; Start 03/30/18 at 09:00; Stop 03/31/18 at 13:22 ; Status DC Mirtazapine (Remeron) 15 mg QHS PO Last administered on 05/24/18 19:56; Start 03/30/18 at 21:00 Quetiapine Fumarate (SEROquel) 50 mg BID PO Last administered on 03/31/18 08: 36; Start 03/30/18 at 21:00; Stop 03/31/18 at 13:22; Status DC Sertraline HCl (Zoloft) 50 mg DAILY PO Last administered on 04/08/18at 07:34; Start 03/31/18 at 09:00; Stop 04/08/18 at 10:57; Status DC Quetiapine Fumarate (SEROquel) 37.5 mg DAILY@1300 PO Last administered on at 14:09; Start 03/31/18 at 13:00; Stop 03/31/18 at 16:00; Status DC Quetiapine Fumarate (SEROquel) 37.5 mg TID PO Last administered on 04/01/18at 19 :20; Start 03/31/18 at 21:00; Stop 04/02/18 at 08:00; Status DC Divalproex Sodium (Depakote Sprinkles) 250 mg BID PO Last administered on at 08:49; Start 03/31/18 at 21:00; Stop 04/01/18 at 18:16; Status DC Divalproex Sodium (Depakote Sprinkles) 250 mg DAILY PO ; Start 04/03/18 at 09:00 ; Stop 04/03/18 at 09:00; Status DC Divalproex Sodium (Depakote Sprinkles) 250 mg TID PO Last administered on at 13:35; Start 04/01/18 at 21:00; Stop 05/04/18 at 18:35; Status DC Quetiapine Fumarate (SEROquel) 37.5 mg BID@0900,1700 PO Last administered on at 16:55; Start 04/03/18 at 09:00; Stop 04/06/18 at 18:45; Status DC Trazodone HCl (Desyrel) 50 mg PRN QHS PRN PO INSOMNIA Last administered on at 22:25; Start 04/03/18 at 15:15 Hydroxyzine HCl (Atarax) 25 mg PRN Q4HRS PRN PO AGITATION/ANXIETY Last administered on 05/24/18at 19:57; Start 04/05/18 at 09:15 Quetiapine Fumarate (SEROquel) 50 mg BID94 PO Last administered on 04/08/18at 07 :34; Start 04/07/18 at 09:00; Stop 04/08/18 at 10:59; Status DC Sertraline HCl (Zoloft) 75 mg DAILY PO Last administered on 05/20/18at 08:48; Start 04/09/18 at 09:00; Stop 05/20/18 at 11:15; Status DC Quetiapine Fumarate (SEROquel) 62.5 mg BID@0900,1700 PO Last administered on 04/19/18at 17:41; Start 04/08/18 at 17:00; Stop 04/19/18 at 18:45; Status DC Trazodone HCl (Desyrel) 12.5 mg TID@0900,1300,1700 PO Last administered on at 07:55; Start 04/10/18 at 09:00; Stop 04/15/18 at 11:19; Status DC Trazodone HCl (Desyrel) 12.5 mg BID@1300,1700 PO Last administered on at 18:14; Start 04/15/18 at 13:00; Stop 04/27/18 at 19:01; Status DC Trazodone HCl (Desyrel) 25 mg DAILY PO Last administered on 04/27/18at 09:12; Start 04/16/18 at 09:00; Stop 04/27/18 at 19:01; Status DC Cetirizine HCl (ZyrTEC) 10 mg DAILY PO Last administered on 05/24/18at 07:38; Start 04/17/18 at 09:00 Quetiapine Fumarate (SEROquel) 62.5 mg DAILY PO Last administered on 04/21/18at 08:47; Start 04/20/18 at 09:00; Stop 04/21/18 at 19:21; Status DC Quetiapine Fumarate (SEROquel) 75 mg 1700 PO Last administered on 04/24/18at 17: 10; Start 04/20/18 at 17:00; Stop 04/25/18 at 17:12; Status DC Quetiapine Fumarate (SEROquel) 75 mg DAILY PO Last administered on 05/24/18at 07 :38; Start 04/22/18 at 09:00 Quetiapine Fumarate (SEROquel) 75 mg 1700 PO Last administered on 05/24/18at 16: 19; Start 04/25/18 at 17:15 Trazodone HCl (Desyrel) 12.5 mg DAILY@1700 PO Last administered on 05/24/18at 16 :18; Start 04/28/18 at 17:00 Trazodone HCl (Desyrel) 25 mg BID@0900,1300 PO Last administered on 05/24/18 12:25; Start 04/28/18 at 09:00 Hydrocortisone (Cortaid) 1 shiraz BID TP Last administered on 05/23/18at 23:24; Start 05/02/18 at 21:00 Valproic Acid (Depakene) 250 mg TID PO Last administered on 05/24/18 19:56; Start 05/04/18 at 21:00 Sertraline HCl (Zoloft) 100 mg DAILY PO Last administered on 05/24/18at 07:38; Start 05/21/18 at 09:00 Active Scripts Active Reported Olanzapine 5 Mg Tablet 2.5 Mg PO PRN Q2HR PRN Analgesic Delta (Methyl Salicylate/Menthol) 28 Gm Oint...g. 1 [place] TP PRN QID PRN Milk Of Magnesia (Magnesium Hydroxide) 2,400 Mg/10 Ml Oral.susp 2,400 Mg PO PRN DAILY PRN Hydrocortisone 453.6 Gm Oint...g. 1 [place]az TP BID Celexa (Citalopram Hydrobromide) 20 Mg Tablet 20 Mg PO DAILY Alum-Mag Hydroxide-Simeth Liq (Mag Hydrox/Al Hydrox/Simeth) 360 Ml Oral.susp 30 Ml PO PRN BID PRN Lorazepam 0.5 Mg Tablet 0.25 Mg PO PRN BID PRN Divalproex Sodium 250 Mg Tablet.dr 250 Mg PO BID Seroquel (Quetiapine Fumarate) 25 Mg Tablet 37.5 Mg PO TID Melatonin 3 Mg Tablet 3 Mg PO QHS Trazodone Hcl 50 Mg Tablet 50 Mg PO QHS Atorvastatin Calcium 40 Mg Tablet 40 Mg PO HS Bisacodyl 10 Mg Supp.rect 10 Mg RC PRN QHS PRN Tylenol (Acetaminophen) 325 Mg Tablet 650 Mg PO PRN Q4HRS PRN I have reviewed the current psychotropics carefully including drug interactions. Risk benefit ratio favors no change other than as noted in my dictated progress note. Diagnosis: Problems: (1) Anxiety disorder (2) Impulse control disorder (3) Dementia, vascular, with depression (4) Dementia, vascular, with delusions (5) Dementia in Alzheimer's disease with depression (6) Dementia in Alzheimer's disease with delusions (7) Syncopal episodes (8) Hypertension ELVA STROUD MD May 24, 2018 22:31
[2018-05-25 06:12] VITALS: BP 95/52
[2018-05-25] MEDS: VALPROATE ACID 250 MG/5 ML ORAL SOLUTION PO SCH ×3 (07:19→19:23)
[2018-05-25] MEDS: traZODone 50 MG TABLET. PO SCH ×4 (07:19→19:23)
[2018-05-25] MEDS: QUEtiapine 50 MG TABLET. PO SCH ×2 (07:20→16:30)
[2018-05-25] MEDS: CETIRIZINE HCL 10 MG TABLET PO SCH (07:20)
[2018-05-25] MEDS: SERTRALINE 100 MG TABLET. PO SCH (07:20)
[2018-05-25] MEDS: HYDROCORTISONE 1% TOPICAL CREAM 30GM TUBE. TP SCH ×2 (07:23→19:39)
--- NOTE | 2018-05-25 12:24 | PN ---
DATE: 05/23/2018 PSYCHIATRIC PROGRESS NOTE This is a late entry, 05/23, covers elements not covered in my initial note. SUBJECTIVE: I met with the patient in the evening. Overall, the patient remains confused, did well in the morning, quite irritable in the evening, believes she works here, quite delusional in this respect. Slept 8 hours previous night. REVIEW OF SYSTEMS: No CV, , pulmonary, eye, ENT system symptoms on review. Reliability poor. MENTAL STATUS EXAM: Oriented to herself. Insight, judgment, recent and remote memory, attention, concentration, fund of knowledge poor, consistent with her diagnosis mentioned in my initial note. PLAN: No change from initial note. ELVA STROUD MD DR: CHARLOTTE/fanny JOB#: [id number] / [id number]
[2018-05-25 16:13] VITALS: BP 126/72
[2018-05-25] MEDS: MIRTAZAPINE 15 MG TABLET PO SCH (19:22)
[2018-05-25] MEDS: MELATONIN 3 MG TABLET PO SCH (19:23)
[2018-05-25] MEDS: ATORVASTATIN CALCIUM 20 MG TABLET PO SCH (19:23)
[2018-05-25] MEDS: hydrOXYzine HCL 25 MG TABLET PO PRN (19:30)
--- NOTE | 2018-05-26 00:26 | PN ---
DATE: 05/24/2018 PSYCHIATRIC PROGRESS NOTE This is a late entry, 05/24, covers elements not covered in my initial note. SUBJECTIVE: I met with the patient in the evening. The patient slept 6-1/4 hours previous evening. She ambulates up and down the hallway, believe she works here, confused. REVIEW OF SYSTEMS: No CV, , pulmonary, eye, ENT system symptoms on review. Reliability poor. MENTAL STATUS EXAM: Oriented to herself. Insight, judgment, recent and remote memory, attention, concentration, fund of knowledge poor, consistent with her diagnosis from initial note. PLAN: No change from initial note. MAN Rachel STROUD MD DR: CHARLOTTE/fanny JOB#: [id number] / [id number]
[2018-05-26 05:42] VITALS: BP 107/55
[2018-05-26] MEDS: CETIRIZINE HCL 10 MG TABLET PO SCH (09:00)
[2018-05-26] MEDS: traZODone 50 MG TABLET. PO SCH ×4 (09:00→20:26)
[2018-05-26] MEDS: HYDROCORTISONE 1% TOPICAL CREAM 30GM TUBE. TP SCH ×2 (09:01→20:27)
[2018-05-26] MEDS: VALPROATE ACID 250 MG/5 ML ORAL SOLUTION PO SCH ×3 (09:01→20:26)
[2018-05-26] MEDS: QUEtiapine 50 MG TABLET. PO SCH ×2 (09:01→17:08)
[2018-05-26] MEDS: SERTRALINE 100 MG TABLET. PO SCH (09:01)
[2018-05-26] MEDS: MELATONIN 3 MG TABLET PO SCH (20:25)
[2018-05-26] MEDS: ATORVASTATIN CALCIUM 20 MG TABLET PO SCH (20:26)
[2018-05-26] MEDS: MIRTAZAPINE 15 MG TABLET PO SCH (20:27)
--- NOTE | 2018-05-27 00:21 | PN ---
DATE: 05/25/2018 PSYCHIATRIC PROGRESS NOTE This is a late entry, 05/25, covers elements not covered in my initial note. SUBJECTIVE: I met with the patient in the evening. The patient slept 8-1/2 hours previous evening, somewhat withdrawn, confused, reluctant to take medications, takes meds in food. REVIEW OF SYSTEMS: No CV, , pulmonary, eye, ENT system symptoms on review. Reliability poor. MENTAL STATUS EXAM: Oriented to herself. Insight, judgment, recent and remote memory, attention, concentration, fund of knowledge poor, consistent with her diagnosis mentioned in my initial note. PLAN: No change from initial note. MAN Rachel STROUD MD DR: CHARLOTTE/fanny JOB#: [id number] / [id number]
--- NOTE | 2018-05-27 02:48 | PDOC ---
Exam Note: Ye Note: Please also refer to the separate dictated note~for this date of service dictated separately.~Patient seen individually. Discussed the patient with Nursing staff reviewed the chart.~Reviewed interim history and current functioning. Reviewed vital signs,~Labs/ Radiology~and current medications noted below. Continue current treatment with the changes noted in the dictated addendum note Assessment: Vital Signs: Vital Signs Date Time Temp Pulse Resp B/P (MAP) Pulse Ox O2 Delivery O2 Flow Rate FiO2 05/26/18 05:42 97.8 70 16 107/55 (72) 93 05/25/18 16:13 Room Air I&O Intake and Output 05/27/18 07:00 Intake Total 940 ml Balance 940 ml Intake Oral 940 ml # Voids 1 Current Medications: Meds: Current Medications Acetaminophen (Tylenol) 650 mg PRN Q4HRS PRN PO pain rated 4-6 on scale; Start 03/23/18 at 20:15 Hydrocortisone (Hytone) 1 shiraz BID TP Last administered on 05/01/18at 19:20; Start 03/23/18 at 21:00; Stop 05/02/18 at 10:37; Status DC Multi-Ingredient Ointment (Analgesic [place]) 1 shiraz PRN QID PRN TP MUSCLE PAIN; Start 03/23/18 at 20:15 Atorvastatin Calcium (Lipitor) 40 mg QHS PO Last administered on 05/26/18at 20: 26; Start 03/23/18 at 21:00 Bisacodyl (Dulcolax Supp) 10 mg PRN QHS PRN ID CONSTIPATION; Start 03/23/18 at 20:45 Al Hydroxide/Mg Hydroxide (Mylanta Plus Xs) 30 ml PRN BID PRN PO DYSPEPSIA; Start 03/23/18 at 20:45 Magnesium Hydroxide (Milk Of Magnesia) 2,400 mg PRN DAILY PRN PO CONSTIPATION Last administered on 05/10/18at 20:08; Start 03/23/18 at 20:45 Citalopram Hydrobromide (CeleXA) 20 mg DAILY PO Last administered on 03/30/18at 07:42; Start 03/24/18 at 09:00; Stop 03/30/18 at 18:28; Status DC Divalproex Sodium (Depakote) 250 mg BID PO Last administered on 03/24/18at 07:38 ; Start 03/23/18 at 21:00; Stop 03/24/18 at 19:08; Status DC Lorazepam (Ativan) 0.25 mg PRN BID PRN PO ANXIETY / AGITATION Last administered on 04/14/18 12:24; Start 03/23/18 at 20:45 Melatonin 3 mg QHS PO Last administered on 05/26/18 20:25; Start 03/23/18 at 21:00 Olanzapine (ZyPREXA ZYDIS) 2.5 mg PRN Q2HR PRN PO AGITATION/PSYCHOSIS Last administered on 05/19/18 10:37; Start 03/23/18 at 20:45 Quetiapine Fumarate (SEROquel) 37.5 mg TID PO Last administered on 03/30/18 14 :04; Start 03/23/18 at 21:00; Stop 03/30/18 at 18:38; Status DC Trazodone HCl (Desyrel) 50 mg QHS PO Last administered on 05/26/18 20:26; Start 03/23/18 at 21:00 Divalproex Sodium (Depakote) 250 mg TID@0900,1300,1700 PO Last administered on 03/29/18at 16:05; Start 03/25/18 at 09:00; Stop 03/30/18 at 07:46; Status DC Mirtazapine (Remeron) 7.5 mg QHS PO Last administered on 03/29/18at 19:29; Start 03/29/18 at 21:00; Stop 03/30/18 at 18:28; Status DC Divalproex Sodium (Depakote Sprinkles) 250 mg TID@0900,1300,1700 PO Last administered on 03/31/18at 08:36; Start 03/30/18 at 09:00; Stop 03/31/18 at 13:22 ; Status DC Mirtazapine (Remeron) 15 mg QHS PO Last administered on 05/26/18at 20:27; Start 03/30/18 at 21:00 Quetiapine Fumarate (SEROquel) 50 mg BID PO Last administered on 03/31/18 08: 36; Start 03/30/18 at 21:00; Stop 6/20/18 at 13:22; Status DC Sertraline HCl (Zoloft) 50 mg DAILY PO Last administered on 04/08/18at 07:34; Start 03/31/18 at 09:00; Stop 04/08/18 at 10:57; Status DC Quetiapine Fumarate (SEROquel) 37.5 mg DAILY@1300 PO Last administered on at 14:09; Start 03/31/18 at 13:00; Stop 03/31/18 at 16:00; Status DC Quetiapine Fumarate (SEROquel) 37.5 mg TID PO Last administered on 04/01/18at 19 :20; Start 03/31/18 at 21:00; Stop 04/02/18 at 08:00; Status DC Divalproex Sodium (Depakote Sprinkles) 250 mg BID PO Last administered on at 08:49; Start 03/31/18 at 21:00; Stop 04/01/18 at 18:16; Status DC Divalproex Sodium (Depakote Sprinkles) 250 mg DAILY PO ; Start 04/03/18 at 09:00 ; Stop 04/03/18 at 09:00; Status DC Divalproex Sodium (Depakote Sprinkles) 250 mg TID PO Last administered on at 13:35; Start 04/01/18 at 21:00; Stop 05/04/18 at 18:35; Status DC Quetiapine Fumarate (SEROquel) 37.5 mg BID@0900,1700 PO Last administered on at 16:55; Start 04/03/18 at 09:00; Stop 04/06/18 at 18:45; Status DC Trazodone HCl (Desyrel) 50 mg PRN QHS PRN PO INSOMNIA Last administered on at 22:25; Start 04/03/18 at 15:15 Hydroxyzine HCl (Atarax) 25 mg PRN Q4HRS PRN PO AGITATION/ANXIETY Last administered on 05/25/18at 19:30; Start 04/05/18 at 09:15 Quetiapine Fumarate (SEROquel) 50 mg BID94 PO Last administered on 04/08/18at 07 :34; Start 04/07/18 at 09:00; Stop 04/08/18 at 10:59; Status DC Sertraline HCl (Zoloft) 75 mg DAILY PO Last administered on 05/20/18at 08:48; Start 04/09/18 at 09:00; Stop 05/20/18 at 11:15; Status DC Quetiapine Fumarate (SEROquel) 62.5 mg BID@0900,1700 PO Last administered on 04/19/18at 17:41; Start 04/08/18 at 17:00; Stop 04/19/18 at 18:45; Status DC Trazodone HCl (Desyrel) 12.5 mg TID@0900,1300,1700 PO Last administered on at 07:55; Start 04/10/18 at 09:00; Stop 04/15/18 at 11:19; Status DC Trazodone HCl (Desyrel) 12.5 mg BID@1300,1700 PO Last administered on at 18:14; Start 04/15/18 at 13:00; Stop 04/27/18 at 19:01; Status DC Trazodone HCl (Desyrel) 25 mg DAILY PO Last administered on 04/27/18at 09:12; Start 04/16/18 at 09:00; Stop 04/27/18 at 19:01; Status DC Cetirizine HCl (ZyrTEC) 10 mg DAILY PO Last administered on 05/26/18at 09:00; Start 04/17/18 at 09:00 Quetiapine Fumarate (SEROquel) 62.5 mg DAILY PO Last administered on 04/21/18at 08:47; Start 04/20/18 at 09:00; Stop 04/21/18 at 19:21; Status DC Quetiapine Fumarate (SEROquel) 75 mg 1700 PO Last administered on 04/24/18at 17: 10; Start 04/20/18 at 17:00; Stop 04/25/18 at 17:12; Status DC Quetiapine Fumarate (SEROquel) 75 mg DAILY PO Last administered on 05/26/18at 09 :01; Start 04/22/18 at 09:00 Quetiapine Fumarate (SEROquel) 75 mg 1700 PO Last administered on 05/26/18at 17: 08; Start 04/25/18 at 17:15 Trazodone HCl (Desyrel) 12.5 mg DAILY@1700 PO Last administered on 05/26/18at 17 :08; Start 04/28/18 at 17:00 Trazodone HCl (Desyrel) 25 mg BID@0900,1300 PO Last administered on 05/26/18at 14:00; Start 04/28/18 at 09:00 Hydrocortisone (Cortaid) 1 shiraz BID TP Last administered on 05/26/18at 20:27; Start 05/02/18 at 21:00 Valproic Acid (Depakene) 250 mg TID PO Last administered on 05/26/18at 20:26; Start 05/04/18 at 21:00 Sertraline HCl (Zoloft) 100 mg DAILY PO Last administered on 05/26/18at 09:01; Start 05/21/18 at 09:00 Active Scripts Active Reported Olanzapine 5 Mg Tablet 2.5 Mg PO PRN Q2HR PRN Analgesic [place] (Methyl Salicylate/Menthol) 28 Gm Oint...g. 1 [place] TP PRN QID PRN Milk Of Magnesia (Magnesium Hydroxide) 2,400 Mg/10 Ml Oral.susp 2,400 Mg PO PRN DAILY PRN Hydrocortisone 453.6 Gm Oint...g. 1 Shiraz TP BID Celexa (Citalopram Hydrobromide) 20 Mg Tablet 20 Mg PO DAILY Alum-Mag Hydroxide-Simeth Liq (Mag Hydrox/Al Hydrox/Simeth) 360 Ml Oral.susp 30 Ml PO PRN BID PRN Lorazepam 0.5 Mg Tablet 0.25 Mg PO PRN BID PRN Divalproex Sodium 250 Mg Tablet.dr 250 Mg PO BID Seroquel (Quetiapine Fumarate) 25 Mg Tablet 37.5 Mg PO TID Melatonin 3 Mg Tablet 3 Mg PO QHS Trazodone Hcl 50 Mg Tablet 50 Mg PO QHS Atorvastatin Calcium 40 Mg Tablet 40 Mg PO HS Bisacodyl 10 Mg Supp.rect 10 Mg RC PRN QHS PRN Tylenol (Acetaminophen) 325 Mg Tablet 650 Mg PO PRN Q4HRS PRN I have reviewed the current psychotropics carefully including drug interactions. Risk benefit ratio favors no change other than as noted in my dictated progress note. Diagnosis: Problems: (1) Anxiety disorder (2) Impulse control disorder (3) Dementia, vascular, with depression (4) Dementia, vascular, with delusions (5) Dementia in Alzheimer's disease with depression (6) Dementia in Alzheimer's disease with delusions (7) Syncopal episodes (8) Hypertension ELVA STROUD MD May 27, 2018 02:48
[2018-05-27 06:18] VITALS: BP 107/61
[2018-05-27] MEDS: VALPROATE ACID 250 MG/5 ML ORAL SOLUTION PO SCH ×3 (07:40→20:41)
[2018-05-27] MEDS: traZODone 50 MG TABLET. PO SCH ×4 (07:40→20:41)
[2018-05-27] MEDS: CETIRIZINE HCL 10 MG TABLET PO SCH (07:41)
[2018-05-27] MEDS: HYDROCORTISONE 1% TOPICAL CREAM 30GM TUBE. TP SCH ×2 (07:41→20:41)
[2018-05-27] MEDS: SERTRALINE 100 MG TABLET. PO SCH (07:41)
[2018-05-27] MEDS: QUEtiapine 50 MG TABLET. PO SCH ×2 (07:41→16:52)
[2018-05-27 15:59] VITALS: BP 118/73
--- NOTE | 2018-05-27 20:16 | PDOC ---
Exam Note: Ye Note: Please also refer to the separate dictated note~for this date of service dictated separately.~Patient seen individually. Discussed the patient with Nursing staff reviewed the chart.~Reviewed interim history and current functioning. Reviewed vital signs,~Labs/ Radiology~and current medications noted below. Continue current treatment with the changes noted in the dictated addendum note Assessment: Vital Signs: Vital Signs Date Time Temp Pulse Resp B/P (MAP) Pulse Ox O2 Delivery O2 Flow Rate FiO2 05/27/18 15:59 98.6 97 20 118/73 (88) 95 Room Air I&O Intake and Output 05/27/18 06:59 Intake Total 940 ml Balance 940 ml Intake Oral 940 ml # Voids 1 Current Medications: Meds: Current Medications Acetaminophen (Tylenol) 650 mg PRN Q4HRS PRN PO pain rated 4-6 on scale; Start 03/23/18 at 20:15 Hydrocortisone (Hytone) 1 shiraz BID TP Last administered on 05/01/18at 19:20; Start 03/23/18 at 21:00; Stop 05/02/18 at 10:37; Status DC Multi-Ingredient Ointment (Analgesic [place]) 1 shiraz PRN QID PRN TP MUSCLE PAIN; Start 03/23/18 at 20:15 Atorvastatin Calcium (Lipitor) 40 mg QHS PO Last administered on 05/26/18at 20: 26; Start 03/23/18 at 21:00 Bisacodyl (Dulcolax Supp) 10 mg PRN QHS PRN [place] CONSTIPATION; Start 03/23/18 at 20:45 Al Hydroxide/Mg Hydroxide (Mylanta Plus Xs) 30 ml PRN BID PRN PO DYSPEPSIA; Start 03/23/18 at 20:45 Magnesium Hydroxide (Milk Of Magnesia) 2,400 mg PRN DAILY PRN PO CONSTIPATION Last administered on 05/10/18at 20:08; Start 03/23/18 at 20:45 Citalopram Hydrobromide (CeleXA) 20 mg DAILY PO Last administered on 03/30/18at 07:42; Start 03/24/18 at 09:00; Stop 03/30/18 at 18:28; Status DC Divalproex Sodium (Depakote) 250 mg BID PO Last administered on 03/24/18at 07:38 ; Start 03/23/18 at 21:00; Stop 03/24/18 at 19:08; Status DC Lorazepam (Ativan) 0.25 mg PRN BID PRN PO ANXIETY / AGITATION Last administered on 04/14/18 12:24; Start 03/23/18 at 20:45 Melatonin 3 mg QHS PO Last administered on 05/26/18 20:25; Start 03/23/18 at 21:00 Olanzapine (ZyPREXA ZYDIS) 2.5 mg PRN Q2HR PRN PO AGITATION/PSYCHOSIS Last administered on 05/19/18at 10:37; Start 03/23/18 at 20:45 Quetiapine Fumarate (SEROquel) 37.5 mg TID PO Last administered on 03/30/18 14 :04; Start 03/23/18 at 21:00; Stop 03/30/18 at 18:38; Status DC Trazodone HCl (Desyrel) 50 mg QHS PO Last administered on 05/26/18 20:26; Start 03/23/18 at 21:00 Divalproex Sodium (Depakote) 250 mg TID@0900,1300,1700 PO Last administered on 03/29/18 16:05; Start 03/25/18 at 09:00; Stop 03/30/18 at 07:46; Status DC Mirtazapine (Remeron) 7.5 mg QHS PO Last administered on 03/29/18 19:29; Start 03/29/18 at 21:00; Stop 03/30/18 at 18:28; Status DC Divalproex Sodium (Depakote Sprinkles) 250 mg TID@0900,1300,1700 PO Last administered on 03/31/18at 08:36; Start 03/30/18 at 09:00; Stop 03/31/18 at 13:22 ; Status DC Mirtazapine (Remeron) 15 mg QHS PO Last administered on 05/26/18 20:27; Start 03/30/18 at 21:00 Quetiapine Fumarate (SEROquel) 50 mg BID PO Last administered on 03/31/18 08: 36; Start 03/30/18 at 21:00; Stop 03/31/18 at 13:22; Status DC Sertraline HCl (Zoloft) 50 mg DAILY PO Last administered on 04/08/18at 07:34; Start 03/31/18 at 09:00; Stop 04/08/18 at 10:57; Status DC Quetiapine Fumarate (SEROquel) 37.5 mg DAILY@1300 PO Last administered on at 14:09; Start 03/31/18 at 13:00; Stop 03/31/18 at 16:00; Status DC Quetiapine Fumarate (SEROquel) 37.5 mg TID PO Last administered on 04/01/18at 19 :20; Start 03/31/18 at 21:00; Stop 04/02/18 at 08:00; Status DC Divalproex Sodium (Depakote Sprinkles) 250 mg BID PO Last administered on at 08:49; Start 03/31/18 at 21:00; Stop 04/01/18 at 18:16; Status DC Divalproex Sodium (Depakote Sprinkles) 250 mg DAILY PO ; Start 04/03/18 at 09:00 ; Stop 04/03/18 at 09:00; Status DC Divalproex Sodium (Depakote Sprinkles) 250 mg TID PO Last administered on at 13:35; Start 04/01/18 at 21:00; Stop 05/04/18 at 18:35; Status DC Quetiapine Fumarate (SEROquel) 37.5 mg BID@0900,1700 PO Last administered on at 16:55; Start 04/03/18 at 09:00; Stop 04/06/18 at 18:45; Status DC Trazodone HCl (Desyrel) 50 mg PRN QHS PRN PO INSOMNIA Last administered on at 22:25; Start 04/03/18 at 15:15 Hydroxyzine HCl (Atarax) 25 mg PRN Q4HRS PRN PO AGITATION/ANXIETY Last administered on 05/25/18at 19:30; Start 04/05/18 at 09:15 Quetiapine Fumarate (SEROquel) 50 mg BID94 PO Last administered on 04/08/18at 07 :34; Start 04/07/18 at 09:00; Stop 04/08/18 at 10:59; Status DC Sertraline HCl (Zoloft) 75 mg DAILY PO Last administered on 05/20/18at 08:48; Start 04/09/18 at 09:00; Stop 05/20/18 at 11:15; Status DC Quetiapine Fumarate (SEROquel) 62.5 mg BID@0900,1700 PO Last administered on 04/19/18at 17:41; Start 04/08/18 at 17:00; Stop 04/19/18 at 18:45; Status DC Trazodone HCl (Desyrel) 12.5 mg TID@0900,1300,1700 PO Last administered on at 07:55; Start 04/10/18 at 09:00; Stop 04/15/18 at 11:19; Status DC Trazodone HCl (Desyrel) 12.5 mg BID@1300,1700 PO Last administered on at 18:14; Start 04/15/18 at 13:00; Stop 04/27/18 at 19:01; Status DC Trazodone HCl (Desyrel) 25 mg DAILY PO Last administered on 04/27/18at 09:12; Start 04/16/18 at 09:00; Stop 04/27/18 at 19:01; Status DC Cetirizine HCl (ZyrTEC) 10 mg DAILY PO Last administered on 05/27/18at 07:41; Start 04/17/18 at 09:00 Quetiapine Fumarate (SEROquel) 62.5 mg DAILY PO Last administered on 04/21/18at 08:47; Start 04/20/18 at 09:00; Stop 04/21/18 at 19:21; Status DC Quetiapine Fumarate (SEROquel) 75 mg 1700 PO Last administered on 04/24/18at 17: 10; Start 04/20/18 at 17:00; Stop 04/25/18 at 17:12; Status DC Quetiapine Fumarate (SEROquel) 75 mg DAILY PO Last administered on 05/27/18at 07 :41; Start 04/22/18 at 09:00 Quetiapine Fumarate (SEROquel) 75 mg 1700 PO Last administered on 05/27/18at 16: 52; Start 04/25/18 at 17:15 Trazodone HCl (Desyrel) 12.5 mg DAILY@1700 PO Last administered on 05/27/18at 16 :52; Start 04/28/18 at 17:00 Trazodone HCl (Desyrel) 25 mg BID@0900,1300 PO Last administered on 05/27/18at 11:49; Start 04/28/18 at 09:00 Hydrocortisone (Cortaid) 1 shiraz BID TP Last administered on 05/26/18at 20:27; Start 05/02/18 at 21:00 Valproic Acid (Depakene) 250 mg TID PO Last administered on 05/27/18at 13:27; Start 05/04/18 at 21:00 Sertraline HCl (Zoloft) 100 mg DAILY PO Last administered on 05/27/18at 07:41; Start 05/21/18 at 09:00 Active Scripts Active Reported Olanzapine 5 Mg Tablet 2.5 Mg PO PRN Q2HR PRN Analgesic [place] (Methyl Salicylate/Menthol) 28 Gm Oint...g. 1 [place] TP PRN QID PRN Milk Of Magnesia (Magnesium Hydroxide) 2,400 Mg/10 Ml Oral.susp 2,400 Mg PO PRN DAILY PRN Hydrocortisone 453.6 Gm Oint...g. 1 [place] TP BID Celexa (Citalopram Hydrobromide) 20 Mg Tablet 20 Mg PO DAILY Alum-Mag Hydroxide-Simeth Liq (Mag Hydrox/Al Hydrox/Simeth) 360 Ml Oral.susp 30 Ml PO PRN BID PRN Lorazepam 0.5 Mg Tablet 0.25 Mg PO PRN BID PRN Divalproex Sodium 250 Mg Tablet.dr 250 Mg PO BID Seroquel (Quetiapine Fumarate) 25 Mg Tablet 37.5 Mg PO TID Melatonin 3 Mg Tablet 3 Mg PO QHS Trazodone Hcl 50 Mg Tablet 50 Mg PO QHS Atorvastatin Calcium 40 Mg Tablet 40 Mg PO HS Bisacodyl 10 Mg Supp.rect 10 Mg RC PRN QHS PRN Tylenol (Acetaminophen) 325 Mg Tablet 650 Mg PO PRN Q4HRS PRN I have reviewed the current psychotropics carefully including drug interactions. Risk benefit ratio favors no change other than as noted in my dictated progress note. Diagnosis: Problems: (1) Anxiety disorder (2) Impulse control disorder (3) Dementia, vascular, with depression (4) Dementia, vascular, with delusions (5) Dementia in Alzheimer's disease with depression (6) Dementia in Alzheimer's disease with delusions (7) Syncopal episodes (8) Hypertension ELVA STROUD MD May 27, 2018 20:16
[2018-05-27] MEDS: MELATONIN 3 MG TABLET PO SCH (20:40)
[2018-05-27] MEDS: MIRTAZAPINE 15 MG TABLET PO SCH (20:41)
[2018-05-27] MEDS: ATORVASTATIN CALCIUM 20 MG TABLET PO SCH (20:41)
--- NOTE | 2018-05-27 20:52 | PDOC ---
Exam Note: Ye Note: Late entry for DOS May 25, 2018. Please also refer to the separate dictated note~for this date of service dictated separately.~Patient seen individually. Discussed the patient with Nursing staff reviewed the chart.~Reviewed interim history and current functioning. Reviewed vital signs,~Labs/ Radiology~and current medications noted below. Continue current treatment with the changes noted in the dictated addendum note Assessment: Vital Signs: VS - Last 72 Hours, by Label Date Time Temp Pulse Resp B/P (MAP) Pulse Ox O2 Delivery O2 Flow Rate FiO2 05/27/18 15:59 98.6 97 20 118/73 (88) 95 Room Air 05/27/18 06:18 97.7 55 16 107/61 (76) 97 05/26/18 05:42 97.8 70 16 107/55 (72) 93 05/25/18 16:13 97.8 96 20 126/72 (90) 97 Room Air 05/25/18 06:12 97.8 74 16 95/52 (66) 97 Vital Signs Date Time Temp Pulse Resp B/P (MAP) Pulse Ox O2 Delivery O2 Flow Rate FiO2 05/27/18 15:59 98.6 97 20 118/73 (88) 95 Room Air I&O Intake and Output 05/27/18 06:59 Intake Total 940 ml Balance 940 ml Intake Oral 940 ml # Voids 1 Current Medications: Meds: Current Medications Acetaminophen (Tylenol) 650 mg PRN Q4HRS PRN PO pain rated 4-6 on scale; Start 03/23/18 at 20:15 Hydrocortisone (Hytone) 1 shiraz BID TP Last administered on 05/01/18at 19:20; Start 03/23/18 at 21:00; Stop 05/02/18 at 10:37; Status DC Multi-Ingredient Ointment (Analgesic [place]) 1 shiraz PRN QID PRN TP MUSCLE PAIN; Start 03/23/18 at 20:15 Atorvastatin Calcium (Lipitor) 40 mg QHS PO Last administered on 05/27/18at 20: 41; Start 03/23/18 at 21:00 Bisacodyl (Dulcolax Supp) 10 mg PRN QHS PRN [place] CONSTIPATION; Start 03/23/18 at 20:45 Al Hydroxide/Mg Hydroxide (Mylanta Plus Xs) 30 ml PRN BID PRN PO DYSPEPSIA; Start 03/23/18 at 20:45 Magnesium Hydroxide (Milk Of Magnesia) 2,400 mg PRN DAILY PRN PO CONSTIPATION Last administered on 05/10/18at 20:08; Start 03/23/18 at 20:45 Citalopram Hydrobromide (CeleXA) 20 mg DAILY PO Last administered on 03/30/18at 07:42; Start 03/24/18 at 09:00; Stop 03/30/18 at 18:28; Status DC Divalproex Sodium (Depakote) 250 mg BID PO Last administered on 03/24/18at 07:38 ; Start 03/23/18 at 21:00; Stop 03/24/18 at 19:08; Status DC Lorazepam (Ativan) 0.25 mg PRN BID PRN PO ANXIETY / AGITATION Last administered on 04/14/18at 12:24; Start 03/23/18 at 20:45 Melatonin 3 mg QHS PO Last administered on 05/27/18at 20:40; Start 03/23/18 at 21:00 Olanzapine (ZyPREXA ZYDIS) 2.5 mg PRN Q2HR PRN PO AGITATION/PSYCHOSIS Last administered on 05/19/18at 10:37; Start 03/23/18 at 20:45 Quetiapine Fumarate (SEROquel) 37.5 mg TID PO Last administered on 03/30/18at 14 :04; Start 03/23/18 at 21:00; Stop 03/30/18 at 18:38; Status DC Trazodone HCl (Desyrel) 50 mg QHS PO Last administered on 05/27/18at 20:41; Start 03/23/18 at 21:00 Divalproex Sodium (Depakote) 250 mg TID@0900,1300,1700 PO Last administered on 03/29/18at 16:05; Start 03/25/18 at 09:00; Stop 03/30/18 at 07:46; Status DC Mirtazapine (Remeron) 7.5 mg QHS PO Last administered on 03/29/18at 19:29; Start 03/29/18 at 21:00; Stop 03/30/18 at 18:28; Status DC Divalproex Sodium (Depakote Sprinkles) 250 mg TID@0900,1300,1700 PO Last administered on 03/31/18at 08:36; Start 03/30/18 at 09:00; Stop 03/31/18 at 13:22 ; Status DC Mirtazapine (Remeron) 15 mg QHS PO Last administered on 05/27/18at 20:41; Start 03/30/18 at 21:00 Quetiapine Fumarate (SEROquel) 50 mg BID PO Last administered on 03/31/18at 08: 36; Start 03/30/18 at 21:00; Stop 03/31/18 at 13:22; Status DC Sertraline HCl (Zoloft) 50 mg DAILY PO Last administered on 04/08/18at 07:34; Start 03/31/18 at 09:00; Stop 04/08/18 at 10:57; Status DC Quetiapine Fumarate (SEROquel) 37.5 mg DAILY@1300 PO Last administered on at 14:09; Start 03/31/18 at 13:00; Stop 03/31/18 at 16:00; Status DC Quetiapine Fumarate (SEROquel) 37.5 mg TID PO Last administered on 04/01/18at 19 :20; Start 03/31/18 at 21:00; Stop 04/02/18 at 08:00; Status DC Divalproex Sodium (Depakote Sprinkles) 250 mg BID PO Last administered on at 08:49; Start 03/31/18 at 21:00; Stop 04/01/18 at 18:16; Status DC Divalproex Sodium (Depakote Sprinkles) 250 mg DAILY PO ; Start 04/03/18 at 09:00 ; Stop 04/03/18 at 09:00; Status DC Divalproex Sodium (Depakote Sprinkles) 250 mg TID PO Last administered on at 13:35; Start 04/01/18 at 21:00; Stop 05/04/18 at 18:35; Status DC Quetiapine Fumarate (SEROquel) 37.5 mg BID@0900,1700 PO Last administered on at 16:55; Start 04/03/18 at 09:00; Stop 04/06/18 at 18:45; Status DC Trazodone HCl (Desyrel) 50 mg PRN QHS PRN PO INSOMNIA Last administered on at 22:25; Start 04/03/18 at 15:15 Hydroxyzine HCl (Atarax) 25 mg PRN Q4HRS PRN PO AGITATION/ANXIETY Last administered on 05/25/18at 19:30; Start 04/05/18 at 09:15 Quetiapine Fumarate (SEROquel) 50 mg BID94 PO Last administered on 04/08/18at 07 :34; Start 04/07/18 at 09:00; Stop 04/08/18 at 10:59; Status DC Sertraline HCl (Zoloft) 75 mg DAILY PO Last administered on 05/20/18at 08:48; Start 04/09/18 at 09:00; Stop 05/20/18 at 11:15; Status DC Quetiapine Fumarate (SEROquel) 62.5 mg BID@0900,1700 PO Last administered on 04/19/18at 17:41; Start 04/08/18 at 17:00; Stop 04/19/18 at 18:45; Status DC Trazodone HCl (Desyrel) 12.5 mg TID@0900,1300,1700 PO Last administered on at 07:55; Start 04/10/18 at 09:00; Stop 04/15/18 at 11:19; Status DC Trazodone HCl (Desyrel) 12.5 mg BID@1300,1700 PO Last administered on at 18:14; Start 04/15/18 at 13:00; Stop 04/27/18 at 19:01; Status DC Trazodone HCl (Desyrel) 25 mg DAILY PO Last administered on 04/27/18at 09:12; Start 04/16/18 at 09:00; Stop 04/27/18 at 19:01; Status DC Cetirizine HCl (ZyrTEC) 10 mg DAILY PO Last administered on 05/27/18at 07:41; Start 04/17/18 at 09:00 Quetiapine Fumarate (SEROquel) 62.5 mg DAILY PO Last administered on 04/21/18at 08:47; Start 04/20/18 at 09:00; Stop 04/21/18 at 19:21; Status DC Quetiapine Fumarate (SEROquel) 75 mg 1700 PO Last administered on 04/24/18at 17: 10; Start 04/20/18 at 17:00; Stop 04/25/18 at 17:12; Status DC Quetiapine Fumarate (SEROquel) 75 mg DAILY PO Last administered on 05/27/18 07 :41; Start 04/22/18 at 09:00 Quetiapine Fumarate (SEROquel) 75 mg 1700 PO Last administered on 05/27/18 16: 52; Start 04/25/18 at 17:15 Trazodone HCl (Desyrel) 12.5 mg DAILY@1700 PO Last administered on 05/27/18 16 :52; Start 04/28/18 at 17:00 Trazodone HCl (Desyrel) 25 mg BID@0900,1300 PO Last administered on 05/27/18 11:49; Start 04/28/18 at 09:00 Hydrocortisone (Cortaid) 1 shiraz BID TP Last administered on 05/27/18at 20:41; Start 05/02/18 at 21:00 Valproic Acid (Depakene) 250 mg TID PO Last administered on 05/27/18 20:41; Start 05/04/18 at 21:00 Sertraline HCl (Zoloft) 100 mg DAILY PO Last administered on 05/27/18 07:41; Start 05/21/18 at 09:00 Active Scripts Active Reported Olanzapine 5 Mg Tablet 2.5 Mg PO PRN Q2HR PRN Analgesic [place] (Methyl Salicylate/Menthol) 28 Gm Oint...g. 1 [place] TP PRN QID PRN Milk Of Magnesia (Magnesium Hydroxide) 2,400 Mg/10 Ml Oral.susp 2,400 Mg PO PRN DAILY PRN Hydrocortisone 453.6 Gm Oint...g. 1 [place] TP BID Celexa (Citalopram Hydrobromide) 20 Mg Tablet 20 Mg PO DAILY Alum-Mag Hydroxide-Simeth Liq (Mag Hydrox/Al Hydrox/Simeth) 360 Ml Oral.susp 30 Ml PO PRN BID PRN Lorazepam 0.5 Mg Tablet 0.25 Mg PO PRN BID PRN Divalproex Sodium 250 Mg Tablet.dr 250 Mg PO BID Seroquel (Quetiapine Fumarate) 25 Mg Tablet 37.5 Mg PO TID Melatonin 3 Mg Tablet 3 Mg PO QHS Trazodone Hcl 50 Mg Tablet 50 Mg PO QHS Atorvastatin Calcium 40 Mg Tablet 40 Mg PO HS Bisacodyl 10 Mg Supp.rect 10 Mg RC PRN QHS PRN Tylenol (Acetaminophen) 325 Mg Tablet 650 Mg PO PRN Q4HRS PRN I have reviewed the current psychotropics carefully including drug interactions. Risk benefit ratio favors no change other than as noted in my dictated progress note. Diagnosis: Problems: (1) Anxiety disorder (2) Impulse control disorder (3) Dementia, vascular, with depression (4) Dementia, vascular, with delusions (5) Dementia in Alzheimer's disease with depression (6) Dementia in Alzheimer's disease with delusions (7) Syncopal episodes (8) Hypertension ELVA STROUD MD May 27, 2018 20:51
[2018-05-27] MEDS: LORazepam 0.5 MG TABLET PO PRN (21:40)
--- NOTE | 2018-05-27 22:32 | PN ---
DATE: 05/26/2018 PSYCHIATRIC PROGRESS NOTE This is a late entry 05/26/2018 covers elements not covered in my initial note. SUBJECTIVE: Met with the patient in the evening of 05/26/2018. The patient slept 8-1/4 hours previous night. She is compliant with medications, confused, believes she is working here, but redirects, confusion worse in the evening. REVIEW OF SYSTEMS: No CV, , pulmonary, eye, ENT system symptoms on review. MENTAL STATUS EXAM: Oriented to herself. Insight, judgment, recent and remote memory, attention, concentration, fund of knowledge is poor, consistent with her diagnoses mentioned in my initial note. PLAN: No change from initial note. Social service staff is arranging placement. ELVA STROUD MD DR: CHARLOTTE/fanny JOB#: [id number] / [id number]
--- NOTE | 2018-05-28 01:19 | PDOC ---
Exam Note: Ye Note: Please also refer to the separate dictated note~for this date of service dictated separately.~Patient seen individually. Discussed the patient with Nursing staff reviewed the chart.~Reviewed interim history and current functioning. Reviewed vital signs,~Labs/ Radiology~and current medications noted below. Continue current treatment with the changes noted in the dictated addendum note Assessment: Vital Signs: Vital Signs Date Time Temp Pulse Resp B/P (MAP) Pulse Ox O2 Delivery O2 Flow Rate FiO2 05/27/18 15:59 98.6 97 20 118/73 (88) 95 Room Air I&O Intake and Output 05/28/18 07:00 Intake Total 960 ml Balance 960 ml Intake Oral 960 ml # Voids 1 Current Medications: Meds: Current Medications Acetaminophen (Tylenol) 650 mg PRN Q4HRS PRN PO pain rated 4-6 on scale; Start 03/23/18 at 20:15 Hydrocortisone (Hytone) 1 shiraz BID TP Last administered on 05/01/18at 19:20; Start 03/23/18 at 21:00; Stop 05/02/18 at 10:37; Status DC Multi-Ingredient Ointment (Analgesic [place]) 1 shiraz PRN QID PRN TP MUSCLE PAIN; Start 03/23/18 at 20:15 Atorvastatin Calcium (Lipitor) 40 mg QHS PO Last administered on 05/27/18at 20: 41; Start 03/23/18 at 21:00 Bisacodyl (Dulcolax Supp) 10 mg PRN QHS PRN [place] CONSTIPATION; Start 03/23/18 at 20:45 Al Hydroxide/Mg Hydroxide (Mylanta Plus Xs) 30 ml PRN BID PRN PO DYSPEPSIA; Start 03/23/18 at 20:45 Magnesium Hydroxide (Milk Of Magnesia) 2,400 mg PRN DAILY PRN PO CONSTIPATION Last administered on 05/10/18at 20:08; Start 03/23/18 at 20:45 Citalopram Hydrobromide (CeleXA) 20 mg DAILY PO Last administered on 03/30/18at 07:42; Start 03/24/18 at 09:00; Stop 03/30/18 at 18:28; Status DC Divalproex Sodium (Depakote) 250 mg BID PO Last administered on 03/24/18at 07:38 ; Start 03/23/18 at 21:00; Stop 03/24/18 at 19:08; Status DC Lorazepam (Ativan) 0.25 mg PRN BID PRN PO ANXIETY / AGITATION Last administered on 05/27/18at 21:40; Start 03/23/18 at 20:45 Melatonin 3 mg QHS PO Last administered on 05/27/18at 20:40; Start 03/23/18 at 21:00 Olanzapine (ZyPREXA ZYDIS) 2.5 mg PRN Q2HR PRN PO AGITATION/PSYCHOSIS Last administered on 05/19/18at 10:37; Start 03/23/18 at 20:45 Quetiapine Fumarate (SEROquel) 37.5 mg TID PO Last administered on 03/30/18at 14 :04; Start 03/23/18 at 21:00; Stop 03/30/18 at 18:38; Status DC Trazodone HCl (Desyrel) 50 mg QHS PO Last administered on 05/27/18 20:41; Start 03/23/18 at 21:00 Divalproex Sodium (Depakote) 250 mg TID@0900,1300,1700 PO Last administered on 03/29/18 16:05; Start 03/25/18 at 09:00; Stop 03/30/18 at 07:46; Status DC Mirtazapine (Remeron) 7.5 mg QHS PO Last administered on 03/29/18at 19:29; Start 03/29/18 at 21:00; Stop 03/30/18 at 18:28; Status DC Divalproex Sodium (Depakote Sprinkles) 250 mg TID@0900,1300,1700 PO Last administered on 03/31/18at 08:36; Start 03/30/18 at 09:00; Stop 03/31/18 at 13:22 ; Status DC Mirtazapine (Remeron) 15 mg QHS PO Last administered on 05/27/18 20:41; Start 03/30/18 at 21:00 Quetiapine Fumarate (SEROquel) 50 mg BID PO Last administered on 03/31/18at 08: 36; Start 03/30/18 at 21:00; Stop 03/31/18 at 13:22; Status DC Sertraline HCl (Zoloft) 50 mg DAILY PO Last administered on 04/08/18at 07:34; Start 03/31/18 at 09:00; Stop 04/08/18 at 10:57; Status DC Quetiapine Fumarate (SEROquel) 37.5 mg DAILY@1300 PO Last administered on at 14:09; Start 03/31/18 at 13:00; Stop 03/31/18 at 16:00; Status DC Quetiapine Fumarate (SEROquel) 37.5 mg TID PO Last administered on 04/01/18at 19 :20; Start 03/31/18 at 21:00; Stop 04/02/18 at 08:00; Status DC Divalproex Sodium (Depakote Sprinkles) 250 mg BID PO Last administered on at 08:49; Start 03/31/18 at 21:00; Stop 04/01/18 at 18:16; Status DC Divalproex Sodium (Depakote Sprinkles) 250 mg DAILY PO ; Start 04/03/18 at 09:00 ; Stop 04/03/18 at 09:00; Status DC Divalproex Sodium (Depakote Sprinkles) 250 mg TID PO Last administered on at 13:35; Start 04/01/18 at 21:00; Stop 05/04/18 at 18:35; Status DC Quetiapine Fumarate (SEROquel) 37.5 mg BID@0900,1700 PO Last administered on at 16:55; Start 04/03/18 at 09:00; Stop 04/06/18 at 18:45; Status DC Trazodone HCl (Desyrel) 50 mg PRN QHS PRN PO INSOMNIA Last administered on at 22:25; Start 04/03/18 at 15:15 Hydroxyzine HCl (Atarax) 25 mg PRN Q4HRS PRN PO AGITATION/ANXIETY Last administered on 05/25/18at 19:30; Start 04/05/18 at 09:15 Quetiapine Fumarate (SEROquel) 50 mg BID94 PO Last administered on 04/08/18at 07 :34; Start 04/07/18 at 09:00; Stop 04/08/18 at 10:59; Status DC Sertraline HCl (Zoloft) 75 mg DAILY PO Last administered on 05/20/18at 08:48; Start 04/09/18 at 09:00; Stop 05/20/18 at 11:15; Status DC Quetiapine Fumarate (SEROquel) 62.5 mg BID@0900,1700 PO Last administered on 04/19/18at 17:41; Start 04/08/18 at 17:00; Stop 04/19/18 at 18:45; Status DC Trazodone HCl (Desyrel) 12.5 mg TID@0900,1300,1700 PO Last administered on at 07:55; Start 04/10/18 at 09:00; Stop 04/15/18 at 11:19; Status DC Trazodone HCl (Desyrel) 12.5 mg BID@1300,1700 PO Last administered on at 18:14; Start 04/15/18 at 13:00; Stop 04/27/18 at 19:01; Status DC Trazodone HCl (Desyrel) 25 mg DAILY PO Last administered on 04/27/18at 09:12; Start 04/16/18 at 09:00; Stop 04/27/18 at 19:01; Status DC Cetirizine HCl (ZyrTEC) 10 mg DAILY PO Last administered on 05/27/18at 07:41; Start 04/17/18 at 09:00 Quetiapine Fumarate (SEROquel) 62.5 mg DAILY PO Last administered on 04/21/18at 08:47; Start 04/20/18 at 09:00; Stop 04/21/18 at 19:21; Status DC Quetiapine Fumarate (SEROquel) 75 mg 1700 PO Last administered on 04/24/18at 17: 10; Start 04/20/18 at 17:00; Stop 04/25/18 at 17:12; Status DC Quetiapine Fumarate (SEROquel) 75 mg DAILY PO Last administered on 05/27/18at 07 :41; Start 04/22/18 at 09:00 Quetiapine Fumarate (SEROquel) 75 mg 1700 PO Last administered on 05/27/18at 16: 52; Start 04/25/18 at 17:15 Trazodone HCl (Desyrel) 12.5 mg DAILY@1700 PO Last administered on 05/27/18 16 :52; Start 04/28/18 at 17:00 Trazodone HCl (Desyrel) 25 mg BID@0900,1300 PO Last administered on 05/27/18at 11:49; Start 04/28/18 at 09:00 Hydrocortisone (Cortaid) 1 shiraz BID TP Last administered on 05/27/18at 20:41; Start 05/02/18 at 21:00 Valproic Acid (Depakene) 250 mg TID PO Last administered on 05/27/18 20:41; Start 05/04/18 at 21:00 Sertraline HCl (Zoloft) 100 mg DAILY PO Last administered on 05/27/18at 07:41; Start 05/21/18 at 09:00 Active Scripts Active Reported Olanzapine 5 Mg Tablet 2.5 Mg PO PRN Q2HR PRN Analgesic [place] (Methyl Salicylate/Menthol) 28 Gm Oint...g. 1 [place] TP PRN QID PRN Milk Of Magnesia (Magnesium Hydroxide) 2,400 Mg/10 Ml Oral.susp 2,400 Mg PO PRN DAILY PRN Hydrocortisone 453.6 Gm Oint...g. 1 [place] TP BID Celexa (Citalopram Hydrobromide) 20 Mg Tablet 20 Mg PO DAILY Alum-Mag Hydroxide-Simeth Liq (Mag Hydrox/Al Hydrox/Simeth) 360 Ml Oral.susp 30 Ml PO PRN BID PRN Lorazepam 0.5 Mg Tablet 0.25 Mg PO PRN BID PRN Divalproex Sodium 250 Mg Tablet.dr 250 Mg PO BID Seroquel (Quetiapine Fumarate) 25 Mg Tablet 37.5 Mg PO TID Melatonin 3 Mg Tablet 3 Mg PO QHS Trazodone Hcl 50 Mg Tablet 50 Mg PO QHS Atorvastatin Calcium 40 Mg Tablet 40 Mg PO HS Bisacodyl 10 Mg Supp.rect 10 Mg RC PRN QHS PRN Tylenol (Acetaminophen) 325 Mg Tablet 650 Mg PO PRN Q4HRS PRN I have reviewed the current psychotropics carefully including drug interactions. Risk benefit ratio favors no change other than as noted in my dictated progress note. Diagnosis: Problems: (1) Anxiety disorder (2) Impulse control disorder (3) Dementia, vascular, with depression (4) Dementia, vascular, with delusions (5) Dementia in Alzheimer's disease with depression (6) Dementia in Alzheimer's disease with delusions (7) Syncopal episodes (8) Hypertension ELVA STROUD MD May 28, 2018 01:19
[2018-05-28 05:56] VITALS: BP 169/77
[2018-05-28] MEDS: HYDROCORTISONE 1% TOPICAL CREAM 30GM TUBE. TP SCH ×2 (09:00→19:46)
[2018-05-28] MEDS: SERTRALINE 100 MG TABLET. PO SCH (10:18)
[2018-05-28] MEDS: traZODone 50 MG TABLET. PO SCH ×4 (10:18→19:46)
[2018-05-28] MEDS: QUEtiapine 50 MG TABLET. PO SCH ×2 (10:18→16:36)
[2018-05-28] MEDS: VALPROATE ACID 250 MG/5 ML ORAL SOLUTION PO SCH ×3 (10:19→19:45)
[2018-05-28] MEDS: CETIRIZINE HCL 10 MG TABLET PO SCH (10:19)
--- NOTE | 2018-05-28 12:45 | PN ---
DATE: 05/27/2018 PSYCHIATRIC PROGRESS NOTE This is a late entry, 05/27, covers elements not covered in my initial note. SUBJECTIVE: I met with the patient in the evening, staffed at treatment team meeting in the morning, reviewed the patient's history, diagnosis with staff. Transition plans to [facility] as is being coordinated by Social Service staff. REVIEW OF SYSTEMS: No CV, , pulmonary, eye, ENT system symptoms on review. Reliability poor. MENTAL STATUS EXAM: Oriented to herself. Insight, judgment, recent and remote memory, attention, concentration, fund of knowledge poor, consistent with her diagnosis mentioned in my initial note. PLAN: No change from initial note. MAN Rachel STROUD MD DR: CHARLOTTE/fanny JOB#: [id number] / [id number]
[2018-05-28 15:54] VITALS: BP 131/73
[2018-05-28] MEDS: MELATONIN 3 MG TABLET PO SCH (19:45)
[2018-05-28] MEDS: MIRTAZAPINE 15 MG TABLET PO SCH (19:46)
[2018-05-28] MEDS: ATORVASTATIN CALCIUM 20 MG TABLET PO SCH (19:46)
--- NOTE | 2018-05-28 20:22 | PDOC ---
Exam Note: Ye Note: Please also refer to the separate dictated note~for this date of service dictated separately.~Patient seen individually. Discussed the patient with Nursing staff reviewed the chart.~Reviewed interim history and current functioning. Reviewed vital signs,~Labs/ Radiology~and current medications noted below. Continue current treatment with the changes noted in the dictated addendum note Assessment: Vital Signs: Vital Signs Date Time Temp Pulse Resp B/P (MAP) Pulse Ox O2 Delivery O2 Flow Rate FiO2 05/28/18 15:54 98.4 110 20 131/73 (92) 95 Room Air I&O Intake and Output 05/28/18 06:59 Intake Total 960 ml Balance 960 ml Intake Oral 960 ml # Voids 1 Current Medications: Meds: Current Medications Acetaminophen (Tylenol) 650 mg PRN Q4HRS PRN PO pain rated 4-6 on scale; Start 03/23/18 at 20:15 Hydrocortisone (Hytone) 1 shiraz BID TP Last administered on 05/01/18at 19:20; Start 03/23/18 at 21:00; Stop 05/02/18 at 10:37; Status DC Multi-Ingredient Ointment (Analgesic [place]) 1 shiraz PRN QID PRN TP MUSCLE PAIN; Start 03/23/18 at 20:15 Atorvastatin Calcium (Lipitor) 40 mg QHS PO Last administered on 05/28/18at 19: 46; Start 03/23/18 at 21:00 Bisacodyl (Dulcolax Supp) 10 mg PRN QHS PRN [place] CONSTIPATION; Start 03/23/18 at 20:45 Al Hydroxide/Mg Hydroxide (Mylanta Plus Xs) 30 ml PRN BID PRN PO DYSPEPSIA; Start 03/23/18 at 20:45 Magnesium Hydroxide (Milk Of Magnesia) 2,400 mg PRN DAILY PRN PO CONSTIPATION Last administered on 05/10/18at 20:08; Start 03/23/18 at 20:45 Citalopram Hydrobromide (CeleXA) 20 mg DAILY PO Last administered on 03/30/18at 07:42; Start 03/24/18 at 09:00; Stop 03/30/18 at 18:28; Status DC Divalproex Sodium (Depakote) 250 mg BID PO Last administered on 03/24/18at 07:38 ; Start 03/23/18 at 21:00; Stop 03/24/18 at 19:08; Status DC Lorazepam (Ativan) 0.25 mg PRN BID PRN PO ANXIETY / AGITATION Last administered on 05/27/18at 21:40; Start 03/23/18 at 20:45 Melatonin 3 mg QHS PO Last administered on 05/28/18 19:45; Start 03/23/18 at 21:00 Olanzapine (ZyPREXA ZYDIS) 2.5 mg PRN Q2HR PRN PO AGITATION/PSYCHOSIS Last administered on 05/19/18at 10:37; Start 03/23/18 at 20:45 Quetiapine Fumarate (SEROquel) 37.5 mg TID PO Last administered on 03/30/18 14 :04; Start 03/23/18 at 21:00; Stop 03/30/18 at 18:38; Status DC Trazodone HCl (Desyrel) 50 mg QHS PO Last administered on 05/28/18 19:46; Start 03/23/18 at 21:00 Divalproex Sodium (Depakote) 250 mg TID@0900,1300,1700 PO Last administered on 03/29/18at 16:05; Start 03/25/18 at 09:00; Stop 03/30/18 at 07:46; Status DC Mirtazapine (Remeron) 7.5 mg QHS PO Last administered on 03/29/18at 19:29; Start 03/29/18 at 21:00; Stop 03/30/18 at 18:28; Status DC Divalproex Sodium (Depakote Sprinkles) 250 mg TID@0900,1300,1700 PO Last administered on 03/31/18at 08:36; Start 03/30/18 at 09:00; Stop 03/31/18 at 13:22 ; Status DC Mirtazapine (Remeron) 15 mg QHS PO Last administered on 05/28/18 19:46; Start 03/30/18 at 21:00 Quetiapine Fumarate (SEROquel) 50 mg BID PO Last administered on 03/31/18at 08: 36; Start 03/30/18 at 21:00; Stop 03/31/18 at 13:22; Status DC Sertraline HCl (Zoloft) 50 mg DAILY PO Last administered on 04/08/18at 07:34; Start 03/31/18 at 09:00; Stop 04/08/18 at 10:57; Status DC Quetiapine Fumarate (SEROquel) 37.5 mg DAILY@1300 PO Last administered on at 14:09; Start 03/31/18 at 13:00; Stop 03/31/18 at 16:00; Status DC Quetiapine Fumarate (SEROquel) 37.5 mg TID PO Last administered on 04/01/18at 19 :20; Start 03/31/18 at 21:00; Stop 04/02/18 at 08:00; Status DC Divalproex Sodium (Depakote Sprinkles) 250 mg BID PO Last administered on at 08:49; Start 03/31/18 at 21:00; Stop 04/01/18 at 18:16; Status DC Divalproex Sodium (Depakote Sprinkles) 250 mg DAILY PO ; Start 04/03/18 at 09:00 ; Stop 04/03/18 at 09:00; Status DC Divalproex Sodium (Depakote Sprinkles) 250 mg TID PO Last administered on at 13:35; Start 04/01/18 at 21:00; Stop 05/04/18 at 18:35; Status DC Quetiapine Fumarate (SEROquel) 37.5 mg BID@0900,1700 PO Last administered on at 16:55; Start 04/03/18 at 09:00; Stop 04/06/18 at 18:45; Status DC Trazodone HCl (Desyrel) 50 mg PRN QHS PRN PO INSOMNIA Last administered on at 22:25; Start 04/03/18 at 15:15 Hydroxyzine HCl (Atarax) 25 mg PRN Q4HRS PRN PO AGITATION/ANXIETY Last administered on 05/25/18at 19:30; Start 04/05/18 at 09:15 Quetiapine Fumarate (SEROquel) 50 mg BID94 PO Last administered on 04/08/18at 07 :34; Start 04/07/18 at 09:00; Stop 04/08/18 at 10:59; Status DC Sertraline HCl (Zoloft) 75 mg DAILY PO Last administered on 05/20/18at 08:48; Start 04/09/18 at 09:00; Stop 05/20/18 at 11:15; Status DC Quetiapine Fumarate (SEROquel) 62.5 mg BID@0900,1700 PO Last administered on 04/19/18at 17:41; Start 04/08/18 at 17:00; Stop 04/19/18 at 18:45; Status DC Trazodone HCl (Desyrel) 12.5 mg TID@0900,1300,1700 PO Last administered on at 07:55; Start 04/10/18 at 09:00; Stop 04/15/18 at 11:19; Status DC Trazodone HCl (Desyrel) 12.5 mg BID@1300,1700 PO Last administered on at 18:14; Start 04/15/18 at 13:00; Stop 04/27/18 at 19:01; Status DC Trazodone HCl (Desyrel) 25 mg DAILY PO Last administered on 04/27/18at 09:12; Start 04/16/18 at 09:00; Stop 04/27/18 at 19:01; Status DC Cetirizine HCl (ZyrTEC) 10 mg DAILY PO Last administered on 05/28/18at 10:19; Start 04/17/18 at 09:00 Quetiapine Fumarate (SEROquel) 62.5 mg DAILY PO Last administered on 04/21/18at 08:47; Start 04/20/18 at 09:00; Stop 04/21/18 at 19:21; Status DC Quetiapine Fumarate (SEROquel) 75 mg 1700 PO Last administered on 04/24/18at 17: 10; Start 04/20/18 at 17:00; Stop 04/25/18 at 17:12; Status DC Quetiapine Fumarate (SEROquel) 75 mg DAILY PO Last administered on 05/28/18at 10 :18; Start 04/22/18 at 09:00 Quetiapine Fumarate (SEROquel) 75 mg 1700 PO Last administered on 05/28/18at 16: 36; Start 04/25/18 at 17:15 Trazodone HCl (Desyrel) 12.5 mg DAILY@1700 PO Last administered on 05/28/18at 16 :36; Start 04/28/18 at 17:00 Trazodone HCl (Desyrel) 25 mg BID@0900,1300 PO Last administered on 05/28/18at 13:29; Start 04/28/18 at 09:00 Hydrocortisone (Cortaid) 1 shiraz BID TP Last administered on 05/28/18at 19:46; Start 05/02/18 at 21:00 Valproic Acid (Depakene) 250 mg TID PO Last administered on 05/28/18 19:45; Start 05/04/18 at 21:00 Sertraline HCl (Zoloft) 100 mg DAILY PO Last administered on 05/28/18at 10:18; Start 05/21/18 at 09:00 Active Scripts Active Reported Olanzapine 5 Mg Tablet 2.5 Mg PO PRN Q2HR PRN Analgesic [place] (Methyl Salicylate/Menthol) 28 Gm Oint...g. 1 [place] TP PRN QID PRN Milk Of Magnesia (Magnesium Hydroxide) 2,400 Mg/10 Ml Oral.susp 2,400 Mg PO PRN DAILY PRN Hydrocortisone 453.6 Gm Oint...g. 1 [place] TP BID Celexa (Citalopram Hydrobromide) 20 Mg Tablet 20 Mg PO DAILY Alum-Mag Hydroxide-Simeth Liq (Mag Hydrox/Al Hydrox/Simeth) 360 Ml Oral.susp 30 Ml PO PRN BID PRN Lorazepam 0.5 Mg Tablet 0.25 Mg PO PRN BID PRN Divalproex Sodium 250 Mg Tablet.dr 250 Mg PO BID Seroquel (Quetiapine Fumarate) 25 Mg Tablet 37.5 Mg PO TID Melatonin 3 Mg Tablet 3 Mg PO QHS Trazodone Hcl 50 Mg Tablet 50 Mg PO QHS Atorvastatin Calcium 40 Mg Tablet 40 Mg PO HS Bisacodyl 10 Mg Supp.rect 10 Mg RC PRN QHS PRN Tylenol (Acetaminophen) 325 Mg Tablet 650 Mg PO PRN Q4HRS PRN I have reviewed the current psychotropics carefully including drug interactions. Risk benefit ratio favors no change other than as noted in my dictated progress note. Diagnosis: Problems: (1) Anxiety disorder (2) Impulse control disorder (3) Dementia, vascular, with depression (4) Dementia, vascular, with delusions (5) Dementia in Alzheimer's disease with depression (6) Dementia in Alzheimer's disease with delusions (7) Syncopal episodes (8) Hypertension ELVA STROUD MD May 28, 2018 20:22
[2018-05-29 05:55] VITALS: BP 116/57
[2018-05-29] MEDS: VALPROATE ACID 250 MG/5 ML ORAL SOLUTION PO SCH ×3 (10:45→20:31)
[2018-05-29] MEDS: QUEtiapine 50 MG TABLET. PO SCH ×2 (10:45→17:03)
[2018-05-29] MEDS: traZODone 50 MG TABLET. PO SCH ×4 (10:45→20:30)
[2018-05-29] MEDS: SERTRALINE 100 MG TABLET. PO SCH (10:45)
[2018-05-29] MEDS: HYDROCORTISONE 1% TOPICAL CREAM 30GM TUBE. TP SCH ×2 (10:46→20:35)
[2018-05-29] MEDS: CETIRIZINE HCL 10 MG TABLET PO SCH (10:47)
[2018-05-29 16:26] VITALS: BP 117/67
[2018-05-29 16:58] LABS: BASO % 1 % (0-3); EOS # 0.3 x10^3/uL (0.0-0.7); EOS % 4 % (0-3); HEMATOCRIT 39.2 % (36.0-47.0); HEMOGLOBIN 13.5 g/dL (12.0-15.5); LYMPH # 2.2 x10^3/uL (1.0-4.8); LYMPH % 32 % (24-48); MEAN CORPUSCULAR HEMOGLOBIN 30 pg (25-35); MEAN CORPUSCULAR HGB CONC 34 g/dL (31-37); MEAN CORPUSCULAR VOLUME 87 fL (79-100); MONO # 0.8 x10^3/uL (0.0-1.1); MONO % 11 % (0-9); NEUT # 3.7 x10^3uL (1.8-7.7); NEUT % 53 % (31-73); PLATELET COUNT 292 x10^3/uL (140-400); RED BLOOD COUNT 4.48 x10^6/uL (3.50-5.40); RED CELL DISTRIBUTION WIDTH 15.3 % (11.5-14.5)
[2018-05-29 17:10] LABS: ALBUMIN 3.5 g/dL (3.4-5.0); ALBUMIN/GLOBULIN RATIO 0.9 (1.0-1.7); CALCIUM 9.1 mg/dL (8.5-10.1); CREATININE 0.9 mg/dL (0.6-1.0); GFR 61.5; POTASSIUM 4.4 mmol/L (3.5-5.1); TOTAL BILIRUBIN 0.4 mg/dL (0.2-1.0); TOTAL PROTEIN 7.5 g/dL (6.4-8.2)
[2018-05-29] MEDS: MIRTAZAPINE 15 MG TABLET PO SCH (20:30)
[2018-05-29] MEDS: MELATONIN 3 MG TABLET PO SCH (20:30)
[2018-05-29] MEDS: ATORVASTATIN CALCIUM 20 MG TABLET PO SCH (20:30)
--- NOTE | 2018-05-29 22:15 | PDOC ---
Exam Note: Ye Note: Please also refer to the separate dictated note~for this date of service dictated separately.~Patient seen individually. Discussed the patient with Nursing staff reviewed the chart.~Reviewed interim history and current functioning. Reviewed vital signs,~Labs/ Radiology~and current medications noted below. Continue current treatment with the changes noted in the dictated addendum note Assessment: Vital Signs: Vital Signs Date Time Temp Pulse Resp B/P (MAP) Pulse Ox O2 Delivery O2 Flow Rate FiO2 05/29/18 16:26 97.2 107 20 117/67 (84) 95 05/28/18 15:54 Room Air I&O Intake and Output 05/29/18 07:01 Intake Total 600 ml Balance 600 ml Intake Oral 600 ml Labs: Laboratory Tests Test 05/29/18 16:53 White Blood Count 7.0 x10^3/uL (4.0-11.0) Red Blood Count 4.48 x10^6/uL (3.50-5.40) Hemoglobin 13.5 g/dL (12.0-15.5) Hematocrit 39.2 % (36.0-47.0) Mean Corpuscular Volume 87 fL (79-100) Mean Corpuscular Hemoglobin 30 pg (25-35) Mean Corpuscular Hemoglobin Concent 34 g/dL (31-37) Red Cell Distribution Width 15.3 % (11.5-14.5) H Platelet Count 292 x10^3/uL (140-400) Neutrophils (%) (Auto) 53 % (31-73) Lymphocytes (%) (Auto) 32 % (24-48) Monocytes (%) (Auto) 11 % (0-9) H Eosinophils (%) (Auto) 4 % (0-3) H Basophils (%) (Auto) 1 % (0-3) Neutrophils # (Auto) 3.7 x10^3uL (1.8-7.7) Lymphocytes # (Auto) 2.2 x10^3/uL (1.0-4.8) Monocytes # (Auto) 0.8 x10^3/uL (0.0-1.1) Eosinophils # (Auto) 0.3 x10^3/uL (0.0-0.7) Basophils # (Auto) 0.0 x10^3/uL (0.0-0.2) Sodium Level 142 mmol/L (136-145) Potassium Level 4.4 mmol/L (3.5-5.1) Chloride Level 105 mmol/L (98-107) Carbon Dioxide Level 32 mmol/L (21-32) Anion Gap 5 (6-14) L Blood Urea Nitrogen 27 mg/dL (7-20) H Creatinine 0.9 mg/dL (0.6-1.0) Estimated GFR (Cockcroft-Gault) 61.5 BUN/Creatinine Ratio 30 (6-20) H Glucose Level 107 mg/dL (70-99) H Calcium Level 9.1 mg/dL (8.5-10.1) Total Bilirubin 0.4 mg/dL (0.2-1.0) Aspartate Amino Transferase (AST) 17 U/L (15-37) Alanine Aminotransferase (ALT) 18 U/L (14-59) Alkaline Phosphatase 97 U/L (46-116) Total Protein 7.5 g/dL (6.4-8.2) Albumin 3.5 g/dL (3.4-5.0) Albumin/Globulin Ratio 0.9 (1.0-1.7) L Current Medications: Meds: Current Medications Acetaminophen (Tylenol) 650 mg PRN Q4HRS PRN PO pain rated 4-6 on scale; Start 03/23/18 at 20:15 Hydrocortisone (Hytone) 1 shiraz BID TP Last administered on 05/01/18at 19:20; Start 03/23/18 at 21:00; Stop 05/02/18 at 10:37; Status DC Multi-Ingredient Ointment (Analgesic [place]) 1 shiraz PRN QID PRN TP MUSCLE PAIN; Start 03/23/18 at 20:15 Atorvastatin Calcium (Lipitor) 40 mg QHS PO Last administered on 05/29/18at 20: 30; Start 03/23/18 at 21:00 Bisacodyl (Dulcolax Supp) 10 mg PRN QHS PRN [place] CONSTIPATION; Start 03/23/18 at 20:45 Al Hydroxide/Mg Hydroxide (Mylanta Plus Xs) 30 ml PRN BID PRN PO DYSPEPSIA; Start 03/23/18 at 20:45 Magnesium Hydroxide (Milk Of Magnesia) 2,400 mg PRN DAILY PRN PO CONSTIPATION Last administered on 05/10/18at 20:08; Start 03/23/18 at 20:45 Citalopram Hydrobromide (CeleXA) 20 mg DAILY PO Last administered on 03/30/18at 07:42; Start 03/24/18 at 09:00; Stop 03/30/18 at 18:28; Status DC Divalproex Sodium (Depakote) 250 mg BID PO Last administered on 03/24/18 07:38 ; Start 03/23/18 at 21:00; Stop 03/24/18 at 19:08; Status DC Lorazepam (Ativan) 0.25 mg PRN BID PRN PO ANXIETY / AGITATION Last administered on 05/27/18 21:40; Start 03/23/18 at 20:45 Melatonin 3 mg QHS PO Last administered on 05/29/18 20:30; Start 03/23/18 at 21:00 Olanzapine (ZyPREXA ZYDIS) 2.5 mg PRN Q2HR PRN PO AGITATION/PSYCHOSIS Last administered on 05/19/18at 10:37; Start 03/23/18 at 20:45 Quetiapine Fumarate (SEROquel) 37.5 mg TID PO Last administered on 03/30/18 14 :04; Start 03/23/18 at 21:00; Stop 03/30/18 at 18:38; Status DC Trazodone HCl (Desyrel) 50 mg QHS PO Last administered on 05/29/18 20:30; Start 03/23/18 at 21:00 Divalproex Sodium (Depakote) 250 mg TID@0900,1300,1700 PO Last administered on 03/29/18at 16:05; Start 03/25/18 at 09:00; Stop 03/30/18 at 07:46; Status DC Mirtazapine (Remeron) 7.5 mg QHS PO Last administered on 03/29/18 19:29; Start 03/29/18 at 21:00; Stop 03/30/18 at 18:28; Status DC Divalproex Sodium (Depakote Sprinkles) 250 mg TID@0900,1300,1700 PO Last administered on 03/31/18at 08:36; Start 03/30/18 at 09:00; Stop 03/31/18 at 13:22 ; Status DC Mirtazapine (Remeron) 15 mg QHS PO Last administered on 05/29/18at 20:30; Start 03/30/18 at 21:00 Quetiapine Fumarate (SEROquel) 50 mg BID PO Last administered on 03/31/18at 08: 36; Start 03/30/18 at 21:00; Stop 03/31/18 at 13:22; Status DC Sertraline HCl (Zoloft) 50 mg DAILY PO Last administered on 04/08/18at 07:34; Start 03/31/18 at 09:00; Stop 04/08/18 at 10:57; Status DC Quetiapine Fumarate (SEROquel) 37.5 mg DAILY@1300 PO Last administered on at 14:09; Start 03/31/18 at 13:00; Stop 03/31/18 at 16:00; Status DC Quetiapine Fumarate (SEROquel) 37.5 mg TID PO Last administered on 04/01/18at 19 :20; Start 03/31/18 at 21:00; Stop 04/02/18 at 08:00; Status DC Divalproex Sodium (Depakote Sprinkles) 250 mg BID PO Last administered on at 08:49; Start 03/31/18 at 21:00; Stop 04/01/18 at 18:16; Status DC Divalproex Sodium (Depakote Sprinkles) 250 mg DAILY PO ; Start 04/03/18 at 09:00 ; Stop 04/03/18 at 09:00; Status DC Divalproex Sodium (Depakote Sprinkles) 250 mg TID PO Last administered on at 13:35; Start 04/01/18 at 21:00; Stop 05/04/18 at 18:35; Status DC Quetiapine Fumarate (SEROquel) 37.5 mg BID@0900,1700 PO Last administered on at 16:55; Start 04/03/18 at 09:00; Stop 04/06/18 at 18:45; Status DC Trazodone HCl (Desyrel) 50 mg PRN QHS PRN PO INSOMNIA Last administered on at 22:25; Start 04/03/18 at 15:15 Hydroxyzine HCl (Atarax) 25 mg PRN Q4HRS PRN PO AGITATION/ANXIETY Last administered on 05/25/18at 19:30; Start 04/05/18 at 09:15 Quetiapine Fumarate (SEROquel) 50 mg BID94 PO Last administered on 04/08/18at 07 :34; Start 04/07/18 at 09:00; Stop 04/08/18 at 10:59; Status DC Sertraline HCl (Zoloft) 75 mg DAILY PO Last administered on 05/20/18at 08:48; Start 04/09/18 at 09:00; Stop 05/20/18 at 11:15; Status DC Quetiapine Fumarate (SEROquel) 62.5 mg BID@0900,1700 PO Last administered on 04/19/18at 17:41; Start 04/08/18 at 17:00; Stop 04/19/18 at 18:45; Status DC Trazodone HCl (Desyrel) 12.5 mg TID@0900,1300,1700 PO Last administered on at 07:55; Start 04/10/18 at 09:00; Stop 04/15/18 at 11:19; Status DC Trazodone HCl (Desyrel) 12.5 mg BID@1300,1700 PO Last administered on at 18:14; Start 04/15/18 at 13:00; Stop 04/27/18 at 19:01; Status DC Trazodone HCl (Desyrel) 25 mg DAILY PO Last administered on 04/27/18at 09:12; Start 04/16/18 at 09:00; Stop 04/27/18 at 19:01; Status DC Cetirizine HCl (ZyrTEC) 10 mg DAILY PO Last administered on 05/29/18at 10:47; Start 04/17/18 at 09:00 Quetiapine Fumarate (SEROquel) 62.5 mg DAILY PO Last administered on 04/21/18at 08:47; Start 04/20/18 at 09:00; Stop 04/21/18 at 19:21; Status DC Quetiapine Fumarate (SEROquel) 75 mg 1700 PO Last administered on 04/24/18at 17: 10; Start 04/20/18 at 17:00; Stop 04/25/18 at 17:12; Status DC Quetiapine Fumarate (SEROquel) 75 mg DAILY PO Last administered on 05/29/18at 10 :45; Start 04/22/18 at 09:00 Quetiapine Fumarate (SEROquel) 75 mg 1700 PO Last administered on 05/29/18 17: 03; Start 04/25/18 at 17:15 Trazodone HCl (Desyrel) 12.5 mg DAILY@1700 PO Last administered on 05/29/18 17 :03; Start 04/28/18 at 17:00 Trazodone HCl (Desyrel) 25 mg BID@0900,1300 PO Last administered on 05/29/18 13:33; Start 04/28/18 at 09:00 Hydrocortisone (Cortaid) 1 shiraz BID TP Last administered on 05/29/18 20:35; Start 05/02/18 at 21:00 Valproic Acid (Depakene) 250 mg TID PO Last administered on 05/29/18at 20:31; Start 05/04/18 at 21:00 Sertraline HCl (Zoloft) 100 mg DAILY PO Last administered on 05/29/18at 10:45; Start 05/21/18 at 09:00 Active Scripts Active Reported Olanzapine 5 Mg Tablet 2.5 Mg PO PRN Q2HR PRN Analgesic [place] (Methyl Salicylate/Menthol) 28 Gm Oint...g. 1 [place] TP PRN QID PRN Milk Of Magnesia (Magnesium Hydroxide) 2,400 Mg/10 Ml Oral.susp 2,400 Mg PO PRN DAILY PRN Hydrocortisone 453.6 Gm Oint...g. 1 [place]az TP BID Celexa (Citalopram Hydrobromide) 20 Mg Tablet 20 Mg PO DAILY Alum-Mag Hydroxide-Simeth Liq (Mag Hydrox/Al Hydrox/Simeth) 360 Ml Oral.susp 30 Ml PO PRN BID PRN Lorazepam 0.5 Mg Tablet 0.25 Mg PO PRN BID PRN Divalproex Sodium 250 Mg Tablet.dr 250 Mg PO BID Seroquel (Quetiapine Fumarate) 25 Mg Tablet 37.5 Mg PO TID Melatonin 3 Mg Tablet 3 Mg PO QHS Trazodone Hcl 50 Mg Tablet 50 Mg PO QHS Atorvastatin Calcium 40 Mg Tablet 40 Mg PO HS Bisacodyl 10 Mg Supp.rect 10 Mg RC PRN QHS PRN Tylenol (Acetaminophen) 325 Mg Tablet 650 Mg PO PRN Q4HRS PRN I have reviewed the current psychotropics carefully including drug interactions. Risk benefit ratio favors no change other than as noted in my dictated progress note. Diagnosis: Problems: (1) Anxiety disorder (2) Impulse control disorder (3) Dementia, vascular, with depression (4) Dementia, vascular, with delusions (5) Dementia in Alzheimer's disease with depression (6) Dementia in Alzheimer's disease with delusions (7) Syncopal episodes (8) Hypertension ELVA STROUD MD May 29, 2018 22:15
[2018-05-30 05:51] VITALS: BP 100/50
[2018-05-30] MEDS: HYDROCORTISONE 1% TOPICAL CREAM 30GM TUBE. TP SCH ×2 (09:00→19:51)
[2018-05-30] MEDS: CETIRIZINE HCL 10 MG TABLET PO SCH (11:41)
[2018-05-30] MEDS: QUEtiapine 50 MG TABLET. PO SCH ×2 (11:41→17:08)
[2018-05-30] MEDS: traZODone 50 MG TABLET. PO SCH ×4 (11:42→19:49)
[2018-05-30] MEDS: SERTRALINE 100 MG TABLET. PO SCH (11:42)
[2018-05-30] MEDS: VALPROATE ACID 250 MG/5 ML ORAL SOLUTION PO SCH ×3 (11:43→19:49)
[2018-05-30] MEDS: ATORVASTATIN CALCIUM 20 MG TABLET PO SCH (19:49)
[2018-05-30] MEDS: MELATONIN 3 MG TABLET PO SCH (19:49)
[2018-05-30] MEDS: MIRTAZAPINE 15 MG TABLET PO SCH (19:50)
--- NOTE | 2018-05-30 20:52 | PDOC ---
Exam Note: Ye Note: Please also refer to the separate dictated note~for this date of service dictated separately.~Patient seen individually. Discussed the patient with Nursing staff reviewed the chart.~Reviewed interim history and current functioning. Reviewed vital signs,~Labs/ Radiology~and current medications noted below. Continue current treatment with the changes noted in the dictated addendum note Assessment: Vital Signs: Vital Signs Date Time Temp Pulse Resp B/P (MAP) Pulse Ox O2 Delivery O2 Flow Rate FiO2 05/30/18 05:51 97.5 56 16 100/50 (67) 96 05/28/18 15:54 Room Air I&O Intake and Output 05/30/18 07:01 Intake Total 600 ml Balance 600 ml Intake Oral 600 ml Current Medications: Meds: Current Medications Acetaminophen (Tylenol) 650 mg PRN Q4HRS PRN PO pain rated 4-6 on scale; Start 03/23/18 at 20:15 Hydrocortisone (Hytone) 1 shiraz BID TP Last administered on 05/01/18at 19:20; Start 03/23/18 at 21:00; Stop 05/02/18 at 10:37; Status DC Multi-Ingredient Ointment (Analgesic [place]) 1 shiraz PRN QID PRN TP MUSCLE PAIN; Start 03/23/18 at 20:15 Atorvastatin Calcium (Lipitor) 40 mg QHS PO Last administered on 05/30/18at 19: 49; Start 03/23/18 at 21:00 Bisacodyl (Dulcolax Supp) 10 mg PRN QHS PRN [place] CONSTIPATION; Start 03/23/18 at 20:45 Al Hydroxide/Mg Hydroxide (Mylanta Plus Xs) 30 ml PRN BID PRN PO DYSPEPSIA; Start 03/23/18 at 20:45 Magnesium Hydroxide (Milk Of Magnesia) 2,400 mg PRN DAILY PRN PO CONSTIPATION Last administered on 05/10/18at 20:08; Start 03/23/18 at 20:45 Citalopram Hydrobromide (CeleXA) 20 mg DAILY PO Last administered on 03/30/18at 07:42; Start 03/24/18 at 09:00; Stop 03/30/18 at 18:28; Status DC Divalproex Sodium (Depakote) 250 mg BID PO Last administered on 03/24/18at 07:38 ; Start 03/23/18 at 21:00; Stop 03/24/18 at 19:08; Status DC Lorazepam (Ativan) 0.25 mg PRN BID PRN PO ANXIETY / AGITATION Last administered on 05/27/18at 21:40; Start 03/23/18 at 20:45 Melatonin 3 mg QHS PO Last administered on 05/30/18at 19:49; Start 03/23/18 at 21:00 Olanzapine (ZyPREXA ZYDIS) 2.5 mg PRN Q2HR PRN PO AGITATION/PSYCHOSIS Last administered on 05/30/18at 18:31; Start 03/23/18 at 20:45 Quetiapine Fumarate (SEROquel) 37.5 mg TID PO Last administered on 03/30/18at 14 :04; Start 03/23/18 at 21:00; Stop 03/30/18 at 18:38; Status DC Trazodone HCl (Desyrel) 50 mg QHS PO Last administered on 05/30/18at 19:49; Start 03/23/18 at 21:00 Divalproex Sodium (Depakote) 250 mg TID@0900,1300,1700 PO Last administered on 03/29/18at 16:05; Start 03/25/18 at 09:00; Stop 03/30/18 at 07:46; Status DC Mirtazapine (Remeron) 7.5 mg QHS PO Last administered on 03/29/18at 19:29; Start 03/29/18 at 21:00; Stop 03/30/18 at 18:28; Status DC Divalproex Sodium (Depakote Sprinkles) 250 mg TID@0900,1300,1700 PO Last administered on 03/31/18at 08:36; Start 03/30/18 at 09:00; Stop 03/31/18 at 13:22 ; Status DC Mirtazapine (Remeron) 15 mg QHS PO Last administered on 05/30/18at 19:50; Start 03/30/18 at 21:00 Quetiapine Fumarate (SEROquel) 50 mg BID PO Last administered on 03/31/18at 08: 36; Start 03/30/18 at 21:00; Stop 03/31/18 at 13:22; Status DC Sertraline HCl (Zoloft) 50 mg DAILY PO Last administered on 04/08/18at 07:34; Start 03/31/18 at 09:00; Stop 04/08/18 at 10:57; Status DC Quetiapine Fumarate (SEROquel) 37.5 mg DAILY@1300 PO Last administered on at 14:09; Start 03/31/18 at 13:00; Stop 03/31/18 at 16:00; Status DC Quetiapine Fumarate (SEROquel) 37.5 mg TID PO Last administered on 04/01/18at 19 :20; Start 03/31/18 at 21:00; Stop 04/02/18 at 08:00; Status DC Divalproex Sodium (Depakote Sprinkles) 250 mg BID PO Last administered on at 08:49; Start 03/31/18 at 21:00; Stop 04/01/18 at 18:16; Status DC Divalproex Sodium (Depakote Sprinkles) 250 mg DAILY PO ; Start 04/03/18 at 09:00 ; Stop 04/03/18 at 09:00; Status DC Divalproex Sodium (Depakote Sprinkles) 250 mg TID PO Last administered on at 13:35; Start 04/01/18 at 21:00; Stop 05/04/18 at 18:35; Status DC Quetiapine Fumarate (SEROquel) 37.5 mg BID@0900,1700 PO Last administered on at 16:55; Start 04/03/18 at 09:00; Stop 04/06/18 at 18:45; Status DC Trazodone HCl (Desyrel) 50 mg PRN QHS PRN PO INSOMNIA Last administered on at 22:25; Start 04/03/18 at 15:15 Hydroxyzine HCl (Atarax) 25 mg PRN Q4HRS PRN PO AGITATION/ANXIETY Last administered on 05/25/18at 19:30; Start 04/05/18 at 09:15 Quetiapine Fumarate (SEROquel) 50 mg BID94 PO Last administered on 04/08/18at 07 :34; Start 04/07/18 at 09:00; Stop 04/08/18 at 10:59; Status DC Sertraline HCl (Zoloft) 75 mg DAILY PO Last administered on 05/20/18at 08:48; Start 04/09/18 at 09:00; Stop 05/20/18 at 11:15; Status DC Quetiapine Fumarate (SEROquel) 62.5 mg BID@0900,1700 PO Last administered on 04/19/18at 17:41; Start 04/08/18 at 17:00; Stop 04/19/18 at 18:45; Status DC Trazodone HCl (Desyrel) 12.5 mg TID@0900,1300,1700 PO Last administered on at 07:55; Start 04/10/18 at 09:00; Stop 04/15/18 at 11:19; Status DC Trazodone HCl (Desyrel) 12.5 mg BID@1300,1700 PO Last administered on at 18:14; Start 04/15/18 at 13:00; Stop 04/27/18 at 19:01; Status DC Trazodone HCl (Desyrel) 25 mg DAILY PO Last administered on 04/27/18at 09:12; Start 04/16/18 at 09:00; Stop 04/27/18 at 19:01; Status DC Cetirizine HCl (ZyrTEC) 10 mg DAILY PO Last administered on 05/30/18at 11:41; Start 04/17/18 at 09:00 Quetiapine Fumarate (SEROquel) 62.5 mg DAILY PO Last administered on 04/21/18at 08:47; Start 04/20/18 at 09:00; Stop 04/21/18 at 19:21; Status DC Quetiapine Fumarate (SEROquel) 75 mg 1700 PO Last administered on 04/24/18at 17: 10; Start 04/20/18 at 17:00; Stop 04/25/18 at 17:12; Status DC Quetiapine Fumarate (SEROquel) 75 mg DAILY PO Last administered on 05/30/18at 11 :41; Start 04/22/18 at 09:00 Quetiapine Fumarate (SEROquel) 75 mg 1700 PO Last administered on 05/30/18at 17: 08; Start 04/25/18 at 17:15 Trazodone HCl (Desyrel) 12.5 mg DAILY@1700 PO Last administered on 05/30/18at 17 :08; Start 04/28/18 at 17:00; Stop 05/30/18 at 18:42; Status DC Trazodone HCl (Desyrel) 25 mg BID@0900,1300 PO Last administered on 05/30/18at 13:51; Start 04/28/18 at 09:00; Stop 05/30/18 at 18:42; Status DC Hydrocortisone (Cortaid) 1 shiraz BID TP Last administered on 05/30/18at 19:51; Start 05/02/18 at 21:00 Valproic Acid (Depakene) 250 mg TID PO Last administered on 05/30/18at 19:49; Start 05/04/18 at 21:00 Sertraline HCl (Zoloft) 100 mg DAILY PO Last administered on 05/30/18at 11:42; Start 05/21/18 at 09:00 Trazodone HCl (Desyrel) 25 mg 0900,1300,1700 PO ; Start 05/31/18 at 09:00 Active Scripts Active Reported Olanzapine 5 Mg Tablet 2.5 Mg PO PRN Q2HR PRN Analgesic [place] (Methyl Salicylate/Menthol) 28 Gm Oint...g. 1 [place] TP PRN QID PRN Milk Of Magnesia (Magnesium Hydroxide) 2,400 Mg/10 Ml Oral.susp 2,400 Mg PO PRN DAILY PRN Hydrocortisone 453.6 Gm Oint...g. 1 [place] TP BID Celexa (Citalopram Hydrobromide) 20 Mg Tablet 20 Mg PO DAILY Alum-Mag Hydroxide-Simeth Liq (Mag Hydrox/Al Hydrox/Simeth) 360 Ml Oral.susp 30 Ml PO PRN BID PRN Lorazepam 0.5 Mg Tablet 0.25 Mg PO PRN BID PRN Divalproex Sodium 250 Mg Tablet.dr 250 Mg PO BID Seroquel (Quetiapine Fumarate) 25 Mg Tablet 37.5 Mg PO TID Melatonin 3 Mg Tablet 3 Mg PO QHS Trazodone Hcl 50 Mg Tablet 50 Mg PO QHS Atorvastatin Calcium 40 Mg Tablet 40 Mg PO HS Bisacodyl 10 Mg Supp.rect 10 Mg RC PRN QHS PRN Tylenol (Acetaminophen) 325 Mg Tablet 650 Mg PO PRN Q4HRS PRN I have reviewed the current psychotropics carefully including drug interactions. Risk benefit ratio favors no change other than as noted in my dictated progress note. Diagnosis: Problems: (1) Anxiety disorder (2) Impulse control disorder (3) Dementia, vascular, with depression (4) Dementia, vascular, with delusions (5) Dementia in Alzheimer's disease with depression (6) Dementia in Alzheimer's disease with delusions (7) Syncopal episodes (8) Hypertension ELVA STROUD MD May 30, 2018 20:52
--- NOTE | 2018-05-30 22:51 | PN ---
DATE: 05/28/2018 PSYCHIATRIC PROGRESS NOTE This late entry 05/28/2018 covers elements not covered in my initial note. SUBJECTIVE: Met with the patient in the evening. Overall, per nursing report, the patient has been presently confused, compliant with medications, wandering around the hallways, looking for jobs to do around the unit, think she is working here. REVIEW OF SYSTEMS: No CV, , pulmonary, eye, ENT system symptoms on review. Reliability is poor. MENTAL STATUS EXAM: Oriented to herself. Insight, judgment, recent and remote memory, attention, concentration, fund of knowledge is poor, consistent with her diagnoses mentioned in my initial note. PLAN: Valproic acid level is therapeutic. Continue psychotropics from initial note. MAN Rachel STROUD MD DR: CHARLOTTE/fanny JOB#: [id number] / [id number]
[2018-05-31 05:55] VITALS: BP 109/64
[2018-05-31] MEDS: SERTRALINE 100 MG TABLET. PO SCH (07:53)
[2018-05-31] MEDS: CETIRIZINE HCL 10 MG TABLET PO SCH (07:53)
[2018-05-31] MEDS: QUEtiapine 50 MG TABLET. PO SCH ×2 (07:54→17:12)
[2018-05-31] MEDS: VALPROATE ACID 250 MG/5 ML ORAL SOLUTION PO SCH ×3 (07:55→20:50)
[2018-05-31] MEDS: HYDROCORTISONE 1% TOPICAL CREAM 30GM TUBE. TP SCH ×2 (07:55→20:54)
[2018-05-31] MEDS: traZODone 50 MG TABLET. PO SCH ×4 (07:57→20:49)
--- NOTE | 2018-05-31 12:51 | PN ---
DATE: 05/29/2018 PSYCHIATRIC PROGRESS NOTE This is a late entry, 05/29, covers elements not covered in my initial note. SUBJECTIVE: I met with the patient in the morning. The patient was sleeping late into the morning. Otherwise confused, gets a little more anxious, paranoid in the evening, but better in the morning. As I met with her, she is talking about her daughter, Caitlin. Thinks she is around somewhere here. REVIEW OF SYSTEMS: No CV, , pulmonary, eye, ENT system symptoms on review. MENTAL STATUS EXAM: Oriented to herself. Insight, judgment, recent and remote memory, attention, concentration, fund of knowledge poor, consistent with her diagnosis mentioned in my initial note. PLAN: No change from initial note. MAN Rachel STROUD MD DR: CHARLOTTE/fanny JOB#: [id number] / [id number]
[2018-05-31 15:46] VITALS: BP 147/80
[2018-05-31] MEDS: MELATONIN 3 MG TABLET PO SCH (20:49)
[2018-05-31] MEDS: MIRTAZAPINE 15 MG TABLET PO SCH (20:54)
[2018-05-31] MEDS: ATORVASTATIN CALCIUM 20 MG TABLET PO SCH (20:54)
--- NOTE | 2018-05-31 20:55 | PDOC ---
Exam Note: Ye Note: Please also refer to the separate dictated note~for this date of service dictated separately.~Patient seen individually. Discussed the patient with Nursing staff reviewed the chart.~Reviewed interim history and current functioning. Reviewed vital signs,~Labs/ Radiology~and current medications noted below. Continue current treatment with the changes noted in the dictated addendum note Assessment: Vital Signs: Vital Signs Date Time Temp Pulse Resp B/P (MAP) Pulse Ox O2 Delivery O2 Flow Rate FiO2 05/31/18 15:46 98.0 84 20 147/80 (102) 94 05/28/18 15:54 Room Air I&O Intake and Output 05/31/18 07:01 Intake Total 480 ml Balance 480 ml Intake Oral 480 ml # Voids 1 Current Medications: Meds: Current Medications Acetaminophen (Tylenol) 650 mg PRN Q4HRS PRN PO pain rated 4-6 on scale; Start 03/23/18 at 20:15 Hydrocortisone (Hytone) 1 shiraz BID TP Last administered on 05/01/18at 19:20; Start 03/23/18 at 21:00; Stop 05/02/18 at 10:37; Status DC Multi-Ingredient Ointment (Analgesic [place]) 1 shiarz PRN QID PRN TP MUSCLE PAIN; Start 03/23/18 at 20:15 Atorvastatin Calcium (Lipitor) 40 mg QHS PO Last administered on 05/31/18at 20: 54; Start 03/23/18 at 21:00 Bisacodyl (Dulcolax Supp) 10 mg PRN QHS PRN [place] CONSTIPATION; Start 03/23/18 at 20:45 Al Hydroxide/Mg Hydroxide (Mylanta Plus Xs) 30 ml PRN BID PRN PO DYSPEPSIA; Start 03/23/18 at 20:45 Magnesium Hydroxide (Milk Of Magnesia) 2,400 mg PRN DAILY PRN PO CONSTIPATION Last administered on 05/10/18at 20:08; Start 03/23/18 at 20:45 Citalopram Hydrobromide (CeleXA) 20 mg DAILY PO Last administered on 03/30/18at 07:42; Start 03/24/18 at 09:00; Stop 03/30/18 at 18:28; Status DC Divalproex Sodium (Depakote) 250 mg BID PO Last administered on 03/24/18at 07:38 ; Start 03/23/18 at 21:00; Stop 03/24/18 at 19:08; Status DC Lorazepam (Ativan) 0.25 mg PRN BID PRN PO ANXIETY / AGITATION Last administered on 05/27/18at 21:40; Start 03/23/18 at 20:45 Melatonin 3 mg QHS PO Last administered on 05/31/18 20:49; Start 03/23/18 at 21:00 Olanzapine (ZyPREXA ZYDIS) 2.5 mg PRN Q2HR PRN PO AGITATION/PSYCHOSIS Last administered on 05/31/18at 15:31; Start 03/23/18 at 20:45 Quetiapine Fumarate (SEROquel) 37.5 mg TID PO Last administered on 03/30/18 14 :04; Start 03/23/18 at 21:00; Stop 03/30/18 at 18:38; Status DC Trazodone HCl (Desyrel) 50 mg QHS PO Last administered on 05/31/18 20:49; Start 03/23/18 at 21:00 Divalproex Sodium (Depakote) 250 mg TID@0900,1300,1700 PO Last administered on 03/29/18at 16:05; Start 03/25/18 at 09:00; Stop 03/30/18 at 07:46; Status DC Mirtazapine (Remeron) 7.5 mg QHS PO Last administered on 03/29/18 19:29; Start 03/29/18 at 21:00; Stop 03/30/18 at 18:28; Status DC Divalproex Sodium (Depakote Sprinkles) 250 mg TID@0900,1300,1700 PO Last administered on 03/31/18 08:36; Start 03/30/18 at 09:00; Stop 03/31/18 at 13:22 ; Status DC Mirtazapine (Remeron) 15 mg QHS PO Last administered on 05/31/18 20:54; Start 03/30/18 at 21:00 Quetiapine Fumarate (SEROquel) 50 mg BID PO Last administered on 03/31/18 08: 36; Start 03/30/18 at 21:00; Stop 03/31/18 at 13:22; Status DC Sertraline HCl (Zoloft) 50 mg DAILY PO Last administered on 04/08/18at 07:34; Start 03/31/18 at 09:00; Stop 04/08/18 at 10:57; Status DC Quetiapine Fumarate (SEROquel) 37.5 mg DAILY@1300 PO Last administered on at 14:09; Start 03/31/18 at 13:00; Stop 03/31/18 at 16:00; Status DC Quetiapine Fumarate (SEROquel) 37.5 mg TID PO Last administered on 04/01/18at 19 :20; Start 03/31/18 at 21:00; Stop 04/02/18 at 08:00; Status DC Divalproex Sodium (Depakote Sprinkles) 250 mg BID PO Last administered on at 08:49; Start 03/31/18 at 21:00; Stop 04/01/18 at 18:16; Status DC Divalproex Sodium (Depakote Sprinkles) 250 mg DAILY PO ; Start 04/03/18 at 09:00 ; Stop 04/03/18 at 09:00; Status DC Divalproex Sodium (Depakote Sprinkles) 250 mg TID PO Last administered on at 13:35; Start 04/01/18 at 21:00; Stop 05/04/18 at 18:35; Status DC Quetiapine Fumarate (SEROquel) 37.5 mg BID@0900,1700 PO Last administered on at 16:55; Start 04/03/18 at 09:00; Stop 04/06/18 at 18:45; Status DC Trazodone HCl (Desyrel) 50 mg PRN QHS PRN PO INSOMNIA Last administered on at 22:25; Start 04/03/18 at 15:15 Hydroxyzine HCl (Atarax) 25 mg PRN Q4HRS PRN PO AGITATION/ANXIETY Last administered on 05/25/18at 19:30; Start 04/05/18 at 09:15 Quetiapine Fumarate (SEROquel) 50 mg BID94 PO Last administered on 04/08/18at 07 :34; Start 04/07/18 at 09:00; Stop 04/08/18 at 10:59; Status DC Sertraline HCl (Zoloft) 75 mg DAILY PO Last administered on 05/20/18at 08:48; Start 04/09/18 at 09:00; Stop 05/20/18 at 11:15; Status DC Quetiapine Fumarate (SEROquel) 62.5 mg BID@0900,1700 PO Last administered on 04/19/18at 17:41; Start 04/08/18 at 17:00; Stop 04/19/18 at 18:45; Status DC Trazodone HCl (Desyrel) 12.5 mg TID@0900,1300,1700 PO Last administered on at 07:55; Start 04/10/18 at 09:00; Stop 04/15/18 at 11:19; Status DC Trazodone HCl (Desyrel) 12.5 mg BID@1300,1700 PO Last administered on at 18:14; Start 04/15/18 at 13:00; Stop 04/27/18 at 19:01; Status DC Trazodone HCl (Desyrel) 25 mg DAILY PO Last administered on 04/27/18at 09:12; Start 04/16/18 at 09:00; Stop 04/27/18 at 19:01; Status DC Cetirizine HCl (ZyrTEC) 10 mg DAILY PO Last administered on 05/31/18at 07:53; Start 04/17/18 at 09:00 Quetiapine Fumarate (SEROquel) 62.5 mg DAILY PO Last administered on 04/21/18at 08:47; Start 04/20/18 at 09:00; Stop 04/21/18 at 19:21; Status DC Quetiapine Fumarate (SEROquel) 75 mg 1700 PO Last administered on 04/24/18at 17: 10; Start 04/20/18 at 17:00; Stop 04/25/18 at 17:12; Status DC Quetiapine Fumarate (SEROquel) 75 mg DAILY PO Last administered on 05/31/18at 07 :54; Start 04/22/18 at 09:00 Quetiapine Fumarate (SEROquel) 75 mg 1700 PO Last administered on 05/31/18at 17: 12; Start 04/25/18 at 17:15 Trazodone HCl (Desyrel) 12.5 mg DAILY@1700 PO Last administered on 05/30/18at 17 :08; Start 04/28/18 at 17:00; Stop 05/30/18 at 18:42; Status DC Trazodone HCl (Desyrel) 25 mg BID@0900,1300 PO Last administered on 05/30/18at 13:51; Start 04/28/18 at 09:00; Stop 05/30/18 at 18:42; Status DC Hydrocortisone (Cortaid) 1 shiraz BID TP Last administered on 05/31/18at 20:54; Start 05/02/18 at 21:00 Valproic Acid (Depakene) 250 mg TID PO Last administered on 05/31/18at 20:50; Start 05/04/18 at 21:00 Sertraline HCl (Zoloft) 100 mg DAILY PO Last administered on 05/31/18at 07:53; Start 05/21/18 at 09:00 Trazodone HCl (Desyrel) 25 mg 0900,1300,1700 PO Last administered on 05/31/18at 17:12; Start 05/31/18 at 09:00 Active Scripts Active Reported Olanzapine 5 Mg Tablet 2.5 Mg PO PRN Q2HR PRN Analgesic [place] (Methyl Salicylate/Menthol) 28 Gm Oint...g. 1 Shiraz TP PRN QID PRN Milk Of Magnesia (Magnesium Hydroxide) 2,400 Mg/10 Ml Oral.susp 2,400 Mg PO PRN DAILY PRN Hydrocortisone 453.6 Gm Oint...g. 1 Shiraz TP BID Celexa (Citalopram Hydrobromide) 20 Mg Tablet 20 Mg PO DAILY Alum-Mag Hydroxide-Simeth Liq (Mag Hydrox/Al Hydrox/Simeth) 360 Ml Oral.susp 30 Ml PO PRN BID PRN Lorazepam 0.5 Mg Tablet 0.25 Mg PO PRN BID PRN Divalproex Sodium 250 Mg Tablet.dr 250 Mg PO BID Seroquel (Quetiapine Fumarate) 25 Mg Tablet 37.5 Mg PO TID Melatonin 3 Mg Tablet 3 Mg PO QHS Trazodone Hcl 50 Mg Tablet 50 Mg PO QHS Atorvastatin Calcium 40 Mg Tablet 40 Mg PO HS Bisacodyl 10 Mg Supp.rect 10 Mg RC PRN QHS PRN Tylenol (Acetaminophen) 325 Mg Tablet 650 Mg PO PRN Q4HRS PRN I have reviewed the current psychotropics carefully including drug interactions. Risk benefit ratio favors no change other than as noted in my dictated progress note. Diagnosis: Problems: (1) Anxiety disorder (2) Impulse control disorder (3) Dementia, vascular, with depression (4) Dementia, vascular, with delusions (5) Dementia in Alzheimer's disease with depression (6) Dementia in Alzheimer's disease with delusions (7) Syncopal episodes (8) Hypertension ELVA STROUD MD May 31, 2018 20:55
--- NOTE | 2018-05-31 22:55 | PN ---
DATE: 05/30/2018 PSYCHIATRIC PROGRESS NOTE This is a late entry, 05/30, covers elements not covered in my initial note. SUBJECTIVE: I met with the patient in the morning. The patient slept 5-1/2 hours previous evening and intermittently anxious, restless, paranoid in the evening, but redirects. REVIEW OF SYSTEMS: No CV, , pulmonary, eye, ENT system symptoms on review. She is looking for her daughter, believes this is her work area. MENTAL STATUS EXAM: Oriented to herself. Insight, judgment, recent and remote memory, attention, concentration, fund of knowledge poor, consistent with her diagnosis mentioned in my initial note. PLAN: Increase 1700 trazodone from 12.5 to 25 mg. Continue rest unchanged. MAN Rachel STROUD MD DR: CHARLOTTE/fanny JOB#: [id number] / [id number]
[2018-06-01] MEDS ORDERED: CETI10TA22 PO (01:46)
[2018-06-01] MEDS ORDERED: MIRT15TA3 PO (01:49)
[2018-06-01] MEDS ORDERED: QUET50TA5 PO (01:51)
[2018-06-01] MEDS ORDERED: SERT100T PO (01:52)
[2018-06-01] MEDS ORDERED: VALP250S PO (01:53)
[2018-06-01] MEDS ORDERED: HYDR25TA PO (01:55)
[2018-06-01] MEDS ORDERED: TRAZ-85 PO ×3 (01:59→02:07)
[2018-06-01 05:18] VITALS: BP 105/47
[2018-06-01] MEDS: QUEtiapine 50 MG TABLET. PO SCH (11:04)
[2018-06-01] MEDS: VALPROATE ACID 250 MG/5 ML ORAL SOLUTION PO SCH (11:04)
[2018-06-01] MEDS: traZODone 50 MG TABLET. PO SCH ×2 (11:04→13:00)
[2018-06-01] MEDS: CETIRIZINE HCL 10 MG TABLET PO SCH (11:04)
[2018-06-01] MEDS: SERTRALINE 100 MG TABLET. PO SCH (11:04)
[2018-06-01] MEDS: HYDROCORTISONE 1% TOPICAL CREAM 30GM TUBE. TP SCH (11:05)
--- NOTE | 2018-06-01 18:07 | PDOC ---
Exam Note: Ye Note: Please also refer to the separate dictated note~for this date of service dictated separately.~Patient seen individually. Discussed the patient with Nursing staff reviewed the chart.~Reviewed interim history and current functioning. Reviewed vital signs,~Labs/ Radiology~and current medications noted below. Continue current treatment with the changes noted in the dictated addendum note Assessment: Vital Signs: Vital Signs Date Time Temp Pulse Resp B/P (MAP) Pulse Ox O2 Delivery O2 Flow Rate FiO2 06/01/18 05:18 97.3 63 20 105/47 (66) 99 05/28/18 15:54 Room Air I&O Intake and Output 06/01/18 07:00 Intake Total 1080 ml Balance 1080 ml Intake Oral 1080 ml # Voids 1 Current Medications: Meds: Current Medications Acetaminophen (Tylenol) 650 mg PRN Q4HRS PRN PO pain rated 4-6 on scale; Start 03/23/18 at 20:15; Stop 06/01/18 at 13:18; Status DC Hydrocortisone (Hytone) 1 shiraz BID TP Last administered on 05/01/18at 19:20; Start 03/23/18 at 21:00; Stop 05/02/18 at 10:37; Status DC Multi-Ingredient Ointment (Analgesic Tyler) 1 shiraz PRN QID PRN TP MUSCLE PAIN; Start 03/23/18 at 20:15; Stop 06/01/18 at 13:18; Status DC Atorvastatin Calcium (Lipitor) 40 mg QHS PO Last administered on 05/31/18at 20: 54; Start 03/23/18 at 21:00; Stop 06/01/18 at 13:18; Status DC Bisacodyl (Dulcolax Supp) 10 mg PRN QHS PRN [place] CONSTIPATION; Start 03/23/18 at 20:45; Stop 06/01/18 at 13:18; Status DC Al Hydroxide/Mg Hydroxide (Mylanta Plus Xs) 30 ml PRN BID PRN PO DYSPEPSIA; Start 03/23/18 at 20:45; Stop 06/01/18 at 13:18; Status DC Magnesium Hydroxide (Milk Of Magnesia) 2,400 mg PRN DAILY PRN PO CONSTIPATION Last administered on 05/10/18at 20:08; Start 03/23/18 at 20:45; Stop 06/01/18 at 13:18; Status DC Citalopram Hydrobromide (CeleXA) 20 mg DAILY PO Last administered on 03/30/18at 07:42; Start 03/24/18 at 09:00; Stop 03/30/18 at 18:28; Status DC Divalproex Sodium (Depakote) 250 mg BID PO Last administered on 03/24/18at 07:38 ; Start 03/23/18 at 21:00; Stop 03/24/18 at 19:08; Status DC Lorazepam (Ativan) 0.25 mg PRN BID PRN PO ANXIETY / AGITATION Last administered on 05/27/18at 21:40; Start 03/23/18 at 20:45; Stop 06/01/18 at 13:18 ; Status DC Melatonin 3 mg QHS PO Last administered on 05/31/18at 20:49; Start 03/23/18 at 21:00; Stop 06/01/18 at 13:18; Status DC Olanzapine (ZyPREXA ZYDIS) 2.5 mg PRN Q2HR PRN PO AGITATION/PSYCHOSIS Last administered on 05/31/18at 15:31; Start 03/23/18 at 20:45; Stop 06/01/18 at 13:18 ; Status DC Quetiapine Fumarate (SEROquel) 37.5 mg TID PO Last administered on 03/30/18at 14 :04; Start 03/23/18 at 21:00; Stop 03/30/18 at 18:38; Status DC Trazodone HCl (Desyrel) 50 mg QHS PO Last administered on 05/31/18at 20:49; Start 03/23/18 at 21:00; Stop 06/01/18 at 13:18; Status DC Divalproex Sodium (Depakote) 250 mg TID@0900,1300,1700 PO Last administered on 03/29/18at 16:05; Start 03/25/18 at 09:00; Stop 03/30/18 at 07:46; Status DC Mirtazapine (Remeron) 7.5 mg QHS PO Last administered on 03/29/18at 19:29; Start 03/29/18 at 21:00; Stop 03/30/18 at 18:28; Status DC Divalproex Sodium (Depakote Sprinkles) 250 mg TID@0900,1300,1700 PO Last administered on 03/31/18at 08:36; Start 03/30/18 at 09:00; Stop 03/31/18 at 13:22 ; Status DC Mirtazapine (Remeron) 15 mg QHS PO Last administered on 05/31/18at 20:54; Start 03/30/18 at 21:00; Stop 06/01/18 at 13:18; Status DC Quetiapine Fumarate (SEROquel) 50 mg BID PO Last administered on 03/31/18at 08: 36; Start 03/30/18 at 21:00; Stop 03/31/18 at 13:22; Status DC Sertraline HCl (Zoloft) 50 mg DAILY PO Last administered on 04/08/18at 07:34; Start 03/31/18 at 09:00; Stop 04/08/18 at 10:57; Status DC Quetiapine Fumarate (SEROquel) 37.5 mg DAILY@1300 PO Last administered on at 14:09; Start 03/31/18 at 13:00; Stop 03/31/18 at 16:00; Status DC Quetiapine Fumarate (SEROquel) 37.5 mg TID PO Last administered on 04/01/18at 19 :20; Start 03/31/18 at 21:00; Stop 04/02/18 at 08:00; Status DC Divalproex Sodium (Depakote Sprinkles) 250 mg BID PO Last administered on at 08:49; Start 03/31/18 at 21:00; Stop 04/01/18 at 18:16; Status DC Divalproex Sodium (Depakote Sprinkles) 250 mg DAILY PO ; Start 04/03/18 at 09:00 ; Stop 04/03/18 at 09:00; Status DC Divalproex Sodium (Depakote Sprinkles) 250 mg TID PO Last administered on at 13:35; Start 04/01/18 at 21:00; Stop 05/04/18 at 18:35; Status DC Quetiapine Fumarate (SEROquel) 37.5 mg BID@0900,1700 PO Last administered on at 16:55; Start 04/03/18 at 09:00; Stop 04/06/18 at 18:45; Status DC Trazodone HCl (Desyrel) 50 mg PRN QHS PRN PO INSOMNIA Last administered on at 22:25; Start 04/03/18 at 15:15; Stop 06/01/18 at 13:18; Status DC Hydroxyzine HCl (Atarax) 25 mg PRN Q4HRS PRN PO AGITATION/ANXIETY Last administered on 05/25/18at 19:30; Start 04/05/18 at 09:15; Stop 06/01/18 at 13:18 ; Status DC Quetiapine Fumarate (SEROquel) 50 mg BID94 PO Last administered on 04/08/18at 07 :34; Start 04/07/18 at 09:00; Stop 04/08/18 at 10:59; Status DC Sertraline HCl (Zoloft) 75 mg DAILY PO Last administered on 05/20/18at 08:48; Start 04/09/18 at 09:00; Stop 05/20/18 at 11:15; Status DC Quetiapine Fumarate (SEROquel) 62.5 mg BID@0900,1700 PO Last administered on 04/19/18at 17:41; Start 04/08/18 at 17:00; Stop 04/19/18 at 18:45; Status DC Trazodone HCl (Desyrel) 12.5 mg TID@0900,1300,1700 PO Last administered on at 07:55; Start 04/10/18 at 09:00; Stop 04/15/18 at 11:19; Status DC Trazodone HCl (Desyrel) 12.5 mg BID@1300,1700 PO Last administered on at 18:14; Start 04/15/18 at 13:00; Stop 04/27/18 at 19:01; Status DC Trazodone HCl (Desyrel) 25 mg DAILY PO Last administered on 04/27/18at 09:12; Start 04/16/18 at 09:00; Stop 04/27/18 at 19:01; Status DC Cetirizine HCl (ZyrTEC) 10 mg DAILY PO Last administered on 06/01/18at 11:04; Start 04/17/18 at 09:00; Stop 06/01/18 at 13:18; Status DC Quetiapine Fumarate (SEROquel) 62.5 mg DAILY PO Last administered on 04/21/18at 08:47; Start 04/20/18 at 09:00; Stop 04/21/18 at 19:21; Status DC Quetiapine Fumarate (SEROquel) 75 mg 1700 PO Last administered on 04/24/18at 17: 10; Start 04/20/18 at 17:00; Stop 04/25/18 at 17:12; Status DC Quetiapine Fumarate (SEROquel) 75 mg DAILY PO Last administered on 06/01/18at 11 :04; Start 04/22/18 at 09:00; Stop 06/01/18 at 13:18; Status DC Quetiapine Fumarate (SEROquel) 75 mg 1700 PO Last administered on 05/31/18at 17: 12; Start 04/25/18 at 17:15; Stop 06/01/18 at 13:18; Status DC Trazodone HCl (Desyrel) 12.5 mg DAILY@1700 PO Last administered on 05/30/18at 17 :08; Start 04/28/18 at 17:00; Stop 05/30/18 at 18:42; Status DC Trazodone HCl (Desyrel) 25 mg BID@0900,1300 PO Last administered on 05/30/18at 13:51; Start 04/28/18 at 09:00; Stop 05/30/18 at 18:42; Status DC Hydrocortisone (Cortaid) 1 shiraz BID TP Last administered on 06/01/18at 11:05; Start 05/02/18 at 21:00; Stop 06/01/18 at 13:18; Status DC Valproic Acid (Depakene) 250 mg TID PO Last administered on 06/01/18at 11:04; Start 05/04/18 at 21:00; Stop 06/01/18 at 13:18; Status DC Sertraline HCl (Zoloft) 100 mg DAILY PO Last administered on 06/01/18at 11:04; Start 05/21/18 at 09:00; Stop 06/01/18 at 13:18; Status DC Trazodone HCl (Desyrel) 25 mg 0900,1300,1700 PO Last administered on 06/01/18at 11:04; Start 05/31/18 at 09:00; Stop 06/01/18 at 13:18; Status DC Active Scripts Active Reported Trazodone Hcl 50 Mg Tablet 50 Mg PO HS Trazodone Hcl 50 Mg Tablet 50 Mg PO PRN QHS PRN May repeat x 1 Trazodone Hcl 50 Mg Tablet 25 Mg PO [id number] Hydroxyzine Hcl 25 Mg Tablet 25 Mg PO PRN Q4HRS PRN Depakene (Valproate Sodium) 250 Mg/5 Ml Solution 250 Mg PO TID Zoloft (Sertraline Hcl) 100 Mg Tablet 100 Mg PO DAILY Seroquel (Quetiapine Fumarate) 50 Mg Tablet 75 Mg PO [id number] Mirtazapine 15 Mg Tablet 15 Mg PO HS Zyrtec (Cetirizine Hcl) 10 Mg Tablet 10 Mg PO DAILY Olanzapine 5 Mg Tablet 2.5 Mg PO PRN Q2HR PRN Analgesic Tyler (Methyl Salicylate/Menthol) 28 Gm Oint...g. 1 Shiraz TP PRN QID PRN Milk Of Magnesia (Magnesium Hydroxide) 2,400 Mg/10 Ml Oral.susp 2,400 Mg PO PRN DAILY PRN Hydrocortisone 453.6 Gm Oint...g. 1 Shiraz TP BID Alum-Mag Hydroxide-Simeth Liq (Mag Hydrox/Al Hydrox/Simeth) 360 Ml Oral.susp 30 Ml PO PRN BID PRN Lorazepam 0.5 Mg Tablet 0.25 Mg PO PRN BID PRN Melatonin 3 Mg Tablet 3 Mg PO QHS Atorvastatin Calcium 40 Mg Tablet 40 Mg PO HS Bisacodyl 10 Mg Supp.rect 10 Mg RC PRN QHS PRN Tylenol (Acetaminophen) 325 Mg Tablet 650 Mg PO PRN Q4HRS PRN I have reviewed the current psychotropics carefully including drug interactions. Risk benefit ratio favors no change other than as noted in my dictated progress note. Diagnosis: Problems: (1) Major neurocognitive disorder (2) Dementia in Alzheimer's disease with delusions (3) Dementia in Alzheimer's disease with depression (4) Dementia, vascular, with delusions (5) Dementia, vascular, with depression (6) Impulse control disorder (7) Anxiety disorder ELVA STROUD MD Jun 01, 2018 18:07
--- NOTE | 2018-06-02 02:24 | PN ---
DATE: 05/31/2018 PSYCHIATRIC PROGRESS NOTE This late entry 05/31/2018 covers elements, not covered in my initial note. SUBJECTIVE: I met with the patient in the evening. The patient remains confused, slept 6-1/2 hours previous evening, refused evening medications. She is delusional, believes she has a job here. 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 She thinks the daughter has been kidnapped. Processed with her at some length. REVIEW OF SYSTEMS: No CV, , pulmonary, eye, ENT system symptoms on review. Reliability poor. MENTAL STATUS EXAM: Oriented to herself. Insight, judgment, recent and remote memory, attention, concentration, fund of knowledge poor, consistent with her diagnosis mentioned in my initial note. PLAN: No change from initial note. MAN Rachel STROUD MD DR: CHARLOTTE/fanny JOB#: [id number] / [id number]
--- NOTE | 2018-06-02 13:04 | DS ---
DATE OF DISCHARGE: 06/01/2018 DISCHARGE SUMMARY/PSYCHIATRIC PROGRESS NOTE This is a late entry, date of service 06/01/2018, covers elements not covered in my initial note. REASON FOR ADMISSION: Please refer to the admission history for details. Briefly, the patient is a 72-year-old female referred to us back from the ICU after she is medically stabilized. She was initially referred to us from [facility] on account of worsening confusion, agitation, behaviors that were deemed dangerous, out of control. Readers referred to my notes from that hospitalization for details. Medically, she had deterioration and was transferred to the ICU per Dr. Perkins and after she was medically stabilized she remained extremely restless, combative, agitated, attempting to pull out her IV. Behaviors were deemed dangerous, out of control, unmanageable, could not be sent back to the facility, who were not willing to have her back anyway. She was transferred back to our unit for further psychiatric stabilization. SIGNIFICANT FINDINGS AND CLINICAL COURSE: Following admission, the patient was seen daily individually by myself, followed medically per Dr. Perkins/Dr. Lo. The patient had a very protracted course during this hospitalization. A large part of which was awaiting appropriate nursing facility placement in [place], which is where her daughter, Caitlin wanted her transferred to. Additionally, the patient was having significant behavioral dyscontrol, agitation, paranoia aggression, all of which stabilized gradually. There is a change in social sciences lecturer staff as well towards the latter part of her hospital stay, which prolonged some of the coordination for care home placement at discharge and prolong the length of her hospitalization. Despite all of this the social service staff are working very closely with the patient's daughter, Caitlin and I talked to the daughter as well on several occasions in an attempt to coordinate her transition to a nursing facility close to the daughter in [place], [place] and ultimately we were successful. Psychotropics were adjusted in a very graduated thoughtful manner and she seemed to stabilize on a combination of Zoloft 100 mg a day, melatonin 3 mg at bedtime, Zyprexa p.r.n., Ativan p.r.n., Remeron 15 mg at bedtime, Seroquel 75 b.i.d., Depakote 250 t.i.d., hydroxyzine p.r.n., trazodone 25 mg 0900, 1300, 1700, 50 mg at bedtime, may repeat x 1 for insomnia. She was on several psychotropics at discharge and it will be important for the psychiatrist at the receiving facility to try and gradually taper these when she stabilizes after the transition. REVIEW OF SYSTEMS: Prior to discharge, 06/01/2018; no CV, , pulmonary, eye, ENT system symptoms on review. Reliability poor. MENTAL STATUS EXAM: Oriented to herself. Insight, judgment, recent and remote memory, attention, concentration, fund of knowledge poor, consistent with her diagnoses mentioned in my initial note. CONDITION AT DISCHARGE: Improved. FINAL DIAGNOSES: Major neurocognitive disorder, Alzheimer, vascular with delusion, depression, behavioral disturbance; anxiety disorder, unspecified; impulse control disorder, unspecified. Rest unchanged from admission. DISCHARGE MEDICATIONS: Please refer to the MRAD. DISCHARGE INSTRUCTIONS: Psychiatric and medical followup at the care home. ELVA STROUD MD DR: CHARLOTTE/fanny JOB#: [id number] / [id number]
== END 2018-06-01 12:30 | DRG 56 ==
LOC: GEROPSY 18:34
PROVIDERS: ADMIT Psychiatry & Neurology Psychiatry; ATTEND Psychiatry & Neurology Psychiatry
DX: G30.9 Alzheimer's disease, unspecified (principal); E43 Unspecified severe protein-calorie malnutrition; F01.51 Vascular dementia, unspecified severity, with behavioral disturbance; F02.81 Dementia in other diseases classified elsewhere, unspecified severity, with behavioral disturbance; E78.5 Hyperlipidemia, unspecified; E86.0 Dehydration; F32.9 Major depressive disorder, single episode, unspecified; F41.9 Anxiety disorder, unspecified; F63.9 Impulse disorder, unspecified; I10 Essential (primary) hypertension; I95.1 Orthostatic hypotension; Z68.28 Body mass index [BMI] 28.0-28.9, adult; Z88.1 Allergy status to other antibiotic agents; Z79.899 Other long term (current) drug therapy
CPT/HCPCS: 36415; 70450; 80048; 80053; 80164; 81001; 82140; 83735; 85025; 85027; 87086